=== PATIENT | female | born 1955 | race Caucasian/White ===

== ENCOUNTER → 2017-05-31 | Outpatient (CLI) | payer BC, SELFPAY | PROVIDERS: Visit Provider Physician Assistant | DX: R00.2 Palpitations (principal) | CPT/HCPCS: 80053; 80061; 82306; 84439; 84443; 85025 ==

== ENCOUNTER → 2017-09-27 09:24 | Outpatient (REF) | payer BC, SELFPAY ==
[2017-09-27 18:17] LABS: T4 (Thyroxine) 9.1 ug/dl (4.7-13.3); Thyroid Stimulating Hormone 4.76 uIU/ml (0.358-3.740)
== END ==
LOC: LAB 09:24
PROVIDERS: Visit Provider Physician Assistant
DX: R94.6 Abnormal results of thyroid function studies (principal)
CPT/HCPCS: 84436; 84443

== ENCOUNTER → 2018-09-18 09:44 | Outpatient (CLI) | payer BC, SELFPAY ==
--- NOTE | 2018-09-18 09:49 | XR_ITS ---
XR knee LT 4V HISTORY: Anterior knee pain ITS.REASON: AP, Lateral, Day, norris weightbearing ORDERING PHYSICIAN: Cassi Fraga MD PATIENT AGE: 62 years COMPARISON: None FINDINGS: Moderate to severe osteoarthritic changes are present at the medial compartment and patellofemoral joint with loss of joint space and osteophyte formation. These findings are slightly worse on today's study. There remains a loose intra-articular body noted over the interspinous region of the proximal tibia. No fracture or dislocation. No lytic or blastic change. IMPRESSION: Moderate to severe osteoarthritis slightly worse with loose intra-articular body
== END ==
PROVIDERS: PCP Emergency Medicine; Visit Provider Orthopaedic Surgery
DX: M25.562 Pain in left knee (principal)
CPT/HCPCS: 73564

== ENCOUNTER → 2018-12-07 08:25 | Outpatient (CLI) | payer BC, SELFPAY ==
--- NOTE | 2018-12-07 08:26 | MM_ITS ---
MM Dig SC mamm implant BI CAD CAD Screening COMPARISON: Outside Digital mammograms with CAD 10/20/2011 INDICATION: There is no personal or family history of breast cancer.. The patient has bilateral breast implants TECHNIQUE: Standard CC and MLO images were obtained. R2 CAD reviewed. FINDINGS: Standard MLO and CC views were obtained along with additional Silvio views for the breast implants. Mildly heterogenic fibroglandular densities are seen in the new [place] breast parenchyma around the implants. There is a benign-appearing calcination right breast. Both implants appear intact with no evidence of leakage. There is no suspicious lesion and there are no suspicious microcalcifications. IMPRESSION: Intact breast implants bilaterally with no suspicious lesion seen BI-RADS Category: 2 Benign Finding(s) RECOMMENDED FOLLOW-UP: 1YR - 1 YEAR FOLLOW-UP (A letter has been sent to the patient regarding results of the study.)
== END ==
PROVIDERS: PCP Physician Assistant; Visit Provider Physician Assistant
DX: Z12.31 Encounter for screening mammogram for malignant neoplasm of breast (principal)
CPT/HCPCS: 77067

== ENCOUNTER 2019-08-29 13:00 | Outpatient (RCR) | payer BC, SELFPAY | END 2019-08-29 14:30 | disposition home or self-care (01) | LOC: PT.CARL 13:00 | PROVIDERS: PCP Physician Assistant; Visit Provider Orthopaedic Surgery | DX: Z96.652 Presence of left artificial knee joint (principal); Z74.09 Other reduced mobility; M17.12 Unilateral primary osteoarthritis, left knee | CPT/HCPCS: 97010; 97014; 97110; 97140; 97163; G0283 ==

== ENCOUNTER → 2020-02-21 09:11 | Outpatient (CLI) | payer BC, SELFPAY | PROVIDERS: PCP Physician Assistant; Visit Provider Physician Assistant | DX: R00.2 Palpitations (principal); I49.9 Cardiac arrhythmia, unspecified | CPT/HCPCS: 93225; 93226 ==

== ENCOUNTER → 2021-08-06 16:00 | Outpatient (CLI) | payer BC, SELFPAY ==
[2021-08-06 14:17] LABS: Basophils # 0.1 K/mm3 (0-0.2); Basophils % 0.9 % (0.1-2.0); Eosinophils # 0.1 K/mm3 (0.0-0.4); Eosinophils % 1.5 % (0.1-12.0); Hematocrit 46.6 % (37.0-47.0); Hemoglobin 14.7 g/dL (12.2-16.2); Lymphocytes # 2.5 K/mm3 (0.7-4.5); Lymphocytes % 27.9 % (10-50); Mean Corpuscular HGB Conc 31.6 g/dL (31.8-35.4); Mean Corpuscular Hemoglobin 27.9 pg (27.0-31.2); Mean Corpuscular Volume 88.2 fl (81-99); Mean Platelet Volume 9.2 fl (7.4-10.4); Monocytes # 0.8 K/mm3 (0.1-1.0); Monocytes % 8.6 % (1.7-9.3); Neutrophils # 5.5 K/mm3 (1.8-7.8); Neutrophils % 61.1 % (37.0-80.0); Platelet Count 484 K/mm3 (142-424); Red Blood Count 5.28 M/mm3 (4.20-5.40); Red Cell Distribution Width 13.8 % (11.5-17.5); White Blood Count 8.9 K/mm3 (4.8-10.8)
[2021-08-06 14:23] LABS: Alanine Aminotransferase 22 U/L (12-78); Albumin Level 4.9 g/dl (3.5-5.0); Albumin/Globulin Ratio 1.7 (1.1-1.8); Alkaline Phosphatase 97 U/L (38-126); Aspartate Amino Transferase 33 U/L (14-36); Bilirubin,Total 0.6 mg/dl (0.2-1.3); Blood Urea Nitrogen 13 mg/dl (7-17); Calcium 10.5 mg/dl (8.4-10.2); Carbon Dioxide 27 mmol/L (22.0-30.0); Chloride 102 mmol/L (98-107); Chol/HDL Ratio 4.5 (1-3.5); Cholesterol 291 mg/dl (140-200); Estimated Glomerular Filt Rate 101 ml/min (>60); GFR (African American) 122 ML/MIN (>60); Globulin 2.9 g/dL (1.3-3.2); Glucose 80 mg/dl (74-100); HDL Cholesterol 65 mg/dl (40-60); Sodium 137 mmol/L (136-145); Total Protein,Serum 7.8 g/dl (6.3-8.2); Triglycerides 229 mg/dl (30-150); VLDL Cholesterol 46 mg/dL (0-40)
[2021-08-06 14:34] LABS: Direct LDL Cholesterol 181.41 mg/dL (100-129)
[2021-08-06 14:40] LABS: 25-OH Vitamin D, Total 39.1 ng/mL (30-100)
[2021-08-06 14:55] LABS: Thyroid Stimulating Hormone 3.31 uIU/mL (0.465-4.68)
[2021-08-08 09:05] LABS: Cancer Antigen (CA) 125 11.3 U/mL (0.0-38.1)
== END ==
PROVIDERS: Visit Provider Physician Assistant
DX: I10 Essential (primary) hypertension (principal); R10.2 Pelvic and perineal pain; R53.83 Other fatigue; Z23 Encounter for immunization; Z80.41 Family history of malignant neoplasm of ovary
CPT/HCPCS: 80053; 80061; 82306; 84443; 85025; 86316

== ENCOUNTER → 2021-08-21 09:03 | Outpatient (CLI) | payer BC, SELFPAY ==
--- NOTE | 2021-08-21 09:03 | MR_ITS ---
FINAL REPORT TECHNIQUE: Small [id number] MR imaging of the central pelvis was performed with and without contrast. CLINICAL HISTORY: pelvic pain, f/h ovarian CA, equivocal US. FINDINGS: There are postoperative changes of presumed supra cervical hysterectomy. There is no adenopathy or mass. The urinary bladder is unremarkable. Pelvic bowel loops are normal. There is no adenopathy or mass. There is no abnormal fluid collection or abnormal contrast enhancement. Mild degenerative changes are seen of the SI joints and lower lumbar spine. IMPRESSION: Unremarkable exam without adenopathy or mass. Reviewed, Interpreted and Dictated by Reid Grant III, MD Transcribed by Yue San Authenticated by Reid Grant III, MD on 08/21/2021 12:20:47 PM [facility]
== END ==
PROVIDERS: PCP Physician Assistant; Visit Provider Physician Assistant
DX: R10.2 Pelvic and perineal pain (principal); Z80.41 Family history of malignant neoplasm of ovary
CPT/HCPCS: 72197

== ENCOUNTER → 2022-06-16 12:58 | Outpatient (CLI) | payer MEDICARE, SELFPAY ==
--- NOTE | 2022-06-16 13:04 | MM_ITS ---
PROCEDURE INFORMATION: Exam: MG Bilateral Screening 3D Mammography Exam date and time: 06/16/2022 12:54 PM Age: 66 years old Clinical indication: Screening mammogram TECHNIQUE: Imaging protocol: Bilateral Screening tomosynthesis and 2D mammography including computer-aided detection (CAD) when performed. COMPARISON: MG DIG MAMM-SCREEN IMPLANT 12/07/2018 8:44 AM FINDINGS: MAMMOGRAPHY: Breast composition: The breast is heterogeneously dense, which may obscure small masses. Mass: None. Architectural distortion: No new or suspicious architectural distortion. Calcifications: No new or suspicious calcifications are present Asymmetric density: No new or suspicious asymmetric density is present Skin thickening: None. Axillary adenopathy: None. Implants: Subpectoral saline augmentation implants are present. IMPRESSION: No mammographic evidence of malignancy. Recommend annual screening mammography unless otherwise clinically indicated. ASSESSMENT: BI-RADS category 2: Benign
== END ==
PROVIDERS: PCP Physician Assistant; Visit Provider Physician Assistant
DX: Z12.31 Encounter for screening mammogram for malignant neoplasm of breast (principal)
CPT/HCPCS: 77063; 77067

== ENCOUNTER 2023-09-21 10:31 | Outpatient (CLI) | payer MEDICARE, SELFPAY ==
[2023-09-21 18:54] LABS: Basophils # 0.1 K/mm3 (0-0.2); Eosinophils # 0.2 K/mm3 (0.0-0.4); Eosinophils % 1.9 % (0.1-12.0); Hematocrit 48.6 % (37.0-47.0); Hemoglobin 15.3 g/dL (12.2-16.2); Lymphocytes # 2.8 K/mm3 (0.7-4.5); Lymphocytes % 29.1 % (10-50); Mean Corpuscular HGB Conc 31.5 g/dL (31.8-35.4); Mean Corpuscular Hemoglobin 31.3 pg (27.0-31.2); Mean Corpuscular Volume 99.3 fl (81-99); Mean Platelet Volume 10.1 fl (7.4-10.4); Monocytes # 0.6 K/mm3 (0.1-1.0); Monocytes % 6.8 % (1.7-9.3); Neutrophils # 5.8 K/mm3 (1.8-7.8); Neutrophils % 61.2 % (37.0-80.0); Platelet Count 408 K/mm3 (142-424); Red Blood Count 4.89 M/mm3 (4.20-5.40); White Blood Count 9.5 K/mm3 (4.8-10.8)
[2023-09-21 19:01] LABS: Alanine Aminotransferase 25 U/L (12-78); Albumin Level 4.3 g/dl (3.5-5.0); Albumin/Globulin Ratio 1.4 (1.1-1.8); Alkaline Phosphatase 112 U/L (38-126); Anion Gap 11.8 mEq/L (5-15); Aspartate Amino Transferase 39 U/L (14-36); Bilirubin,Total 0.5 mg/dl (0.2-1.3); Blood Urea Nitrogen 14 mg/dl (7-17); Calcium 10.7 mg/dl (8.4-10.2); Carbon Dioxide 24 mmol/L (22.0-30.0); Chloride 105 mmol/L (98-107); Chol/HDL Ratio 5.5 (1-3.5); Cholesterol 278 mg/dl (140-200); Estimated Glomerular Filt Rate 100 ml/min (>60); GFR (African American) 121 ML/MIN (>60); Glucose 86 mg/dl (74-100); HDL Cholesterol 51 mg/dl (40-60); Potassium 4.8 mmoL/L (3.5-5.1); Sodium 136 mmol/L (136-145); Total Protein,Serum 7.3 g/dl (6.3-8.2); Triglycerides 137 mg/dl (30-150); VLDL Cholesterol 27 mg/dL (0-40)
[2023-09-21 19:16] LABS: Direct LDL Cholesterol 161.54 mg/dL (100-129)
[2023-09-21 20:03] LABS: 25-OH Vitamin D, Total 49.1 ng/mL (30-100)
[2023-09-21 20:17] LABS: Thyroid Stimulating Hormone 2.88 uIU/mL (0.465-4.68)
[2023-09-22 09:54] LABS: Intact Parathyroid Hormone 54.5 pg/mL (7.5-53.5)
[2023-09-23 16:19] LABS: Calcium, Ionized 5.9 mg/dL (4.5-5.6)
== END 2023-09-21 23:59 | disposition home or self-care (01) ==
LOC: LAB.DROPOF 09-22 10:31
PROVIDERS: PCP Physician Assistant; Visit Provider Physician Assistant
DX: R53.83 Other fatigue (principal); E55.9 Vitamin D deficiency, unspecified; E78.5 Hyperlipidemia, unspecified; I10 Essential (primary) hypertension; R89.9 Unspecified abnormal finding in specimens from other organs, systems and tissues; Z68.24 Body mass index [BMI] 24.0-24.9, adult
CPT/HCPCS: 80053; 80061; 82306; 82330; 83970; 84443; 85025

== ENCOUNTER 2023-12-20 09:08 | Outpatient (CLI) | payer MEDICARE, SELFPAY ==
[2023-12-20 10:35] LABS: Alanine Aminotransferase 25 U/L (12-78); Albumin Level 4.1 g/dl (3.5-5.0); Albumin/Globulin Ratio 1.3 (1.1-1.8); Alkaline Phosphatase 112 U/L (38-126); Anion Gap 8.7 mEq/L (5-15); Aspartate Amino Transferase 31 U/L (14-36); Bilirubin,Total 0.5 mg/dl (0.2-1.3); Blood Urea Nitrogen 15 mg/dl (7-17); Calcium 10.3 mg/dl (8.4-10.2); Carbon Dioxide 28 mmol/L (22.0-30.0); Chloride 105 mmol/L (98-107); Estimated Glomerular Filt Rate 100 ml/min (>60); GFR (African American) 121 ML/MIN (>60); Globulin 3.1 g/dL (1.3-3.2); Glucose 82 mg/dl (74-100); Potassium 4.7 mmoL/L (3.5-5.1); Sodium 137 mmol/L (136-145); Total Protein,Serum 7.2 g/dl (6.3-8.2)
[2023-12-20 10:56] LABS: Intact Parathyroid Hormone 89.2 pg/mL (7.5-53.5)
[2023-12-20 11:01] LABS: 25-OH Vitamin D, Total 37.3 ng/mL (30-100)
[2023-12-22 10:33] LABS: Calcium, Ionized 5.4 mg/dL (4.5-5.6)
== END 2023-12-20 23:59 | disposition home or self-care (01) ==
LOC: LAB 09:10
PROVIDERS: PCP Physician Assistant; Visit Provider Physician Assistant
DX: R79.89 Other specified abnormal findings of blood chemistry (principal); E21.3 Hyperparathyroidism, unspecified; Z68.24 Body mass index [BMI] 24.0-24.9, adult
CPT/HCPCS: 36415; 80053; 82306; 82330; 83970

== ENCOUNTER 2024-01-05 08:17 | Outpatient (CLI) | payer MEDICARE, SELFPAY ==
--- NOTE | 2024-01-05 08:18 | NM_ITS ---
FINAL REPORT CLINICAL HISTORY: Elevated PTH 8:40 am 20.6 mci tc sestambi injected into lt ant COMPARISON: None FINDINGS: 20.6 mci Technetium Sestamibi was administered. Planar imaging was performed early and two-hour delayed of the neck and upper thorax. Early imaging shows physiologic uptake within the upper neck involving the salivary glands and lower neck involving the thyroid gland. On delayed imaging there is no abnormal retained activity in the lower neck or mediastinum to localize parathyroid adenoma. IMPRESSION: No scintigraphic evidence of parathyroid adenoma. Reviewed, Interpreted and Dictated by Shiv Sanchez MD Transcribed by Wilma Reddy Authenticated and [facility]
== END 2024-01-05 23:59 | disposition home or self-care (01) ==
LOC: RAD 08:18
PROVIDERS: PCP Physician Assistant; Visit Provider Physician Assistant
DX: R79.89 Other specified abnormal findings of blood chemistry (principal)
CPT/HCPCS: 78070; A9502

== ENCOUNTER 2024-01-16 13:55 | Outpatient (POV) | payer MEDICARE, SELFPAY ==
--- NOTE | 2024-01-16 14:17 | A.OFFVIS_ITS ---
HPI Data of Consult Patient: new to practice Consult date: 01/16/24 Requesting Physician: Dominique Lozada APRN Primary Care Provider: POLO Mulligan Consult Narrative Reason for consult: low back pain, bilateral hip pain History of present illness: Ms. Guajardo is a 68 year old female who presents today as a new patient. She is a referral from Meredith Conti's office. Today she rates her pain a 7 out of 10. Patient states she has pain all across her low back and bilateral hips. Patient does state this has been going on for over 2 years unrelated to any specific trauma or injury. She does state the pain is a burning sensation that is worse with certain positions such as bending. Patient states that it is fairly constant and does interfere with her ability perform activities of daily living such as cooking and cleaning. Patient has tried Tylenol and meloxicam with minimal relief. She states the meloxicam typically bothers her stomach and that she continues to use heat and has tried topicals such as Voltaren with no additional improvement. Patient is interested in any help we may be able to provide as this has been going on for some time with no changes. Patient denies any prior surgery or injection history. Patient has not had recent physical therapy however states that she is very active and does exercise and stretches at home on a regular basis.Her Rip has been reviewed and is appropriate. CC: Dominique Lozada APRN [facility] Disclaimer: The information contained in this section may have been updated after the patient was seen, as this information can be updated by other users. Medical History (Updated 01/16/24 @ 14:29 by Dominique Lozada APRN) Hypertension Migraine headache Arrhythmia Surgical History Status post right knee replacement (~01/2017) Social History Smoking Status: Never smoker alcohol intake: never substance use type: denies use current occupational status: other Travel in the last 8 weeks: None household members: adopted family Review of Systems Review of Systems Review of systems:: pertinent systems reviewed and negative unless documented below Review of systems (narrative): Review of Systems: General: No recent weight changes, no fever, no sleep disturbances Respiratory: No cough, no shortness of air, no recurring pulmonary infections Cardiovascular/peripheral vascular: No chest pain, no palpitations, no edema, no shortness of breath Gastrointestinal: No new onset incontinence, normal bowel movements reported Genitourinary: No new onset incontinence Musculoskeletal: Low back pain, bilateral hip pain Psychiatric: [Normal mood/affect] Neurological: [Denies weakness in extremities], [denies balance issues] Meds Home Medications and Allergies Home Medications ?Medication ?Instructions ?Recorded ?Confirmed ?Type krill oil 500 mg capsule 1,000 mg PO 09/09/20 12/20/23 History magnesium oxide 140 mg capsule 140 mg PO DAILY 09/09/20 12/20/23 History butalbital 50 mg-acetaminophen 325 1 tab PO Q6HP PRN Headache #60 tabs 09/21/23 12/20/23 Rx mg tablet metoprolol succinate 50 mg 50 mg PO DAILY #90 tabs 09/21/23 12/20/23 Rx tablet,extended release 24 hr (Toprol XL) meloxicam 7.5 mg tablet 7.5 mg PO DAILY #30 tabs 12/22/23 Rx New Prescriptions to Start Prescriptions: Allergies Allergy/AdvReac Type Severity Reaction Status Date / Time No Known Allergies Allergy Verified 12/20/23 08:34 Objective Narrative: Physical Exam: General: Alert and oriented x3, no acute distress, pleasant and cooperative Lungs: Respirations even and unlabored, symmetrical chest expansion Eyes: PERRL Musculoskeletal: Flexion and extension of lumbar [spine] somewhat guarded secondary to pain, [antalgic gait noted] point tenderness along bilateral SIs with positive bilateral Germán's, Ladonan's, Gaenslen's, compression and distraction exam Neurological: Speech clear, no gross sensory deficit Additional findings Additional findings: FINDINGS: There are postoperative changes of presumed supra cervical hysterectomy. There is no adenopathy or mass. The urinary bladder is unremarkable. Pelvic bowel loops are normal. There is no adenopathy or mass. There is no abnormal fluid collection or abnormal contrast enhancement. Mild degenerative changes are seen of the SI joints and lower lumbar spine. IMPRESSION: Unremarkable exam without adenopathy or mass. Reviewed, Interpreted and Dictated by Reid Grant III, MD Transcribed by Yue San Authenticated by Reid Grant III, MD on 08/21/2021 12:20:47 PM [facility] Assessment and Plan *Assessment and plan (1) Bilateral sacroiliitis: Status: Acute Category: Medical Code(s): M46.1 - Sacroiliitis, not elsewhere classified Plan Patient is experiencing worsening pain throughout her low back and bilateral hips with limited range of motion. Patient did have lower extreme point tenderness along her left SI and point tenderness on the right with positive bilateral Germán's, Ladonna's, Gaenslen's, compression and distraction exam. I have discussed with patient that she may benefit from bilateral SI injections. Risk and benefits were discussed with the patient and she would like to proceed forward with this plan of care. Patient has tried and failed conservative therapy including continued at home stretching exercise for longer than 6 weeks. We will schedule the patient for bilateral SI injections under fluoroscopy. Patient has been instructed to contact the clinic with any concerns before the next appointment. Dr. Huang has reviewed this note and agrees with this plan of care. This note was dictated using voice recognition software and make contain errors or omissions. All injections are used with Lidocaine or Bupivacaine and Depo Medrol.
[2024-01-16 14:41] VITALS: BP 142/87; PULSE 88; RESP 18; O2SAT 97; BMI 24.5
== END 2024-01-16 23:59 | disposition home or self-care (01) ==
PROVIDERS: PCP Physician Assistant; Visit Provider Nurse Practitioner Family
DX: M46.1 Sacroiliitis, not elsewhere classified (principal); Z73.89 Other problems related to life management difficulty
CPT/HCPCS: 99202; G0463

== ENCOUNTER 2024-01-31 14:05 | Day surgery (SDC) | payer MEDICARE, SELFPAY ==
--- OUTSIDE RECORDS SUMMARY | 2024-01-31 14:08 | XMS_ITS ---
Author Organization [facility] Address [address] [place] [id number] Phone Care Team Providers Care Want Ad Clerk Name Role Phone Deedee FATIMA, Vikram Unavailable [phone] Meredith Conti PA-C Unavailable [phone] Problems Includes: Active, inactive, and resolved Problems All Visits Onset Date Resolved Date Provider Condition S tatus Joint Pain Fingers 12/26/2023 Vikram Mark MD Active Last Documented On 4 11:24AM ; [facility] Plan of Treatment Future Appointments Date Time Location Provi stephania Follow Up 02/06/2024 1:00PM [facility] Vikram Mark MD Last Documented On 4 12:06PM ; [facility] Assessments Includes: Assessments for all patient encounters No Assessments Recorded Medical Equipment - Implanted Devices Includes: Current and historical Devices No Medical Equipment Recorded Medications Includes: Current and historical Medications Current Medications (continue as prescribed) Meloxicam 7.5 MG Oral Tablet 12/22/2023 Provider: Diagnosis: Last Documented On 4 11:26AM By Evelyn [facility], [facility] Meloxicam 7.5 MG Oral Tablet 09/21/2023 Provider: Diagnosis: Last Documented On 4 11:26AM By Evelyn Martinez ; [facility] Metoprolol Succinate ER 50 M G Oral Tablet, extended-release 24 hour 09/21/2023 Provider: Diagnosis: Last Documented On 4 11:26AM By Evelyn Martinez ; [facility] Butalbital-Acetaminophen 50-325 MG Oral Tablet 024 Provider: Diagnosis: Last Documented On 4 11:26AM By Evelyn Martinez ; [facility] Medications Administered Includes: Administered Medications in patient's chart No Administered Medications Recorded Vital Signs Includes: Vital Signs from 01/30/2023 through 01/31/2024 Vital Name 12/26/2023 11:25A Height (in) 67 Weight (lb) 157 Body Mass Index 24.6 Body Surface Area 1.8 Note: cme Last Documented: On 12/26/2023 11:25A M ; [facility] Results Includes: Results from 01/30/2023 through 01/31/2024 No Results Recorded For Specified Dates History of Present Illness History of Present Illness not supported for this document type No History of Present Illness Recorded Social History Description Last Updated Alcohol use 12/26/2023 Last Documented On 4 12:05PM ; [facility] Caffeine use 12/26/2023 Last Documented On 4 12:05PM ; [facility] No recent change in diet 12/26/2023 Last Documented On 4 12:05PM ; [facility] Not a current smoker. 12/26/2023 Last Documented On 4 12:05PM ; [facility] Not exercising regularly 12/26/2023 Last Documented On 4 12:05PM ; [facility] Not using drugs 12/26/2023 Last Documented On 4 12:05PM ; [facility] Retired from work 12/26/2023 Last Documented On 4 12:05PM ; [facility] Smoking Status Unknown Procedures and Surgical History Includes: Procedures from 01/30/2023 through 01/31/2024 Procedures Code Diagnosis Performing Provider Service Location Service Date INJ TENDON SHEATH/LIGAMENT (RIGHT HAND, FOURTH DIGIT) Trigger finger, right ring finger Vikram Mark MD [facility] 12/26/2023 Last Documented On 4 12:49PM ; [facility] Injection, betamethasone acetate 6mg per cc and betamethason [id number] Trigger finger, right ring finger Vikram Mark MD [facility] 12/26/2023 Last Documented On 4 12:49PM ; [facility] Surgical History Last Updated History of hysterectomy 12/26/2023 Last Documented On 4 12:05PM ; [facility] History of total knee arthroplasty 12/25 Last Documented On 4 12:05PM ; [facility], [facility] Medical History Includes: Medical History in patient's chart Description Last Updated History of arthritis 12/26/2023 Last Documented On 4 12:05PM ; [facility] History of Irregular Heartbeat 4 Last Documented On 4 12:05PM ; [facility], [facility] Family History Includes: Family History in patient's chart Description Last Updated Diabetes mellitus 12/26/2023 Last Documented On 4 12:05PM ; [facility] Family history of heart disease 12/26/19 24 Last Documented On 4 12:05PM ; [facility] Family history of systemic hypertension 12/26/2023 Last Documented On 4 12:05PM ; [facility] Maternal history of systemic hypertensio n 12/26/2023 Last Documented On 4 12:05PM ; [facility] Paternal history of family history of he art disease 12/26/2023 Last Documented On 4 12:05PM ; [facility], [facility] Sororal history of diabetes mellitus Last Documented On 4 12:05PM ; [facility], [facility] Review of Systems Review of Systems not supported for this document type No Review of Systems Recorded Mental Status Description No anxiety Functional Status No Functional Status Recorded Physical Exam Physical Exam not supported for this document type No Physical Exam Recorded Allergies Includes: Active, inactive, and resolved Allergies No Known Allergies Encounters Includes: Encounters from 01/30/2023 through 01/31/2024 Encounter Provider Location Date Check-In Time Check-Out Time Diagnosis Physician Specified Vikram Mark MD [facility] 12/26/19 24 10:59AM 12:04PM Insurance Includes: Active Insurance Policies Plan Name Member ID Group # Subscriber Relationship Effect turner Dates 1 - [employer] [id number] Marialuisa Guajardo Self Clinical Notes Includes: Signed Clinical Notes starting from 05/27/2022 * Progress note Date Encounter Last Documented by 12/26/2023 Physician Specified Last beverly strange on 12/26/2023; 12:05 PM, Vikram Mark MD; [facility], [facility] Active Problems & Conditions - Joint Pain Fingers Chief Complaint The Chief Complaint is: Ring finger trigger. History of Present Illness Marialuisa Guajardo is a 68 year old female. - Allergy list reviewed - Problem list reviewed - Medication list reviewed - Patient pain level from 1-10: 3 - History of Home Exercise - - Review of medications documented Patient reports a right ring finger trigger digit for a proximally a month. She has not had any treatment. Current Medication - Butalbital-Acetaminophen 50-325 MG Oral Tablet 15 days, 0 refills - Meloxicam 7.5 MG Oral Tablet 30 days, 0 refills - Meloxicam 7.5 MG Oral Tablet 30 days, 0 refills - Metoprolol Succinate ER 50 MG Oral Tablet, extended-release 24 hour 90 days, 0 refills Past Medical/Surgical History Diagnoses: Irregular Heartbeat. Arthritis Surgical: - Hysterectomy - Total knee arthroplasty Social History Not a current smoker. Current diet: No recent change in diet. Caffeine use: Caffeine use. Alcohol: Alcohol use. Drug Use: Not using drugs. Habits: Not exercising regularly. Work: Retired from work. Allergies - No Known Allergies Family History Heart disease Diabetes mellitus Systemic hypertension Paternal: Heart disease Maternal: Systemic hypertension Sororal: Diabetes mellitus Review Of Systems Systemic: No symptoms, not feeling tired, no recent weight loss, and no recent weight gain. Head: Headache. No sinus pain. Eyes: No vision problems, no Cataracts, no Glasses/Contacts, and no Glaucoma. Otolaryngeal: No hearing loss and no tinnitus. Cardiovascular: No chest pain or discomfort. Palpitations. No Hypertension and no High Cholesterol. Pulmonary: No daytime asthma symptoms and no chronic cough. No wheezing. Gastrointestinal: No heartburn and no abdominal pain. No Indigestion, no Peptic Ulcer, no GI Stomach Bleed, no Ulcers, and no Acid Reflux. Endocrine: No hot flashes, no muscle weakness, no Diabetes, no Hypothyroid, and no Hyperthyroid. Hematologic: No easy bleeding, no tendency for easy bruising, and no Anemia. Musculoskeletal: No Arthritis and no lower back pain. No soft tissue swelling and no localized joint pain. Neurological: No dizziness, no convulsions, and no numbness. Psychological: No anxiety, no emotional lability, no depression, and no insomnia. Not crying for no reason. Skin: No dry skin. No Ulcers, no Scars, and no rash. Allergic and Immunologic: No complaint of seasonal allergic reaction. Physical Findings - Vitals taken 12/26/2023 11:25 am cme Height 67 in Weight 157 lbs Body Mass Index 24.6 kg/m2 Body Surface Area 1.8 m2 PHYSICAL EXAM: CONSTITUTIONAL: Well developed, well groomed, well nourished patient in no acute distress who appears stated age, height and weight. PSYCHIATRIC: The patient is alert and oriented to person, place, date and situation. Mood and affect are normal for current situation. NEUROLOGICAL: Sensation normal bilateral upper and lower extremities. LYMPHATIC: No pitting edema noted in the lower extremities. SKIN: No lesions noted on upper or lower extremities. Skin is dry, warm and with normal turgor. VASCULAR: No swelling in upper or lower extremities other than described below in extremity exam. Pulses normal in both upper (radial) extremities. GAIT AND STATION: Normal gait without assistive devices. Station normal. Right WRIST/HAND: Able to make a composite fist Able to flex and extend all fingers Hand is warm and well perfused Sensation intact to light touch distally in all nerve distributions There is triggering of the ring finger. She has tenderness of the A1 dianne with nodularity and crepitus. Counseling/Education - Tobacco non-user - Use of tobacco assessment performed Plan Patient has a physical exam consistent with a right ring finger trigger digit. She demonstrated locking on exam today. She has tenderness over the A1 dianne. We talked about operative versus nonoperative management. The risks and benefits of a trigger finger injection were discussed. I answered all of the patient's questions and they verbally consented to the procedure. The skin over the A1 dianne was prepped with isopropyl alcohol and allowed to dry. Utilizing a sterile needle, I injected 1/2 cc of betamethasone and 1/2 cc of 1% lidocaine into the flexor tendon sheath. The needle was withdrawn and the injection site was dressed with a sterile Band-Aid. The patient tolerated the procedure well without any apparent complication. Post-injection instructions were discussed. Patient will follow up in a proximally 6 weeks. Notes This dictation was done with voice recognition software and may contain errors and omissions. Care Team - Meredith Conti PA-C
--- OUTSIDE RECORDS SUMMARY | 2024-01-31 14:09 | XMS_ITS | Clinical Summary ---
Author Organization [facility] [[email or web address]] [facility] , [facility] Address [address] [place] [address] Phone Care Team Providers Care Forensic Toxicologist Name Role Phone Deedee FATIMA, Vikram Unavailable [phone] Meredith Conti PA-C Unavailable [phone] Reason for Visit and Chief Complaint The Chief Complaint is: ring finger trigger Problems Includes: Problems addressed during this encounter and other active Problems Current Visit Onset Date Resolved Date Provider Gerard jones Status Joint Pain Fingers 12/26/2023 Vikram Mark MD Active Last Documented On 11:24AM ; [facility] Plan of Treatment Patient has a physical exam consistent with [...] follow up in a proximally 6 weeks. - Last Documented On 12/26/2023 12:05PM ; [facility] Future Appointments Date Time Location Provi stephania Follow Up 02/06/2024 1:00PM [facility] LUIS FELIPE Mark MD Last Documented On 4 12:06PM ; [facility], [facility] Assessments Includes: Assessments from this encounter No Assessments Recorded Medical Equipment - Implanted Devices Includes: Current Devices No Medical Equipment Recorded Medications Includes: Medications discussed during this encounter and other current Medications Current Medications (continue as prescribed) Meloxicam 7.5 MG Oral Tablet 12/22/2023 Provider: Diagnosis: Last Documented On 4 11:26AM By Evelyn Martinez ; [facility] Meloxicam 7.5 MG Oral Tablet 09/21/2023 Provider: Diagnosis: Last Documented On 4 11:26AM By Evelyn Martinez ; [facility] Metoprolol Succinate ER 50 M G Oral Tablet, extended-release 24 hour 09/21/2023 Provider: Diagnosis: Last Documented On 4 11:26AM By Evelyn Martinez ; [facility] Butalbital-Acetaminophen 50-325 MG Oral Tablet 024 Provider: Diagnosis: Last Documented On 4 11:26AM By Evelyn Martinez ; [facility] Medications Administered Includes: Administered Medications from this encounter No Administered Medications Recorded Vital Signs Includes: Vital Signs from this encounter Vital Name 12/26/2023 11:25A Height (in) 67 Weight (lb) 157 Body Mass Index 24.6 Body Surface Area 1.8 Note: cme Last Documented: On 12/26/2023 11:25A M ; [facility] Results Includes: Results discussed during this encounter No Results Recorded For Specified Dates History of Present Illness Includes: History of Present Illness from this encounter LAURA Guajardo is a 68 year old female. - Allergy list reviewed - Problem list reviewed - Medication list reviewed - Patient pain level from 1-10: 3 - History of Home Exercise - - Review of medications documented Patient reports a right ring finger trigger digit for a proximally a month. She has not had any treatment. Social History Description Last Updated Alcohol use 12/26/2023 Last Documented On 4 12:05PM ; [facility] Caffeine use 12/26/2023 Last Documented On 4 12:05PM ; [facility] No recent change in diet 12/26/2023 Last Documented On 4 12:05PM ; [facility] Not a current smoker. 12/26/2023 Last Documented On 4 12:05PM ; [facility] Not exercising regularly 12/26/2023 Last Documented On 4 12:05PM ; [facility], [facility] Not using drugs 12/26/2023 Last Documented On 4 12:05PM ; [facility], [facility] Retired from work 12/26/2023 Last Documented On 4 12:05PM ; [facility], [facility] Smoking Status Unknown Procedures and Surgical History Includes: Procedures from this encounter Procedures Code Diagnosis Performing Provider Service Location Service Date INJ TENDON SHEATH/LIGAMENT (RIGHT HAND, FOURTH DIGIT) Trigger finger, right ring finger Vikram Mark MD [facility] 12/26/2023 Last Documented On 4 12:49PM ; [facility], [facility] Injection, betamethasone acetate 6mg per cc and betamethason J0702 Trigger finger, right ring finger Vikram Mark MD [facility] 12/26/2023 Last Documented On 4 12:49PM ; [facility], [facility] Surgical History Last Updated History of hysterectomy 12/26/2023 Last Documented On 4 12:05PM ; [facility], [facility] History of total knee arthroplasty 12/25 Last Documented On 4 12:05PM ; [facility], [facility] Medical History Includes: Medical History addressed during this encounter Description Last Updated History of arthritis 12/26/2023 Last Documented On 4 12:05PM ; [facility], [facility] History of Irregular Heartbeat 4 Last Documented On 4 12:05PM ; [facility], [facility] Family History Includes: Family History addressed during this encounter Description Last Updated Diabetes mellitus 12/26/2023 Last Documented On 4 12:05PM ; [facility], [facility] Family history of heart disease 12/26/19 Last Documented On 4 12:05PM ; [facility], [facility] Family history of systemic hypertension 12/26/2023 Last Documented On 4 12:05PM ; [facility], [facility] Maternal history of systemic hypertensio n 12/26/2023 Last Documented On 4 12:05PM ; [facility] Paternal history of family history of he art disease 12/26/2023 Last Documented On 4 12:05PM ; [facility] Sororal history of diabetes mellitus Last Documented On 4 12:05PM ; [facility] Review of Systems Includes: Review of Systems from this encounter Systemic: No symptoms, not feeling tired, no [...] Immunologic: No complaint of seasonal allergic reaction. Mental Status Includes: Mental Status from this encounter Description No anxiety Functional Status Includes: Functional Status from this encounter No Functional Status Recorded Physical Exam Includes: Physical Exam from this encounter Allergies Includes: Active Allergies No Known Allergies Encounters Encounter Provider Location Date Check-In Time Check-Out Time Diagnosis Physician Specified Vikram Mark MD [facility] 12/26/19 24 10:59AM 12:04PM Insurance Includes: Active Insurance Policies Plan Name Member ID Group # Subscriber Relationship Effect turner Dates 1 - [employer] [id number] Marialuisa Guajardo Self Clinical Notes Includes: Clinical Notes from this encounter * Progress note Date Encounter Last Documented by 12/26/2023 Physician Specified Last beverly strange on 12/26/2023; 12:05 PM, Vikram Mark MD; [facility] Active Problems & Conditions - [...]
--- OUTSIDE RECORDS SUMMARY | 2024-01-31 14:09 | XMS_ITS ---
Care Plan - [facility], [facility] Created on: January 31, 2024 Marialuisa Guajardo : 1955 Sex: Female Author Organization [facility] , [facility] Address [address] [place] [phone] Phone Care Team Providers Care Gis Coordinator Name Role Phone Deedee FATIMA, Vikram Unavailable [phone] Meredith Conti PA-C Unavailable [phone]
[2024-01-31 14:24] VITALS: BP 138/70; PULSE 80; RESP 16; TEMP 36.9; O2SAT 96; BMI 24.5
[2024-01-31 14:33] VITALS: BP 132/67; PULSE 78; RESP 16; O2SAT 96
[2024-01-31] MEDS: BUPIVACAINE 0.25% 10ML INJ 25 MG IJ (14:36)
[2024-01-31] MEDS: methylPREDNISolone ACETATE 80MG/ML VIAL 80 MG (14:36)
[2024-01-31] MEDS: LIDOCAINE 1% 5ML PF VIAL 5 ML (14:36)
[2024-01-31 14:37] VITALS: BP 137/71; PULSE 78; RESP 18; O2SAT 97
[2024-01-31 14:38] VITALS: BP 137/71; PULSE 78; RESP 18; O2SAT 97
--- NOTE | 2024-01-31 14:52 | P.PCN_ITS ---
Procedure Date: 01/31/24 Time: 14:40 Anesthesiologist:: Franko Dobbins CRNA Complications:: None Pre-procedure Diagnosis:: Bilateral sacroiliitis Post-procedure Diagnosis:: Same Indications for Procedure:: Patient is a very pleasant 68-year-old female who comes our clinic today for bilateral sacroiliac joint injections of cortisone. She describes low lumbar back pain off the midline bilaterally is constant, dull, aching. Patient reports having difficulty transitioning from sitting to standing. She rates her pain 7/10. Procedure Details:: Procedure: Bilateral sacroiliac joint injections under fluoroscopy Informed consent was obtained and the risks and benefits of the procedure were explained to the patient.~ The patient was taken to the procedure room and noninvasive monitors were placed including a noninvasive blood pressure cuff and pulse oximeter.~ The patient was placed prone on the procedure table. Both hips were cleansed using Betadine as a cleansing solution. C-arm fluoroscopy was used to view the right sacroiliac joint.~ The skin and subcutaneous tissues were anesthetized using lidocaine 1.5% and a 25-gauge needle.~ After this, a 22-gauge spinal needle was inserted under fluoroscopic guidance into the inferior aspect of the right sacroiliac joint.~ Omnipaque dye was injected and good spread was seen throughout the joint.~ After this, approximately 5 mL of bupivacaine, 0.25% and Depo-Medrol, 40 mg was incrementally injected into the right sacroiliac joint. We then moved to the left sacroiliac joint.~ The skin and subcutaneous tissues were anesthetized using lidocaine 1.5% and a 25-gauge needle.~ After this, a 22- gauge spinal needle was inserted under fluoroscopic guidance into the inferior aspect of the left sacroiliac joint.~ Omnipaque dye was injected and good spread was seen throughout the joint. After this, approximately 5 mL of bupivacaine, 0.25% and Depo-Medrol, 40 mg was incrementally injected into the left sacroiliac joint.~ The patient tolerated the procedure well with no complications. The patient was observed in the Pain Clinic and then was discharged home neurologically intact. Plan and Disposition:: Patient was discharged without incident.
== END 2024-01-31 14:33 | disposition home or self-care (01) ==
LOC: SC.PAINP 14:07
PROVIDERS: PCP Physician Assistant; Visit Provider Nurse Anesthetist, Certified Registered
DX: M46.1 Sacroiliitis, not elsewhere classified (principal)
CPT/HCPCS: 27096; G0260; J1010

== ENCOUNTER 2024-03-12 13:44 | Outpatient (POV) | payer MEDICARE, SELFPAY ==
--- NOTE | 2024-03-12 14:22 | EXP.PAIN.SOA ---
[facility] Disclaimer: The information contained in this section may have been updated after the patient was seen, as this information can be updated by other users. Medical History (Updated 03/12/24 @ 14:25 by Dominique Lozada APRN) Hypertension Migraine headache Arrhythmia Surgical History Status post right knee replacement (~01/2017) Family History Other Unknown family medical history Social History Smoking Status: Never smoker alcohol intake: never substance use type: denies use current occupational status: other Travel in the last 8 weeks: None household members: adopted family PM Subjective & Objective Subjective Subjective:: Patient is a pleasant 68-year-old female who presents today for follow-up of bilateral SI injections on 01/31/2024. Today she rates her pain a 3 out of 10 however states in the mornings when she first wakes up it is a 7 or an 8 out of 10. Patient states that she does typically take a pain pill and this does help decrease it. Patient states that she did have 100% relief following these injections lasting at least a 4-week. Patient does however state that she feels like she is back to her baseline today. Patient states the pain is worse across her low back that is more noticeable with bending, twisting or lifting. Patient is interested in additional injection therapy due to the worsening pain. She states that he is interfering with her ability perform activities of daily living. Patient does state that she lives alone and she does not have the opportunity to not be active. Patient does also state that she was prescribed meloxicam 7.5 mg twice a day from Meredith Conti's office and that since she is no longer here at the hospital she is requesting if we can fill this medication. Patient denies any heart or kidney issues. Her Rip has been reviewed and is appropriate. Review of Systems: General: No recent weight changes, no fever, no sleep disturbances Respiratory: No cough, no shortness of air, no recurring pulmonary infections Cardiovascular/peripheral vascular: No chest pain, no palpitations, no edema, no shortness of breath Gastrointestinal: No new onset incontinence, normal bowel movements reported Genitourinary: No new onset incontinence Musculoskeletal: Low back pain Psychiatric: [Normal mood/affect] Neurological: [Denies weakness in extremities], [denies balance issues] Pain at rest (0-10 scale): 7 Objective Objective:: Physical Exam: General: Alert and oriented x3, no acute distress, pleasant and cooperative Lungs: Respirations even and unlabored, symmetrical chest expansion Eyes: PERRL Musculoskeletal: Flexion and extension of lumbar [spine] somewhat guarded secondary to pain, positive Kemps test Neurological: Speech clear, no gross sensory deficit Has patient had previous pain injection?: Yes Percent improvement in pain since last injection: 100% Conservative treatment options previously tried: Home exercise plan Length of treatment: Longer than 12 weeks Meds Home Medications and Allergies Home Medications ?Medication ?Instructions ?Recorded ?Confirmed ?Type krill oil 500 mg capsule 1,000 mg PO DIRECTED SUPPLIMENT 09/09/20 01/31/24 History magnesium oxide 140 mg capsule 140 mg PO DAILY 09/09/20 01/31/24 History butalbital 50 mg-acetaminophen 325 1 tab PO Q6HP PRN Headache #60 tabs 09/21/23 01/31/24 Rx mg tablet metoprolol succinate 50 mg 50 mg PO DAILY #90 tabs 09/21/23 01/31/24 Rx tablet,extended release 24 hr (Toprol XL) meloxicam 7.5 mg tablet 7.5 mg PO DAILY #30 tabs 12/22/23 01/31/24 Rx New Prescriptions to Start Prescriptions: Allergies Allergy/AdvReac Type Severity Reaction Status Date / Time No Known Allergies Allergy Verified 01/31/24 14:24 Assessment and Plan *Assessment and plan (1) Lumbar facet arthropathy: Status: Acute Category: Medical Code(s): M47.816 - Spondylosis without myelopathy or radiculopathy, lumbar region (2) Low back pain: Status: Acute Category: Medical Code(s): M54.50 - Low back pain, unspecified Plan Patient is experiencing worsening pain in and around her low back with limited range of motion and a positive Kemps test. Patient had negative point tenderness along her bilateral SIs during today's visit. I did discuss with the patient due to her exam findings I do think she would benefit from a lumbar medial branch block bilaterally. Risk and benefits were discussed with patient and she would like to proceed forward with this plan of care. Patient has tried and failed conservative therapy including continued at home stretching exercise for longer than 12 weeks. I did also discuss with the patient that I will order her compounded cream and send in a 90-day supply of her meloxicam 15 mg daily. Patient was counseled to take this medication with food to minimize GI upset and discontinue all other NSAIDs while taking this medication. Patient acknowledges understanding agrees with plan of care. Patient will be scheduled for a lumbar medial branch block bilaterally L4-L5 and L5-S1 under fluoroscopy. If she does get substantial relief following these injections we will see about repeating the lumbar medial branch blocks with the plan to proceed forward with a RFA at a later date. Patient has been instructed to contact the clinic with any concerns before the next appointment. Dr. Huang has reviewed this note and agrees with this plan of care. This note was dictated using voice recognition software and make contain errors or omissions. All injections are used with Lidocaine or Bupivacaine and Depo Medrol.
[2024-03-12 14:36] VITALS: BP 135/79; PULSE 78; RESP 16; O2SAT 96; BMI 24.5
== END 2024-03-12 23:59 | disposition home or self-care (01) ==
PROVIDERS: PCP Physician Assistant; Visit Provider Nurse Practitioner Family
DX: M47.816 Spondylosis without myelopathy or radiculopathy, lumbar region (principal); M54.50 Low back pain, unspecified; Z73.89 Other problems related to life management difficulty; Z96.651 Presence of right artificial knee joint
CPT/HCPCS: 99212; G0463

== ENCOUNTER 2024-04-10 13:40 | Day surgery (SDC) | payer MEDICARE, SELFPAY ==
--- OUTSIDE RECORDS SUMMARY | 2024-04-10 13:42 | XMS_ITS ---
Author Organization [facility] Address [address] [place] [phone] Phone Care Team Providers Care Register Of Wills Name Role Phone Deedee FATIMA, Vikram Unavailable [phone] Meredith Conti PA-C Unavailable [phone] Problems Includes: Active, inactive, and resolved Problems All Visits Onset Date Resolved Date Provider Condition S tatus Joint Pain Fingers 12/26/2023 Vikram Mark MD Active Last Documented On 4 11:24AM ; [facility], [facility] Plan of Treatment No Plan of Treatment Recorded Assessments Includes: Assessments for all patient encounters No Assessments Recorded Medical Equipment - Implanted Devices Includes: Current and historical Devices No Medical Equipment Recorded Medications Includes: Current and historical Medications Current Medications (continue as prescribed) Meloxicam 7.5 MG Oral Tablet 12/22/2023 Provider: Diagnosis: Last Documented On 4 11:26AM By Evelyn Martinez ; [facility], [facility] Meloxicam 7.5 MG Oral Tablet 09/21/2023 Provider: Diagnosis: Last Documented On 4 11:26AM By Evelyn Martinez ; [facility], [facility] Metoprolol Succinate ER 50 M G Oral Tablet, extended-release 24 hour 09/21/2023 Provider: Diagnosis: Last Documented On 4 11:26AM By Evelyn Soto [facility], [facility] Butalbital-Acetaminophen 50-325 MG Oral Tablet 024 Provider: Diagnosis: Last Documented On 4 11:26AM By Evelyn Martinez ; [facility], [facility] Medications Administered Includes: Administered Medications in patient's chart No Administered Medications Recorded Vital Signs Includes: Vital Signs from 04/10/2023 through 04/10/2024 Vital Name 12/26/2023 11:25A Height (in) 67 Weight (lb) 157 Body Mass Index 24.6 Body Surface Area 1.8 Note: cme Last Documented: On 12/26/2023 11:25A M ; [facility], [facility] Results Includes: Results from 04/10/2023 through 04/10/2024 No Results Recorded For Specified Dates History of Present Illness History of Present Illness not supported for this document type No History of Present Illness Recorded Social History Description Last Updated Alcohol use 12/26/2023 Last Documented On 4 12:05PM ; [facility], [facility] Caffeine use 12/26/2023 Last Documented On 4 12:05PM ; [facility], [facility] No recent change in diet 12/26/2023 Last Documented On 4 12:05PM ; [facility], [facility] Not a current smoker. 12/26/2023 Last Documented On 4 12:05PM ; [facility], [facility] Not exercising regularly 12/26/2023 Last Documented On 4 12:05PM ; [facility], [facility] Not using drugs 12/26/2023 Last Documented On 4 12:05PM ; [facility], [facility] Retired from work 12/26/2023 Last Documented On 4 12:05PM ; [facility], [facility] Smoking Status Unknown Procedures and Surgical History Includes: Procedures from 04/10/2023 through 04/10/2024 Procedures Code Diagnosis Performing Provider Service Location Service Date INJ TENDON SHEATH/LIGAMENT (RIGHT HAND, FOURTH DIGIT) [id number] Trigger finger, right ring finger Vikram Mark MD [facility] 12/26/2023 Last Documented On 4 12:49PM ; [facility], [facility] Injection, betamethasone acetate 6mg per cc and betamethason J0702 Trigger finger, right ring finger Vikram Mark MD [facility] 12/26/2023 Last Documented On 4 12:49PM ; [facility], [facility] Surgical History Last Updated History of hysterectomy 12/26/2023 Last Documented On 4 12:05PM ; [facility], [facility] History of total knee arthroplasty 12/25 Last Documented On 4 12:05PM ; [facility], [facility] Medical History Includes: Medical History in patient's chart Description Last Updated History of arthritis 12/26/2023 Last Documented On 4 12:05PM ; [facility], [facility] History of Irregular Heartbeat 4 Last Documented On 4 12:05PM ; [facility], [facility] Family History Includes: Family History in patient's chart Description Last Updated Diabetes mellitus 12/26/2023 Last Documented On 4 12:05PM ; [facility], [facility] Family history of heart disease 12/26/19 24 Last Documented On 4 12:05PM ; [facility], [facility] Family history of systemic hypertension 12/26/2023 Last Documented On 4 12:05PM ; [facility], [facility] Maternal history of systemic hypertensio n 12/26/2023 Last Documented On 4 12:05PM ; [facility], [facility] Paternal history of family history of he art disease 12/26/2023 Last Documented On 4 12:05PM ; [facility], [facility] Sororal history of diabetes mellitus Last Documented On 4 12:05PM ; [facility], [facility] Review of Systems Review of Systems not supported for this document type No Review of Systems Recorded Mental Status Description No anxiety Functional Status No Functional Status Recorded Physical Exam Physical Exam not supported for this document type No Physical Exam Recorded Allergies Includes: Active, inactive, and resolved Allergies No Known Allergies Encounters Includes: Encounters from 04/10/2023 through 04/10/2024 Encounter Provider Location Date Check-In Time Check-Out Time Diagnosis Physician Specified Vikram Mark MD [facility] 12/26/19 24 10:59AM 12:04PM Insurance Includes: Active Insurance Policies Plan Name Member ID Group # Subscriber Relationship Effect turner Dates 1 - [employer] [id number] Marialuisa Guajardo Self Clinical Notes Includes: Signed Clinical Notes starting from 05/27/2022 * Progress note Date Encounter Last Documented by 12/26/2023 Physician Specified Last beverly strange on 12/26/2023; 12:05 PM, Vikram Mark MD; [facility], [facility] Active Problems & Conditions - Joint [...]
--- OUTSIDE RECORDS SUMMARY | 2024-04-10 13:42 | XMS_ITS | Clinical Summary ---
Author Organization [facility] , [facility] Address [address] [place] [address] Phone Care Team Providers Care Superintendent Recreation Name Role Phone Deedee FAITMA, Vikram Unavailable [phone] Meredith Conti PA-C Unavailable [phone] Reason for Visit and Chief Complaint The Chief Complaint is: ring finger trigger Problems Includes: Problems addressed during this encounter and other active Problems Current Visit Onset Date Resolved Date Provider Gerard jones Status Joint Pain Fingers 12/26/2023 Vikram Mark MD Active Last Documented On 11:24AM ; [facility] Plan of Treatment Patient has a physical [...] - Last Documented On 12/26/2023 12:05PM ; [facility] Assessments Includes: Assessments from this encounter No Assessments Recorded Medical Equipment - Implanted Devices Includes: Current Devices No Medical Equipment Recorded Medications Includes: Medications discussed during this encounter and other current Medications Current Medications (continue as prescribed) Meloxicam 7.5 MG Oral Tablet 12/22/2023 Provider: Diagnosis: Last Documented On 11:26AM By Evelyn Eckler ; [facility], [facility] Meloxicam 7.5 MG Oral Tablet 09/21/2023 Provider: Diagnosis: Last Documented On 4 11:26AM By Evelyn Martinez ; [facility], [facility] Metoprolol Succinate ER 50 M G Oral Tablet, extended-release 24 hour 09/21/2023 Provider: Diagnosis: Last Documented On 4 11:26AM By Evelyn Martinez ; [facility] GALINDO, [facility] Butalbital-Acetaminophen 50-325 MG Oral Tablet 024 Provider: Diagnosis: Last Documented On 4 11:26AM By Evelyn Martinez ; [facility]AL[facility], [facility] Medications Administered Includes: Administered Medications from this encounter No Administered Medications Recorded Vital Signs Includes: Vital Signs from this encounter Vital Name 12/26/2023 11:25A Height (in) 67 Weight (lb) 157 Body Mass Index 24.6 Body Surface Area 1.8 Note: cme Last Documented: On 12/26/2023 11:25A M ; [facility] GALINDO, [facility] Results Includes: Results discussed during this encounter No Results Recorded For Specified Dates History of Present Illness Includes: History of Present Illness from this encounter HPI Marialuisa Guajardo is a 68 year old [...] Last Documented On 4 12:05PM ; [facility] Caffeine use 12/26/2023 Last Documented On 4 12:05PM ; [facility], [facility] No recent change in diet 12/26/2023 Last Documented On 4 12:05PM ; [facility] GALINDO, [facility] Not a current smoker. 12/26/2023 Last Documented On 4 12:05PM ; [facility], [facility] Not exercising regularly 12/26/2023 Last Documented On 4 12:05PM ; [facility], [facility] Not using drugs 12/26/2023 Last Documented On 4 12:05PM ; [facility] Retired from work 12/26/2023 Last Documented On 4 12:05PM ; [facility], [facility] Smoking Status Unknown Procedures and Surgical History Includes: Procedures from this encounter Procedures Code Diagnosis Performing Provider Service Location Service Date INJ TENDON SHEATH/LIGAMENT (RIGHT HAND, FOURTH DIGIT) Trigger finger, right ring finger [facility] 12/26/2023 Last Documented On 4 12:49PM ; [facility], [facility] Injection, betamethasone acetate 6mg per cc and betamethason [id number] Trigger finger, right ring finger Vikram Mark MD [facility] 12/26/2023 Last Documented On 4 12:49PM ; [facility], [facility] Surgical History Last Updated History of hysterectomy 12/26/2023 Last Documented On 4 12:05PM ; [facility], [facility] History of total knee arthroplasty 12/25 Last Documented On 4 12:05PM ; [facility], [facility] Medical History Includes: Medical History addressed during this encounter Description Last Updated History of arthritis 12/26/2023 Last Documented On 4 12:05PM ; [facility] History of Irregular Heartbeat 4 Last Documented On 4 12:05PM ; [facility], [facility] Family History Includes: Family History addressed during this encounter Description Last Updated Diabetes mellitus 12/26/2023 Last Documented On 4 12:05PM ; [facility], [facility] Family history of heart disease 12/26/19 24 Last Documented On 4 12:05PM ; [facility], [facility] Family history of systemic hypertension 12/26/2023 Last Documented On 4 12:05PM ; [facility], [facility] Maternal history of systemic hypertensio n 12/26/2023 Last Documented On 4 12:05PM ; [facility], [facility] Paternal history of family history of he art disease 12/26/2023 Last Documented On 4 12:05PM ; [facility], [facility] Sororal history of diabetes mellitus Last Documented On 4 12:05PM ; [facility] Review of Systems Includes: Review of Systems [...] Time Diagnosis Physician Specified Vikram Mark MD [facility] 12/26/19 24 10:59AM 12:04PM Insurance Includes: Active Insurance Policies Plan Name Member ID Group # Subscriber Relationship Effect turner Dates 1 - [employer] [id number] Marialuisa Guajardo Self Clinical Notes Includes: Clinical Notes from this encounter * Progress note Date Encounter Last Documented by 12/26/2023 Physician Specified Last beverly strange on 12/26/2023; 12:05 PM, Vikram Mark MD; [facility] Active Problems & Conditions - Joint Pain [...]
--- OUTSIDE RECORDS SUMMARY | 2024-04-10 13:42 | XMS_ITS ---
Care Plan - [facility], [facility] Created on: April 10, 2024 Marialuisa Guajardo : 1955 Sex: Female Author Organization [facility] , [facility] Address [address] [place] [id number] Phone Care Team Providers Care Caseworker Intake Name Role Phone Deedee FATIMA, Vikram Unavailable [phone] Meredith Conti PA-C Unavailable [phone]
[2024-04-10 14:04] VITALS: BP 117/56; PULSE 95; RESP 16; TEMP 36.4; O2SAT 99; BMI 24.5
--- NOTE | 2024-04-10 14:06 | P.PCN_ITS ---
Procedure Date: 04/10/24 Time: 14:00 Anesthesiologist:: Franko Dobbins CRNA Complications:: None Pre-procedure Diagnosis:: Degenerative disc lumbar spine multilevels. Lumbar radiculopathy. Lumbar spondylosis. Multilevel lumbar facet arthropathy. Post-procedure Diagnosis:: Same. Indications for Procedure:: Patient is a very pleasant 68-year-old female who comes our clinic today for bilateral L4-5, L5-S1 medial branch blocks/facet injections. Patient describes low lumbar back pain as constant, dull, aching. Pain intensifies when standing. Pain intensifies when sitting. Patient has difficulty with lumbar flexion, extension, left and right rotation. She rates her pain 7/10. Procedure Details:: Informed consent was obtained and the risk and benefits of the procedure was explained to the patient. Patient was taken to the procedure room where noninvasive monitors were placed, including noninvasive blood pressure cuff as well as pulse oximeter. The area over the lumbar spine was cleansed using chlorhexidine as a cleansing solution. I anesthetized the skin and subcutaneous tissues with 1% Lidocaine. I placed 22-gauge spinal needles into the facet joint/ medial branches of L4-L5, and L5-S1] bilaterally. Needle placement was c onfirmed with fluoroscopy. After confirmation of needle placement, each site was injected with 1 mL of 1% lidocaine and 0.25 % Marcaine and 10 mg of Depo-Medrol. A total of 80 mg of depo medrol was used for bilateral medial branch blocks of L4-L5, and L5-S1] bilaterally. Patient tolerated the procedure without difficulty. There were no complications. Plan and Disposition:: Patient was discharged without incident.
[2024-04-10] MEDS: methylPREDNISolone ACETATE 80MG/ML VIAL 80 MG (14:14)
[2024-04-10] MEDS: BUPIVACAINE 0.25% 10ML INJ 25 MG IJ (14:14)
[2024-04-10] MEDS: LIDOCAINE 1% 5ML PF VIAL 5 ML (14:15)
[2024-04-10 14:16] VITALS: BP 119/56; PULSE 84; RESP 18; O2SAT 96
[2024-04-10 14:17] VITALS: BP 119/56; PULSE 84; RESP 18; O2SAT 96
[2024-04-10 14:28] VITALS: BP 129/67; PULSE 69; RESP 16; TEMP 36.6; O2SAT 100
== END 2024-04-10 14:28 | disposition home or self-care (01) ==
PROVIDERS: PCP Physician Assistant; Visit Provider Nurse Anesthetist, Certified Registered
DX: M47.816 Spondylosis without myelopathy or radiculopathy, lumbar region (principal); M51.360 Other intervertebral disc degeneration, lumbar region with discogenic back pain only
CPT/HCPCS: 64493; 64494; J1010

== ENCOUNTER 2024-04-25 14:39 | Outpatient (POV) | payer MEDICARE, SELFPAY ==
--- OUTSIDE RECORDS SUMMARY | 2024-04-25 14:41 | XMS_ITS | Encounter Summary ---
Author Organization [facility] Address [address] [place] [address] Care Team Providers Care Medical Technician Assistant Name Role Phone Meredith Conti Primary Care Provider [phone] Reason for Visit * Reason Comments Post-op 3 weeks s/p (L) TKA 07/12/2019 Encounter Details Date Type Department Care Team (Late st Contact Info) Description 08/01/2019 1:40 PM EST Office Visit [facility] [address] [place] [address] Rosmery Laurent PA-C [address] [place] [address] Status post total left knee replacement (Primary Dx) Social History Tobacco Use Types Packs/Day Years Used Date Smoking Tobacco: Never Smokeless Tobacco: Never Alcohol Use Standard Drinks/Week Comments Yes 0 (1 standard drink = 0.6 oz pur e alcohol) social- occasional Comments No Sex and Gender Information Value Date Recorded Sex Assigned at Not on file Legal Sex Female 1:23 PM EDT Gender Identity Not on file Sexual Orientation Not on file documented as of this encounter Progress Notes * Rosmery Laurent PA-C - 08/01/2019 1:40 PM EST Images from the original note were not included. [facility] Orthopa[facility] Surgery Clinic Note Subjective Post-op (3 weeks s/p (L) TKA 07/12/2019) LAURA Guajardo is a 63 y.o. female. Patient presents today for initial postop visit for left TKA performed on the above date by Dr. Menon. She is currently using a cane to assist with ambulation. She has been doing outpatient PT at [facility]. She endorses a pain scale of 4/10. She states that she is wearing support stockings. She is not taking the aspirin because she does not believe she needs it. She reports that she did have a blood clot with her first TKA. Patient is requesting refill of her postoperative pain medication. Patient denies any fever, chills, night sweats. No reported chest pain or shortness of breath. Objective Physical Exam LMP (LMP Unknown) There is no height or weight on file to calculate BMI. Ortho Exam Peripheral Vascular: Upper Extremity: Inspection: Left--no cyanotic nail beds Right--no cyanotic nail beds Bilateral: [place] nail beds with brisk capillary refill Palpation: Bilateral radial pulse normal Musculoskeletal: Lower Extremity: Inspection and Palpation: Left knee: Calf: Soft and non tender Pulses: 2+ Ecchymosis: None Warmth: Appropriate Incision: Clean, dry, and intact. Healing appropriately ROM: Left: Extension: 5 Flexion: 100 Deformities/Malalignments/Discrepancies: Left: none Functional Testing: Left: Straight Leg Raise: 5/5 Imaging Reviewed: Ordered left knee plain films. Imaging read by Dr. Gan. TKA X-Ray Indication: status-post TKA ?? AP, Lateral, and Flippin views of Left knee Findings: No signs of fracture No signs of loosening No change compared to prior study Components are well aligned Assessment: 1. Status post total left knee replacement Plan: 1. Status post left TKA, stable. 2. Continue use of cane to assist with ambulation. 3. Continue with outpatient PT following Dr. Menon's TKA rehab protocol. 4. Dr. Gan provided patient with a prescription for [place] 5/325. 5. Continue use of compression stockings. 6. Follow-up in 6 weeks for repeat evaluation. Patient does not require imaging at that appointment. 7. Questions and concerns answered. Rosmery Laurent PA-C 08/06/19 10:30 AM documented in this encounter Plan of Treatment Not on file documented as of this encounter Procedures Procedure Name Priority Date/Time Associated Diagnosis Comments XR KNEE 3+ VW W SUNRISE LEFT Routine 08/01/2019 1:47 PM EST Status post total left knee replacement documented in this encounter Results * XR Knee 3+ View With Flippin Left (08/01/2019 1:47 PM EST) Anatomical Region Laterality Modality Lower Extremities, Knee Left Xray Narrative 08/01/2019 1:56 PM EST TKA X-Ray Indication: status-post TKA AP, Lateral, and Flippin views of Left knee Findings: No signs of fracture No signs of loosening No change compared to prior study Components are well aligned us Danielito Gan MD [facility] DI[facility]NOST[facility] IMAGING ORDER COURTNEY Final Result documented in this encounter Visit Diagnoses Diagnosis Status post total left knee replacement- Primary documented in this encounter Care Teams Medical Technician Assistant Relationship Specialty Start Date End Date Meredith Conti PA PCP - General Physician Surgical Technology Instructor 02/11/17 documented as of this encounter
--- OUTSIDE RECORDS SUMMARY | 2024-04-25 14:41 | XMS_ITS | Encounter Summary ---
Author Organization [facility] Address [address] [place] [id number] Care Team Providers Care Pole Truck Driver Name Role Phone Meredith Conti Primary Care Provider [phone] Reason for Visit * Reason Comments Follow-up 11 months follow up; 1 year statust post (L) TKA 07/12/2019 Encounter Details Date Type Department Care Team (Late st Contact Info) Description 06/30/2020 1:20 PM EST Office Visit [facility] [address] [place] [address] Mj Menon MD [facility] [place] [address] Status post total left knee replacement (Primary Dx); Postoperative examination Social History Tobacco Use Types Packs/Day Years [...] on file documented as of this encounter Last Filed Vital Signs Vital Sign Reading Time Taken Comments Blood Pressure - - Pulse 77 06/30/2020 1:23 PM EST Temperature - - Respiratory Rate - - Oxygen Saturation 96% 06/30/2020 1:23 PM EST Inhaled Oxygen Concentration - - Weight 68.5 kg (151 lb) 06/30/2020 1:23 PM EST Height 170.2 cm (5' 7.01 ) 06/30/2020 1:23 PM ES T Body Mass Index 23.64 06/30/2020 1:23 PM EST documented in this encounter Progress Notes * Mj Menon MD - 06/30/2020 1:20 PM EST Images from the original note were not included. [facility] Orthopaedic Surgery Clinic Note Subjective Chief Complaint Patient presents with ??? Follow-up 11 months follow up; 1 year statust post (L) TKA 07/12/2019 HPI It has been 11 month(s) since Ms. Guajardo's last visit. She returns to clinic today for follow-up of left knee arthroplasty. She rates her pain a 5/10 on the pain scale at night, but otherwise 0 out of10 pain. Pain is currently 0 out of 10.. Previous/current treatments: cane/walker, NSAIDS, physicaltherapy and oral steroids. Current symptoms: pain and stiffness. The pain is worse with sleeping; resting and pain medication and/or NSAID improve the pain. Overall, she is doing the same. 90% improvement compared to preoperative symptoms. I have reviewed the following portions of the patient's history and agree with: History of Present Illness and Review of Systems Patient Active Problem List Diagnosis ??? Arthritis of knee, right ??? Status post total left knee replacement ??? HTN (hypertension) ??? Acute blood loss anemia, mild, asymptomatic ??? Leukocytosis, mild, likely reactive ??? Hypokalemia, replaced ??? Primary osteoarthritis of left knee ??? Acute postoperative pain Past Medical History: Diagnosis Date ??? Acute hypotension AFTER RIGHT KNEE REPLACEMENT ??? Anemia ??? Arthritis ??? High cholesterol ??? Irregular heartbeat controlled by metoprolol ??? PONV (postoperative nausea and vomiting) ??? Primary osteoarthritis of both knees ??? Wears contact lenses Past Surgical History: Procedure Laterality Date ??? CARDIAC CATHETERIZATION ??? COLONOSCOPY ??? HYSTERECTOMY ??? KNEE SURGERY ??? WA TOTAL KNEE ARTHROPLASTY Right 01/18/2017 Procedure: RIGHT TOTAL KNEE ARTHROPLASTY; Surgeon: Mj Menon MD; Location: [facility]; Service: Orthopedics ??? TOTAL KNEE ARTHROPLASTY Left 07/12/2019 Procedure: TOTAL KNEE ARTHROPLASTY LEFT; Surgeon: Mj Menon MD; Location: [facility]; Service: Orthopedics Family History Problem Relation Age of Onset ??? Hypertension Mother ??? Osteoarthritis Mother ??? Stroke Mother ??? Heart disease Father ??? Diabetes Other ??? Cancer Other Social History Socioeconomic History ??? Marital status: Single Spouse name: Not on file ??? Number of children: Not on file ??? Years of education: Not on file ??? Highest education level: Not on file Tobacco Use ??? Smoking status: Never Smoker ??? Smokeless tobacco: Never Used Substance and Sexual Activity ??? Alcohol use: Yes Comment: social- occasional ??? Drug use: No ??? Sexual activity: Defer Current Outpatient Medications on File Prior to Visit Medication Sig Dispense Refill ??? butalbital-acetaminophen 50-325 MG tablet tablet TAKE ONE TABLET EVERY 6 HOURS NEEDED FOR TENSION HEADACHE 2 ??? Cholecalciferol (VITAMIN D3) 50 MCG (2000 UT) tablet Take 1 tablet by mouth Daily. ??? ESTRADIOL TD Place on the skin Take As Directed. ??? Krill Oil 1000 MG capsule Take 2 tablets by mouth Daily. ??? magnesium oxide (MAG-OX) 400 MG tablet Take 400 mg by mouth Daily. ??? metoprolol tartrate (LOPRESSOR) 25 MG tablet Take 25 mg by mouth every night at bedtime. ??? Multiple Vitamins-Minerals (MULTIVITAMIN ADULTS 50+) tablet Take 1 tablet by mouth Daily. ??? Probiotic Product (PROBIOTIC-10) capsule Take 1 capsule by mouth Daily. ??? [DISCONTINUED] aspirin 325 MG EC tablet Take 1 tablet by mouth Daily For 1 month 30 tablet 0 ??? [DISCONTINUED] docusate sodium 100 MG capsule Take 1 capsule by mouth 2 (Two) Times a Day As Needed for Constipation. 60 each 0 ??? [DISCONTINUED] Noctxexfrfe-DXA-Pixrhfjuya Acd (JOINT HEALTH PO) Take 1 tablet by mouth Daily. ??? [DISCONTINUED] HYDROcodone-acetaminophen (NORCO) 5-325 MG per tablet Take 1 tablet by mouth Every 6 (Six) Hours As Needed for Moderate Pain . 30 tablet 0 ??? [DISCONTINUED] Ropivacine HCl-NaCl (NAROPIN) 20 mg/hr by Peripheral Nerve route Continuous. Indications: Acute Pain ??? [DISCONTINUED] Turmeric 450 MG capsule Take 1 capsule by mouth Daily. No current facility-administered medications on file prior to visit. Allergies Allergen Reactions ??? Chlorhexidine Other (See Comments) NICE SKIN Review of Systems Constitutional: Negative. HENT: Negative. Eyes: Negative. Respiratory: Negative. Cardiovascular: Negative. Gastrointestinal: Negative. Endocrine: Negative. Genitourinary: Negative. Musculoskeletal: Positive for arthralgias. Skin: Negative. Allergic/Immunologic: Negative. Neurological: Negative. Hematological: Negative. Psychiatric/Behavioral: Negative. Objective Physical Exam Pulse 77 Ht 170.2 cm (67.01 ) Wt 68.5 kg (151 lb) LMP (LMP Unknown) SpO2 96% BMI 23.64 kg/m?? Body mass index is 23.64 kg/m??. General: Mental Status: Alert Appearance: Cooperative, in no acute distress Build and Nutrition: Well-nourished well-developed female Orientation: Alert and oriented to person, place and time Posture: Normal Gait: Normal Integument: Left knee: Wound is well-healed with no signs of infection Lower Extremities: Left Knee: Tenderness: None Effusion: None Swelling: None Crepitus: None Range of motion: Extension: 0?? Flexion: 140?? Instability: No varus laxity, no valgus laxity, negative anterior drawer Deformities: None Imaging/Studies Imaging Results (Last 24 Hours) Procedure Component Value Units Date/Time XR Knee 3+ View With [place] Left [[id number]] Resulted: 06/30/20 1349 Updated: 06/30/20 1350 Narrative: Left Knee Radiographs Indication: status-post left total knee arthroplasty Views: AP, lateral, and sunrise views of the left knee Comparison: no change compared to prior study, 08/01/2019 Findings: The components are well aligned, with no signs of loosening or failure. Assessment and Plan Diagnoses and all orders for this visit: 1. Status post total left knee replacement (Primary) - XR Knee 3+ View With [place] Left 2. Postoperative examination 1. Status post total left knee replacement 2. Postoperative examination I reviewed my findings with patient today. Her left total knee arthroplasty is functioning well. I will see her back in 2 years, with x-rays on both of her knees. She will be just over 5 years on herright knee at that point. The right knee is functioning well for her also. I will see her back sooner for any problems. Return in about 2 years (around 06/30/2022) for Recheck with X-Rays. Medical Decision Making Data/Risk: radiology tests and independent visualization of imaging, lab tests, or EMG/NCV Mj Menon MD 06/30/20 13:54 EST Dragon disclaimer: Much of this encounter note is an electronic hog operator/translation of spoken language to printed text. The electronic translation of spoken language may permit erroneous, or at times, nonsensicalwords or phrases to be inadvertently transcribed; Although I have reviewed the note for such errors, some may still exist. documented in this encounter Plan of Treatment Not on file documented as of this encounter Procedures Procedure Name Priority Date/Time Associated Diagnosis Comments XR KNEE 3+ VW W SUNRISE LEFT Routine 06/30/2020 1:32 PM EST Status post total left knee replacement documented in this encounter Results * XR Knee 3+ View With [place] Left (06/30/2020 1:32 PM EST) Anatomical Region Laterality Modality Lower Extremities, Knee Left Xray Narrative 06/30/2020 1:50 PM EST Left Knee Radiographs Indication: status-post left total knee arthroplasty Views: AP, lateral, and sunrise views of the left knee Comparison: no change compared to prior study, 08/01/2019 Findings: The components are well aligned, with no signs of loosening or failure. jM Menon MD IMG DIAGNOSTIC IMAGING ORDERAB LES Final Result documented in this encounter Visit Diagnoses Diagnosis Status post total left knee replacement- Primary Postoperative examination Follow-up examination, following unspecified surgery documented in this encounter Care Teams Pole Truck Driver Relationship Specialty Start Date End Date Meredith Conti PA PCP - General Physician Animal Daycare Provider 02/11/17 documented as of this encounter
--- OUTSIDE RECORDS SUMMARY | 2024-04-25 14:41 | XMS_ITS | Encounter Summary ---
Author Organization [facility] Address [address] [place] [address] Care Team Providers Care Automotive Electrician Name Role Phone Meredith Conti Primary Care Provider [phone] Reason for Referral * Physical Therapy (Routine) - Closed Specialty Diagnoses / Procedures Referred By Contac t Referred To Contact Physical Therapy Diagnoses Status post total left knee replacement Impaired mobility and ADLs Jose Guadalupe Menon MD [address] [place] [address] Phone: tel: fax: Referral ID Status Reason Start Date Expiration Date V isits Requested Visits Authorized [id number] Closed Specialty Services Required 07/13/2019 07/12/2020 1 1 Reason for Visit * Auth/Cert Specialty Diagnoses / Procedures Referred By Contac t Referred To Contact Diagnoses Primary osteoarthritis of left knee Primary osteoarthritis of left knee [M17.12] Procedures GA TOTAL KNEE ARTHROPLASTY TOTAL KNEE ARTHROPLASTY LEFT Referral ID Status Reason Start Date Expiration Date Visits Re quested Visits Authorized [id number] 1 1 Encounter Details Date Type Department Care Team (Late st Contact Info) Description 07/12/2019 5:44 AM EST - 07/13/2019 1:10 PM EST Hospital Encounter [address] [place] [address] [phone] Jose Guadalupe Menon MD [address] [place] [address] Status post total left knee replacement (Primary Dx); Primary osteoarthritis of left knee; Impaired mobility and ADLs Discharge Disposition: Home or Self Care Social History Tobacco Use Types Packs/Day Years [...] Sign Reading Time Taken Comments Blood Pressure 140/67 07/13/2019 12:42 PM EST Pulse 98 07/13/2019 12:42 PM EST Temperature 36.8 ??C (98.2 ??F) 07/13/2019 12:[address] Respiratory Rate 18 07/13/2019 12:42 PM EST Oxygen Saturation 97% 07/13/2019 7:26 AM EST Inhaled Oxygen Concentration - - Weight 71.7 kg (158 lb) 07/12/2019 7:06 AM EST Height 170.2 cm (5' 7 ) 07/12/2019 7:06 AM EST Body Mass Index 24.75 07/12/2019 7:06 AM EST documented in this encounter Discharge Summaries * Phuong Hung RN - 07/13/2019 12:02 PM EST Images from the original note were not included. Marialuisa Hampton (63 y.o. Female) PT referral from Phuong Hung GLOBAL CREATIVE CHAIRMAN, Case Management, ph [phone] Date of Social Security Number Address Home Phone N [id number] [facility] [id number] Mormon Marital Status Caodaism Single Admission Date Admission Type Admitting Provider Attending Provider Department, Room/Bed 07/12/19 Elective Jose Guadalupe Menon MD Kirk, Michael E, MD [facility] 3G, S361/1 Discharge Date Discharge Disposition Discharge Destination Home or Self Care Attending Provider: Jose Guadalupe Menon MD Allergies: Chlorhexidine Isolation: None Infection: None Code Status: CPR Ht: 170.2 cm (67 ) Wt: 71.7 kg (158 lb) Admission Cmt: None Principal Problem: Status post total left knee replacement [Z96.652] Active Insurance as of 07/12/2019 Primary Coverage Payor Plan Insurance Group Employer/Plan Group [employer] [facility] [employer] [id number] Payor Plan Address Payor Plan Phone Number Payor Plan Fax Number Effective Dates [address] 06/13/2014 - None Entered [place] [address] Subscriber Name Subscriber Date Member ID MARIALUISA HAMPTON 1955 [id number] Emergency Contacts Forensic Identification Specialist (Rel.) Home Phone Work Phone Mobile Phone David Hampton (Sister) -- -- [phone] [address] Fax: Date: Jul 13, 2019 ?? Ambulatory Referral to Physical Therapy Evaluate and treat, Ortho; Full weight bearing ?? Patient: Marialuisa Hampton [address] [facility] [address] : 1955 SSN: [id number] Sex: F ?? 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 GEORGE STERLING [id number] ?? Referring Provider Information: JOSE GUADALUPE MENON Fax: ?? Referral Information: # Visits: 1 Referral Type: Therapy [AE1] Urgency: Routine Referral Reason: Specialty Services Required Start Date: Jul 13, 2019 End Date: To be determined by Insurer Diagnosis: Status post total left knee replacement (Z96.652 [ICD-10-CM] V43.65 [ICD-9-CM]) Impaired mobility and ADLs (Z74.09 [ICD-10-CM] 799.89 [ICD-9-CM]) ?? Refer to Dept: Refer to Provider: Refer to Facility: ?? Specialty needed: Evaluate and treat Specialty needed: Ortho Weight Bearing Status: Full weight bearing ?? This document serves as a request of services and does not constitute Insurance authorization or approval of services.?? To determine eligibility, please contact the members Insurance carrier to verify and review coverage. ?? If you have medical questions regarding this request for services. Please contact [address] at [phone] during normal business hours. ?? Verbal Order Mode: Per protocol: cosign required Authorizing Provider: Jose Guadalupe Menon MD Authorizing Provider's ?? Order Entered By: Phuong Hung RN 07/13/2019 12:02 PM ?? Electronically signed by: ?? Operative/Procedure Notes (most recent note) Jose Guadalupe Menon MD at 07/12/19 0757 DATE OF PROCEDURE: 07/12/19 PREOPERATIVE DIAGNOSIS: left knee arthritis POSTOPERATIVE DIAGNOSIS: left knee arthritis PROCEDURES PERFORMED: left total knee arthroplasty with DePuy Attune components (#4 narrow posterior stabilized femur, #3 rotating platform tibia, 6 mm rotating platform polyethylene, with 32 three peg anatomic patella). SURGEON: Jose Guadalupe Menon MD PETS SALESPERSON: Iris Taylor PA-C SPECIMENS: None ANESTHESIA: Spinal STAFF: Controller Operations And Hr Manager: Anne-Marie Fry RN Scrub Person: Ruddy Magallon Rug Shampooer: Liza Khalil Biodiesel Engine Specialist: Iris Taylor PA TOURNIQUET TIME: 18 minutes ESTIMATED BLOOD LOSS: 100ml COMPLICATIONS: None PREOPERATIVE ANTIBIOTICS: Ancef 2 g INDICATIONS: The patient is a 63 y.o. female with debilitating left knee pain secondary to osteoarthritis that failed to improve in spite of conservative treatment . Options have been discussed at length with the patient and the patient has had an extended course of conservative treatment without long-term benefit. The patient has reached the point where the patient desires total knee arthroplasty surgery and understands the risks, benefits, and alternatives. Consent was obtained. Please see myoffice notes for details with regard to preoperative counseling and operative rationale. DESCRIPTION OF PROCEDURE: The patient was positively identified in the preoperative holding area and brought to the operating suite and placed in a supine position. After adequate spinal anesthetic had been achieved, the left lower extremity was prepped and draped in the usual sterile fashion. After application of a tourniquet to the left upper thigh, which was used during the procedure for a total 18 minutes during the cementation process only. Landmarks of the knee were identified and timeoutprocedure was performed to confirm the operative site, as well as other parameters. Following the sterile prep and drape, a skin incision was made just off the medial aspect of midline for a medial parapatellar approach. Following a sharp skin incision, dissection was carried down to the level of the extensor mechanism and a medial parapatellar arthrotomy was made and the patella was tucked into the lateral gutter. Description of arthritis: Bexh-xr-bnyp contact the medial compartment, lateral degeneration, with advanced patellofemoral arthritis varus alignment. The knee was adequately exposedand a distal femoral cut was made with an intramedullary guide. This was subsequently sized for a #4 implant and anterior, posterior chamfer cuts made. The menisci removed both medially and laterally. The ACL was transected and the tibia was subluxed anteriorly. Proximal tibia cut was made with theexternal alignment guide. The cut was noted to be perpendicular to the tibial axis, with symmetric flexion and extension gaps. Therefore, final femoral preparations were made with the box cutting guide followed by final tibial preparations to accommodate a #3 tibia. With a trial [address], full flexion and extension was noted with no instability. The patella was then prepared for a 35 three peg anatomic patella which had excellent tracking. All trial components were removed and final components were cemented in place with namely a #3 rotating platform tibia, #4 narrow posterior stabilized femur and a 35 three peg anatomic patella with a trial 7 insert for cement compression. All theexcess cement was removed from the bone implant interface and allowed to harden. Tourniquet was deflated. Hemostasis was obtained with electrocautery. There was no brisk bleeding noted in the popliteal fossa in particular. Therefore, the knee was copiously irrigated as it was between major steps, and the final 6 insert was placed as this was deemed appropriate for the patient's anatomy with full flexion and extension and no instability and attention was then directed towards closure. The medialparapatellar arthrotomy was closed with #1 Vicryl in an interrupted qlyxsy-tk-htzdj fashion in 4 strategic locations followed by oversewing this from proximal to distal with a #1 StrataFix symmetric,which nicely sealed the joint, followed by closure of the deep fascial layer with #1 Vicryl in a buried interrupted fashion, followed by closure of the subcutaneous layer with 2-0 Vicryl and the skinwith 3-0 Stratafix in a running subcuticular fashion. Prineo wound closure dressing was applied followed by a sterile dressing with 4 x 4's, abdominal pad, soft roll and Chato wrap. The patient tolerated the procedure well and was brought to the recovery room in good condition. PLAN: 1. The patient will begin early range of motion and weight-bearing per the post total knee arthroplasty protocol. 2. I anticipate brief hospitalization for initial rehabilitation and pain control followed by continued rehabilitation in either home health or supervised setting. 3. Postoperative medical management with Dr. Willard. 4. Aspirin will be utilized for DVT prophylaxis unless there is a contraindication. Jose Guadalupe Menon MD 07/12/19 9:13 AM 0913 Physician Progress Notes (most recent note) Jose Guadalupe Menon MD at 07/13/19 0852 [facility] Orthopaedic Surgery Progress Note Subjective LOS: 0 days Patient Care Team: Meredith Conti PA as PCP - General (Physician Biodiesel Engine Specialist) Marialuisa Bergeron MD as Consulting Physician (Internal Medicine) CC: Left knee pain Interval History: No new complaints this morning. She would like to go home today. Objective Vital Signs Temp (24hrs), Av.2 ??F (36.8 ??C), Min:97.8 ??F (36.6 ??C), Max:98.6 ??F (37 ??C) BP 97/58 (BP Location: Right arm, Patient Position: Lying) Pulse 80 Temp 98.6 ??F (37 ??C) (Oral) Resp 18 Ht 170.2 cm (67 ) Wt 71.7 kg (158 lb) LMP (LMP Unknown) SpO2 97% BMI 24.75 kg/m?? Examination: Examination of the left knee: The wound is clean, dry, and intact. Ankle dorsiflexion, ankle plantar flexion, and EHL are intact. Sensation intact in the foot to light touch. 2+ dorsalis pedis pulse.Straight leg raise is intact. Labs: Results from last 7 days Lab Units 07/13/19 0545 WBC 10*3/mm3 15.04* HEMOGLOBIN g/dL 9.9* HEMATOCRIT % 31.8* MCV fL 87.6 PLATELETS 10*3/mm3 296 Radiology: Imaging Results (Last 24 Hours) Procedure Component Value Units Date/Time XR Knee 1 or 2 View Left [[id number]] Collected: 07/12/19 1028 Updated: 07/12/19 1708 Narrative: EXAMINATION: XR KNEE 1 OR 2 VW, LEFT-07/12/2019: INDICATION: Status post left total knee arthroplasty; M17.12-Unilateral primary osteoarthritis, left knee. COMPARISON: NONE. FINDINGS: Two views of the left knee reveal the patient to be status post total left knee arthroplasty. Postsurgical changes seen in the soft tissues. No evidence of malalignment. No hardware complication. Impression: The patient is status post total left knee arthroplasty with no hardware complication or malalignment identified of the prosthesis. E: 07/12/2019 This report was finalized on 07/12/2019 5:[address] Madai Thompson MD. PT: Physical Therapy - Plan of Care Review - Outcome Summary: Outcome Summary: Pt able to amb 250' with step through gait mechanics with RW SBA. Pt limited by fatigue. Progressed patient's HEP and patient tolerated well. Recommend patient home with assist and home health PT. (07/13/19929)] Results Review: I reviewed the patient's new clinical results. Assessment and Plan Assessment: Status post left total knee arthroplasty-doing well Status post total left knee replacement HTN (hypertension) Primary osteoarthritis of left knee Plan for disposition: Plan for discharge to home today. Follow-up with me in 3 weeks as planned. Future Appointments Date Time Provider Department Center 08/01/2019 1:20 PM Jose Guadalupe Menon MD [facility] None Jose Guadalupe Menon MD 07/13/19 11:45 AM 1145 Physical Therapy Notes (most recent note) Rosmery Mixon, PT at 07/13/19 0930 Version 1 of 1 Patient Name: Marialuisa Hampton : 1955 Today's Date: 07/13/2019 Admit Date: 07/12/2019 Visit Dx: ICD-10-CM ICD-9-CM 1. Status post total left knee replacement Z96.652 V43.65 2. Primary osteoarthritis of left knee M17.12 715.16 3. Impaired mobility and ADLs Z74.09 799.89 Patient Active Problem List Diagnosis ??? Arthritis of knee, right ??? Status post total left knee replacement ??? HTN (hypertension) ??? Acute blood loss anemia, mild, asymptomatic ??? Leukocytosis, mild, likely reactive ??? Hypokalemia, replaced ??? Primary osteoarthritis of left knee Past Medical History: Diagnosis Date ??? Acute hypotension AFTER RIGHT KNEE REPLACEMENT ??? Anemia ??? Arthritis ??? High cholesterol ??? Irregular heartbeat controlled by metoprolol ??? PONV (postoperative nausea and vomiting) ??? Primary osteoarthritis of both knees ??? Wears contact lenses Past Surgical History: Procedure Laterality Date ??? CARDIAC CATHETERIZATION ??? COLONOSCOPY ??? HYSTERECTOMY ??? KNEE SURGERY ??? GA TOTAL KNEE ARTHROPLASTY Right 01/18/2017 Procedure: RIGHT TOTAL KNEE ARTHROPLASTY; Surgeon: Jose Guadalupe Menon MD; Location: [facility] OR; Service: Orthopedics ??? TOTAL KNEE ARTHROPLASTY Left 07/12/2019 Procedure: TOTAL KNEE ARTHROPLASTY LEFT; Surgeon: Jose Guadalupe Menon MD; Location: [facility] OR; Service: Orthopedics General Information Row Name 07/13/19929 PT Evaluation Time/Intention Document Type therapy note (daily note) -CS Mode of Treatment individual therapy;physical therapy -CS Row Name 07/13/19929 General Information Patient Profile Reviewed? yes -CS Existing Precautions/Restrictions fall;other (see comments) L adductor canal catheter -CS Row Name 07/13/19929 Cognitive Assessment/Intervention- PT/OT Orientation Status (Cognition) oriented x 4 -CS Row Name 07/13/19929 Safety Issues, Functional Mobility Safety Issues Affecting Function (Mobility) safety precautions follow- through/compliance;safety precaution awareness -CS Impairments Affecting Function (Mobility) endurance/activity tolerance;pain;range of motion (ROM);strength -CS User Sage (r) = Recorded By, (t) = Taken By, (c) = Cosigned By Initials Name Provider Type CS Rosmery Mixon, PT Physical Therapist Mobility Row Name 07/13/19929 Bed Mobility Assessment/Treatment Comment (Bed Mobility) Pt UIC at start and end of therapy session. -CS Row Name 07/13/19929 Transfer Assessment/Treatment Comment (Transfers) Pt able to demo proper hand placement with STS. - Row Name 07/13/19929 Bed-Chair Transfer Bed-Chair Hortense (Transfers) conditional independence;verbal cues -CS Assistive Device (Bed-Chair Transfers) walker, front-wheeled -CS Row Name 07/13/19929 Sit-Stand Transfer Sit-Stand Hortense (Transfers) conditional independence;verbal cues -CS Assistive Device (Sit-Stand Transfers) walker, front-wheeled -CS Row Name 07/13/19929 Gait/Stairs Assessment/Training 72798 - Gait Training Minutes 15 -CS Gait/Stairs Assessment/Training gait/ambulation independence;gait/ambulation assistive device;distance ambulated;gait pattern -CS Hortense Level (Gait) verbal cues;stand by assist - Assistive Device (Gait) walker, front-wheeled - Distance in Feet (Gait) 250' -CS Pattern (Gait) step-through - Deviations/Abnormal Patterns (Gait) bilateral deviations;tracey decreased;gait speed decreased;stride length decreased - Bilateral Gait Deviations forward flexed posture -CS Left Sided Gait Deviations weight shift ability decreased;heel strike decreased -CS Comment (Gait/Stairs) Pt able to amb 250' with RW SBA with step through gait mechanics. Pt limited by fatigue. VC's to stay within walker, maintain upright posture, and increase heel strike on L LE. - Row Name 07/13/19929 Mobility Assessment/Intervention Extremity Weight-bearing Status left lower extremity - Left Lower Extremity (Weight-bearing Status) weight-bearing as tolerated (WBAT) - User Sage (r) = Recorded By, (t) = Taken By, (c) = Cosigned By Initials Name Provider Type CS Rosmery Mixon PT Physical Therapist Obj/Interventions Row Name 07/13/19929 General ROM GENERAL ROM COMMENTS -8-85 degrees knee ROM - Row Name 07/13/19929 Therapeutic Exercise Lower Extremity (Therapeutic Exercise) heel slides, left;LAQ (long arc quad), left;quad sets, left;SAQ (short arc quad), left;SLR (straight leg raise), left -CS Lower Extremity Range of Motion (Therapeutic Exercise) ankle dorsiflexion/plantar flexion, bilateral - Exercise Type (Therapeutic Exercise) isometric contraction, static;AAROM (active assistive range ofmotion);AROM (active range of motion);isotonic contraction, concentric -CS Position (Therapeutic Exercise) seated -CS Sets/Reps (Therapeutic Exercise) 15 reps each -CS Comment (Therapeutic Exercise) VC's on technique -[facility] Name 07/13/19929 Sensory Assessment/Intervention Sensory General Assessment no sensation deficits identified -CS User Sage (r) = Recorded By, (t) = Taken By, (c) = Cosigned By Initials Name Provider Type CS Rosmery Mixon, PT Physical Therapist Goals/Plan Row Name 07/13/19929 Bed Mobility Goal 1 (PT) Activity/Assistive Device (Bed Mobility Goal 1, PT) bed mobility activities, all -CS Hortense Level/Cues Needed (Bed Mobility Goal 1, PT) conditional independence -CS Time Frame (Bed Mobility Goal 1, PT) technician terminal and repeater goal (LTG);3 days -CS Progress/Outcomes (Bed Mobility Goal 1, PT) goal met -[facility] Name 07/13/19929 Transfer Goal 1 (PT) Activity/Assistive Device (Transfer Goal 1, PT) gww-oc-cmvwm/jvflh-yj-zlh;vnj-ri-gjdwc/gluku-ap-uok;walker, rolling -CS Hortense Level/Cues Needed (Transfer Goal 1, PT) conditional independence -CS Time Frame (Transfer Goal 1, PT) technician terminal and repeater goal (LTG);3 days -CS Progress/Outcome (Transfer Goal 1, PT) goal partially met;discharged from facility - Row Name 07/13/19929 Gait Training Goal 1 (PT) Activity/Assistive Device (Gait Training Goal 1, PT) gait (walking locomotion);assistive device use;walker, rolling -CS Hortense Level (Gait Training Goal 1, PT) conditional independence -CS Distance (Gait Goal 1, PT) 500' -CS Time Frame (Gait Training Goal 1, PT) technician terminal and repeater goal (LTG);3 days -CS Progress/Outcome (Gait Training Goal 1, PT) goal partially met;discharged from facility - Row Name 07/13/19929 ROM Goal 1 (PT) ROM Goal 1 (PT) 0-90 deg knee ROM -CS Time Frame (ROM Goal 1, PT) technician terminal and repeater goal (LTG);3 days -CS Progress/Outcome (ROM Goal 1, PT) goal partially met;discharged from facility -CS User Sage (r) = Recorded By, (t) = Taken By, (c) = Cosigned By Initials Name Provider Type Rosmery Shaw, STEPAN Physical Therapist Clinical Impression Row Name 07/13/19929 Pain Assessment Additional Documentation Pain Scale: Numbers Pre/Post-Treatment (Group) -CS Row Name 07/13/19929 Pain Scale: Numbers Pre/Post-Treatment Pain Scale: Numbers, Pretreatment 0/10 - no pain -CS Pain Scale: Numbers, Post-Treatment 0/10 - no pain -CS Pre/Post Treatment Pain Comment Pt reports no pain pre and post treatment session. -CS Row Name 07/13/19929 Plan of Care Review Plan of Care Reviewed With patient -CS Progress improving -CS Outcome Summary Pt able to amb 250' with step through gait mechanics with RW SBA. Pt limited by fatigue. Progressed patient's HEP and patient tolerated well. Recommend patient home with assist and home health PT. -CS Row Name 07/13/19929 Physical Therapy Clinical Impression Criteria for Skilled Interventions Met (PT Clinical Impression) yes;treatment indicated -CS Rehab Potential (PT Clinical Summary) good, to achieve stated therapy goals -CS Row Name 07/13/19929 Positioning and Restraints Pre-Treatment Position sitting in chair/recliner -CS Post Treatment Position chair -CS In Chair notified nsg;reclined;call light within reach;encouraged to call for assist;with family/caregiver;legs elevated;exit alarm on -CS User Sage (r) = Recorded By, (t) = Taken By, (c) = Cosigned By Initials Name Provider Type Rosmery Shaw, PT Physical Therapist Outcome Measures Row Name 07/13/19929 How much help from another person do you currently need... Turning from your back to your side while in flat bed without using bedrails? 4 -CS Moving from lying on back to sitting on the side of a flat bed without bedrails? 4 -CS Moving to and from a bed to a chair (including a wheelchair)? 4 -CS Standing up from a chair using your arms (e.g., wheelchair, bedside chair)? 4 -CS Climbing 3-5 steps with a railing? 3 -CS To walk in hospital room? 4 -CS AM-PAC 6 Clicks Score (PT) 23 -CS Row Name 07/13/19 0930 Functional Assessment Outcome Measure Options AM-PAC 6 Clicks Basic Mobility (PT) -CS User Sage (r) = Recorded By, (t) = Taken By, (c) = Cosigned By Initials Name Provider Type CS Rosmery Mixon, PT Physical Therapist PT Recommendation and Plan Planned Therapy Interventions (PT Eval): balance training, bed mobility training, gait training, home exercise program, neuromuscular re-education, patient/family education, ROM (range of motion), stair training, strengthening, transfer training Outcome Summary/Treatment Plan (PT) Anticipated Equipment Needs at Discharge (PT): other (see comments)(none) Anticipated Discharge Disposition (PT): home with assist, home with home health Plan of Care Reviewed With: patient Progress: improving Outcome Summary: Pt able to amb 250' with step through gait mechanics with RW SBA. Pt limited by fatigue. Progressed patient's HEP and patient tolerated well. Recommend patient home with assist and home health PT. Time Calculation: PT Charges Row Name 07/13/19929 Time Calculation Start Time 0930 -CS PT Received On 07/13/19 - Time Calculation- PT Total Timed Code Minutes- PT 23 minute(s) -CS Timed Charges 77891 - PT Therapeutic Exercise Minutes 8 -CS 28065 - Gait Training Minutes 15 -CS User Sage (r) = Recorded By, (t) = Taken By, (c) = Cosigned By Initials Name Provider Type CS Rosmery Mixon, PT Physical Therapist Therapy Charges for Today Code Description Service Date Service Provider Modifiers Qty 92065766494 HC GAIT TRAINING EA 15 MIN 07/12/2019 Rosmery Mixon, PT GP 1 54830233596 HC PT EVAL MOD COMPLEXITY 3 07/12/2019 Rosmery Mixon, PT GP 1 54713345290 HC PT THER SUPP EA 15 MIN 07/12/2019 Rosmery Mixon, PT GP 2 15501706020 HC PT THER PROC EA 15 MIN 07/13/2019 Rosmery Mixon, PT GP 1 26966784703 HC GAIT TRAINING EA 15 MIN 07/13/2019 Rosmery Mixon, PT GP 1 PT G-Codes Outcome Measure Options: AM-PAC 6 Clicks Basic Mobility (PT) AM-PAC 6 Clicks Score (PT): 23 PT Discharge Summary Anticipated Discharge Disposition (PT): home with assist, home with home health Rosmery Mixon, PT 07/13/2019 1115 * Raymond Willard MD - 07/13/2019 11:26 AM EST Patient Name: Marialuisa Hampton : 1955 DOS: 07/13/2019 Attending: Jose Guadalupe Menon MD Primary Care Provider: Meredith Conti PA Date of Admission:.07/12/2019 5:44 AM Date of Discharge: 07/13/2019 Discharge Diagnosis: Status post total left knee replacement Primary osteoarthritis of left knee HTN (hypertension) Acute blood loss anemia, mild, asymptomatic Leukocytosis, mild, likely reactive Acute postoperative pain Hospital Course Patient is a 63 y.o. female presented for total knee arthroplasty by Dr. Menon. ?? She underwent surgery under spinal anesthesia. She tolerated surgery well and was admitted for further medical management. She is known to us from previous right knee replacement in January 2017; which she recovered well. Patient was provided pain medications as needed for pain control, along with adductor canal nerve block infusion of Ropivacaine. ?? Adjustments were made to pain medications to optimize postop pain management. Risks and benefits ofopiate medications discussed with patient. She was seen by PT and OT and has progressed well over her stay. She used an IS for atelectasis prophylaxis and aspirin along with mechanicals for DVT prophylaxis. Home medications were resumed as appropriate, and labs were monitored and remained fairly stable. With the progress she has made, she is ready for DC home today. ?? She will have an Arrow pump ( instructed on it during this admit). Discussed with patient regarding plan and she shows understanding and agreement. ?? Patient will have HHPT following discharge. Procedures Performed DATE OF PROCEDURE: 07/12/19 ?? PREOPERATIVE DIAGNOSIS: left knee arthritis ?? POSTOPERATIVE DIAGNOSIS: left knee arthritis ?? PROCEDURES PERFORMED: left total knee arthroplasty with [employer] components (#4 narrow posterior stabilized femur, #3 rotating platform tibia, 6 mm rotating platform polyethylene, with 32 three peg anatomic patella). ?? SURGEON: Jose Guadalupe Menon MD Pertinent Test Results: I reviewed the patient's new clinical results. Results from last 7 days Lab Units 07/13/19 0545 WBC 10*3/mm3 15.04* HEMOGLOBIN g/dL 9.9* HEMATOCRIT % 31.8* PLATELETS 10*3/mm3 296 Results for MARIALUISA HAMPTON ( ) as of 07/13/2019 12:24 Ref. Range 06/28/2019 11:45 Hemoglobin Latest Ref Range: 12.0 - 15.9 g/dL 12.8 Hematocrit Latest Ref Range: 34.0 - 46.6 % 43.9 Results from last 7 days Lab Units 07/13/19 0545 SODIUM mmol/L 139 POTASSIUM mmol/L 3.6 CHLORIDE mmol/L 107 CO2 mmol/L 22.0 BUN mg/dL 13 CREATININE mg/dL 0.70 CALCIUM mg/dL 8.5* GLUCOSE mg/dL 95 I reviewed the patient's new imaging including images and reports. Physical therapy: Pt able to amb 250' with step through gait mechanics with RW SBA. Pt limited by fatigue. Progressed patient's HEP and patient tolerated well. Recommend patient home with assist and home health PT. Discharge Assessment: Vital Signs Visit Vitals BP 97/58 (BP Location: Right arm, Patient Position: Lying) Pulse 80 Temp 98.6 ??F (37 ??C) (Oral) Resp 18 Ht 170.2 cm (67 ) Wt 71.7 kg (158 lb) LMP (LMP Unknown) SpO2 97% BMI 24.75 kg/m?? Temp (24hrs), Av.2 ??F (36.8 ??C), Min:97.8 ??F (36.6 ??C), Max:98.6 ??F (37 ??C) General Appearance: Alert, cooperative, in no acute distress Lungs: Clear to auscultation,respirations regular, even and unlabored Heart: Regular rhythm and normal rate, normal S1 and S2 Abdomen: Normal bowel sounds, no masses, no organomegaly, soft non-tender, non- distended, no guarding, no rebound tenderness Extremities: Moves all extremities well, no edema, no cyanosis, no Redness. Left knee CHATO wrap CDI.Nerve block present Pulses: Pulses palpable and equal bilaterally Skin: No bleeding, bruising or rash Neurologic: Cranial nerves 2 - 12 grossly intact, sensation intact. Flexion and dorsiflexion intactbilateral feet. Discharge Disposition: Home Discharge Medications Discharge Medications New Medications Instructions Start Date aspirin 325 MG EC tablet 325 mg, Oral, Daily docusate sodium 100 MG capsule 100 mg, Oral, 2 Times Daily PRN HYDROcodone-acetaminophen 5-325 MG per tablet Commonly known as: NORCO 1 tablet, Oral, Every 4 Hours PRN Ropivacine HCl-NaCl Commonly known as: NAROPIN 10 mL/hr (20 mg/hr), Peripheral Nerve, Continuous Continue These Medications Instructions Start Date butalbital-acetaminophen 50-325 MG tablet tablet TAKE ONE TABLET EVERY 6 HOURS NEEDED FOR TENSION HEADACHE ESTRADIOL TD Transdermal, Take As Directed JOINT HEALTH PO 1 tablet, Oral, Daily Krill Oil 1000 MG capsule 2 tablets, Oral, Daily magnesium oxide 400 MG tablet Commonly known as: MAG-OX 400 mg, Oral, Daily metoprolol tartrate 25 MG tablet Commonly known as: LOPRESSOR 25 mg, Oral, Every Night at Bedtime MULTIVITAMIN ADULTS 50+ tablet 1 tablet, Oral, Daily PROBIOTIC-10 capsule 1 capsule, Oral, Daily Turmeric 450 MG capsule 1 capsule, Oral, Daily Vitamin D3 50 MCG (2000 UT) tablet 1 tablet, Oral, Daily Discharge Diet: Regular diet Activity at Discharge: WBAT LLE Follow-up Appointments Dr. Menon per his orders Silvia Bonds APRN 07/13/19 12:24 PM I have personally performed the evaluation on this patient. My history is consistant with above documentation . My exam finding are listed above. I have personally reviewed and discussed the above formulated discharge plan with patient and [employer].wy. * Rosmery Mixon PT - 07/13/2019 9:30 AM EST Patient Name: Marialuisa Hampton : 1955 Today's Date: 07/13/2019 Admit Date: 07/12/2019 Visit Dx: ICD-10-CM ICD-9-CM 1. Status post total left knee replacement Z96.652 V43.65 2. Primary osteoarthritis of left knee M17.12 715.16 3. Impaired mobility and ADLs Z74.09 799.89 Patient Active Problem List Diagnosis ??? Arthritis of knee, right ??? Status post total left knee replacement ??? HTN (hypertension) ??? Acute blood loss anemia, mild, asymptomatic ??? Leukocytosis, mild, likely reactive ??? Hypokalemia, replaced ??? Primary osteoarthritis of left knee Past Medical History: Diagnosis Date ??? Acute hypotension AFTER RIGHT KNEE REPLACEMENT ??? Anemia ??? Arthritis ??? High cholesterol ??? Irregular heartbeat controlled by metoprolol ??? PONV (postoperative nausea and vomiting) ??? Primary osteoarthritis of both knees ??? Wears contact lenses Past Surgical History: Procedure Laterality Date ??? CARDIAC CATHETERIZATION ??? COLONOSCOPY ??? HYSTERECTOMY ??? KNEE SURGERY ??? GA TOTAL KNEE ARTHROPLASTY Right 01/18/2017 Procedure: RIGHT TOTAL KNEE ARTHROPLASTY; Surgeon: Jose Guadalupe Menon MD; Location: [facility] [place]; Service: Orthopedics ??? TOTAL KNEE ARTHROPLASTY Left 07/12/2019 Procedure: TOTAL KNEE ARTHROPLASTY LEFT; Surgeon: Jose Guadalupe Menon MD; Location: [facility] [place]; Service: Orthopedics General Information Row Name 07/13/19929 PT Evaluation Time/Intention Document Type therapy note (daily note) -CS Mode of Treatment individual therapy;physical therapy -CS Row Name 07/13/19929 General Information Patient Profile Reviewed? yes -CS Existing Precautions/Restrictions fall;other (see comments) L adductor canal catheter -CS Row Name 07/13/19929 Cognitive Assessment/Intervention- PT/OT Orientation Status (Cognition) oriented x 4 -CS Row Name 07/13/19929 Safety Issues, Functional Mobility Safety Issues Affecting Function (Mobility) safety precautions follow- through/compliance;safety precaution awareness -CS Impairments Affecting Function (Mobility) endurance/activity tolerance;pain;range of motion (ROM);strength -CS User Sage (r) = Recorded By, (t) = Taken By, (c) = Cosigned By Initials Name Provider Type CS Rosmery Mixon, PT Physical Therapist Mobility Row Name 07/13/19929 Bed Mobility Assessment/Treatment Comment (Bed Mobility) Pt UIC at start and end of therapy session. - Row Name 07/13/19929 Transfer Assessment/Treatment Comment (Transfers) Pt able to demo proper hand placement with STS. - Row Name 07/13/19929 Bed-Chair Transfer Bed-Chair Hortense (Transfers) conditional independence;verbal cues -CS Assistive Device (Bed-Chair Transfers) walker, front-wheeled - Row Name 07/13/19929 Sit-Stand Transfer Sit-Stand Hortense (Transfers) conditional independence;verbal cues -CS Assistive Device (Sit-Stand Transfers) walker, front-wheeled - Row Name 07/13/19929 Gait/Stairs Assessment/Training 92106 - Gait Training Minutes 15 -CS Gait/Stairs Assessment/Training gait/ambulation independence;gait/ambulation assistive device;distance ambulated;gait pattern -CS Hortense Level (Gait) verbal cues;stand by assist - Assistive Device (Gait) walker, front-wheeled - Distance in Feet (Gait) 250' -CS Pattern (Gait) step-through -CS Deviations/Abnormal Patterns (Gait) bilateral deviations;tracey decreased;gait speed decreased;stride length decreased -CS Bilateral Gait Deviations forward flexed posture -CS Left Sided Gait Deviations weight shift ability decreased;heel strike decreased -CS Comment (Gait/Stairs) Pt able to amb 250' with RW SBA with step through gait mechanics. Pt limited by fatigue. VC's to stay within walker, maintain upright posture, and increase heel strike on L LE. - Row Name 07/13/19929 Mobility Assessment/Intervention Extremity Weight-bearing Status left lower extremity -CS Left Lower Extremity (Weight-bearing Status) weight-bearing as tolerated (WBAT) -CS User Sage (r) = Recorded By, (t) = Taken By, (c) = Cosigned By Initials Name Provider Type Rosmery Shaw PT Physical Therapist Obj/Interventions Row Name 07/13/19929 General ROM GENERAL ROM COMMENTS -8-85 degrees knee ROM - Row Name 07/13/19929 Therapeutic Exercise Lower Extremity (Therapeutic Exercise) heel slides, left;LAQ (long arc quad), left;quad sets, left;SAQ (short arc quad), left;SLR (straight leg raise), left -CS Lower Extremity Range of Motion (Therapeutic Exercise) ankle dorsiflexion/plantar flexion, bilateral -CS Exercise Type (Therapeutic Exercise) isometric contraction, static;AAROM (active assistive range ofmotion);AROM (active range of motion);isotonic contraction, concentric -CS Position (Therapeutic Exercise) seated -CS Sets/Reps (Therapeutic Exercise) 15 reps each -CS Comment (Therapeutic Exercise) VC's on technique - Row Name 07/13/19929 Sensory Assessment/Intervention Sensory General Assessment no sensation deficits identified -CS User Sage (r) = Recorded By, (t) = Taken By, (c) = Cosigned By Initials Name Provider Type CS Rosmery Mixon, PT Physical Therapist Goals/Plan Row Name 07/13/19929 Bed Mobility Goal 1 (PT) Activity/Assistive Device (Bed Mobility Goal 1, PT) bed mobility activities, all -CS Hortense Level/Cues Needed (Bed Mobility Goal 1, PT) conditional independence -CS Time Frame (Bed Mobility Goal 1, PT) technician terminal and repeater goal (LTG);3 days -CS Progress/Outcomes (Bed Mobility Goal 1, PT) goal met - Row Name 07/13/19929 Transfer Goal 1 (PT) Activity/Assistive Device (Transfer Goal 1, PT) pki-ne-[id number]/pyfvu-qr-ffc;umy-js-dedbh/ldraf-ic-xnn;walker, rolling -CS Hortense Level/Cues Needed (Transfer Goal 1, PT) conditional independence -CS Time Frame (Transfer Goal 1, PT) usp goal (LTG);3 days -CS Progress/Outcome (Transfer Goal 1, PT) goal partially met;discharged from facility - Row Name 07/13/19929 Gait Training Goal 1 (PT) Activity/Assistive Device (Gait Training Goal 1, PT) gait (walking locomotion);assistive device use;walker, rolling -CS Hortense Level (Gait Training Goal 1, PT) conditional independence -CS Distance (Gait Goal 1, PT) 500' -CS Time Frame (Gait Training Goal 1, PT) technician terminal and repeater goal (LTG);3 days -CS Progress/Outcome (Gait Training Goal 1, PT) goal partially met;discharged from facility - Row Name 07/13/19929 ROM Goal 1 (PT) ROM Goal 1 (PT) 0-90 deg knee ROM -CS Time Frame (ROM Goal 1, PT) usp goal (LTG);3 days -CS Progress/Outcome (ROM Goal 1, PT) goal partially met;discharged from facility -CS User Sage (r) = Recorded By, (t) = Taken By, (c) = Cosigned By Initials Name Provider Type CS Rosmery Mixon, STEPAN Physical Therapist Clinical Impression Row Name 07/13/19929 Pain Assessment Additional Documentation Pain Scale: Numbers Pre/Post-Treatment (Group) -CS Row Name 07/13/19929 Pain Scale: Numbers Pre/Post-Treatment Pain Scale: Numbers, Pretreatment 0/10 - no pain -CS Pain Scale: Numbers, Post-Treatment 0/10 - no pain -CS Pre/Post Treatment Pain Comment Pt reports no pain pre and post treatment session. -CS Row Name 07/13/19929 Plan of Care Review Plan of Care Reviewed With patient -CS Progress improving -CS Outcome Summary Pt able to amb 250' with step through gait mechanics with RW SBA. Pt limited by fatigue. Progressed patient's HEP and patient tolerated well. Recommend patient home with assist and home health PT. -CS Row Name 07/13/19929 Physical Therapy Clinical Impression Criteria for Skilled Interventions Met (PT Clinical Impression) yes;treatment indicated -CS Rehab Potential (PT Clinical Summary) good, to achieve stated therapy goals -CS Row Name 07/13/19929 Positioning and Restraints Pre-Treatment Position sitting in chair/recliner -CS Post Treatment Position chair -CS In Chair notified nsg;reclined;call light within reach;encouraged to call for assist;with family/caregiver;legs elevated;exit alarm on -CS User Sage (r) = Recorded By, (t) = Taken By, (c) = Cosigned By Initials Name Provider Type CS Rosmery Mixon, PT Physical Therapist Outcome Measures Row Name 07/13/19929 How much help from another person do you currently need... Turning from your back to your side while in flat bed without using bedrails? 4 -CS Moving from lying on back to sitting on the side of a flat bed without bedrails? 4 -CS Moving to and from a bed to a chair (including a wheelchair)? 4 -CS Standing up from a chair using your arms (e.g., wheelchair, bedside chair)? 4 -CS Climbing 3-5 steps with a railing? 3 -CS To walk in hospital room? 4 -CS AM-PAC 6 Clicks Score (PT) 23 -CS Row Name 07/13/19 0930 Functional Assessment Outcome Measure Options AM-PAC 6 Clicks Basic Mobility (PT) -CS User Sage (r) = Recorded By, (t) = Taken By, (c) = Cosigned By Initials Name Provider Type Rosmery Shaw PT Physical Therapist PT Recommendation and Plan Planned Therapy Interventions (PT Eval): balance training, bed mobility training, gait training, home exercise program, neuromuscular re-education, patient/family education, ROM (range of motion), stair training, strengthening, transfer training Outcome Summary/Treatment Plan (PT) Anticipated Equipment Needs at Discharge (PT): other (see comments)(none) Anticipated Discharge Disposition (PT): home with assist, home with home health Plan of Care Reviewed With: patient Progress: improving Outcome Summary: Pt able to amb 250' with step through gait mechanics with RW SBA. Pt limited by fatigue. Progressed patient's HEP and patient tolerated well. Recommend patient home with assist and home health PT. Time Calculation: PT Charges Row Name 07/13/19929 Time Calculation Start Time 929 - PT Received On 07/13/19 -CS Time Calculation- PT Total Timed Code Minutes- PT 23 minute(s) -CS Timed Charges 79197 - PT Therapeutic Exercise Minutes 8 -CS 57138 - Gait Training Minutes 15 -CS User Sgae (r) = Recorded By, (t) = Taken By, (c) = Cosigned By Initials Name Provider Type Rosmery Shaw, PT Physical Therapist Therapy Charges for Today Code Description Service Date Service Provider Modifiers Qty 50060975758 HC GAIT TRAINING EA 15 MIN 07/12/2019 Rosmery Mixon, PT GP 1 07367288500 HC PT EVAL MOD COMPLEXITY 3 07/12/2019 Rosmery Mixon, PT GP 1 07068772429 HC PT THER SUPP EA 15 MIN 07/12/2019 Rosmery Mixon, PT GP 2 [id number] HC PT THER PROC EA 15 MIN 07/13/2019 Rosmery Mixon, PT GP 1 39813353621 HC GAIT TRAINING EA 15 MIN 07/13/2019 Rosmery Mixon, PT GP 1 PT G-Codes Outcome Measure Options: AM-PAC 6 Clicks Basic Mobility (PT) AM-PAC 6 Clicks Score (PT): 23 PT Discharge Summary Anticipated Discharge Disposition (PT): home with assist, home with home health Rosmery Mixon, PT 07/13/2019 * Gissel Rivera, OT - 07/13/2019 8:50 AM EST Acute Care - Occupational Therapy Initial Eval/Discharge [place] Patient Name: Marialuisa Hampton : 1955 Today's Date: 07/13/2019 Onset of Illness/Injury or Date of Surgery: 07/12/19 Date of Referral to OT: 07/13/19 Referring Physician: MD Sinan Admit Date: 07/12/2019 ICD-10-CM ICD-9-CM 1. Status post total left knee replacement Z96.652 V43.65 2. Primary osteoarthritis of left knee M17.12 715.16 3. Impaired mobility and ADLs Z74.09 799.89 Patient Active Problem List Diagnosis ??? Arthritis of knee, right ??? Status post total left knee replacement ??? HTN (hypertension) ??? Acute blood loss anemia, mild, asymptomatic ??? Leukocytosis, mild, likely reactive ??? Hypokalemia, replaced ??? Primary osteoarthritis of left knee Past Medical History: Diagnosis Date ??? Acute hypotension AFTER RIGHT KNEE REPLACEMENT ??? Anemia ??? Arthritis ??? High cholesterol ??? Irregular heartbeat controlled by metoprolol ??? PONV (postoperative nausea and vomiting) ??? Primary osteoarthritis of both knees ??? Wears contact lenses Past Surgical History: Procedure Laterality Date ??? CARDIAC CATHETERIZATION ??? COLONOSCOPY ??? HYSTERECTOMY ??? KNEE SURGERY ??? GA TOTAL KNEE ARTHROPLASTY Right 01/18/2017 Procedure: RIGHT TOTAL KNEE ARTHROPLASTY; Surgeon: Jose Guadalupe Menon MD; Location: [facility]; Service: Orthopedics ??? TOTAL KNEE ARTHROPLASTY Left 07/12/2019 Procedure: TOTAL KNEE ARTHROPLASTY LEFT; Surgeon: Jose Guadalupe Menon MD; Location: [facility]; Service: Orthopedics OT ASSESSMENT FLOWSHEET (last 12 hours) Occupational Therapy Evaluation Row Name 07/13/19 0850 OT Evaluation Time/Intention Subjective Information complains of;pain - Document Type discharge evaluation/summary - Mode of Treatment individual therapy;occupational therapy - Patient Effort excellent - General Information Patient Profile Reviewed? yes - Onset of Illness/Injury or Date of Surgery 07/12/19 - Referring Physician MD Sinan - Patient Observations alert;cooperative;agree to therapy - Patient/Family Observations No family present - General Observations of Patient Pt. in bed on arrival - Prior Level of Function min assist:;all household mobility;transfer;ADL's - Pertinent History of Current Functional Problem Pt. presents with L knee pain that failed to improve with conservative measures. Pt. POD 1 s/p L TKA. - Existing Precautions/Restrictions fall;other (see comments) L adductor canal nerve catheter - Equipment Issued to Patient leg flavoring maker - Barriers to Rehab none identified - Home Main Entrance Number of Stairs, Main Entrance none - Cognitive Assessment/Intervention- PT/OT Orientation Status (Cognition) oriented x 4 - Safety Issues, Functional Mobility Safety Issues Affecting Function (Mobility) safety precaution awareness;safety precautions follow-through/compliance - Impairments Affecting Function (Mobility) endurance/activity tolerance;pain;range of motion (ROM);strength - Mobility Assessment/Treatment Extremity Weight-bearing Status left lower extremity - Left Lower Extremity (Weight-bearing Status) weight-bearing as tolerated (WBAT) - Bed Mobility Assessment/Treatment Bed Mobility Assessment/Treatment supine-sit - Supine-Sit Hortense (Bed Mobility) supervision - Assistive Device (Bed Mobility) head of bed elevated - Comment (Bed Mobility) Educated on use of leg flavoring maker for bed mobility. Demonstrated understanding. - Functional Mobility Functional Mobility- Ind. Level standby assist - Functional Mobility- Device rolling walker - Functional Mobility-Distance (Feet) 20 - Functional Mobility- Comment Pt. ambulated to bathroom and back with no LOB and good safety awareness. - Transfer Assessment/Treatment Transfer Assessment/Treatment sit-stand transfer;stand-sit transfer;shower transfer - Comment (Transfers) Educated on AC nerve catheter mgmt during t/fs. Verbalized and demonstrated understanding. VC's for hand placement. - Sit-Stand Transfer Sit-Stand Hortense (Transfers) stand by assist;verbal cues - Assistive Device (Sit-Stand Transfers) walker, front-wheeled -LC Stand-Sit Transfer Stand-Sit Hortense (Transfers) stand by assist;verbal cues - Assistive Device (Stand-Sit Transfers) walker, front-wheeled -LC Shower Transfer Type (Shower Transfer) lateral - Assistive Device (Shower Transfer) -- Pt. declined shower transfer despite encouragment from OT. - ADL Assessment/Intervention 13586 - OT Self Care/Mgmt Minutes 15 - BADL Assessment/Intervention upper body dressing;lower body dressing;grooming;toileting;bathing - Bathing Assessment/Intervention Bathing Hortense Level lower body;moderate assist (50% patient effort) - Comment (Bathing) Educated pt. to not shower until AC nerve catheter is discontinued and cleared with MD. - Upper Body Dressing Assessment/Training Upper Body Dressing Hortense Level don;bra/undergarment;pull-over garment;independent - Upper Body Dressing Position unsupported sitting - Lower Body Dressing Assessment/Training Lower Body Dressing Hortense Level don;pants/bottoms - Lower Body Dressing Position unsupported sitting - Comment (Lower Body Dressing) Educated pt. on LBD technique to improve independence and comfort with task. Pt. demonstrated understanding. Pt. also educated on AC nerve catheter mgmt during LBD. Pt. verbalized and demonstrated understanding. - Grooming Assessment/Training Hortense Level (Grooming) hair care, combing/brushing;oral care regimen;wash face, hands;supervision - Grooming Position supported standing - Comment (Grooming) Completed grooming standing at sink with RWx. No LOB. - Toileting Assessment/Training Hortense Level (Toileting) adjust/manage clothing - Comment (Toileting) Educated pt. on AC catheter mgmt during toileting. Verbalized and demonstrated understanding. - BADL Safety/Performance Impairments, BADL Safety/Performance endurance/activity tolerance;pain;range of motion;strength - Skilled BADL Treatment/Intervention BADL process/adaptation training;adaptive equipment training - General ROM GENERAL ROM COMMENTS BUE AROM WNL - MMT (Manual Muscle Testing) General MMT Comments BUE grossly 5/5 - Motor Assessment/Interventions Additional Documentation Balance (Group) - Balance Balance static sitting balance;static standing balance;dynamic sitting balance;dynamic standing balance - Static Sitting Balance Level of Hortense (Unsupported Sitting, Static Balance) independent - Sitting Position (Unsupported Sitting, Static Balance) sitting on edge of bed - Time Able to Maintain Position (Unsupported Sitting, Static Balance) more than 5 minutes - Dynamic Sitting Balance Level of Hortense, Reaches Outside Midline (Sitting, Dynamic Balance) supervision - Sitting Position, Reaches Outside Midline (Sitting, Dynamic Balance) sitting on edge of bed - Static Standing Balance Level of Hortense (Supported Standing, Static Balance) supervision - Time Able to Maintain Position (Supported Standing, Static Balance) more than 5 minutes - Assistive Device Utilized (Supported Standing, Static Balance) walker, rolling - Dynamic Standing Balance Level of Hortense, Reaches Outside Midline (Standing, Dynamic Balance) standby assist - Time Able to Maintain Position, Reaches Outside Midline (Standing, Dynamic Balance) more than 5 minutes - Assistive Device Utilized (Supported Standing, Dynamic Balance) walker, rolling - Sensory Assessment/Intervention Sensory General Assessment no sensation deficits identified - Positioning and Restraints Pre-Treatment Position in bed - Post Treatment Position chair -LC In Chair notified nsg;reclined;call light within reach;encouraged to call for assist;exit alarm on;legs elevated - Pain Scale: Numbers Pre/Post-Treatment Pain Scale: Numbers, Pretreatment 6/10 - Pain Scale: Numbers, Post-Treatment 6/10 - Pain Location - Side Left - Pain Location - Orientation posterior - Pain Location knee - Pain Intervention(s) Cold applied;Repositioned;Ambulation/increased activity - Wound Left anterior knee Incision Wound - Properties Group Present on Hospital Admission: N -SC Side: Left -VA Orientation: anterior -SC Location: knee -VA Primary Wound Type: Incision -VA Additional Comments: -- -SC, prineo; abd; 4x4; softroll; chato Plan of Care Review Plan of Care Reviewed With patient -LC Progress improving - Clinical Impression (OT) Date of Referral to OT 07/13/19 - OT Diagnosis Impaired ADLs - Patient/Family Goals Statement (OT Eval) To return home - Therapy Frequency (OT Eval) evaluation only - Care Plan Review (OT) evaluation/treatment results reviewed;care plan/treatment goals reviewed;risks/benefits reviewed;current/potential barriers reviewed;patient/other agree to care plan - Anticipated Discharge Disposition (OT) home with assist;home with home health - Vital Signs Pre Systolic BP Rehab -- VSS, Cleared with NSG for Tx. - OT Goals Transfer Goal Selection (OT) transfer, OT goal 1 -LC Dressing Goal Selection (OT) dressing, OT goal 1 - Transfer Goal 1 (OT) Activity/Assistive Device (Transfer Goal 1, OT) otw-hq-uyuyf/egtyg-rq-cvx -LC Hortense Level/Cues Needed (Transfer Goal 1, OT) standby assist;verbal cues required - Time Frame (Transfer Goal 1, OT) 1 day -LC Progress/Outcome (Transfer Goal 1, OT) goal met - Dressing Goal 1 (OT) Activity/Assistive Device (Dressing Goal 1, OT) lower body dressing - Hortense/Cues Needed (Dressing Goal 1, OT) moderate assist (50-74% patient effort) - Time Frame (Dressing Goal 1, OT) 1 day - Progress/Outcome (Dressing Goal 1, OT) goal met - Discharge Summary (Occupational Therapy) Additional Documentation Discharge Summary, OT Eval (Group) - Discharge Summary, OT Eval Reason for Discharge (OT Discharge Summary) patient discharged from this facility - Outcomes Achieved Upon Discharge (OT Discharge Summary) discharge from facility occurred on same date as evaluation - Living Environment Home Accessibility tub/shower is not walk in - User Sage (r) = Recorded By, (t) = Taken By, (c) = Cosigned By Initials Name Effective Dates Gissel Nelson OT 12/28/18 - Anne-Marie Anderson RN - OT Recommendation and Plan Outcome Summary/Treatment Plan (OT) Anticipated Discharge Disposition (OT): home with assist, home with home health Reason for Discharge (OT Discharge Summary): patient discharged from this facility Therapy Frequency (OT Eval): evaluation only Plan of Care Review Plan of Care Reviewed With: patient Plan of Care Reviewed With: patient Outcome Summary: OT evaluation completed. Pt. educated on Adductor Nerve Catheter mgmt during t/fs,LBD, and toileting tasks. Pt. verbalized and demonstrarted understanding. Required vc's and SBA forSTS t/fs. Demonstrated good safety awareness with in room ambulation. Completed grooming tasks standing at sink. No LOB. Recommend home with assistance and home health at discharge. . Rehab Goal Summary Row Name 07/13/19 0930 07/13/19 0850 Bed Mobility Goal 1 (PT) Activity/Assistive Device (Bed Mobility Goal 1, PT) bed mobility activities, all -CS -- Hortense Level/Cues Needed (Bed Mobility Goal 1, PT) conditional independence -CS -- Time Frame (Bed Mobility Goal 1, PT) technician terminal and repeater goal (LTG);3 days -CS -- Progress/Outcomes (Bed Mobility Goal 1, PT) goal met -CS -- Transfer Goal 1 (PT) Activity/Assistive Device (Transfer Goal 1, PT) jjj-mc-uqols/khvqy-kl-ube;qyr-qf-ruzes/omsqp-eu-efj;walker, rolling -CS -- Hortense Level/Cues Needed (Transfer Goal 1, PT) conditional independence - CS -- Time Frame (Transfer Goal 1, PT) usp goal (LTG);3 days -CS -- Progress/Outcome (Transfer Goal 1, PT) goal partially met;discharged from facility -CS -- Gait Training Goal 1 (PT) Activity/Assistive Device (Gait Training Goal 1, PT) gait (walking locomotion);assistive device use;walker, rolling -CS -- Hortense Level (Gait Training Goal 1, PT) conditional independence -CS -- Distance (Gait Goal 1, PT) 500' -CS -- Time Frame (Gait Training Goal 1, PT) technician terminal and repeater goal (LTG);3 days -CS -- Progress/Outcome (Gait Training Goal 1, PT) goal partially met;discharged from facility -CS -- ROM Goal 1 (PT) ROM Goal 1 (PT) 0-90 deg knee ROM -CS -- Time Frame (ROM Goal 1, PT) usp goal (LTG);3 days -CS -- Progress/Outcome (ROM Goal 1, PT) goal partially met;discharged from facility - -- Occupational Therapy Goals Transfer Goal Selection (OT) -- transfer, OT goal 1 -LC Dressing Goal Selection (OT) -- dressing, OT goal 1 -LC Transfer Goal 1 (OT) Activity/Assistive Device (Transfer Goal 1, OT) -- lpr-ma-xpslw/waeiy-zr-ggl -LC Hortense Level/Cues Needed (Transfer Goal 1, OT) -- standby assist;verbal cues required - Time Frame (Transfer Goal 1, OT) -- 1 day - Progress/Outcome (Transfer Goal 1, OT) -- goal met - Dressing Goal 1 (OT) Activity/Assistive Device (Dressing Goal 1, OT) -- lower body dressing - Hortense/Cues Needed (Dressing Goal 1, OT) -- moderate assist (50-74% patient effort) - Time Frame (Dressing Goal 1, OT) -- 1 day - Progress/Outcome (Dressing Goal 1, OT) -- goal met - User Sage (r) = Recorded By, (t) = Taken By, (c) = Cosigned By Initials Name Provider Type Discipline Rosmery Shaw, PT Physical Therapist PT Gissel Nelson, OT Occupational Therapist OT Outcome Measures Row Name 07/13/19 0850 How much help from another is currently needed... Putting on and taking off regular lower body clothing? 3 -LC Bathing (including washing, rinsing, and drying) 3 -LC Toileting (which includes using toilet bed oshea or urinal) 3 -LC Putting on and taking off regular upper body clothing 4 - Taking care of personal grooming (such as brushing teeth) 4 -LC Eating meals 4 - AM-PAC 6 Clicks Score (OT) 21 - Functional Assessment Outcome Measure Options AM-PAC 6 Clicks Daily Activity (OT) - User Sage (r) = Recorded By, (t) = Taken By, (c) = Cosigned By Initials Name Provider Type Gissel Nelson OT Occupational Therapist Time Calculation: Time Calculation- OT Row Name 07/13/19 0930 07/13/19 0850 Time Calculation- OT OT Start Time -- 0850 - OT Received On -- 07/13/19 - OT Goal Re-Cert Due Date -- 07/23/19 - Timed Charges 12180 - Gait Training Minutes 15 - -- 01784 - OT Self Care/Mgmt Minutes -- 15 - User Sage (r) = Recorded By, (t) = Taken By, (c) = Cosigned By Initials Name Provider Type Rosmery Shaw, PT Physical Therapist Gissel Nelson, OT Occupational Therapist Therapy Suggested Charges Code Minutes Charges 70419 (CPT??) Hc Ot Neuromusc Re Education Ea 15 Min 30414 (CPT??) Hc Ot Ther Proc Ea 15 Min 49477 (CPT??) Hc Ot Therapeutic Act Ea 15 Min 15832 (CPT??) Hc Ot Manual Therapy Ea 15 Min 80489 (CPT??) Hc Ot Iontophoresis Ea 15 Min 43984 (CPT??) Hc Ot Elec Stim Ea-Per 15 Min 17827 (CPT??) Hc Ot Ultrasound Ea 15 Min 37018 (CPT??) Hc Ot Self Care/Mgmt/Train Ea 15 Min 15 1 Total 15 1 Therapy Charges for Today Code Description Service Date Service Provider Modifiers Qty [id number] HC OT SELF CARE/MGMT/TRAIN EA 15 MIN 07/13/2019 Gissel Rivera OT GO 1 [id number] HC OT EVAL MOD COMPLEXITY 3 07/13/2019 Gissel Rivera OT GO 1 OT Discharge Summary Anticipated Discharge Disposition (OT): home with assist, home with home health Gissel Rivera OT 07/13/2019 documented in this encounter Discharge Instructions * Attachments The following attachments cannot be sent through Care Everywhere. * Total Knee Replacement Care After (Niuean) * Continuous Peripheral Nerve Block Infusion Self-Care (Niuean) * How to Use an Incentive Spirometer (Niuean) * Preventing Constipation After Surgery (Niuean) * Acetaminophen; Hydrocodone tablets or capsules (Niuean) * Docusate capsules (Niuean) documented in this encounter Medications at Time of Discharge butalbital-acetam inophen 50-325 MG tablet tablet TAKE ONE TABLET EVERY 6 HOURS NEEDED FOR TENSION HEADACHE 2 01/29/2019 Cholecalciferol (VITAMIN D3) 50 MCG (2000 UT) tablet Take 1 tablet by mouth Daily. ESTRADIOL TD Place on the skin Take As Directed. Krill Oil 1000 MG capsule Take 2 tablets by mouth Daily. magnesium oxide (MAG-OX) 400 MG tablet Take 400 mg by mouth Daily. metoprolol tartrate (LOPRESSOR) 25 MG tablet Take 25 mg by mouth every night at bedtime. Multiple Vitamins-Minerals (MULTIVITAMIN ADULTS 50+) tablet Take 1 tablet by mouth Daily. Probiotic Product (PROBIOTIC-10) capsule Take 1 capsule by mouth Daily. HYDROcodone-aceta minophen (NORCO) 5-325 MG per tabletIndications :Status post total left knee replacement Take 1 tablet by mouth Every 4 (Four) Hours As Needed for Moderate Pain for up to 9 days. 40 tablet 07/13/2019 1:02 PM EST 07/13/2019 0 aspirin 325 MG EC tablet Take 1 tablet by mouth Daily For 1 month 30 tablet 07/13/2019 1:02 PM EST 07/13/2019 1 docusate sodium 100 MG capsule Take 1 capsule by mouth 2 (Two) Times a Day As Needed for Constipation. 60 each 07/13/2019 1:02 PM EST 07/13/2019 1 Ixnzzhvblkx-UFS-A yaluronic Acd (JOINT HEALTH PO) Take 1 tablet by mouth Daily. 1 Ropivacine HCl-NaCl (NAROPIN)Indicati ons:Acute Pain 20 mg/hr by Peripheral Nerve route Continuous. Indications: Acute Pain 07/13/2019 1 Turmeric 450 MG capsule Take 1 capsule by mouth Daily. 03/25/2019 1 documented as of this encounter Progress Notes * Aleja Choudhary CRNA - 07/13/2019 1:10 PM EST [place] Nerve Cath Post Op Call Patient Name: Marialuisa Hampton : 1955 Date of Discharge: 07/13/2019 Nerve Cath Post Op Call: Catheter Plan:Patient called/No answer/Message left to call [facility] pain service for any questions or complaints * Stiven Long CRNA - 07/13/2019 1:10 PM EST [place] Nerve Cath Post Op Call Patient Name: Marialuisa Hampton : 1955 Date of Discharge: 07/13/2019 Nerve Cath Post Op Call: Catheter Plan:Patient called/No answer/Message left to call [facility] pain service for any questions or complaints and The patient was instructed to call TOOL SETTER APPRENTICE Anesthesia provider for any questions or problems * Phuong Hung RN - 07/13/2019 12:11 PM EST Discharge Planning Assessment [facility] Patient Name: Marialuisa Hampton Today's Date: 07/13/2019 Admit Date: 07/12/2019 Discharge Needs Assessment Row Name 07/13/19 1205 Living Environment Lives With alone Current Living Arrangements home/apartment/condo Family Caregiver if Needed sibling(s) Quality of Family Relationships helpful;involved;supportive Able to Return to Prior Arrangements yes Transition Planning Patient/Family Anticipates Transition to home with family Patient/Family Anticipated Services at Transition outpatient care Transportation Anticipated family or friend will provide Discharge Needs Assessment Readmission Within the Last 30 Days no previous admission in last 30 days Equipment Currently Used at Home walker, rolling;cane, straight Equipment Needed After Discharge none Outpatient/Agency/Support Group Needs outpatient therapy Discharge Facility/Level of Care Needs outpatient therapy Provided post acute provider list? Yes Post Acute Provider List Outpatient Therapy Delivered To Patient Method of Delivery In person Patient's Choice of Community Agency(s) [facility] in [place], [place] Discharge Plan Row Name 07/13/19 1206 Plan Plan Home with family assistance and [facility] in [place] Patient/Family in Agreement with Plan yes Plan Comments Met with Ms. Hampton and her family at the bedside for discharge planning. Ms. Hampton lives alone in [facility]. She stated that her sister, David, will be staying with her in the hometo assist her after discharged. She denies any DME needs. Discussed physical therapy and Ms. Hampton requested [facility] in [place]. Called and faxed referral to [facility], LM with facility. Ms. Hampton stated that she already has an appointment scheduled for this coming Tuesday. Ms. Hampton will be transported home by her family when discharged. CM will continue to follow. Final Discharge Disposition Code 01 - home or self-care Destination Coordination has not been started for this encounter. Durable Medical Equipment Coordination has not been started for this encounter. Dialysis/Infusion Coordination has not been started for this encounter. Home Medical Care Coordination has not been started for this encounter. Therapy Coordination has not been started for this encounter. Community Resources Coordination has not been started for this encounter. Expected Discharge Date and Time Expected Discharge Date Expected Discharge Time Jul 13, 2019 Demographic Summary Row Name 07/13/19 1204 General Information Admission Type observation Arrived From home Reason for Consult discharge planning General Information Comments PCP: Meredith Conti Contact Information Permission Granted to Share Info With case therapistmanager career Information Comments Sister: David Hampton, ph [phone] Functional Status Row Name 07/13/19 1204 Functional Status Usual Activity Tolerance good Current Activity Tolerance -- See PT notes. Functional Status, IADL Medications independent Meal Preparation independent Housekeeping independent Laundry independent Shopping independent Mental Status General Appearance WDL WDL Psychosocial No documentation. Abuse/Neglect No documentation. Legal No documentation. Substance Abuse No documentation. Patient Forms No documentation. Phuong Hung RN * Jose Guadalupe Menon MD - 07/13/2019 8:52 AM EST Images from the original note were not included. [facility] Orthopaedic Surgery Progress Note Subjective LOS: 0 days Patient Care Team: Meredith Conti PA as PCP - General (Physician Biodiesel Engine Specialist) Marialuisa Bergeron MD as Consulting Physician (Internal Medicine) CC: Left knee pain Interval History: No new complaints this morning. She would like to go home today. Objective Vital Signs Temp (24hrs), Av.2 ??F (36.8 ??C), Min:97.8 ??F (36.6 ??C), Max:98.6 ??F (37 ??C) BP 97/58 (BP Location: Right arm, Patient Position: Lying) Pulse 80 Temp 98.6 ??F (37 ??C) (Oral) Resp 18 Ht 170.2 cm (67 ) Wt 71.7 kg (158 lb) LMP (LMP Unknown) SpO2 97% BMI 24.75 kg/m?? Examination: Examination of the left knee: The wound is clean, dry, and intact. Ankle dorsiflexion, ankle plantar flexion, and EHL are intact. Sensation intact in the foot to light touch. 2+ dorsalis pedis pulse.Straight leg raise is intact. Labs: Results from last 7 days Lab Units 07/13/19 0545 WBC 10*3/mm3 15.04* HEMOGLOBIN g/dL 9.9* HEMATOCRIT % 31.8* MCV fL 87.6 PLATELETS 10*3/mm3 296 Radiology: Imaging Results (Last 24 Hours) Procedure Component Value Units Date/Time XR Knee 1 or 2 View Left [[id number]] Collected: 07/12/19 1028 Updated: 07/12/191707 Narrative: EXAMINATION: XR KNEE 1 OR 2 VW, LEFT-07/12/2019: INDICATION: Status post left total knee arthroplasty; M17.12-Unilateral primary osteoarthritis, left knee. COMPARISON: NONE. FINDINGS: Two views of the left knee reveal the patient to be status post total left knee arthroplasty. Postsurgical changes seen in the soft tissues. No evidence of malalignment. No hardware complication. Impression: The patient is status post total left knee arthroplasty with no hardware complication or malalignment identified of the prosthesis. E: 07/12/2019 This report was finalized on 07/12/2019 5:[address] Madai Thompson MD. PT: Physical Therapy - Plan of Care Review - Outcome Summary: Outcome Summary: Pt able to amb 250' with step through gait mechanics with RW SBA. Pt limited by fatigue. Progressed patient's HEP and patient tolerated well. Recommend patient home with assist and home health PT. (07/13/19 0930)] Results Review: I reviewed the patient's new clinical results. Assessment and Plan Assessment: Status post left total knee arthroplasty-doing well Status post total left knee replacement HTN (hypertension) Primary osteoarthritis of left knee Plan for disposition: Plan for discharge to home today. Follow-up with me in 3 weeks as planned. Future Appointments Date Time Provider Department Center 08/01/2019 1:20 PM Jose Guadalupe Menon MD [facility] None Jose Guadalupe Menon MD 07/13/19 11:45 AM documented in this encounter H&P Notes * Raymond Willard MD - 07/12/2019 11:06 AM EST Patient Name: Marialuisa Hampton : 1955 DOS: 07/12/2019 Attending: Jose Guadalupe Menon MD Primary Care Provider: Meredith Conti PA Chief complaint: Left knee pain Subjective Patient is a 63 y.o. female presented for total knee arthroplasty by Dr. Menon. She underwent surgery under spinal anesthesia. She tolerated surgery well and is admitted for further medical management. She is known to us from previous right knee replacement in January 2017; which she recovered well. She underwent surgery, left total knee arthroplasty, under spinal anesthesia, tolerated surgery well and had an adductor canal nerve block catheter placed postoperatively. Seen her room after surgery, doing well, no complaints of nausea, vomiting, or shortness of breath.She is still under the effect of spinal anesthesia of the lower extremities. No complaints of pain. Allergies: Allergies Allergen Reactions ??? Chlorhexidine Other (See Comments) NICE SKIN Meds: Medications Prior to Admission Medication Sig Dispense Refill Last Dose ??? Cholecalciferol (VITAMIN D3) 50 MCG (2000 UT) tablet Take 1 tablet by mouth Daily. 07/11/2019 [id number] ??? Wkjcrpwagoo-RIK-Ngyxhyvgcu Acd (JOINT HEALTH PO) Take 1 tablet by mouth Daily. 07/11/2019 at 0830 ??? magnesium oxide (MAG-OX) 400 MG tablet Take 400 mg by mouth Daily. 07/11/2019 at 0830 ??? metoprolol tartrate (LOPRESSOR) 25 MG tablet Take 25 mg by mouth every night at bedtime. 07/11/2019 at 2300 ??? Multiple Vitamins-Minerals (MULTIVITAMIN ADULTS 50+) tablet Take 1 tablet by mouth Daily. 07/11/2019 at 0830 ??? Probiotic Product (PROBIOTIC-10) capsule Take 1 capsule by mouth Daily. 07/11/2019 at 0830 ??? Turmeric 450 MG capsule Take 1 capsule by mouth Daily. 07/11/2019 at 0830 ??? butalbital-acetaminophen 50-325 MG tablet tablet TAKE ONE TABLET EVERY 6 HOURS NEEDED FOR TENSION HEADACHE 2 More than a month at Unknown time ??? ESTRADIOL TD Place on the skin Take As Directed. 07/08/2019 ??? Krill Oil 1000 MG capsule Take 2 tablets by mouth Daily. 07/05/2019 History: Past Medical History: Diagnosis Date ??? Acute hypotension AFTER RIGHT KNEE REPLACEMENT ??? Anemia ??? Arthritis ??? High cholesterol ??? Irregular heartbeat controlled by metoprolol ??? PONV (postoperative nausea and vomiting) ??? Primary osteoarthritis of both knees ??? Wears contact lenses Past Surgical History: Procedure Laterality Date ??? CARDIAC CATHETERIZATION ??? COLONOSCOPY ??? HYSTERECTOMY ??? KNEE SURGERY ??? GA TOTAL KNEE ARTHROPLASTY Right 01/18/2017 Procedure: RIGHT TOTAL KNEE ARTHROPLASTY; Surgeon: Jose Guadalupe Menon MD; Location: [facility]; Service: Orthopedics Family History Problem Relation Age of Onset ??? Hypertension Mother ??? Osteoarthritis Mother ??? Stroke Mother ??? Heart disease Father ??? Diabetes Other ??? Cancer Other Social History Tobacco Use ??? Smoking status: Never Smoker ??? Smokeless tobacco: Never Used Substance Use Topics ??? Alcohol use: Yes Comment: social- occasional ??? Drug use: No She is single with no children. 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 She lives alone had a single level house. A sister expressed today with her during rehab postoperatively Review of Systems Pertinent items are noted in HPI, all other systems reviewed and negative Visit Vitals BP 130/72 Pulse 63 Temp 97.6 ??F (36.4 ??C) (Oral) Resp 16 Ht 170.2 cm (67 ) Wt 71.7 kg (158 lb) LMP (LMP Unknown) SpO2 100% BMI 24.75 kg/m?? Physical Exam: General Appearance: Alert, cooperative, in no acute distress Head: Normocephalic, without obvious abnormality, atraumatic Eyes: Lids and lashes normal, conjunctivae and sclerae normal, no icterus, no pallor, corneas clear Ears: Ears appear intact with no abnormalities noted Neck: No adenopathy, supple, trachea midline, no thyromegaly Lungs: Clear to auscultation, respirations regular, even and unlabored Heart: Regular rhythm and normal rate, normal S1 and S2, no murmur, no gallop Abdomen: Normal bowel sounds, no masses, no organomegaly, soft non-tender, non- distended, no guarding, no rebound tenderness Genitalia: Deferred Extremities: Clean dry and intact Chato on left knee. Adductor canal nerve block catheter present. Distal pulses and cap refill intact. Skin: No bleeding, bruising or rash Neurologic: Cranial nerves 2 - 12 grossly intact, awake alert and oriented. Lower extremities with decreased movement and sensation on her small effusion effects. Able to move her feet/toes to some extent I reviewed the patient's new clinical results. Lab Results Component Value Date HGBA1C 5.20 06/28/2019 Assessment and Plan: Status post total left knee replacement HTN (hypertension) Primary osteoarthritis of left knee Plan 1. PT/OT- early ambulation postop 2. Pain control-prns, AC nerve block 3. IS-encouraged 4. DVT proph- mechs/ASA 5. Bowel regimen 6. Resume home medications as appropriate 7. Monitor post-op labs 8. Discharge planning . Expect home with home health PT likely postop day 1 Raymond Willard MD 07/12/19 12:20 PM * Jose Guadalupe Menon MD - 07/12/2019 6:57 AM EST Pre-Op H&P Marialuisa Hampton [id number] 1955 Chief complaint: left knee pain HPI: Patient is a 63 y.o.female who presents with longstanding history of left knee pain with progressive worsening. Recent imaging of left knee showed qkir-ft-jlus contact medial compartment, advanced patellofemoral arthritis, with varus alignment. Conservative therapy has been unsuccessful in relieving her symptoms. Patient does have a history of right TKA January [address] Menon, which has been stable and doing well. See office note dated 04/09/19. She is here today for total left knee arthroplasty. Review of Systems: General ROS: negative for fever, chills, weakness, dizziness, headache, fatigue, weight changes Cardiovascular ROS: no chest pain or dyspnea on exertion Respiratory ROS: no cough, shortness of breath, or wheezing GI ROS: no abdominal pain/discomfort, nausea, vomiting or diarrhea ROS: no dysuria, hematuria or complaints Skin ROS: no itching, rash or open wounds. Allergies: Allergies Allergen Reactions ??? Chlorhexidine Other (See Comments) NICE SKIN Home Meds: No current facility-administered medications on file prior to encounter. Current Outpatient Medications on File Prior to Encounter Medication Sig Dispense Refill ??? butalbital-acetaminophen 50-325 MG tablet tablet TAKE ONE TABLET EVERY 6 HOURS NEEDED FOR TENSION HEADACHE 2 ??? Chlorhexidine Gluconate 4 % solution Shower with solution daily as directed for 5 days prior tosurgery 237 mL 0 ??? ESTRADIOL TD Place on the skin Take As Directed. ??? Krill Oil 1000 MG capsule Take 2 tablets by mouth Daily. ??? magnesium oxide (MAGOX) 400 (241.3 MG) MG tablet tablet Take 400 mg by mouth Daily. ??? metoprolol tartrate (LOPRESSOR) 25 MG tablet Take 25 mg by mouth every night at bedtime. ??? Multiple Vitamins-Minerals (MULTIVITAMIN ADULTS 50+) tablet Take 1 tablet by mouth Daily. ??? mupirocin (BACTROBAN) 2 % ointment Apply into the nostril(s) as directed by provider 2 (Two) Times a Day. 22 g 0 ??? Turmeric 450 MG capsule Take 1 capsule by mouth Daily. PMH: Past Medical History: Diagnosis Date ??? Acute hypotension AFTER RIGHT KNEE REPLACEMENT ??? Anemia ??? Arthritis ??? High cholesterol ??? Irregular heartbeat controlled by metoprolol ??? PONV (postoperative nausea and vomiting) ??? Primary osteoarthritis of both knees ??? Wears contact lenses PSH: Past Surgical History: Procedure Laterality Date ??? CARDIAC CATHETERIZATION ??? COLONOSCOPY ??? HYSTERECTOMY ??? KNEE SURGERY ??? [place] TOTAL KNEE ARTHROPLASTY Right 01/18/2017 Procedure: RIGHT TOTAL KNEE ARTHROPLASTY; Surgeon: Jose Guadalupe Menon MD; Location: [facility]; Service: Orthopedics Immunization History: Influenza: yes Pneumococcal: no Tetanus: unknown Social History: Tobacco: Social History Tobacco Use Smoking Status Never Smoker Smokeless Tobacco Never Used Alcohol: Social History Substance and Sexual Activity Alcohol Use Yes Comment: social- occasional Vitals: BP 139/72 (BP Location: Right arm, Patient Position: Lying) Pulse 69 Temp 97.9 ??F (36.6 ??C) (Temporal) Resp 16 Ht 170.2 cm (67 ) Wt 71.7 kg (158 lb) LMP (LMP Unknown) SpO2 96% BMI 24.75 kg/m?? Physical Exam: General Appearance: Alert, cooperative, no distress, appears stated age Head: Normocephalic, without obvious abnormality, atraumatic Lungs: Clear to auscultation bilaterally, respirations unlabored Heart: Regular rate and rhythm, S1 and S2 normal, no murmur, rub or gallop Abdomen: Soft, non-tender. +bowel sounds Breast Exam: deferred Genitalia: deferred Extremities: Extremities normal, atraumatic, no cyanosis or edema Skin: Skin color, texture, turgor normal, no rashes or lesions Neurologic: Grossly intact Results Review LABS: Lab Results Component Value Date WBC 11.00 (H) 06/28/2019 HGB 12.8 06/28/2019 HCT 43.9 06/28/2019 MCV 89.8 06/28/2019 PLT 405 06/28/2019 NEUTROABS 7.00 06/28/2019 GLUCOSE 90 06/28/2019 BUN 11 06/28/2019 CREATININE 0.60 06/28/2019 EGFRIFNONA 101 06/28/2019 NA 139 06/28/2019 K 5.0 06/28/2019 CL 102 06/28/2019 CO2 25.0 06/28/2019 CALCIUM 10.3 06/28/2019 RADIOLOGY: Imaging Results (Last 72 Hours) No results found for the last 72 hours. I reviewed the patient's new clinical results. Cancer Staging (if applicable) Cancer Patient: __ yes __no __unknown; If yes, clinical stage T:__ N:__M:__, stage group or __N/A Impression: PRIMARY OSTEOARTHRITIS LEFT KNEE Plan: TOTAL KNEE ARTHROPLASTY LEFT POLO Braxton 07/12/2019 7:08 AM I agree with above. Plan for left total knee arthroplasty. Jose Guadalupe Menon MD 07/12/19 7:12 AM documented in this encounter Nursing Notes * Olivia Arango RN - 07/13/2019 12:45 PM EST aeroinfuser educational video shown to pt, educational sheet and bracelet provided. Pt verbalizes understanding. * Rosmery Mixon PT - 07/13/2019 9:30 AM EST Problem: Patient Care Overview Goal: Plan of Care Review Outcome: Ongoing (interventions implemented as appropriate) Flowsheets Taken 07/13/2019 1111 Progress: improving Taken 07/13/2019 0930 Plan of Care Reviewed With: patient Outcome Summary: Pt able to amb 250' with step through gait mechanics with RW SBA. Pt limited by fatigue. Progressed patient's HEP and patient tolerated well. Recommend patient home with assist and home health PT. * Rosmery Mixon PT - 07/13/2019 9:30 AM EST Problem: Patient Care Overview Goal: Plan of Care Review 07/13/2019 1112 by Rosmery Mixon PT Outcome: Ongoing (interventions implemented as appropriate) Flowsheets Taken 07/13/2019 1112 Progress: improving Taken 07/13/2019 0930 Plan of Care Reviewed With: patient Outcome Summary: Pt able to amb 250' with step through gait mechanics with RW SBA. Pt limited by fatigue. Progressed patient's HEP and patient tolerated well. Recommend patient home with assist and home health PT. * Gissel Rivera, OT - 07/13/2019 8:50 AM EST Problem: Patient Care Overview Goal: Plan of Care Review Flowsheets (Taken 07/13/2019 0850) Outcome Summary: OT evaluation completed. Pt. educated on Adductor Nerve Catheter mgmt during t/fs,LBD, and toileting tasks. Pt. verbalized and demonstrated understanding. Required vc's and SBA for STS t/fs. Demonstrated good safety awareness with in room ambulation. Completed grooming tasks standing at sink. No LOB. Recommend home with assistance and home health at discharge. * Maddie Pacheco RN - 07/13/2019 3:41 AM EST Problem: Patient Care Overview Goal: Plan of Care Review Outcome: Ongoing (interventions implemented as appropriate) Flowsheets Taken 07/13/2019 0340 Progress: no change Outcome Summary: Pt BP remains slightly low. Held metoprolol at beginning of shift. Reports pain between 5/6. Turned arrow pump up to 14 for 2 hours. Helped manage pain. Slept most of the night. Patient reported dizziness/nausea after ambulating 150 ft and to the bathroom. Will continue to monitor. Taken 07/12/20192037 Plan of Care Reviewed With: patient Goal: Individualization and Mutuality Outcome: Ongoing (interventions implemented as appropriate) Goal: Discharge Needs Assessment Outcome: Ongoing (interventions implemented as appropriate) Goal: Interprofessional Rounds/Family Conf Outcome: Ongoing (interventions implemented as appropriate) Problem: Pain, Chronic (Adult) Goal: Identify Related Risk Factors and Signs and Symptoms Outcome: Ongoing (interventions implemented as appropriate) Goal: Acceptable Pain/Comfort Level and Functional Ability Outcome: Ongoing (interventions implemented as appropriate) Problem: Knee Arthroplasty (Total, Partial) (Adult) Goal: Signs and Symptoms of Listed Potential Problems Will be Absent, Minimized or Managed (Knee Arthroplasty) Outcome: Ongoing (interventions implemented as appropriate) Goal: Anesthesia/Sedation Recovery Outcome: Ongoing (interventions implemented as appropriate) * Maria R Sellers RN - 07/12/2019 6:01 PM EST Patient able to ambulate in malhotra with therapy and up to chair and BR various times throughout shift. VSS. Moderate pain reported at 7/10 relieved with PRN pain meds. Will continue to monitor. * Rosmery Mixon PT - 07/12/2019 1:40 PM EST Problem: Patient Care Overview Goal: Plan of Care Review Outcome: Ongoing (interventions implemented as appropriate) Flowsheets Taken 07/12/2019 1420 Progress: improving Taken 07/12/2019 1340 Plan of Care Reviewed With: patient Outcome Summary: Pt able to amb 250' with RW CGA x 2 with step through gait mechanics. Pt limited by fatigue. Encouraged patient to ambulate later with nursing. Recommend patient home with assist [facility] PT. PADD: 9 documented in this encounter OR Notes * Op Note - Jose Guadalupe Menon MD - 07/12/2019 7:57 AM EST DATE OF PROCEDURE: 07/12/19 PREOPERATIVE DIAGNOSIS: left knee arthritis POSTOPERATIVE DIAGNOSIS: left knee arthritis PROCEDURES PERFORMED: left total knee arthroplasty with DePuy Attune components (#4 narrow posterior stabilized femur, #3 rotating platform tibia, 6 mm rotating platform polyethylene, with 32 three peg anatomic patella). SURGEON: Jose Guadalupe Menon MD PETS SALESPERSON: Iris Taylor PA-C SPECIMENS: None ANESTHESIA: Spinal STAFF: Controller Operations And Hr Manager: Anne-Marie Fry RN Scrub Person: Ruddy Magallon Rug Shampooer: Liza Khalil Biodiesel Engine Specialist: Iris Taylor PA TOURNIQUET TIME: 18 minutes ESTIMATED BLOOD LOSS: 100ml COMPLICATIONS: None PREOPERATIVE ANTIBIOTICS: Ancef 2 g INDICATIONS: The patient is a 63 y.o. female with debilitating left knee pain secondary to osteoarthritis that failed to improve in spite of conservative treatment . Options have been discussed at length with the patient and the patient has had an extended course of conservative treatment without long-term benefit. The patient has reached the point where the patient desires total knee arthroplasty surgery and understands the risks, benefits, and alternatives. Consent was obtained. Please see myoffice notes for details with regard to preoperative counseling and operative rationale. DESCRIPTION OF PROCEDURE: The patient was positively identified in the preoperative holding area and brought to the operating suite and placed in a supine position. After adequate spinal anesthetic had been achieved, the left lower extremity was prepped and draped in the usual sterile fashion. After application of a tourniquet to the left upper thigh, which was used during the procedure for a total 18 minutes during the cementation process only. Landmarks of the knee were identified and timeoutprocedure was performed to confirm the operative site, as well as other parameters. Following the sterile prep and drape, a skin incision was made just off the medial aspect of midline for a medial parapatellar approach. Following a sharp skin incision, dissection was carried down to the level of the extensor mechanism and a medial parapatellar arthrotomy was made and the patella was tucked into the lateral gutter. Description of arthritis: [id number]-bl-[id number] contact the medial compartment, lateral degeneration, with advanced patellofemoral arthritis varus alignment. The knee was adequately exposedand a distal femoral cut was made with an intramedullary guide. This was subsequently sized for a #4 implant and anterior, posterior chamfer cuts made. The menisci removed both medially and laterally. The ACL was transected and the tibia was subluxed anteriorly. Proximal tibia cut was made with theexternal alignment guide. The cut was noted to be perpendicular to the tibial axis, with symmetric flexion and extension gaps. Therefore, final femoral preparations were made with the box cutting guide followed by final tibial preparations to accommodate a #3 tibia. With a trial [address], full flexion and extension was noted with no instability. The patella was then prepared for a 35 three peg anatomic patella which had excellent tracking. All trial components were removed and final components were cemented in place with namely a #3 rotating platform tibia, #4 narrow posterior stabilized femur and a 35 three peg anatomic patella with a trial 7 insert for cement compression. All theexcess cement was removed from the bone implant interface and allowed to harden. Tourniquet was deflated. Hemostasis was obtained with electrocautery. There was no brisk bleeding noted in the popliteal fossa in particular. Therefore, the knee was copiously irrigated as it was between major steps, and the final 6 insert was placed as this was deemed appropriate for the patient's anatomy with full flexion and extension and no instability and attention was then directed towards closure. The medialparapatellar arthrotomy was closed with #1 Vicryl in an interrupted megulk-or-aeipx fashion in 4 strategic locations followed by oversewing this from proximal to distal with a #1 StrataFix symmetric,which nicely sealed the joint, followed by closure of the deep fascial layer with #1 Vicryl in a buried interrupted fashion, followed by closure of the subcutaneous layer with 2-0 Vicryl and the skinwith 3-0 Stratafix in a running subcuticular fashion. Prineo wound closure dressing was applied followed by a sterile dressing with 4 x 4's, abdominal pad, soft roll and Chato wrap. The patient tolerated the procedure well and was brought to the recovery room in good condition. PLAN: 1. The patient will begin early range of motion and weight-bearing per the post total knee arthroplasty protocol. 2. I anticipate brief hospitalization for initial rehabilitation and pain control followed by continued rehabilitation in either home health or supervised setting. 3. Postoperative medical management with Dr. Willard. 4. Aspirin will be utilized for DVT prophylaxis unless there is a contraindication. Jose Guadalupe Menon MD 07/12/19 9:13 AM documented in this encounter Miscellaneous Notes * Therapy Evaluation - Rosmery Mixon, PT - 07/12/2019 1:40 PM EST Patient Name: Marialuisa Hampton : 1955 Today's Date: 07/12/2019 Admit Date: 07/12/2019 Visit Dx: ICD-10-CM ICD-9-CM 1. Primary osteoarthritis of left knee M17.12 715.16 Patient Active Problem List Diagnosis ??? Arthritis of knee, right ??? Status post total left knee replacement ??? HTN (hypertension) ??? Acute blood loss anemia, mild, asymptomatic ??? Leukocytosis, mild, likely reactive ??? Hypokalemia, replaced ??? Primary osteoarthritis of left knee Past Medical History: Diagnosis Date ??? Acute hypotension AFTER RIGHT KNEE REPLACEMENT ??? Anemia ??? Arthritis ??? High cholesterol ??? Irregular heartbeat controlled by metoprolol ??? PONV (postoperative nausea and vomiting) ??? Primary osteoarthritis of both knees ??? Wears contact lenses Past Surgical History: Procedure Laterality Date ??? CARDIAC CATHETERIZATION ??? COLONOSCOPY ??? HYSTERECTOMY ??? KNEE SURGERY ??? GA TOTAL KNEE ARTHROPLASTY Right 01/18/2017 Procedure: RIGHT TOTAL KNEE ARTHROPLASTY; Surgeon: Jose Guadalupe Menon MD; Location: [facility]; Service: Orthopedics General Information Row Name 07/12/19 1340 PT Evaluation Time/Intention Document Type evaluation -CS Mode of Treatment individual therapy;physical therapy -CS Row Name 07/12/19 7189 General Information Patient Profile Reviewed? yes -CS Prior Level of Function min assist:;dressing;bathing;home management;cooking;cleaning;gait Mobilitylimited by L knee pain -CS Existing Precautions/Restrictions fall;other (see comments) L adductor canal catheter -CS Barriers to Rehab none identified -CS Row Name 07/12/19 134 Relationship/Environment Lives With alone Pt sister is going to stay with patient at discharge to assist patient -CS Row Name 07/12/19 134 Resource/Environmental Concerns Current Living Arrangements home/apartment/condo -CS Row Name 07/12/19 134 Home Main Entrance Number of Stairs, Main Entrance none -CS Row Name 07/12/19 134 Stairs Within Home, Primary Stairs, Within Home, Primary 1 story house -CS Number of Stairs, Within Home, Primary none -CS Row Name 07/12/19 134 Cognitive Assessment/Intervention- PT/OT Orientation Status (Cognition) oriented x 4 -CS Row Name 07/12/191339 Safety Issues, Functional Mobility Safety Issues Affecting Function (Mobility) safety precautions follow- through/compliance;safety precaution awareness -CS Impairments Affecting Function (Mobility) endurance/activity tolerance;pain;range of motion (ROM);strength -CS User Sage (r) = Recorded By, (t) = Taken By, (c) = Cosigned By Initials Name Provider Type CS Rosmery Mixon PT Physical Therapist Mobility Row Name 07/12/191339 Bed Mobility Assessment/Treatment Bed Mobility Assessment/Treatment supine-sit -CS Supine-Sit Hortense (Bed Mobility) supervision;verbal cues -CS Assistive Device (Bed Mobility) head of bed elevated -CS Comment (Bed Mobility) VC's to move LE's to EOB. Pt denied dizziness with sitting EOB. -CS Row Name 07/12/19 134 Transfer Assessment/Treatment Comment (Transfers) VC's to push off of bed to stand and to reach back for chair to sit. VC's to step L LE out with sitting for comfort. -CS Row Name 07/12/191339 Sit-Stand Transfer Sit-Stand Hortense (Transfers) contact guard;verbal cues -CS Assistive Device (Sit-Stand Transfers) walker, front-wheeled -CS Row Name 07/12/191339 Gait/Stairs Assessment/Training 08633 - Gait Training Minutes 10 -CS Gait/Stairs Assessment/Training gait/ambulation independence;gait/ambulation assistive device;distance ambulated;gait pattern -CS Hortense Level (Gait) verbal cues;contact guard;2 person assist -CS Assistive Device (Gait) walker, front-wheeled -CS Distance in Feet (Gait) 250' -CS Pattern (Gait) step-through -CS Deviations/Abnormal Patterns (Gait) bilateral deviations;tracey decreased;gait speed decreased;stride length decreased -CS Bilateral Gait Deviations forward flexed posture -CS Left Sided Gait Deviations weight shift ability decreased;heel strike decreased -CS Comment (Gait/Stairs) Pt able to amb 250' with RW CGA x 2 with step through gait mechanics. Pt limited by fatigue. VC's on sequencing with walker, increase stance time on L LE, and to maintain upright posture. -CS Row Name 07/12/19 134 Mobility Assessment/Intervention Extremity Weight-bearing Status left lower extremity -CS Left Lower Extremity (Weight-bearing Status) weight-bearing as tolerated (WBAT) -CS User Sage (r) = Recorded By, (t) = Taken By, (c) = Cosigned By Initials Name Provider Type Rosmery Shaw PT Physical Therapist Obj/Interventions Row Name 07/12/19 1340 General ROM GENERAL ROM COMMENTS L knee ROM limited by 25%. Will formally assess POD #1 -CS Row Name 07/12/191339 MMT (Manual Muscle Testing) General MMT Comments Pt able to perform SLR indep on L LE. L LE MMT grossly 4-/5 -CS Row Name 07/12/191339 Therapeutic Exercise Lower Extremity (Therapeutic Exercise) gluteal sets;quad sets, left -CS Lower Extremity Range of Motion (Therapeutic Exercise) ankle dorsiflexion/plantar flexion, bilateral -CS Exercise Type (Therapeutic Exercise) isometric contraction, static;AROM (active range of motion) -CS Position (Therapeutic Exercise) supine -CS Sets/Reps (Therapeutic Exercise) 10 reps each -CS Comment (Therapeutic Exercise) VC's on technique. Pt able to actively dorsiflex -CS Row Name 07/12/19 134 Sensory Assessment/Intervention Sensory General Assessment no sensation deficits identified -CS User Sage (r) = Recorded By, (t) = Taken By, (c) = Cosigned By Initials Name Provider Type Rosmery Shaw PT Physical Therapist Goals/Plan Row Name 07/12/19 134 Bed Mobility Goal 1 (PT) Activity/Assistive Device (Bed Mobility Goal 1, PT) bed mobility activities, all -CS Hortense Level/Cues Needed (Bed Mobility Goal 1, PT) conditional independence -CS Time Frame (Bed Mobility Goal 1, PT) technician terminal and repeater goal (LTG);3 days -CS Progress/Outcomes (Bed Mobility Goal 1, PT) goal ongoing -CS Row Name 07/12/19 134 Transfer Goal 1 (PT) Activity/Assistive Device (Transfer Goal 1, PT) mjs-ds-bpaqm/tbcsw-ao-whv;jli-uc-cnlxl/dxixb-xz-gft;walker, rolling -CS Hortense Level/Cues Needed (Transfer Goal 1, PT) conditional independence -CS Time Frame (Transfer Goal 1, PT) technician terminal and repeater goal (LTG);3 days -CS Progress/Outcome (Transfer Goal 1, PT) goal ongoing -CS Row Name 07/12/191339 Gait Training Goal 1 (PT) Activity/Assistive Device (Gait Training Goal 1, PT) gait (walking locomotion);assistive device use;walker, rolling -CS Hortense Level (Gait Training Goal 1, PT) conditional independence -CS Distance (Gait Goal 1, PT) 500' -CS Time Frame (Gait Training Goal 1, PT) technician terminal and repeater goal (LTG);3 days -CS Progress/Outcome (Gait Training Goal 1, PT) goal ongoing -CS Row Name 07/12/191339 ROM Goal 1 (PT) ROM Goal 1 (PT) 0-90 deg knee ROM -CS Time Frame (ROM Goal 1, PT) usp goal (LTG);3 days -CS Progress/Outcome (ROM Goal 1, PT) goal ongoing -CS User Sage (r) = Recorded By, (t) = Taken By, (c) = Cosigned By Initials Name Provider Type CS Rosmery Mixon, PT Physical Therapist Clinical Impression Row Name 07/12/19 134 Pain Assessment Additional Documentation Pain Scale: Numbers Pre/Post-Treatment (Group) -CS Row Name 07/12/191339 Pain Scale: Numbers Pre/Post-Treatment Pain Scale: Numbers, Pretreatment 4/10 -CS Pain Scale: Numbers, Post-Treatment 4/10 -CS Pain Location - Side Left -CS Pain Location - Orientation anterior -CS Pain Location knee -CS Pain Intervention(s) Repositioned;Ambulation/increased activity;Cold applied -CS Row Name 07/12/19 134 Plan of Care Review Plan of Care Reviewed With patient -CS Progress improving -CS Outcome Summary Pt able to amb 250' with RW CGA x 2 with step through gait mechanics. Pt limited byfatigue. Encouraged patient to ambulate later with nursing. Recommend patient home with assist and home health PT. PADD: 9 -CS Row Name 07/12/19 134 Physical Therapy Clinical Impression Patient/Family Goals Statement (PT Clinical Impression) To go home -CS Criteria for Skilled Interventions Met (PT Clinical Impression) yes;treatment indicated -CS Rehab Potential (PT Clinical Summary) good, to achieve stated therapy goals -CS Predicted Duration of Therapy (PT) 3 days -CS Row Name 07/12/19 1340 Positioning and Restraints Pre-Treatment Position in bed -CS Post Treatment Position chair -CS In Chair notified nsg;reclined;call light within reach;encouraged to call for assist;exit alarm on;with family/caregiver;legs elevated -CS User Sage (r) = Recorded By, (t) = Taken By, (c) = Cosigned By Initials Name Provider Type Rosmery Shaw, PT Physical Therapist Outcome Measures Row Name 07/12/19 1340 How much help from another person do you currently need... Turning from your back to your side while in flat bed without using bedrails? 4 -CS Moving from lying on back to sitting on the side of a flat bed without bedrails? 4 -CS Moving to and from a bed to a chair (including a wheelchair)? 3 -CS Standing up from a chair using your arms (e.g., wheelchair, bedside chair)? 3 -CS Climbing 3-5 steps with a railing? 3 -CS To walk in hospital room? 3 -CS AM-PAC 6 Clicks Score (PT) 20 -CS Row Name 07/12/19 1340 Functional Assessment Outcome Measure Options AM-PAC 6 Clicks Basic Mobility (PT) -CS User Sage (r) = Recorded By, (t) = Taken By, (c) = Cosigned By Initials Name Provider Type Rosmery Shaw, PT Physical Therapist PT Recommendation and Plan Planned Therapy Interventions (PT Eval): balance training, bed mobility training, gait training, home exercise program, neuromuscular re-education, patient/family education, ROM (range of motion), strengthening, stair training, transfer training Outcome Summary/Treatment Plan (PT) Anticipated Equipment Needs at Discharge (PT): other (see comments)(none) Anticipated Discharge Disposition (PT): home with assist, home with home health Plan of Care Reviewed With: patient Progress: improving Outcome Summary: Pt able to amb 250' with RW CGA x 2 with step through gait mechanics. Pt limited by fatigue. Encouraged patient to ambulate later with nursing. Recommend patient [facility] with [facility]. PADD: 9 Time Calculation: PT Charges Row Name 07/12/19 1340 Time Calculation Start Time 1340 -CS PT Received On 07/12/19 -CS PT Goal Re-Cert Due Date 07/22/19 -CS Time Calculation- PT Total Timed Code Minutes- PT 12 minute(s) -CS Timed Charges 43297 - PT Therapeutic Exercise Minutes 2 -CS 02815 - Gait Training Minutes 10 -CS User Sage (r) = Recorded By, (t) = Taken By, (c) = Cosigned By Initials Name Provider Type CS Rosmery Mixon, PT Physical Therapist Therapy Charges for Today Code Description Service Date Service Provider Modifiers Qty 13373325173 HC GAIT TRAINING EA 15 MIN 07/12/2019 Rosmery Mixon, PT GP 1 24922123808 HC PT EVAL MOD COMPLEXITY 3 07/12/2019 Rosmery Mixon, PT GP 1 [id number] HC PT THER SUPP EA 15 MIN 07/12/2019 Rosmery Mixon, PT GP 2 PT G-Codes Outcome Measure Options: AM-PAC 6 Clicks Basic Mobility (PT) AM-PAC 6 Clicks Score (PT): 20 Rosmery Mixon PT 07/12/2019 documented in this encounter Plan of Treatment Scheduled Referrals Name Type Priority Associated Diagnoses Order Schedule Ambulatory Referral to Physical Therapy Evaluate and treat, Ortho; Full weight bearing Outpatient Referral Routine Status post total left knee replacement Impaired mobility and ADLs Ordered: 07/13/2019 documented as of this encounter Procedures Procedure Name Priority Date/Time Associated Diagnosis Comments CBC (NO DIFF) Routine 07/13/2019 5:45 AM EST BASIC METABOLIC PANEL Routine 07/13/2019 5:45 AM EST XR KNEE 1 OR 2 VW LEFT STAT 07/12/2019 10:25 AM EST TOTAL KNEE ARTHROPLASTY 07/12/2019 7:13 AM EST Primary osteoarthritis of left knee Special Needs DEPUY*, PACONTRALATERAL KNEE, 2017: Attune # 4 narrow, # 3 tibia, 6 poly, 32 patella (TEMPLATE: F 4N, T 3)CHG ALLERGY* documented in this encounter Results * (ABNORMAL) CBC (No Diff) (07/13/2019 5:45 AM EST) WBC 15.04(H) 3.40 - 10.80 10*3/mm3 07/13/2019 6:21 AM EST [facility] RBC 3.63(L) 3.77 - 5.28 10*6/mm3 07/13/2019 6:21 AM EST [facility] Hemoglobin 9.9(L) 12.0 - 15.9 g/dL 07/13/2019 6:21 AM EST [facility] Hematocrit 31.8(L) 34.0 - 46.6 % 07/13/2019 6:21 AM EST [facility] MCV 87.6 79.0 - 97.0 fL 07/13/2019 6:21 AM [facility] MCH 27.3 26.6 - 33.0 pg 07/13/2019 6:21 AM EST [facility] MCHC 31.1(L) 31.5 - 35.7 g/dL 07/13/2019 6:21 AM EST [facility] RDW 15.6(H) 12.3 - 15.4 % 07/13/2019 6:21 AM EST [facility] RDW-SD 49.8 37.0 - 54.0 fl 07/13/2019 6:21 AM [facility] MPV 10.6 6.0 - 12.0 fL 07/13/2019 6:21 AM EST [facility] Platelets 296 140 - 450 10*3/mm3 07/13/2019 6:21 AM EST [facility] Blood Venipuncture / Unknown 07/13/2019 5:45 AM EST 07/13/2019 6:13 AM EST Jose Guadalupe Menon MD LAB BLOOD ORDERABLES Final Res ult [facility]
[address] [place] [address], * (ABNORMAL) Basic Metabolic Panel (07/13/2019 5:45 AM EST) Glucose 95 65 - 99 mg/dL 07/13/2019 7:22 AM EST [facility] BUN 13 8 - 23 mg/dL 07/13/2019 7:22 AM [facility] Creatinine 0.70 0.57 - 1.00 mg/dL 07/13/2019 7:22 AM [facility] Sodium 139 136 - 145 mmol/L 07/13/2019 7:22 AM EST [facility] Potassium 3.6 3.5 - 5.2 mmol/L 07/13/2019 7:22 AM [facility] Chloride 107 98 - 107 mmol/L 07/13/2019 7:22 AM [facility] CO2 22.0 22.0 - 29.0 mmol/L 07/13/2019 7:22 AM [facility] Calcium 8.5(L) 8.6 - 10.5 mg/dL 07/13/2019 7:22 AM [facility] eGFR Non Amer 85 >60 mL/min/1.7 3 07/13/2019 7:22 AM [facility] BUN/Creatinine Ratio 18.6 7.0 - 25.0 07/13/2019 7:22 AM [facility] Anion Gap 10.0 5.0 - 15.0 mmol/L 07/13/2019 7:22 AM EST [facility] Blood Venipuncture / Unknown 07/13/2019 5:45 AM EST 07/13/2019 6:13 AM EST Narrative [facility] - 07/13/2019 7:22 AM EST GFR Normal >60 Chronic Kidney Disease <60 Kidney Failure <15 us Silvia Bonds APRN LAB BLOOD ORDERABLES Final Result [facility]
[address] [place] [address], * XR Knee 1 or 2 View Left (07/12/2019 10:25 AM EST) Anatomical Region Laterality Modality Lower Extremities, Knee Left Radiogra phic Imaging 07/12/2019 10:2 8 AM EST Impressions 07/12/2019 5:05 PM EST The patient is status post total left knee arthroplasty with no hardware complication or malalignment identified of the prosthesis. D: ??07/12/2019 E: ??07/12/2019 This report was finalized on 07/12/2019 5:[address] Madai Thompson MD. Narrative 07/12/2019 5:05 PM EST EXAMINATION: XR KNEE 1 OR 2 VW, LEFT-07/12/2019: INDICATION: Status post left total knee arthroplasty; M17.12-Unilateral primary osteoarthritis, left knee. COMPARISON: NONE. FINDINGS: Two views of the left knee reveal the patient to be status post total left knee arthroplasty. Postsurgical changes seen in the soft tissues. No evidence of malalignment. No hardware complication. ? Procedure Note Madai Thompson MD - 07/12/2019 EXAMINATION: XR KNEE 1 OR 2 VW, LEFT-07/12/2019: INDICATION: Status post left total knee arthroplasty; M17.12-Unilateral primary osteoarthritis, left knee. COMPARISON: NONE. FINDINGS: Two views of the left knee reveal the patient to be status post total left knee arthroplasty. Postsurgical changes seen in the soft tissues. No evidence of malalignment. No hardware complication. IMPRESSION: The patient is status post total left knee arthroplasty with no hardware complication or malalignment identified of the prosthesis. E: 07/12/2019 This report was finalized on 07/12/2019 5:[address] Madai Thompson MD. Jose Guadalupe Menon MD IMG DIAGNOSTIC IMAGING ORDERAB LES Final Result documented in this encounter Visit Diagnoses Diagnosis Status post total left knee replacement- Primary Primary osteoarthritis of left knee Status post total left knee replacement Impaired mobility and ADLs Primary osteoarthritis of left knee HTN (hypertension) Unspecified essential hypertension Acute postoperative pain Other acute postoperative pain Acute blood loss anemia, mild, asymptomatic Acute posthemorrhagic anemia Leukocytosis, mild, likely reactive Leukocytosis, unspecified documented in this encounter Admitting Diagnoses Diagnosis Primary osteoarthritis of left knee documented in this encounter Administered Medications Inactive Administered Medications - up to 3 most recent administrations Medication Order MAR Action Action Date Dose Rate Site acetaminophen (TYLENOL) suppository 650 mg 650 mg, Rectal, Every 4 Hours PRN, Mild Pain, Starting on [place] 07/12/19 at 1049, Do not exceed 4 grams of acetaminophen in a 24 hr period. If given for pain, use the following pain scale: Mild Pain = Pain Score of 1-3, CPOT 1-2 Moderate Pain = Pain Score of 4-6, CPOT 3-4 Severe Pain = Pain Score of 7-10, CPOT 5-8 acetaminophen (TYLENOL) tablet 1,000 mg 1,000 mg, Oral, Once, On [place] 07/12/19 at 0707, For 1 doseIndications:Primary osteoarthritis of left knee Given 07/12/2019 7:21 AM EST 1,000 mg acetaminophen (TYLENOL) tablet 650 mg 650 mg, Oral, Every 4 Hours PRN, Mild Pain, Starting on [place] 07/12/19 at 1049, Do not exceed 4 grams of acetaminophen in a 24 hr period. If given for pain, use the following pain scale: Mild Pain = Pain Score of 1-3, CPOT 1-2 Moderate Pain = Pain Score of 4-6, CPOT 3-4 Severe Pain = Pain Score of 7-10, CPOT 5-8 Given 07/12/2019 8:38 PM EST 650 mg aspirin EC tablet 325 mg 325 mg, Oral, Daily, First dose on Tue07/13/19 at 0900, Herbal/drug interaction: Avoid use with ginkgo biloba. Do not crush or chew. Do not exceed 4 grams of aspirin in a 24 hr period. If given for pain, use the following pain scale: Mild Pain = Pain Score of 1-3, CPOT 1-2 Moderate Pain = Pain Score of 4-6, CPOT 3-4 Severe Pain = Pain Score of 7-10, CPOT 5-8 Given 07/13/2019 11:53 AM EST 325 mg ceFAZolin in dextrose (ANCEF) IVPB solution 2 g 2 g, Intravenous, Administer over 30 Minutes, Every 8 Hours, First dose on [place] 07/12/19 at 1600, For 2 doses, Time first dose from pre-op dose. Caution: Look alike/sound alike drug alert, Indications: Surgical ProphylaxisIndications:Surgical Prophylaxis New Bag 07/13/2019 12:30 AM EST 2 g New Bag 07/12/2019 3:22 PM EST 2 g docusate sodium (COLACE) capsule 100 mg 100 mg, Oral, 2 Times Daily PRN, Constipation, Starting on [place] 07/12/19 at 1049, Swallow whole. Do not open, crush, or chew capsule. Given 07/13/2019 8:51 AM EST 100 mg famotidine (PEPCID) tablet 20 mg 20 mg, Oral, Once, On [place] 07/12/19 at 0707, For 1 dose Given 07/12/2019 7:20 AM EST 20 mg HYDROcodone-acetaminophen (NORCO) 5-325 MG per tablet 1 tablet 1 tablet, Oral, Every 4 Hours PRN, Moderate Pain, Starting on [place] 07/12/19 at 1049, For 10 days Given 07/13/2019 8:51 AM EST 1 tablet Given 07/13/2019 2:57 AM EST 1 tablet Given 07/12/2019 6:47 PM EST 1 tablet HYDROmorphone (DILAUDID) injection 0.5 mg 0.5 mg, Intravenous, Every 2 Hours PRN, Severe Pain, Starting on [place] 07/12/19 at 1049, For 10 days, If given for pain, use the following pain scale: Mild Pain = Pain Score of 1-3, CPOT 1-2 Moderate Pain = Pain Score of 4-6, CPOT 3-4 Severe Pain = Pain Score of 7-10, CPOT 5-8 labetalol (NORMODYNE,TRANDATE) injection 10 mg 10 mg, Intravenous, Every 4 Hours PRN, High Blood Pressure, SBP>170, Starting on [place] 07/12/19 at 1108, Give by slow IV Push each 20mg (or less) over 2 minutes lactated ringers infusion 9 mL/hr, Intravenous, Continuous, Starting on [place] 07/12/19 at 0707, May switch to NS IV at KVO if renal / if indicated Currently Infusing 07/12/2019 7:28 AM EST New Bag 07/12/2019 6:45 AM EST 9 mL/hr 9 mL/hr lidocaine PF 1% (XYLOCAINE) injection 0.5 mL 0.5 mL, Injection, Once As Needed, IV Start, Starting on [place] 07/12/19 at 0705, For 1 dose Given 07/12/2019 6:45 AM EST 0.5 mL meloxicam (MOBIC) tablet 15 mg 15 mg, Oral, Once, On [place] 07/12/19 at 0707, For 1 dose, Take with food. If given for pain, use the following pain scale: Mild Pain = Pain Score of 1-3, CPOT 1-2 Moderate Pain = Pain Score of 4-6, CPOT 3-4 Severe Pain = Pain Score of 7-10, CPOT 5-8Indications:Primary osteoarthritis of left knee Given 07/12/2019 7:20 AM EST 15 mg meloxicam (MOBIC) tablet 15 mg 15 mg, Oral, Daily, First dose on Tue07/13/19 at 0900, Take with food. If given for pain, use the following pain scale: Mild Pain = Pain Score of 1-3, CPOT 1-2 Moderate Pain = Pain Score of 4-6, CPOT 3-4 Severe Pain = Pain Score of 7-10, CPOT 5-8 Given 07/13/2019 8:50 AM EST 15 mg Morphine sulfate (PF) injection 4 mg 4 mg, Intravenous, Every 2 Hours PRN, Moderate Pain, Starting on [place] 07/12/19 at 1049, For 10 days, {SURENDRA} Caution: Look alike/sound alike drug alert If given for pain, use the following pain scale: Mild Pain = Pain Score of 1-3, CPOT 1-2 Moderate Pain = Pain Score of 4-6, CPOT 3-4 Severe Pain = Pain Score of 7-10, CPOT 5-8 mupirocin (BACTROBAN) 2 % nasal ointment 1 application 1 application , Each Nare, Once, On [place] 07/12/19 at 0707, For 1 dose, {BKC}Indications:Primary osteoarthritis of left knee Given 07/12/2019 7:21 AM EST 1 application naloxone (NARCAN) injection 0.1 mg 0.1 mg, Intravenous, Every 5 Minutes PRN, Respiratory Depression, Starting on [place] 07/12/19 at 1049, If respiratory rate is less than 8 breaths/minute or patient is difficult to arouse stop any narcotics and contact physician. Administer slow IV push. Repeat as ordered until patient's respiratory rate is greater than 12 breaths/minute. naloxone (NARCAN) injection 0.4 mg 0.4 mg, Intravenous, Every 5 Minutes PRN, Respiratory Depression, Starting on [place] 07/12/19 at 1049, If respiratory rate is less than 8 breaths/minute or patient is difficult to arouse stop any narcotics and contact physician. Administer slow IV push. Repeat as ordered until patient's respiratory rate is greater than 12 breaths/minute. ondansetron (ZOFRAN) injection 4 mg 4 mg, Intravenous, Every 6 Hours PRN, Nausea, Vomiting, Starting on [place] 07/12/19 at 1049, If BOTH ondansetron (ZOFRAN) and promethazine (PHENERGAN) are ordered use ondansetron first and THEN promethazine IF ondansetron is ineffective. Given 07/13/2019 6:06 AM EST 4 mg ondansetron (ZOFRAN) tablet 4 mg 4 mg, Oral, Every 6 Hours PRN, Nausea, Vomiting, Starting on [place] 07/12/19 at 1049, If BOTH ondansetron (ZOFRAN) and promethazine (PHENERGAN) are ordered use ondansetron first and THEN promethazine IF ondansetron is ineffective. pregabalin (LYRICA) capsule 150 mg 150 mg, Oral, Once, On [place] 07/12/19 at 0707, For 1 doseIndications:Primary osteoarthritis of left knee Given 07/12/2019 7:21 AM EST 150 mg ropivacaine (Naropin) 0.2% in NS infusion (ARROW Pump) 10 mL/hr, Peripheral Nerve, Continuous, Starting on [place] 07/12/19 at 0717, For pain scale 5 or greater, increase rate to 14 mL/hr for 2 hours then return to original rate. Can be repeated every 12 hours. If no improvement, call the Acute Pain Service at [phone], if no response call the Operating Rm desk. Thank you, Indications: Acute PainIndications:Acute Pain Currently Infusing 07/13/2019 1:15 PM EST 10 mL/hr 10 mL/hr Currently Infusing 07/13/2019 10:00 AM EST 10 mL/hr 10 m L/hr Rate/Dose Verify 07/13/2019 8:00 AM EST 10 mL/hr 10 mL/h r sodium chloride 0.9 % bolus 500 mL 500 mL, Intravenous, at 250 mL/hr, Administer over 2 Hours, 3 Times Daily PRN, for SBP less than 90, Starting on [place] 07/12/19 at 1108 sodium chloride 0.9 % flush 3 mL 3 mL, Intravenous, Every 12 Hours Scheduled, First dose on [place] 07/12/19 at 1145 Given 07/13/2019 8:51 AM EST 3 mL Given 07/12/2019 8:30 PM EST 3 mL sodium chloride 0.9 % infusion 120 mL/hr, Intravenous, Continuous, Starting on [place] 07/12/19 at 1145 New Bag 07/13/2019 6:04 AM EST 120 mL/hr 120 mL/hr Currently Infusing 07/12/2019 11:22 PM EST 120 mL/hr 120 mL/hr New Bag 07/12/2019 8:37 PM EST 120 mL/hr 120 mL/hr documented in this encounter Active and Recently Administered Medications Times are shown in EST. Scheduled Medication Order 07/11/2019 07/12/2019 07/13/2019 acetaminophen (TYLENOL) tablet 1,000 mg (COMPLETED) 1,000 mg, Oral, Once, On [place] 07/12/19 at 0707, For 1 dose 0721 (Given - Provider: Stephanie Ji RN) aspirin EC tablet 325 mg 325 mg, Oral, Daily, First dose on Tue07/13/19 at 0900, Herbal/drug interaction: Avoid use with ginkgo biloba. Do not crush or chew. Do not exceed 4 grams of aspirin in a 24 hr period. If given for pain, use the following pain scale: Mild Pain = Pain Score of 1-3, CPOT 1-2 Moderate Pain = Pain Score of 4-6, CPOT 3-4 Severe Pain = Pain Score of 7-10, CPOT 5-8 1153 (Given - Provid er: Olivia Arango RN) ceFAZolin in dextrose (ANCEF) IVPB solution 2 g (COMPLETED) 2 g, Intravenous, Administer over 30 Minutes, Once, On [place] 07/12/19 at 0707, For 1 dose, Administer Within 1 Hour of Surgical Incision. Redose 4 Hours From Pre-Op Dose if Procedure Ongoing or Blood Loss Greater Than 1.5 L Caution: Look alike/sound alike drug alert, Indications: Surgical Prophylaxis 0732 (Given - Provider: Luis Manuel Johnson CRNA) ceFAZolin in dextrose (ANCEF) IVPB solution 2 g (COMPLETED) 2 g, Intravenous, Administer over 30 Minutes, Every 8 Hours, First dose on [place] 07/12/19 at 1600, For 2 doses, Time first dose from pre-op dose. Caution: Look alike/sound alike drug alert, Indications: Surgical Prophylaxis 1522 (New Bag - Provider: Maria R Sellers RN)1622 (Stopped - Provider: Maddie Pacheco RN) 0030 (New Bag - Provider: Maddie Pacheco RN) famotidine (PEPCID) tablet 20 mg (COMPLETED) 20 mg, Oral, Once, On [place] 07/12/19 at 0707, For 1 dose 0720 (Given - Provider: Stephanie Ji RN) meloxicam (MOBIC) tablet 15 mg (COMPLETED) 15 mg, Oral, Once, On [place] 07/12/19 at 0707, For 1 dose, Take with food. If given for pain, use the following pain scale: Mild Pain = Pain Score of 1-3, CPOT 1-2 Moderate Pain = Pain Score of 4-6, CPOT 3-4 Severe Pain = Pain Score of 7-10, CPOT 5-8 0720 (Given - Provider: Stephanie Ji RN) meloxicam (MOBIC) tablet 15 mg 15 mg, Oral, Daily, First dose on Tue07/13/19 at 0900, Take with food. If given for pain, use the following pain scale: Mild Pain = Pain Score of 1-3, CPOT 1-2 Moderate Pain = Pain Score of 4-6, CPOT 3-4 Severe Pain = Pain Score of 7-10, CPOT 5-8 0850 (Given - Provid er: Olivia Arango RN) metoprolol tartrate (LOPRESSOR) tablet 25 mg 25 mg, Oral, Nightly, First dose on [place] 07/12/19 at 2100, Hold for SBP <110 or HR <55 2044 (Not Given - Provider: Maddie Pacheco, RN - Reason: Order parameters not met) mupirocin (BACTROBAN) 2 % nasal ointment 1 application (COMPLETED) 1 application , Each Nare, Once, On [place] 07/12/19 at 0707, For 1 dose, {BKC} 0721 (Given - Provider: Stephanie Ji, RN) pregabalin (LYRICA) capsule 150 mg (COMPLETED) 150 mg, Oral, Once, On [place] 07/12/19 at 0707, For 1 dose 0721 (Given - Provider: Stephanie Ji, RN) sodium chloride 0.9 % flush 3 mL 3 mL, Intravenous, Every 12 Hours Scheduled, First dose on [place] 07/12/19 at 1145 1154 (Not Given - Provider: Maria R Sellers RN - Reason: Given from running infusion)2030 (Given - Provider: Maddie Pacheco, RN) 0851 (Given - Provider: Olivia Arango RN) tranexamic acid 1000 mg in 100 ml NS Mini-bag plus (COMPLETED) 1,000 mg, Intravenous, Administer over 30 Minutes, Once, On [place] 07/12/19 at 0707, For 1 dose, Give prior to incision. Break seal and mix to activate vial before using. Max. Dose for IV use - 1000mg. 0741 (Given - Provider: Luis Manuel Johnson CRNA) tranexamic acid 1000 mg in 100 ml NS Mini-bag plus (COMPLETED) 1,000 mg, Intravenous, Administer over 30 Minutes, Once, On [place] 07/12/19 at 0707, For 1 dose, Hip Replacement: Give at start of incision closure. Knee Replacement: Give 5-10 minutes before tourniquet release. Break seal and mix to activate vial before using. Max. Dose for IV use - 1000mg. 0830 (Given - Provider: Luis Manuel Johnson CRNA) Continuous Medication Order 07/11/2019 07/12/2019 07/13/2019 lactated ringers infusion (CANCELED) 9 mL/hr, Intravenous, Continuous, Starting on [place] 07/12/19 at 0707, May switch to NS IV at KVO if renal / if indicated 0645 (New Bag - Provider: Stephanie Ji RN)0728 (Currently Infusing - Provider: Luis Manuel Johnson CRNA)0803 (Anesthesia Volume Adjustment - Provider: Luis Manuel Johnson CRNA)0857 (Anesthesia Volume Adjustment - Provider: Luis Manuel Johnson CRNA)0922 (Anesthesia Volume Adjustment - Provider: Luis Manuel Johnson CRNA) ropivacaine (Naropin) 0.2% in NS infusion (ARROW Pump) 10 mL/hr, Peripheral Nerve, Continuous, Starting on [place] 07/12/19 at 0717, For pain scale 5 or greater, increase rate to 14 mL/hr for 2 hours then return to original rate. Can be repeated every 12 hours. If no improvement, call the Acute Pain Service at [phone], if no response call the Operating Rm desk. Thank you, Indications: Acute Pain 0950 (New Bag - Provider: Jazmin Manriquez RN)2040 (Rate/Dose Change - Provider: Maddie Pacheco, ROXANA)2240 (Rate/Dose Change - Provider: Maddie Pacheco, RN) 0800 (Rate/Dose Verify - Provider: Olivia Arango RN)1000 (Currently Infusing - Provider: Olivia Arango RN)1315 (Currently Infusing - Provider: Olivia Aranog RN) sodium chloride 0.9 % infusion 120 mL/hr, Intravenous, Continuous, Starting on [place] 07/12/19 at 1145 1202 (New Bag - Provider: Maria R Sellers RN)2037 (New Bag - Provider: Maddie Pacheco, RN)2322 (Currently Infusing - Provider: Maddie Pacheco, RN) 0604 (New Bag - Provider: Maddie Pacheco, RN) PRN Medication Order 07/11/2019 07/12/2019 07/13/2019 acetaminophen (TYLENOL) suppository 650 mg(Linked Group 1) 650 mg, Rectal, Every 4 Hours PRN, Mild Pain, Starting on [place] 07/12/19 at 1049, Do not exceed 4 grams of acetaminophen in a 24 hr period. If given for pain, use the following pain scale: Mild Pain = Pain Score of 1-3, CPOT 1-2 Moderate Pain = Pain Score of 4-6, CPOT 3-4 Severe Pain = Pain Score of 7-10, CPOT 5-8 2037 (Not Given: See Alt - Provider: Maddie Pacheco RN) acetaminophen (TYLENOL) tablet 650 mg(Linked Group 1) 650 mg, Oral, Every 4 Hours PRN, Mild Pain, Starting on [place] 07/12/19 at 1049, Do not exceed 4 grams of acetaminophen in a 24 hr period. If given for pain, use the following pain scale: Mild Pain = Pain Score of 1-3, CPOT 1-2 Moderate Pain = Pain Score of 4-6, CPOT 3-4 Severe Pain = Pain Score of 7-10, CPOT 5-8 2037 (Given - Provider: Maddie Pacheco RN - Comment: bp too low to give anything stronger (90/43)) bisacodyl (DULCOLAX) EC tablet 10 mg 10 mg, Oral, Daily PRN, Constipation, Starting on [place] 07/12/19 at 1049, Swallow whole. Do not crush, split, or chew tablet. bisacodyl (DULCOLAX) suppository 10 mg 10 mg, Rectal, Daily PRN, Constipation, Starting on [place] 07/12/19 at 1049 docusate sodium (COLACE) capsule 100 mg 100 mg, Oral, 2 Times Daily PRN, Constipation, Starting on [place] 07/12/19 at 1049, Swallow whole. Do not open, crush, or chew capsule. 0851 (Given - Provid er: Olivia Arango RN) HYDROcodone-acetaminophen (NORCO) 5-325 MG per tablet 1 tablet 1 tablet, Oral, Every 4 Hours PRN, Moderate Pain, Starting on [place] 07/12/19 at 1049, For 10 days 1427 (Given - Provider: Maria R Sellers RN)1847 (Given - Provider: Maria R Sellers RN) 0257 (Given - Provider: Maddie Pacheco RN)0851 (Given - Provider: Olivia Arango RN) HYDROmorphone (DILAUDID) injection 0.5 mg(Linked Group 2) 0.5 mg, Intravenous, Every 2 Hours PRN, Severe Pain, Starting on [place] 07/12/19 at 1049, For 10 days, If given for pain, use the following pain scale: Mild Pain = Pain Score of 1-3, CPOT 1-2 Moderate Pain = Pain Score of 4-6, CPOT 3-4 Severe Pain = Pain Score of 7-10, CPOT 5-8 labetalol (NORMODYNE,TRANDATE) injection 10 mg 10 mg, Intravenous, Every 4 Hours PRN, High Blood Pressure, SBP>170, Starting on [place] 07/12/19 at 1108, Give by slow IV Push each 20mg (or less) over 2 minutes lidocaine PF 1% (XYLOCAINE) injection 0.5 mL (COMPLETED) 0.5 mL, Injection, Once As Needed, IV Start, Starting on [place] 07/12/19 at 0705, For 1 dose 0645 (Given - Provider: Stephanie Ji RN) magnesium hydroxide (MILK OF MAGNESIA) suspension 2400 mg/10mL 10 mL 10 mL, Oral, Daily PRN, Constipation, Starting on [place] 07/12/19 at 1049 Morphine sulfate (PF) injection 4 mg(Linked Group 3) 4 mg, Intravenous, Every 2 Hours PRN, Moderate Pain, Starting on [place] 07/12/19 at 1049, For 10 days, {SURENDRA} Caution: Look alike/sound alike drug alert If given for pain, use the following pain scale: Mild Pain = Pain Score of 1-3, CPOT 1-2 Moderate Pain = Pain Score of 4-6, CPOT 3-4 Severe Pain = Pain Score of 7-10, CPOT 5-8 naloxone (NARCAN) injection 0.1 mg(Linked Group 2) 0.1 mg, Intravenous, Every 5 Minutes PRN, Respiratory Depression, Starting on [place] 07/12/19 at 1049, If respiratory rate is less than 8 breaths/minute or patient is difficult to arouse stop any narcotics and contact physician. Administer slow IV push. Repeat as ordered until patient's respiratory rate is greater than 12 breaths/minute. naloxone (NARCAN) injection 0.4 mg(Linked Group 3) 0.4 mg, Intravenous, Every 5 Minutes PRN, Respiratory Depression, Starting on [place] 07/12/19 at 1049, If respiratory rate is less than 8 breaths/minute or patient is difficult to arouse stop any narcotics and contact physician. Administer slow IV push. Repeat as ordered until patient's respiratory rate is greater than 12 breaths/minute. ondansetron (ZOFRAN) injection 4 mg(Linked Group 4) 4 mg, Intravenous, Every 6 Hours PRN, Nausea, Vomiting, Starting on [place] 07/12/19 at 1049, If BOTH ondansetron (ZOFRAN) and promethazine (PHENERGAN) are ordered use ondansetron first and THEN promethazine IF ondansetron is ineffective. 0606 (Given - Provid er: Maddie Pacheco RN) ondansetron (ZOFRAN) tablet 4 mg(Linked Group 4) 4 mg, Oral, Every 6 Hours PRN, Nausea, Vomiting, Starting on [place] 07/12/19 at 1049, If BOTH ondansetron (ZOFRAN) and promethazine (PHENERGAN) are ordered use ondansetron first and THEN promethazine IF ondansetron is ineffective. 0606 (Not Given: See Alt - Provider: Maddie Pacheco RN) ropivacaine (NAROPIN) 0.5 % injection (CANCELED) As Needed, Starting on [place] 20 at 0807 0807 (Given - Provider: Jose Guadalupe Menon MD) sodium chloride (NS) irrigation solution (CANCELED) As Needed, Starting on [place] 07/12/19 at 0807 0807 (Given - Provider: Jose Guadalupe Menon MD) sodium chloride 0.9 % bolus 500 mL 500 mL, Intravenous, at 250 mL/hr, Administer over 2 Hours, 3 Times Daily PRN, for SBP less than 90, Starting on [place] 07/12/19 at 1108 sodium chloride 0.9 % flush 1-10 mL 1-10 mL, Intravenous, As Needed, Line Care, Starting on [place] 07/12/19 at 1049 sterile water irrigation solution (CANCELED) As Needed, Starting on [place] 20 at 0807 0807 (Given - Provider: Jose Guadalupe Menon MD) Linked Groups Order Group 1: acetaminophen (TYLENOL) tablet 650 mgJump to med 650 mg, Oral, Every 4 Hours PRN, Mild Pain, Starting on [place] 07/12/19 at 1049, Do not exceed 4 grams of acetaminophen in a 24 hr period. If given for pain, use the following pain scale: Mild Pain = Pain Score of 1-3, CPOT 1-2 Moderate Pain = Pain Score of 4-6, CPOT 3-4 Severe Pain = Pain Score of 7-10, CPOT 5-8 Or acetaminophen (TYLENOL) suppository 650 mgJump to med 650 mg, Rectal, Every 4 Hours PRN, Mild Pain, Starting on [place] 07/12/19 at 1049, Do not exceed 4 grams of acetaminophen in a 24 hr period. If given for pain, use the following pain scale: Mild Pain = Pain Score of 1-3, CPOT 1-2 Moderate Pain = Pain Score of 4-6, CPOT 3-4 Severe Pain = Pain Score of 7-10, CPOT 5-8 Group 2: HYDROmorphone (DILAUDID) injection 0.5 mgJump to med 0.5 mg, Intravenous, Every 2 Hours PRN, Severe Pain, Starting on [place] 07/12/19 at 1049, For 10 days, If given for pain, use the following pain scale: Mild Pain = Pain Score of 1-3, CPOT 1-2 Moderate Pain = Pain Score of 4-6, CPOT 3-4 Severe Pain = Pain Score of 7-10, CPOT 5-8 And naloxone (NARCAN) injection 0.1 mgJump to med 0.1 mg, Intravenous, Every 5 Minutes PRN, Respiratory Depression, Starting on [place] 07/12/19 at 1049, If respiratory rate is less than 8 breaths/minute or patient is difficult to arouse stop any narcotics and contact physician. Administer slow IV push. Repeat as ordered until patient's respiratory rate is greater than 12 breaths/minute. Group 3: Morphine sulfate (PF) injection 4 mgJump to med 4 mg, Intravenous, Every 2 Hours PRN, Moderate Pain, Starting on [place] 07/12/19 at 1049, For 10 days, {SURENDRA} Caution: Look alike/sound alike drug alert If given for pain, use the following pain scale: Mild Pain = Pain Score of 1-3, CPOT 1-2 Moderate Pain = Pain Score of 4-6, CPOT 3-4 Severe Pain = Pain Score of 7-10, CPOT 5-8 And naloxone (NARCAN) injection 0.4 mgJump to med 0.4 mg, Intravenous, Every 5 Minutes PRN, Respiratory Depression, Starting on [place] 07/12/19 at 1049, If respiratory rate is less than 8 breaths/minute or patient is difficult to arouse stop any narcotics and contact physician. Administer slow IV push. Repeat as ordered until patient's respiratory rate is greater than 12 breaths/minute. Group 4: ondansetron (ZOFRAN) tablet 4 mgJump to med 4 mg, Oral, Every 6 Hours PRN, Nausea, Vomiting, Starting on [place] 07/12/19 at 1049, If BOTH ondansetron (ZOFRAN) and promethazine (PHENERGAN) are ordered use ondansetron first and THEN promethazine IF ondansetron is ineffective. Or ondansetron (ZOFRAN) injection 4 mgJump to med 4 mg, Intravenous, Every 6 Hours PRN, Nausea, Vomiting, Starting on [place] 07/12/19 at 1049, If BOTH ondansetron (ZOFRAN) and promethazine (PHENERGAN) are ordered use ondansetron first and THEN promethazine IF ondansetron is ineffective. documented in this encounter Care Teams Automotive Electrician Relationship Specialty Start Date End Date Meredith Conti PA PCP - General Physician B[employer]iesel Engine Specialist 02/11/17 documented as of this encounter
--- OUTSIDE RECORDS SUMMARY | 2024-04-25 14:41 | XMS_ITS | Encounter Summary ---
Author Organization [facility] Address [address] [place] [address] Care Team Providers Care Operating Room Orderly Name Role Phone Meredith Conti Primary Care Provider [phone] Encounter Details Date Type Department Care Team (Late st Contact Info) Description 09/06/2019 Telephone [facility] [address] [place] [address] Mj Menon MD [address] [place] [address] Social History Tobacco Use Types Packs/Day Years [...] on file documented as of this encounter Miscellaneous Notes * Telephone Encounter - Mj Menon MD - 09/06/2019 10:21 AM EDT I called the patient. She said that her knee replacement is doing well, and she is pleased with results. Physical therapy cleared her, and was impressed with her motion. Because she is not having anydifficulties, I recommended follow-up at the one-year geni, which will be June 2020. I told her I will be happy to see her back for any problems. In light of the ongoing coronavirus pandemic, we may cancel her appointment for 09/12/2019. documented in this encounter Plan of Treatment Not on file documented as of this encounter Visit Diagnoses Not on filedocumented in this encounter Care Teams Operating Room Orderly Relationship Specialty Start Date End Date Meredith Conti PA PCP - General Physician Garland Machine Operator 02/11/17 documented as of this encounter
--- OUTSIDE RECORDS SUMMARY | 2024-04-25 14:41 | XMS_ITS | Clinical Summary ---
Author Organization [facility] Address [address] [place] [address] Care Team Providers Care Sizer Machine Name Role Phone Meredith Conti Primary Care Provider [phone] Allergies Active Allergy Reactions Criticality Noted Date Comments Chlorhexidine Other (See Comments) Medium 06/28/2019 NICE SKIN Medications metoprolol tartrate (LOPRESSOR) 25 MG tablet Take 25 mg by mouth every night at bedtime. Active Multiple Vitamins-Minera ls (MULTIVITAMIN ADULTS 50+) tablet Take 1 tablet by mouth Daily. Active Krill Oil 1000 MG capsule Take 2 tablets by mouth Daily. Active ESTRADIOL TD Place on the skin Take As Directed. Active butalbital-acet aminophen 50-325 MG tablet tablet TAKE ONE TABLET EVERY 6 HOURS NEEDED FOR TENSION HEADACHE 2 01/29/2019 Active Cholecalciferol (VITAMIN D3) 50 MCG (2000 UT) tablet Take 1 tablet by mouth Daily. Active Probiotic Product (PROBIOTIC-10) capsule Take 1 capsule by mouth Daily. Active magnesium oxide (MAG-OX) 400 MG tablet Take 400 mg by mouth Daily. Active Active Problems Problem Noted Date Diagnosed Date Acute postoperative pain 07/13/2019 Primary osteoarthritis of left knee 04/12/2019 Overview (04/12/2019): Added automatically from request for surgery [id number] Acute blood loss anemia, mild, asymptomatic 02/2017 Leukocytosis, mild, likely reactive 01/19/2017 Hypokalemia, replaced 01/19/2017 Arthritis of knee, right 01/18/2017 Status post total left knee replacement 01/19/20 17 HTN (hypertension) 01/18/2017 Family History Medical History Relation Name Comments Heart disease Father Hypertension Mother Osteoarthritis Mother Stroke Mother Cancer Other sibling Diabetes Other sibling Relation Name Status Comments Father Mother Other sibling Alive Social History Tobacco Use Types Packs/Day Years Used Date Smoking Tobacco: Never Smokeless Tobacco: Never Alcohol Use Standard Drinks/Week Comments Yes 0 (1 standard drink = 0.6 oz pur e alcohol) social- occasional Abuse Screen Answer Date Recorded Unsafe at Home or Work/School Not on file Feels Threatened by Someone? Not on file 02/2023 Does Anyone Keep You from Co ntacting Others or Doint Things Outside the Home? Not on file 03/21/2023 Physical Sign of Abuse Present Not on file 1 Housing Stability Answer Date Recorded Current Living Arrangements Not on file 02/2023 Potentially Unsafe Housing Conditions Not on jose daniel e 03/21/2023 Family and Community Support Answer Jg e Recorded Help with Day-to-Day Activities Not on file 03/21/2023 Lonely or Isolated Not on file 03/21/2023 Employment Answer Date Recorded Do you want help finding or keeping work or a logan b? Not on file 03/21/2023 Disabilities Answer Date Recorded Concentrating, Remembering, or Making Decisions Difficulty Not on file 03/21/2023 Doing Errands Independently Difficulty Not on fi le 03/21/2023 Education Answer Date Recorded Help with school or training? Not on file Preferred Language Not on file 03/21/2023 Comments No Sex and Gender Information Value Date Recorded Sex Assigned at Not on file Legal Sex Female 1:23 PM EDT Gender Identity Not on file Sexual Orientation Not on file Last Filed Vital Signs Vital Sign Reading Time Taken Comments Blood Pressure 140/67 07/13/2019 12:42 PM EST Pulse 77 06/30/2020 1:23 PM EST Temperature 36.8 ??C (98.2 ??F) 07/13/2019 12:[address] Respiratory Rate 18 07/13/2019 12:42 PM EST Oxygen Saturation 96% 06/30/2020 1:23 PM EST Inhaled Oxygen Concentration - - Weight 68.5 kg (151 lb) 06/30/2020 1:23 PM EST Height 170.2 cm (5' 7.01 ) 06/30/2020 1:23 PM ES T Body Mass Index 23.64 06/30/2020 1:23 PM EST Plan of Treatment Health Maintenance Due Date Last Done Comments COLOGUARD 1955 COLON CANCER SCREENING 5 YEAR SIGMOIDOSCOPY 1955 COLONOSCOPY 1956 COLORECTAL CANCER SCREENING 1956 CT COLONOGRAPHY 1956 DXA SCAN 1956 FECAL OCCULT BLOOD TEST 1956 FIT Testing (1 year) 1956 LIPID PANEL 1956 MAMMOGRAM 1956 TDAP/TD VACCINES (1 - Tdap) 12/16/1975 ZOSTER VACCINE (1 of 2) 2006 ANNUAL PHYSICAL 01/11/2017 HEPATITIS C SCREENING 01/11/2017 PAP SMEAR 01/11/2017 Pneumococcal Vaccine 65+ (1 of 1 - PCV) 2021 INFLUENZA VACCINE 01/12/2024 COVID-19 Vaccine (1 - season) 2024 Medical Devices Implanted Type Area Quality Review Trainer Device Identifier Shelf Expiration Date Model / Serial / Lot Cmt Bone Simplex/P Full Dose 10/Pk - [id number] Implanted:Qty: 2 on 01/18/2017 by Mj Menon MD at [facility] Implant Right: Knee ASHLEY KIERAN 06/12/2019 [id number] / / [id number] Base Tib Attune Cmt Rp Sz3 - [id number] Implanted:Qty: 1 on 01/18/2017 by Mj Menon MD at [facility] Implant Right: Knee DEPUY 02/10/2026 [id number] / / [id number] Comp Fem Attune Cmt Ps Nrw Sz4 Rt - [id number] Implanted:Qty: 1 on 01/18/2017 by Mj Menon MD at [facility] Implant Right: Knee DEPUY 08/10/2026 [id number] / / [id number] Comp Pat Attune Cmt Medl Gisselle 32mm - [id number] Implanted:Qty: 1 on 01/18/2017 by Mj Menon MD at [facility] Implant Right: Knee DEPUY 09/10/2021 [id number] / / [id number] Tib Attune Ps Rp Sz4 6mm - [id number] Implanted:Qty: 1 on 01/18/2017 by Mj Menon MD at [facility] Implant Right: Knee DEPUY 07/13/2021 [id number] / / [id number] Totl Kn Attune Depuy [id number] - [id number] Implanted:Qty: 1 on 01/18/2017 by Mj Menon MD at [facility] Implant Right: Knee DEPUY CAPKNEETOTALD EP5 / / Comp Pat Attune Cmt Medl Gisselle 32mm - [id number] Implanted:Qty: 1 on 07/12/2019 by Mj Menon MD at [facility] Implant Left: Knee DEPUY 05/12/2024 [id number] / / [id number] Insrt Tib Attune Ps Rp Sz4 6mm - [id number] Implanted:Qty: 1 on 07/12/2019 by Mj Menon MD at [facility] Implant Left: Knee DEPUY 10/11/2023 [id number] / / [id number] Totl Kn Attune Depuy [id number] - [id number] Implanted:Qty: 1 on 07/12/2019 by Mj Menon MD at [facility] Implant Left: Knee DEPUY CAPKNEETOTALD EP5 / / Base Tib Attune Cmt Rp S Pls Sz3 - [id number] Implanted:Qty: 1 on 07/12/2019 by Mj Menon MD at [facility] Implant Left: Knee DEPUY 03/12/2028 [id number] / / [id number] Comp Fem Attune Cmt Ps Nrw Sz4 Lt - [id number] Implanted:Qty: 1 on 07/12/2019 by Mj Menon MD at [facility] Implant Left: Knee DEPUY 10/10/2028 [id number] / / [id number] Cmt Bone Simplex/P Full Dose 10/Pk - [id number] Implanted:Qty: 2 on 07/12/2019 by Mj Menon MD at [facility] Implant Left: Knee ASHLEY KIERAN 06/12/2021 [id number] / / [id number] [place] [address] [place] [address] EMPLOYEE Advance Directives * CPR (Attempt to Resuscitate) (Latest Code Status on File) Date Activated Date Inactivated Comments 07/12/2019 10:49 AM 07/13/2019 3:16 PM Question Answer Comments Code Status (Patient has no pulse and is not breathing): CPR (Attempt to Resuscitate) Medical Interventions (Patie nt has pulse or is breathing): Full * Full Code Date Activated Date Inactivated Comments 01/18/2017 2:04 PM 01/20/2017 2:07 PM Question Answer Comments Level Of Support Discussed With: Patient Care Teams Sizer Machine Relationship Specialty Start Date End Date Meredith Conti PA PCP - General Physician Instructional Technology Teacher 02/11/17
--- OUTSIDE RECORDS SUMMARY | 2024-04-25 14:42 | XMS_ITS | Encounter Summary ---
Author Organization [facility] Address [address] [place] [id number] Care Team Providers Care Opener Name Role Phone Meredith Conti Primary Care Provider [phone] Reason for Referral * Surgical (Routine) - Closed Specialty Diagnoses / Procedures Referred By Contac t Referred To Contact Diagnoses Primary osteoarthritis of left knee Procedures Case Request OK TOTAL KNEE ARTHROPLASTY Mj Menon MD [address] [place] [address] Phone: tel: fax: [facility] [address] [place] [address] Referral ID Status Reason Start Date Expiration Date Visits Re quested Visits Authorized [id number] Closed 04/11/2019 04/10/2020 1 1 Encounter Details Date Type Department Care Team (Late st Contact Info) Description 04/11/2019 Prep for Surgery [facility] ONLY [address] [place] [address] Mj Menon MD [address] [place] [address] Primary osteoarthritis of left knee (Primary Dx) Social History Tobacco Use Types [...] on file documented as of this encounter Plan of Treatment Not on file documented as of this encounter Results * C-reactive protein (06/28/2019 11:45 AM EST) C-Reactive Protein 0.06 0.00 - 0.50 mg/dL 06/28/2019 12:30 PM EST [facility] Blood Venipuncture / Unknown 06/28/2019 11:45 AM EST 06/28/2019 12:04 PM EST Mj Menon MD LAB BLOOD ORDERABLES Final Res ult Performing Organization Address City/[facility]/ZIP Co de Phone Number [facility]
[address] [place] [address], * (ABNORMAL) Sedimentation rate (06/28/2019 11:45 AM EST) Sed Rate >130(H) 0 - 30 mm/hr 06/28/2019 12:18 PM EST [facility] Blood Venipuncture / Unknown 06/28/2019 11:45 AM EST 06/28/2019 12:04 PM EST Mj Menon MD LAB BLOOD ORDERABLES Final Res ult [facility]
[address] [place] [address], * APTT (06/28/2019 11:45 AM EST) PTT 29.1 24.0 - 37.0 seconds 06/28/2019 12:39 PM EST [facility] Blood Venipuncture / Unknown 06/28/2019 11:45 AM EST 06/28/2019 12:04 PM EST Narrative [facility] - 06/28/2019 12:39 PM EST PTT = The equivalent PTT values for the therapeutic range of heparin levels at 0.3 to 0.5 U/ml are 55 to 70 seconds. Mj Menon MD LAB BLOOD ORDERABLES Final Res ult Performing Organization Address City/[facility] Co de Phone Number [facility]
[address] [place] [address], * Protime-INR (06/28/2019 11:45 AM EST) Protime 12.3 11.2 - 14.3 Seconds 06/28/2019 12:39 PM EST [facility] INR 0.96 0.85 - 1.16 06/28/2019 12:39 PM EST [facility] Blood Venipuncture / Unknown 06/28/2019 11:45 AM EST 06/28/2019 12:04 PM EST Mj Menon MD LAB BLOOD ORDERABLES Final Res ult Performing Organization Address [facility] Co de Phone Number [facility]
[address] [place] [address], * Basic metabolic panel (06/28/2019 11:45 AM EST) Glucose 90 65 - 99 mg/dL 06/28/2019 12:33 PM EST [facility] BUN 11 8 - 23 mg/dL 06/28/2019 12:33 PM EST [facility] Creatinine 0.60 0.57 - 1.00 mg/dL 06/28/2019 12:33 PM [facility] Sodium 139 136 - 145 mmol/L 06/28/2019 12:33 PM EST [facility] Potassium 5.0 3.5 - 5.2 mmol/L 06/28/2019 12:33 PM EST [facility] Chloride 102 98 - 107 mmol/L 06/28/2019 12:33 PM EST [facility] CO2 25.0 22.0 - 29.0 mmol/L 06/28/2019 12:33 PM EST [facility] Calcium 10.3 8.6 - 10.5 mg/dL 06/28/2019 12:33 PM EST [facility] eGFR Non Amer 101 >60 mL/min/1.7 3 06/28/2019 12:33 PM EST [facility] BUN/Creatinine Ratio 18.3 7.0 - 25.0 06/28/2019 12:33 PM EST [facility] Anion Gap 12.0 5.0 - 15.0 mmol/L 06/28/2019 12:33 PM EST [facility] Blood Venipuncture / Unknown 06/28/2019 11:45 AM EST 06/28/2019 12:04 PM EST Narrative [facility] - 06/28/2019 12:33 PM EST GFR Normal >60 Chronic Kidney Disease <60 Kidney Failure <15 us Mj Menon MD LAB BLOOD ORDERABLES Final Res ult [facility]
[address] [place] [address], documented in this encounter Visit Diagnoses Diagnosis Primary osteoarthritis of left knee- Primary documented in this encounter Care Teams Opener Relationship Specialty Start Date End Date Meredith Conti PA PCP - General Physician Senior Quality Analyst 02/11/17 documented as of this encounter
--- OUTSIDE RECORDS SUMMARY | 2024-04-25 14:42 | XMS_ITS | Encounter Summary ---
Author Organization [facility] Address [address] [place] [address] Care Team Providers Care Canary Breeder Name Role Phone Provider, No Known Primary Care Provider Unavail able Reason for Visit * (Routine) - Closed Specialty Diagnoses / Procedures Referred By Sumit t Referred To Contact Radiology Procedures XR Chest PA & Lateral Mj Menon MD Phone: tel: fax: Referral ID Status Reason Start Date Expiration Date Visits Re quested Visits Authorized [id number] Closed 01/11/2017 01/11/2018 1 1 Encounter Details Date Type Department Care Team (Late st Contact Info) Description 01/11/2017 11:45 AM EDT - 01/11/2017 11:59 PM [place] [address] [place] [address] [place] [address] Discharge Disposition: Home or Self Care Social History Tobacco Use Types Packs/Day Years Used Date Smoking Tobacco: Never Smokeless Tobacco: Never Alcohol Use Standard Drinks/Week Comments Yes 0 (1 standard drink = 0.6 oz pur e alcohol) social Comments No Sex and Gender Information Value Date Recorded Sex Assigned at Not on file Legal Sex Female 1:23 PM EDT Gender Identity Not on file Sexual Orientation Not on file documented as of this encounter Medications at Time of Discharge Krill Oil 1000 MG capsule Take 2 tablets by mouth Daily. metoprolol tartrate (LOPRESSOR) 25 MG tablet Take 25 mg by mouth every night at bedtime. Multiple Vitamins-Mineral s (MULTIVITAMIN ADULTS 50+) tablet Take 1 tablet by mouth Daily. HYDROcodone-acet aminophen (NORCO) 7.5-325 MG per tablet Take 1 tablet by mouth Every 4 (Four) Hours As Needed for Moderate Pain (4-6) for up to 9 days. 40 tablet 01/19/2017 7 aspirin EC 325 MG EC tablet Take 1 tablet by mouth Daily. For 1 month 30 tablet 01/19/2017 9 Cholecalciferol (VITAMIN D3) 2000 UNITS tablet Take 1 tablet by mouth Daily. 9 docusate sodium 100 MG capsule Take 100 mg by mouth 2 (Two) Times a Day As Needed for Constipation. 60 capsule 01/19/2017 9 ibuprofen (ADVIL,MOTRIN) 200 MG tablet Take 800 mg by mouth As Needed for Mild Pain (1-3). 7 magnesium oxide (MAGOX) 400 (241.3 MG) MG tablet tablet Take 400 mg by mouth Daily. 0 ropivacaine (NAROPIN) 0.2 % 24 mg/hr by Peripheral Nerve route Continuous. 01/20/2017 9 traMADol (ULTRAM) 50 MG tablet Take 50 mg by mouth 2 (Two) Times a Day As Needed for Moderate Pain (4-6). 7 documented as of this encounter Plan of Treatment Not on file documented as of this encounter Procedures Procedure Name Priority Date/Time Associated Diagnosis Comments XR CHEST PA AND LATERAL Routine 01/11/2017 12:01 PM EDT documented in this encounter Results * XR Chest PA & Lateral (01/11/2017 12:01 PM EDT) Anatomical Region Laterality Modality Body, Chest N/A Radiographic Jessica ging 01/12/2017 12:4 1 PM EDT Impressions 01/12/2017 12:56 PM EDT No active disease. D: ??01/12/2017 E: ??01/12/2017 This report was finalized on 01/12/2017 12:[address] Liam Gray MD. Narrative 01/12/2017 12:56 PM EDT EXAMINATION: XR CHEST, PA AND LATERAL-01/11/2017: INDICATION: Preop. COMPARISON: NONE. FINDINGS: The cardiac silhouette is normal. There is no pulmonary inflammatory process, mass or effusion. ? Procedure Note Markel Gray MD - 01/12/2017 EXAMINATION: XR CHEST, PA AND LATERAL-01/11/2017: INDICATION: Preop. COMPARISON: NONE. FINDINGS: The cardiac silhouette is normal. There is no pulmonary inflammatory process, mass or effusion. IMPRESSION: No active disease. E: 01/12/2017 This report was finalized on 01/12/2017 12:[address] Liam Gray MD. Mj Menon MD IMG DIAGNOSTIC IMAGING ORDERAB LES Final Result documented in this encounter Visit Diagnoses Not on filedocumented in this encounter Care Teams Canary Breeder Relationship Specialty Start Date End Date Provider, [place] [address] PCP - General 01/11/17 02/10/17 documented as of this encounter
--- OUTSIDE RECORDS SUMMARY | 2024-04-25 14:42 | XMS_ITS | Encounter Summary ---
[facility] Address [address] [place] [address] Care Team Providers Care Order Packer Or Packager Name Role Phone Meredith Conti Primary Care Provider [phone] Reason for Visit * Auth/Cert Specialty Diagnoses / Procedures Referred By Contac t Referred To Contact Diagnoses Primary osteoarthritis of left knee Primary osteoarthritis of left knee [M17.12] Procedures WI TOTAL KNEE ARTHROPLASTY TOTAL KNEE ARTHROPLASTY LEFT Referral ID Status Reason Start Date Expiration Date Visits Re quested Visits Authorized [id number] 1 1 Encounter Details Date Type Department Care Team (Late st Contact Info) Description 07/12/2019 7:15 AM EST - 07/12/2019 9:51 AM EST Surgery [place] [id number] Jose Guadalupe Menon MD [address] [place] [address] TOTAL KNEE ARTHROPLASTY LEFT Social History Tobacco Use Types Packs/Day Years [...] Sign Reading Time Taken Comments Blood Pressure 106/70 07/12/2019 9:45 AM EST Pulse 57 07/12/2019 9:45 AM EST Temperature 36.3 ??C (97.3 ??F) 07/12/2019 9:30 AM ES T Respiratory Rate 18 07/12/2019 9:45 AM EST Oxygen Saturation 100% 07/12/2019 9:45 AM EST Inhaled Oxygen Concentration - - Weight 71.7 kg (158 lb) 07/12/2019 7:06 AM EST Height 170.2 cm (5' 7 ) 07/12/2019 7:06 AM EST Body Mass Index 24.75 07/12/2019 7:06 AM EST documented in this encounter Discharge Summaries * Phuong Hung RN - 07/13/2019 12:02 PM EST Images from the original note were not included. HamptonKaila meyerela (63 y.o. Female) PT referral from Phuong Hung WIRE SPIRAL BINDER, Case Management, ph [phone] Date of Social Security Number Address Home Phone MRN [id number] [address] [place] [id number] Christianity Marital Status Sikh Single Admission Date Admission Type Admitting Provider Attending Provider Department, Room/Bed 07/12/19 Elective Jose Guadalupe Menon MD Kirk, Michael E, MD [address], S361/1 Discharge Date Discharge Disposition Discharge Destination Home or Self Care Attending Provider: Jose Guadalupe Menon MD Allergies: Chlorhexidine Isolation: None Infection: None Code Status: CPR Ht: 170.2 cm (67 ) Wt: 71.7 kg (158 lb) Admission Cmt: None Principal Problem: Status post total left knee replacement [Z96.652] Active Insurance as of 07/12/2019 Primary Coverage Payor Plan Insurance Group Employer/Plan Group [facility] [employer] [facility] [id number] Payor Plan Address Payor Plan Phone Number Payor Plan Fax Number Effective Dates [phone] 06/13/2014 - None Entered [facility] [address] Subscriber Name Subscriber Date Member ID MARIALUISA HAMPTON 1955 [id number] Emergency Contacts Rn Perioperative (Rel.) Home Phone Work Phone Mobile Phone HamptonDavid meyer (Sister) -- -- [phone] [address] Fax: Date: Jul 13, 2019 ?? Ambulatory Referral to Physical Therapy Evaluate and treat, Ortho; Full weight bearing ?? Patient: Marialuisa Hampton [address] [facility] [address] : 1955 SSN: [id number] Sex: F ?? 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 [employer] [id number] ?? Referring Provider Information: JOSE GUADALUPE MENON [...] regarding this request for services. Please contact [address] at [phone] during normal business hours. ?? Verbal Order [...] anatomic patella). SURGEON: Jose Guadalupe Menon MD REFINERY OPERATOR LIGHT ENDS RECOVERY: Iris Taylor PA-C SPECIMENS: None ANESTHESIA: Spinal STAFF: Quality Process Engineer: Anne-Marie Fry RN Scrub Person: Ruddy Magallon Director Music: Liza Khalil Invasive Manager: Iris Taylor PA TOURNIQUET TIME: 18 minutes [...] into the lateral gutter. Description of arthritis: Hows-vh-rfdw contact the medial compartment, lateral degeneration, with [...] closed with #1 Vicryl in an interrupted xsweun-nb-spsox fashion in 4 strategic locations followed by [...] Jose Guadalupe Menon MD 07/12/19 9:13 AM 7010 Physician Progress Notes (most recent note) Jose Guadalupe Menon MD at 07/13/19 0852 [facility] Orthopaedic Surgery Progress Note Subjective LOS: 0 days Patient Care Team: Meredith Conti PA as PCP - General (Physician Invasive Manager) Marialuisa Bergeron MD as Consulting Physician (Internal [...] XR Knee 1 or 2 View Left [[id number]] Collected: 07/12/19 1028 Updated: 07/12/19 1708 Narrative: [...] (most recent note) Rosmery Mixon, PT at 07/13/19929 Version 1 of 1 Patient Name: Marialuisa [...] COLONOSCOPY ??? HYSTERECTOMY ??? KNEE SURGERY ??? [place] TOTAL KNEE ARTHROPLASTY Right 01/18/2017 Procedure: RIGHT TOTAL KNEE ARTHROPLASTY; Surgeon: Jose Guadalupe Menon MD; Location: [facility]; Service: Orthopedics ??? TOTAL KNEE ARTHROPLASTY Left 07/12/2019 Procedure: TOTAL KNEE ARTHROPLASTY LEFT; Surgeon: Jose Guadalupe Menon MD; Location: [facility]; Service: Orthopedics General Information Row Name [...] to demo proper hand placement with STS. -CS Row Name 07/13/19929 Bed-Chair Transfer Bed-Chair Cochran (Transfers) conditional independence;verbal cues -CS Assistive Device (Bed-Chair Transfers) walker, front-wheeled -CS Row Name 07/13/19929 Sit-Stand Transfer Sit-Stand Cochran (Transfers) conditional independence;verbal cues -CS Assistive Device (Sit-Stand Transfers) walker, front-wheeled -CS Row Name 07/13/19929 Gait/Stairs Assessment/Training 57598 - Gait Training Minutes 15 -CS Gait/Stairs Assessment/Training gait/ambulation independence;gait/ambulation assistive device;distance ambulated;gait pattern -CS Cochran Level (Gait) verbal cues;stand by assist -CS Assistive Device (Gait) walker, front-wheeled [...] and increase heel strike on L LE. -CS Row Name 07/13/19929 Mobility Assessment/Intervention Extremity Weight-bearing Status left lower extremity -CS Left Lower Extremity (Weight-bearing Status) weight-bearing as tolerated (WBAT) -CS User Sage (r) = Recorded By, (t) = Taken By, (c) = Cosigned By Initials Name Provider Type CS Rosmery Mixon, STEPAN Physical Therapist Obj/Interventions Row Name 07/13/19929 General ROM GENERAL ROM COMMENTS -8-85 degrees knee ROM -CS Row Name 07/13/19929 Therapeutic Exercise Lower Extremity [...] -CS Comment (Therapeutic Exercise) VC's on technique -CS Row Name 07/13/19929 Sensory Assessment/Intervention Sensory General Assessment no sensation deficits identified -CS User Sage (r) = Recorded By, (t) = Taken By, (c) = Cosigned By Initials Name Provider Type Rosmery Shaw, STEPAN Physical Therapist Goals/Plan Row Name 07/13/19929 Bed Mobility Goal 1 (PT) Activity/Assistive Device (Bed Mobility Goal 1, PT) bed mobility activities, all -CS Cochran Level/Cues Needed (Bed Mobility Goal 1, PT) conditional independence -CS Time Frame (Bed Mobility Goal 1, PT) emt intermediate goal (LTG);3 days -CS Progress/Outcomes (Bed Mobility Goal 1, PT) goal met -CS Row Name 07/13/19929 Transfer Goal 1 (PT) Activity/Assistive Device (Transfer Goal 1, PT) ocr-aj-igpao/gdjda-dv-kfq;umn-pt-vtprq/diudg-aj-ldh;walker, rolling -CS Cochran Level/Cues Needed (Transfer Goal 1, PT) conditional independence -CS Time Frame (Transfer Goal 1, PT) usp goal (LTG);3 days -CS Progress/Outcome (Transfer Goal 1, PT) goal partially met;discharged from facility - Row Name 07/13/19929 Gait Training Goal 1 (PT) Activity/Assistive Device (Gait Training Goal 1, PT) gait (walking locomotion);assistive device use;walker, rolling -CS Cochran Level (Gait Training Goal 1, PT) conditional independence -CS Distance (Gait Goal 1, PT) 500' -CS Time Frame (Gait Training Goal 1, PT) emt intermediate goal (LTG);3 days -CS Progress/Outcome (Gait Training Goal 1, PT) goal partially met;discharged from facility - Row Name 07/13/19929 ROM Goal 1 (PT) ROM Goal 1 (PT) 0-90 deg knee ROM -CS Time Frame (ROM Goal 1, PT) usp goal (LTG);3 days -CS Progress/Outcome (ROM Goal 1, PT) goal partially met;discharged from facility - User Sage (r) = Recorded By, (t) = Taken By, (c) = Cosigned By Initials Name Provider Type CS Rosmery Mixon, PT Physical Therapist Clinical Impression Row Name 07/13/19929 Pain Assessment Additional Documentation Pain Scale: Numbers Pre/Post-Treatment (Group) - Row Name 07/13/19929 Pain Scale: Numbers Pre/Post-Treatment [...] Provider Type Rosmery Shaw PT Physical Therapist Outcome Measures Row Name [...] Clicks Score (PT) 23 -CS Row Name 07/13/19929 Functional Assessment Outcome Measure Options AM-PAC 6 [...] PT. Time Calculation: PT Charges Row Name 07/13/19 0930 Time Calculation Start Time 0930 -CS PT Received On 07/13/19 -CS Time Calculation- PT Total Timed Code Minutes- PT 23 minute(s) -CS Timed Charges 71059 - PT Therapeutic Exercise Minutes 8 -CS 48622 - Gait Training Minutes 15 -CS User Sage (r) = Recorded By, (t) = Taken By, (c) = Cosigned By Initials Name Provider Type CS Rosmery Mixon, PT Physical Therapist Therapy Charges for Today Code Description Service Date Service Provider Modifiers Qty 64243065999 HC GAIT TRAINING EA 15 MIN 07/12/2019 Rosmery Mixon, PT GP 1 30407633867 HC PT EVAL MOD COMPLEXITY 3 07/12/2019 Rosmery Mixon, PT GP 1 39702675173 HC PT THER SUPP EA 15 MIN 07/12/2019 Rosmery Mixon, PT GP 2 35948273807 HC PT THER PROC EA 15 MIN 07/13/2019 Rosmery Mixon, PT GP 1 11404480785 HC GAIT TRAINING EA 15 MIN 07/13/2019 [...] above formulated discharge plan with patient and PIE [email or web address]. * Rosmery Mixon, PT - 07/13/2019 9:30 AM EST Patient [...] COLONOSCOPY ??? HYSTERECTOMY ??? KNEE SURGERY ??? WI TOTAL KNEE ARTHROPLASTY Right 01/18/2017 Procedure: RIGHT TOTAL KNEE ARTHROPLASTY; Surgeon: Jose Guadalupe Menon MD; Location: [facility]; Service: Orthopedics ??? TOTAL KNEE ARTHROPLASTY Left 07/12/2019 Procedure: TOTAL KNEE ARTHROPLASTY LEFT; Surgeon: Jose Guadalupe Menon MD; Location: [facility]; Service: Orthopedics General Information Row Name [...] to demo proper hand placement with STS. -CS Row Name 07/13/19929 Bed-Chair Transfer Bed-Chair Cochran (Transfers) conditional independence;verbal cues -CS Assistive Device (Bed-Chair Transfers) walker, front-wheeled -CS Row Name 07/13/19929 Sit-Stand Transfer Sit-Stand Cochran (Transfers) conditional independence;verbal cues -CS Assistive Device (Sit-Stand Transfers) walker, front-wheeled -CS Row Name 07/13/19929 Gait/Stairs Assessment/Training 34786 - Gait Training Minutes 15 -CS Gait/Stairs Assessment/Training gait/ambulation independence;gait/ambulation assistive device;distance ambulated;gait pattern -CS Cochran Level (Gait) verbal cues;stand by assist -CS Assistive Device (Gait) walker, front-wheeled [...] Cosigned By Initials Name Provider Type Rosmery Mixon PT Physical Therapist Obj/Interventions Row [...] Shaw PT Physical Therapist Goals/Plan Row Name 07/13/19929 Bed Mobility Goal 1 (PT) Activity/Assistive Device (Bed Mobility Goal 1, PT) bed mobility activities, all -CS Cochran Level/Cues Needed (Bed Mobility Goal 1, PT) conditional independence -CS Time Frame (Bed Mobility Goal 1, PT) usp goal (LTG);3 days -CS Progress/Outcomes (Bed Mobility Goal 1, PT) goal met - Row Name 07/13/19929 Transfer Goal 1 (PT) Activity/Assistive Device (Transfer Goal 1, PT) xpx-dx-bbmhm/xeqih-ql-ztd;ubl-dq-uerxn/gkvqm-mq-rup;walker, rolling -CS Cochran Level/Cues Needed (Transfer Goal 1, PT) conditional independence -CS Time Frame (Transfer Goal 1, PT) usp goal (LTG);3 days -CS Progress/Outcome (Transfer Goal 1, PT) goal partially met;discharged from facility - Row Name 07/13/19929 Gait Training Goal 1 (PT) Activity/Assistive Device (Gait Training Goal 1, PT) gait (walking locomotion);assistive device use;walker, rolling -CS Cochran Level (Gait Training Goal 1, PT) conditional independence -CS Distance (Gait Goal 1, PT) 500' -CS Time Frame (Gait Training Goal 1, PT) emt intermediate goal (LTG);3 days -CS Progress/Outcome (Gait Training Goal 1, PT) goal partially met;discharged from facility - Row Name 07/13/19929 ROM Goal 1 (PT) ROM Goal 1 (PT) 0-90 deg knee ROM -CS Time Frame (ROM Goal 1, PT) emt intermediate goal (LTG);3 days -CS Progress/Outcome (ROM Goal 1, PT) goal partially met;discharged from facility - User Sage (r) = Recorded By, (t) = Taken By, (c) = Cosigned By Initials Name Provider Type Rosmery Shaw, PT Physical Therapist Clinical Impression Row Name 07/13/19929 Pain Assessment Additional Documentation Pain Scale: Numbers Pre/Post-Treatment (Group) - Row Name 07/13/19929 Pain Scale: Numbers Pre/Post-Treatment [...] Provider Type Rosmery Shaw, STEPAN Physical Therapist Outcome Measures Row Name 07/13/19929 [...] Clicks Score (PT) 23 -CS Row Name 07/13/19929 Functional Assessment Outcome Measure Options AM-PAC 6 [...] PT. Time Calculation: PT Charges Row Name 07/13/19 0930 Time Calculation Start Time 0930 -CS PT Received On 07/13/19 -CS Time Calculation- PT Total Timed Code Minutes- PT 23 minute(s) -CS Timed Charges 28818 - PT Therapeutic Exercise Minutes 8 -CS 20833 - Gait Training Minutes 15 -CS User Sage (r) = Recorded By, (t) = Taken By, (c) = Cosigned By Initials Name Provider Type CS Rosmery Mixon, PT Physical Therapist Therapy Charges for Today Code Description Service Date Service Provider Modifiers Qty 95379651762 HC GAIT TRAINING EA 15 MIN 07/12/2019 Rosmery Mixon, PT GP 1 80256544293 HC PT EVAL MOD COMPLEXITY 3 07/12/2019 Rosmery Mixon, PT GP 1 02816935593 HC PT THER SUPP EA 15 MIN 07/12/2019 Rosmery Mixon, PT GP 2 00036115538 HC PT THER PROC EA 15 MIN 07/13/2019 Rosmery Mixon, PT GP 1 46261920828 HC GAIT TRAINING EA 15 MIN 07/13/2019 Rosmery Mixon, PT GP 1 PT G-Codes Outcome Measure Options: AM-PAC 6 Clicks Basic Mobility (PT) AM-PAC 6 Clicks Score (PT): 23 PT Discharge Summary Anticipated Discharge Disposition (PT): home with assist, home with home health Rosmery Mixon PT 07/13/2019 * Gissel Rivera, OT - 07/13/2019 8:50 AM EST Acute Care - Occupational Therapy Initial Eval/Discharge Ray Patient Name: Marialuisa Hampton : 1955 Today's [...] COLONOSCOPY ??? HYSTERECTOMY ??? KNEE SURGERY ??? WI TOTAL KNEE ARTHROPLASTY Right 01/18/2017 Procedure: RIGHT TOTAL KNEE ARTHROPLASTY; Surgeon: Jose Guadalupe Menon MD; Location: [facility]; Service: Orthopedics ??? TOTAL KNEE ARTHROPLASTY Left 07/12/2019 Procedure: TOTAL KNEE ARTHROPLASTY LEFT; Surgeon: Jose Guadalupe Menon MD; Location: [facility]; Service: Orthopedics OT ASSESSMENT FLOWSHEET (last 12 [...] catheter - Equipment Issued to Patient leg social media job titles - Barriers to Rehab none identified - [...] Assessment/Treatment Bed Mobility Assessment/Treatment supine-sit - Supine-Sit Cochran (Bed Mobility) supervision - Assistive Device (Bed Mobility) head of bed elevated - Comment (Bed Mobility) Educated on use of leg social media job titles for bed mobility. Demonstrated understanding. - Functional [...] for hand placement. - Sit-Stand Transfer Sit-Stand Cochran (Transfers) stand by assist;verbal cues - Assistive Device (Sit-Stand Transfers) walker, front-wheeled - Stand-Sit Transfer Stand-Sit Cochran (Transfers) stand by assist;verbal cues - Assistive Device (Stand-Sit Transfers) walker, front-wheeled - Shower Transfer Type (Shower Transfer) lateral - Assistive Device (Shower Transfer) -- Pt. declined shower transfer despite encouragment from OT. - ADL Assessment/Intervention 34829 - OT Self Care/Mgmt Minutes 15 - BADL Assessment/Intervention upper body dressing;lower body dressing;grooming;toileting;bathing - Bathing Assessment/Intervention Bathing Cochran Level lower body;moderate assist (50% patient effort) - Comment (Bathing) Educated pt. to not shower until AC nerve catheter is discontinued and cleared with MD. - Upper Body Dressing Assessment/Training Upper Body Dressing Cochran Level don;bra/undergarment;pull-over garment;independent - Upper Body Dressing Position unsupported sitting - Lower Body Dressing Assessment/Training Lower Body Dressing Cochran Level don;pants/bottoms - Lower Body Dressing Position unsupported sitting - Comment (Lower Body Dressing) Educated pt. on LBD technique to improve independence and comfort with task. Pt. demonstrated understanding. Pt. also educated on AC nerve catheter mgmt during LBD. Pt. verbalized and demonstrated understanding. - Grooming Assessment/Training Cochran Level (Grooming) hair care, combing/brushing;oral care regimen;wash face, hands;supervision - Grooming Position supported standing - Comment (Grooming) Completed grooming standing at sink with RWx. No LOB. - Toileting Assessment/Training Cochran Level (Toileting) adjust/manage clothing - Comment (Toileting) [...] balance - Static Sitting Balance Level of Cochran (Unsupported Sitting, Static Balance) independent - Sitting Position (Unsupported Sitting, Static Balance) sitting on edge of bed - Time Able to Maintain Position (Unsupported Sitting, Static Balance) more than 5 minutes - Dynamic Sitting Balance Level of Cochran, Reaches Outside Midline (Sitting, Dynamic Balance) supervision - Sitting Position, Reaches Outside Midline (Sitting, Dynamic Balance) sitting on edge of bed - Static Standing Balance Level of Cochran (Supported Standing, Static Balance) supervision - Time Able to Maintain Position (Supported Standing, Static Balance) more than 5 minutes - Assistive Device Utilized (Supported Standing, Static Balance) walker, rolling - Dynamic Standing Balance Level of Cochran, Reaches Outside Midline (Standing, Dynamic Balance) standby assist - Time Able to Maintain Position, Reaches Outside Midline (Standing, Dynamic Balance) more than 5 minutes - Assistive Device Utilized (Supported Standing, Dynamic Balance) walker, rolling - Sensory Assessment/Intervention Sensory General Assessment no sensation deficits identified - Positioning and Restraints Pre-Treatment Position in bed - Post Treatment Position chair - In Chair notified nsg;reclined;call light within reach;encouraged to call for assist;exit alarm on;legs elevated - Pain Scale: Numbers Pre/Post-Treatment Pain Scale: Numbers, Pretreatment 6/10 -LC Pain Scale: Numbers, Post-Treatment 610 -LC Pain Location - Side Left -LC Pain Location - Orientation posterior -LC Pain Location knee - Pain Intervention(s) Cold applied;Repositioned;Ambulation/increased activity - Wound Left anterior knee Incision Wound - Properties Group Present on Hospital Admission: N -SC Side: Left -CT Orientation: anterior -CT Location: knee -CT Primary Wound Type: Incision -CT Additional Comments: -- -SC, prineo; abd; 4x4; softroll; chato Plan of Care Review Plan of Care Reviewed With patient - Progress improving - Clinical Impression (OT) Date [...] Goal Selection (OT) transfer, OT goal 1 - Dressing Goal Selection (OT) dressing, OT goal 1 - Transfer Goal 1 (OT) Activity/Assistive Device (Transfer Goal 1, OT) syp-dw-kfwyv/pnuhe-ru-vwk - Cochran Level/Cues Needed (Transfer Goal 1, OT) standby assist;verbal cues required - Time Frame (Transfer Goal 1, OT) 1 day - Progress/Outcome (Transfer Goal 1, OT) goal met -LC Dressing Goal 1 (OT) Activity/Assistive Device (Dressing Goal 1, OT) lower body dressing -LC Cochran/Cues Needed (Dressing Goal 1, OT) moderate assist (50-74% patient effort) -LC Time Frame (Dressing Goal 1, OT) 1 day -LC Progress/Outcome (Dressing Goal 1, OT) goal met -LC Discharge Summary (Occupational Therapy) Additional Documentation Discharge Summary, OT Eval (Group) -LC Discharge Summary, OT Eval Reason for Discharge (OT Discharge Summary) patient discharged from this facility - Outcomes Achieved Upon Discharge (OT Discharge Summary) discharge from facility occurred on same date as evaluation - Living Environment Home Accessibility tub/shower is not walk in - User Sage (r) = Recorded By, (t) = Taken By, (c) = Cosigned By Initials Name Effective Dates LC Gissel Rivera, OT 12/28/18 - SC Anne-Marie Fry RN - OT Recommendation and Plan Outcome [...] PT) bed mobility activities, all -CS -- Cochran Level/Cues Needed (Bed Mobility Goal 1, PT) conditional independence -CS -- Time Frame (Bed Mobility Goal 1, PT) emt intermediate goal (LTG);3 days -CS -- Progress/Outcomes (Bed Mobility Goal 1, PT) goal met -CS -- Transfer Goal 1 (PT) Activity/Assistive Device (Transfer Goal 1, PT) ksv-zp-exdbb/gryau-ve-lst;kld-aq-wlgkq/bzikz-bi-igp;walker, rolling -CS -- Cochran Level/Cues Needed (Transfer Goal 1, PT) conditional independence - CS -- Time Frame (Transfer Goal 1, PT) emt intermediate goal (LTG);3 days -CS -- Progress/Outcome (Transfer Goal 1, PT) goal partially met;discharged from facility -CS -- Gait Training Goal 1 (PT) Activity/Assistive Device (Gait Training Goal 1, PT) gait (walking locomotion);assistive device use;walker, rolling -CS -- Cochran Level (Gait Training Goal 1, PT) conditional independence -CS -- Distance (Gait Goal 1, PT) 500' -CS -- Time Frame (Gait Training Goal 1, PT) emt intermediate goal (LTG);3 days -CS -- Progress/Outcome (Gait Training Goal 1, PT) goal partially met;discharged from facility -CS -- ROM Goal 1 (PT) ROM Goal 1 (PT) 0-90 deg knee ROM -CS -- Time Frame (ROM Goal 1, PT) emt intermediate goal (LTG);3 days -CS -- Progress/Outcome (ROM Goal 1, PT) goal partially met;discharged from facility - CS -- Occupational Therapy Goals Transfer Goal Selection (OT) -- transfer, OT goal 1 -LC Dressing Goal Selection (OT) -- dressing, OT goal 1 -LC Transfer Goal 1 (OT) Activity/Assistive Device (Transfer Goal 1, OT) -- hbi-la-yasmo/aupjp-wv-zwf - Cochran Level/Cues Needed (Transfer Goal 1, OT) -- standby assist;verbal cues required -LC Time Frame (Transfer Goal 1, OT) -- 1 day -LC Progress/Outcome (Transfer Goal 1, OT) -- goal met -LC Dressing Goal 1 (OT) Activity/Assistive Device (Dressing Goal 1, OT) -- lower body dressing -LC Cochran/Cues Needed (Dressing Goal 1, OT) -- moderate assist (50-74% patient effort) - Time Frame (Dressing Goal 1, OT) -- 1 day -LC Progress/Outcome (Dressing Goal 1, OT) -- goal met -LC User Sage (r) = Recorded By, (t) = Taken By, (c) = Cosigned By Initials Name Provider Type Discipline CS Rosmery Mixon, PT Physical Therapist PT LC Gissel Rivera, OT Occupational Therapist OT Outcome Measures Row [...] personal grooming (such as brushing teeth) 4 - Eating meals 4 - AM-PAC 6 Clicks [...] Due Date -- 07/23/19 - Timed Charges 43997 - Gait Training Minutes 15 -CS -- 11797 - OT Self Care/Mgmt Minutes -- 15 - User Sage (r) = Recorded By, (t) = Taken By, (c) = Cosigned By Initials Name Provider Type Rosmery Shaw, PT Physical Therapist Gissel Nelson OT Occupational Therapist Therapy Suggested Charges Code Minutes Charges 31248 (CPT??) Hc Ot Neuromusc Re Education Ea 15 Min 54497 (CPT??) Hc Ot Ther Proc Ea 15 Min 79603 (CPT??) Hc Ot Therapeutic Act Ea 15 Min 89025 (CPT??) Hc Ot Manual Therapy Ea 15 Min 14228 (CPT??) Hc Ot Iontophoresis Ea 15 Min 03279 (CPT??) Hc Ot Elec Stim Ea-Per 15 Min 19200 (CPT??) Hc Ot Ultrasound Ea 15 Min 88536 (CPT??) Hc Ot Self Care/Mgmt/Train Ea 15 Min 15 1 Total 15 1 Therapy Charges for Today Code Description Service Date Service Provider Modifiers Qty [id number] HC OT SELF CARE/MGMT/TRAIN EA 15 MIN 07/13/2019 Gissel Rivera OT GO 1 11995175727 HC OT EVAL MOD COMPLEXITY 3 07/13/2019 Gissel Rivera, TODD GO 1 OT Discharge Summary Anticipated Discharge Disposition (OT): home with assist, home with home health Gissel Rivera OT 07/13/2019 documented in this encounter Discharge Instructions * Attachments The following attachments cannot be sent through Care Everywhere. * Total Knee Replacement Care After (Burundian) * Continuous Peripheral Nerve Block Infusion Self-Care (Burundian) * How to Use an Incentive Spirometer (Burundian) * Preventing Constipation After Surgery (Burundian) * Acetaminophen; Hydrocodone tablets or capsules (Burundian) * Docusate capsules ([place]undian) documented in this encounter Medications at Time [...] each 07/13/2019 1:02 PM EST 07/13/2019 1 Rymflrzytyq-VPY-Q yaluronic Acd ([facility] PO) Take 1 tablet by mouth Daily. 1 Ropivacine HCl-NaCl (NAROPIN)Indicati ons:Acute Pain 20 mg/hr by Peripheral Nerve route Continuous. Indications: Acute Pain 07/13/2019 1 Turmeric 450 MG capsule Take 1 capsule by mouth Daily. 03/25/2019 1 documented as of this encounter Progress Notes * Aleja Choudhary CRNA - 07/13/2019 1:10 PM [facility] Patient Name: Marialuisa Hampton : 1955 Date of Discharge: 07/13/2019 Nerve Cath Post Op Call: Catheter Plan:Patient called/No answer/Message left to call [facility] pain service for any questions or complaints * Stiven Long CRNA - 07/13/2019 1:10 PM EST [facility] Nerve Cath Post Op Call Patient Name: Marialuisa Hampton : 1955 Date of Discharge: 07/13/2019 Nerve Cath Post Op Call: Catheter Plan:Patient called/No answer/Message left to call [facility] pain service for any questions or complaints and The patient was instructed to call PUBLICATIONS DESIGNER Anesthesia provider for any questions or problems * Phuong Hung RN - 07/13/2019 12:11 PM EST Discharge Planning Assessment [facility] Patient Name: Marialuisa Hampton Today's Date: 07/13/2019 [...] In person Patient's Choice of Community Agency(s) [facility] in [place], [place] Discharge Plan Row Name 07/13/19 1206 Plan Plan Home with family assistance and [facility] in [place] Patient/Family in Agreement with Plan yes Plan Comments Met with Ms. Hampton and her family at the bedside for discharge planning. Ms. Hampton lives alone in [facility]. She stated that her sister, David, will be staying with her in the hometo assist her after discharged. She denies any DME needs. Discussed physical therapy and Ms. Hampton requested [facility] in [place]. Called and faxed referral to [facility], LM with facility. Ms. Hampton [...] Information Permission Granted to Share Info With trimming caserlodging manager Information Comments Sister: David Hampton, Functional Status Row Name 07/13/19 1204 Functional [...] Conti PA as PCP - General (Physician Invasive Manager) Marialuisa Bergeron MD as Consulting Physician (Internal [...] XR Knee 1 or 2 View Left [[id number]] Collected: 07/12/19 1028 Updated: 07/12/19 1708 Narrative: [...] with assist and home health PT. (07/13/19 6095)] Results Review: I reviewed the patient's new [...] Take 1 tablet by mouth Daily. 07/11/2019 [id number] ??? Ylbgvrelvtb-LSM-Eyujztuxyv Acd ([facility]) Take 1 tablet [...] COLONOSCOPY ??? HYSTERECTOMY ??? KNEE SURGERY ??? WI TOTAL KNEE ARTHROPLASTY Right 01/18/2017 Procedure: RIGHT TOTAL KNEE ARTHROPLASTY; Surgeon: Jose Guadalupe Menon MD; Location: [facility]; Service: Orthopedics Family History Problem [...] 6:57 AM EST Pre-Op H&P Marialuisa Hampton [id number] 1955 Chief complaint: left knee pain HPI: Patient is a 63 y.o.female who presents with longstanding history of left knee pain with progressive worsening. Recent imaging of left knee showed [id number]-un-rtxr contact medial compartment, advanced patellofemoral arthritis, with [...] COLONOSCOPY ??? HYSTERECTOMY ??? KNEE SURGERY ??? WI TOTAL KNEE ARTHROPLASTY Right 01/18/2017 Procedure: RIGHT TOTAL KNEE ARTHROPLASTY; Surgeon: Jose Guadalupe Menon MD; Location: [facility]; Service: Orthopedics Immunization History: Influenza: [...] with nursing. Recommend patient home with assist [facility] PT. PADD: 9 documented in this encounter [...] anatomic patella). SURGEON: Jose Guadalupe Menon MD REFINERY OPERATOR LIGHT ENDS RECOVERY: Iris Taylor PA-C SPECIMENS: None ANESTHESIA: Spinal STAFF: Quality Process Engineer: Anne-Marie Fry RN Scrub Person: Ruddy Magallon Director Music: Liza Khalil Invasive Manager: Iris Taylor PA TOURNIQUET TIME: 18 minutes [...] into the lateral gutter. Description of arthritis: Vwha-wt-fvdi contact the medial compartment, lateral degeneration, with [...] closed with #1 Vicryl in an interrupted plorqf-gf-djene fashion in 4 strategic locations followed by [...] COLONOSCOPY ??? HYSTERECTOMY ??? KNEE SURGERY ??? WI TOTAL KNEE ARTHROPLASTY Right 01/18/2017 Procedure: RIGHT TOTAL KNEE ARTHROPLASTY; Surgeon: Jose Guadalupe Menon MD; Location: [facility]; Service: Orthopedics General Information Row Name 07/12/19 1340 PT Evaluation Time/Intention Document Type evaluation -CS Mode of Treatment individual therapy;physical therapy -CS Row Name 07/12/19 1340 General Information Patient Profile Reviewed? yes -CS Prior Level of Function min assist:;dressing;bathing;home management;cooking;cleaning;gait Mobilitylimited by L knee pain -CS Existing Precautions/Restrictions fall;other (see comments) L adductor canal catheter -CS Barriers to Rehab none identified -CS Row Name 07/12/19 1340 Relationship/Environment Lives With alone Pt sister is going to stay with patient at discharge to assist patient -CS Row Name 07/12/19 1340 Resource/Environmental Concerns Current Living Arrangements home/apartment/condo -CS Row Name 07/12/19 1340 Home Main Entrance Number of Stairs, Main Entrance none -CS Row Name 07/12/19 1340 Stairs Within Home, Primary Stairs, Within Home, Primary 1 story house -CS Number of Stairs, Within Home, Primary none -CS Row Name 07/12/19 1340 Cognitive Assessment/Intervention- PT/OT Orientation Status (Cognition) oriented [...] Mixon, PT Physical Therapist Mobility Row Name 07/12/191339 Bed Mobility Assessment/Treatment Bed Mobility Assessment/Treatment supine-sit -CS Supine-Sit Cochran (Bed Mobility) supervision;verbal cues -CS Assistive Device (Bed Mobility) head of bed elevated -CS Comment (Bed Mobility) VC's to move LE's to EOB. Pt denied dizziness with sitting EOB. -CS Row Name 07/12/191339 Transfer Assessment/Treatment Comment (Transfers) VC's to push off of bed to stand and to reach back for chair to sit. VC's to step L LE out with sitting for comfort. -CS Row Name 07/12/191339 Sit-Stand Transfer Sit-Stand Cochran (Transfers) contact guard;verbal cues -CS Assistive Device (Sit-Stand Transfers) walker, front-wheeled - Row Name 07/12/191339 Gait/Stairs Assessment/Training 79546 - Gait Training Minutes 10 -CS Gait/Stairs Assessment/Training gait/ambulation independence;gait/ambulation assistive device;distance ambulated;gait pattern - Cochran Level (Gait) verbal cues;contact guard;2 person assist -CS Assistive Device (Gait) walker, front-wheeled - Distance [...] to maintain upright posture. -CS Row Name 01/30/20 1340 Mobility Assessment/Intervention Extremity Weight-bearing Status left lower extremity -CS Left Lower Extremity (Weight-bearing Status) weight-bearing as tolerated (WBAT) -CS User Sage (r) = Recorded By, (t) = Taken By, (c) = Cosigned By Initials Name Provider Type CS Rosmery Mixon, PT Physical Therapist Obj/Interventions Row Name 07/12/19 1340 General ROM GENERAL ROM COMMENTS L knee ROM limited by 25%. Will formally assess POD #1 -CS Row Name 07/12/19 134 MMT (Manual Muscle Testing) General MMT Comments Pt able to perform SLR indep on L LE. L LE MMT grossly 4-/5 -CS Row Name 07/12/19 134 Therapeutic Exercise Lower Extremity (Therapeutic Exercise) gluteal [...] Mixon, PT Physical Therapist Goals/Plan Row Name 07/12/19 134 Bed Mobility Goal 1 (PT) Activity/Assistive Device (Bed Mobility Goal 1, PT) bed mobility activities, all -CS Cochran Level/Cues Needed (Bed Mobility Goal 1, PT) conditional independence -CS Time Frame (Bed Mobility Goal 1, PT) usp goal (LTG);3 days -CS Progress/Outcomes (Bed Mobility Goal 1, PT) goal ongoing -CS Row Name 07/12/19 134 Transfer Goal 1 (PT) Activity/Assistive Device (Transfer Goal 1, PT) hjs-wl-gxqsu/lngwg-af-foc;dqu-ir-mtiya/wcwcl-zq-xnr;walker, rolling -CS Cochran Level/Cues Needed (Transfer Goal 1, PT) conditional independence -CS Time Frame (Transfer Goal 1, PT) emt intermediate goal (LTG);3 days -CS Progress/Outcome (Transfer Goal 1, PT) goal ongoing -CS Row Name 07/12/19 134 Gait Training Goal 1 (PT) Activity/Assistive Device (Gait Training Goal 1, PT) gait (walking locomotion);assistive device use;walker, rolling -CS Cochran Level (Gait Training Goal 1, PT) conditional independence -CS Distance (Gait Goal 1, PT) 500' -CS Time Frame (Gait Training Goal 1, PT) emt intermediate goal (LTG);3 days -CS Progress/Outcome (Gait Training Goal 1, PT) goal ongoing -CS Row Name 07/12/19 134 ROM Goal 1 (PT) ROM Goal 1 (PT) 0-90 deg knee ROM -CS Time Frame (ROM Goal 1, PT) emt intermediate goal (LTG);3 days -CS Progress/Outcome (ROM Goal 1, PT) goal ongoing -CS User Sage (r) = Recorded By, (t) = Taken By, (c) = Cosigned By Initials Name Provider Type CS Rosmery Mixon, PT Physical Therapist Clinical Impression Row Name 07/12/19 752 Pain Assessment Additional Documentation Pain Scale: Numbers Pre/Post-Treatment (Group) -CS Row Name 07/12/19 5344 Pain Scale: Numbers Pre/Post-Treatment Pain Scale: Numbers, Pretreatment 4/10 -CS Pain Scale: Numbers, Post-Treatment 4/10 -CS Pain Location - Side Left -CS Pain Location - Orientation anterior -CS Pain Location knee -CS Pain Intervention(s) Repositioned;Ambulation/increased activity;Cold applied -CS Row Name 07/12/19 1342 Plan of Care Review Plan of Care Reviewed With patient -CS Progress improving -CS Outcome Summary Pt able to amb 250' with RW CGA x 2 with step through gait mechanics. Pt limited byfatigue. Encouraged patient to ambulate later with nursing. Recommend patient home with assist and home health PT. PADD: 9 -CS Row Name 07/12/19 616 Physical Therapy Clinical Impression Patient/Family Goals Statement (PT Clinical Impression) To go home -CS Criteria for Skilled Interventions Met (PT Clinical Impression) yes;treatment indicated -CS Rehab Potential (PT Clinical Summary) good, to achieve stated therapy goals -CS Predicted Duration of Therapy (PT) 3 days -CS Row Name 07/12/19 6844 Positioning and Restraints Pre-Treatment Position in bed -CS Post Treatment Position chair -CS In Chair notified nsg;reclined;call light within reach;encouraged to call for assist;exit alarm on;with family/caregiver;legs elevated -CS User Sage (r) = Recorded By, (t) = Taken By, (c) = Cosigned By Initials Name Provider Type Rosmery Shaw, STEPAN Physical Therapist Outcome Measures Row Name 07/12/19 [...] with nursing. [facility] PADD: 9 Time Calculation: PT Charges Row Name 07/12/19 1340 Time Calculation Start Time 1340 -CS PT Received On 07/12/19 - PT Goal Re-Cert Due Date 07/22/19 - Time Calculation- PT Total Timed Code Minutes- PT 12 minute(s) -CS Timed Charges 03990 - PT Therapeutic Exercise Minutes 2 -CS 76415 - Gait Training Minutes 10 -CS User Sage (r) = Recorded By, (t) = Taken By, (c) = Cosigned By Initials Name Provider Type CS Rosmery Mixon, PT Physical Therapist Therapy Charges for Today Code Description Service Date Service Provider Modifiers Qty 15801057685 HC GAIT TRAINING EA 15 MIN 07/12/2019 Rosmery Mixon, PT GP 1 29646665497 HC PT EVAL MOD COMPLEXITY 3 07/12/2019 Rosmery Mixon, PT GP 1 83819346443 HC PT THER SUPP EA 15 MIN [...] 3.40 - 10.80 10*3/mm3 07/13/2019 6:21 AM [facility] RBC 3.63(L) 3.77 - 5.28 10*6/mm3 07/13/2019 6:21 AM EST [facility] Hemoglobin 9.9(L) 12.0 - 15.9 g/dL 07/13/2019 6:21 AM [facility] Hematocrit 31.8(L) 34.0 - 46.6 % 07/13/2019 6:21 AM EST [facility] MCV 87.6 79.0 - 97.0 fL 07/13/2019 6:21 AM [facility] MCH 27.3 26.6 - 33.0 pg 07/13/2019 6:21 AM [facility] MCHC 31.1(L) 31.5 - 35.7 g/dL 07/13/2019 6:21 AM [facility] RDW 15.6(H) 12.3 - 15.4 % 07/13/2019 6:21 AM [facility] RDW-SD 49.8 37.0 - 54.0 fl 07/13/2019 6:21 AM [facility] MPV 10.6 6.0 - 12.0 fL 07/13/2019 6:21 AM [facility] Platelets 296 140 - 450 10*3/mm3 07/13/2019 6:21 AM [facility] Blood Venipuncture / Unknown 07/13/2019 5:45 AM EST 07/13/2019 6:13 AM EST us Jose Guadalupe Menon MD LAB BLOOD ORDERABLES Final Res ult [facility]
[address] [place] [address], * (ABNORMAL) Basic Metabolic Panel (07/13/2019 5:45 AM EST) [facility] Glucose 95 65 - 99 mg/dL 07/13/2019 7:22 AM [facility] BUN 13 8 - 23 mg/dL 07/13/2019 7:22 AM EST [facility] Creatinine 0.70 0.57 - 1.00 mg/dL 07/13/2019 7:22 AM EST [facility] Sodium 139 136 - 145 mmol/L 07/13/2019 7:22 AM EST [facility] Potassium 3.6 3.5 - 5.2 mmol/L 07/13/2019 7:22 AM EST [facility] Chloride 107 98 - 107 mmol/L 07/13/2019 7:22 AM EST [facility] CO2 22.0 22.0 - 29.0 mmol/L 07/13/2019 7:22 AM [facility] Calcium 8.5(L) 8.6 - 10.5 mg/dL 07/13/2019 7:22 AM [facility] eGFR Non Amer 85 >60 mL/min/1.7 3 07/13/2019 7:22 AM EST [facility] BUN/Creatinine Ratio 18.6 7.0 - 25.0 07/13/2019 7:22 AM [facility] Anion Gap 10.0 5.0 - 15.0 mmol/L 07/13/2019 7:22 AM EST [facility] Blood Venipuncture / Unknown 07/13/2019 5:45 AM EST 07/13/2019 6:13 AM EST Narrative [facility] - 07/13/2019 7:22 AM EST GFR Normal >60 Chronic Kidney Disease <60 Kidney Failure <[address] [facility] LAB BLOOD ORDERABLES Final Result [facility]
[address] [place] [address], * XR Knee 1 or 2 View [...] replacement- Primary Primary osteoarthritis of left knee Impaired mobility and ADLs Primary osteoarthritis of left knee Primary osteoarthritis of left knee documented in this encounter Admitting Diagnoses Diagnosis [...] 0707, May switch to NS IV at [facility] if renal / if indicated Currently Infusing [...] AM EST 10 mL/hr 10 mL/h r ropivacaine (NAROPIN) 0.5 % injection As Needed, Starting on Shirley 07/12/19 at 0807 Given 07/12/2019 8:07 AM EST 20 mL Knee Left sodium chloride (NS) irrigation solution As Needed, Starting on Shirley 07/12/19 at 0807 Given 07/12/2019 8:07 AM EST 3,000 mL sodium chloride 0.9 % bolus 500 mL [...] 8:37 PM EST 120 mL/hr 120 mL/hr sterile water irrigation solution As Needed, Starting on Shirley 07/12/19 at 0807 Given 07/12/2019 8:07 A M EST 1,000 mL documented in this encounter Active and Recently [...] R Sellers RN)1622 (Stopped - Provider: Maddie Pacheco, ROXANA) 0030 (New Bag - Provider: Maddie Pacheco, ROXANA) famotidine (PEPCID) tablet 20 mg (COMPLETED) 20 [...] Hold for SBP <110 or HR <55 2043 (Not Given - Provider: Maddie Pacheco RN - Reason: Order parameters not met) mupirocin (BACTROBAN) 2 % nasal ointment 1 application (COMPLETED) 1 application , Each Nare, Once, On Shirley 07/12/19 at 0707, For 1 dose, {BKC} 0721 (Given - Provider: Stephanie Ji, RN) pregabalin (LYRICA) capsule 150 mg (COMPLETED) 150 mg, Oral, Once, On Shirley 07/12/19 at 0707, For 1 dose 0721 (Given - Provider: Stephanie Ji RN) sodium chloride 0.9 % flush 3 mL 3 mL, Intravenous, Every 12 Hours Scheduled, First dose on Shirley 07/12/19 at 1145 1154 (Not Given - Provider: Maria R Sellers RN - Reason: Given from running infusion)2030 (Given - Provider: Maddie Pacheco RN) 0851 (Given - Provider: Olivia Arango [...] RN)2040 (Rate/Dose Change - Provider: Maddie Pacheco, RN)2240 (Rate/Dose Change - Provider: Maddie Pacheco, RN) 0800 (Rate/Dose Verify - Provider: Olivia Arango RN)1000 (Currently Infusing - Provider: Olivia Arango RN)1315 (Currently Infusing - Provider: Olivia Arango, RN) sodium chloride 0.9 % infusion 120 [...] 2037 (Not Given: See Alt - Provider: Madide Pacheco, ROXANA) acetaminophen (TYLENOL) tablet 650 mg(Linked Group 1) [...] Provider: Maddie Pacheco RN)0851 (Given - Provider: Oilvia Arango RN) HYDROmorphone (DILAUDID) injection 0.5 mg(Linked [...] ineffective. documented in this encounter Care Teams Order Packer Or Packager Relationship Specialty Start Date End Date Meredith Conti PA PCP - General Physician Invasive Manager 02/11/17 documented as of this encounter
--- OUTSIDE RECORDS SUMMARY | 2024-04-25 14:42 | XMS_ITS | Encounter Summary ---
Author Organization [facility] Address [address] [place] [address] Care Team Providers Care Windows Administrator Name Role Phone Provider, No Known Primary Care Provider Unavail able Reason for Visit * Auth/Cert Specialty Diagnoses / Procedures Referred By Sumit caldwell Referred To Contact Diagnoses TOTAL KNEE ARTHROPLASTY RIGHT Procedures [place] TOTAL KNEE ARTHROPLASTY TOTAL KNEE ARTHROPLASTY RIGHT Referral ID Status Reason Start Date Expiration Date Visits Re quested Visits Authorized [id number] 1 1 Encounter Details Date Type Department Care Team (Late st Contact Info) Description 01/18/2017 10:05 AM EDT Anesthesia Event [facility] OR [address] [place] [address] Burak Rivera MD [address] [place] [id number] Anesthesia Record Procedure Summary Procedure Name Responsible Anesthesiologist Anesthesia Start Time Anesthesia Stop Time RIGHT TOTAL KNEE ARTHROPLASTY (Right: Knee) Burak Rivera MD 01/18/17 1005 01/18/17 1217 Events Date Time Event Comment 01/18/2017 0849 0926 AN Equip Check 1005 An Start Data 1005 An Start 1010 Spinal Placed 1200 an stop data 1217 Handoff to RN The following has been completed: 1. Identification of Patient, jason family member(s) or patient surrogate 2. Identification of the responsible Practitioner (primary service) 3. Discussion of the pertinent/attainable medical history 4. Discussion of the surgical/procedure course (procedure, reason for surgery, procedure performed) 5. Intraoperative anesthetic management and issue/concerns to include things such as airway, hemodynamics, narcotic, sedation level and paralytic management and intravenous fluids/blood products and urine output during the procedure 6. Expectations/Plans for the early post-procedure period to include things such as anticipated course (anticipatory guidance), complications, need for laboratory or ECG and medication administration 7. Opportunity for questions and acknowledgment of understanding of report from the receiving PACU/ICU team 1217 An Stop Meds Name Total propofol (DIPRIVAN) infusion 10 mg/mL 10 0 mL 820.41 mg bupivacaine 0.5% PF (MARCAINE) injection 2.5 mL tranexamic acid 100 mg/mL 1,334 mg phenylephrine 10 mg/mL 100 mcg ceFAZolin in dextrose (ANCEF) IVPB solut ion 2 g 2 g lidocaine (XYLOCAINE) injection 1% 50 mg morphine injection 5 mg/mL 5 mg glycopyrrolate (ROBINUL) injection 0.4 m g/2 mL 0.2 mg bupivacaine 0.25% PF (MARCAINE) injectio n 20 mL lactated ringers infusion 1,100 mL * Agents Name O2 * Blood No blood administrations on file. Lines, Drains, and Airways Type Details Placement Removal Retired Peripheral IV Line - Single Lumen 01/18/17; 0810; basilic vein (medial side of arm), right; [id number] catheter system; 18 gauge (x1 stick per Isis Ji RN); intradermal injection, tolerated well; 10/26/17 (Removed via batch job for retired LDAs post CPM S17 upgrade); 1034 (Removed via batch job for retired LDAs post CPM S17 upgrade) 01/18/17 0810 by Yolande Ocampo RN 10/26/17 1034 by Health Plan Specialist (MASKED), Batch Retired Incision 01/18/17; 0821; Righ t; knee; 10/26/17 (Removed via batch job for retired LDAs post CPM S17 upgrade); 1034 (Removed via batch job for retired LDAs post CPM S17 upgrade) 01/18/17 0821 by Martin Moffett RN 10/26/17 1034 by Health Plan Specialist (MASKED), Batch Retired Nerve Block Catheter 01/18/17; 1153 (created via procedure documentation); catheter; 10/26/17 (Removed via batch job for retired LDAs post CPM S17 upgrade); 1034 (Removed via batch job for retired LDAs post CPM S17 upgrade) 01/18/17 1153 by Kailey Ogden CRNA 10/26/17 1034 by Health Plan Specialist (MASKED), Batch documented in this encounter Social History Tobacco Use Types Packs/Day Years [...] on file documented as of this encounter OR Notes * Anesthesia Postprocedure Evaluation - Kailey Ogden CRNA - 01/18/2017 12:17 PM EDT Patient: Marialuisa Guajardo Procedure Summary Date Anesthesia Start Anesthesia Stop Room / Location 01/18/17 1005 [facility] / [facility] Procedure Diagnosis Surgeon Provider RIGHT TOTAL KNEE ARTHROPLASTY (Right Knee) No diagnosis on file. MD Burak Natarajan MD Anesthesia Type: spinal Last vitals BP 116/83 (01/18/17 1202) Temp 97.8 ??F (36.6 ??C) (01/18/17 1202) Pulse 80 (01/18/17 1202) Resp 16 (01/18/17 1202) SpO2 100 % (01/18/17 1202) Post Anesthesia Care and Evaluation Patient location during evaluation: PACU Patient participation: complete - patient participated Level of consciousness: awake and alert Pain score: 0 Pain management: adequate Airway patency: patent Anesthetic complications: No anesthetic complications PONV Status: none Cardiovascular status: hemodynamically stable and acceptable Respiratory status: nonlabored ventilation, acceptable and nasal cannula Hydration status: acceptable * Anesthesia Procedure Notes - Kailey Ogden CRNA - 01/18/2017 11:53 AM EDT Associated Order(s): ANESTHESIA PERIPHERAL BLOCK Peripheral Block Patient location during procedure: post-op Start time: 01/18/2017 11:53 AM Stop time: 01/18/2017 11:53 AM Reason for block: at surgeon's request and post-op pain management Performed by WOOD CREW SUPERVISOR: KAILEY OGDEN Assisted by: KALYN SCOTT Preanesthetic Checklist Completed: patient identified, site marked, surgical consent, pre-op evaluation, timeout performed,IV checked, risks and benefits discussed and monitors and equipment checked Prep: Sterile barriers:cap, gloves, mask and sterile barriers Prep: ChloraPrep Patient monitoring: blood pressure monitoring, continuous pulse oximetry and EKG Procedure Guidance:ultrasound guided Images:still images obtained Laterality:right Block Type:adductor canal block Injection Technique:catheter Needle Type:Tuohy and echogenic Needle Gauge:18 G Catheter Size:20 G (20g) Medications Local Injected:bupivacaine 0.25% Local Amount Injected:20 (ml)mL Post Assessment Injection Assessment: negative aspiration for heme, incremental injection and no paresthesia on injection Patient Tolerance:comfortable throughout block Complications:no Additional Notes Procedure: The pt was placed in the Supine position. The Insertion site was prepped and Draped in sterile fashion. The pt was anesthetized with IV Sedation( see meds). Skin and cutaneous tissue was infiltrated and anesthetized with 1% Lidocaine 3 mls via a 25g needle. A BBraun 4 inch 18g echogenic needle was then inserted approximately midline, mid-thigh and advanced In-plane with Ultrasound guidance. Normal Saline PSF was utilized for hydrodissection of tissue. The Vastus medialis and Sartorius muscle where visualized and the needle tip was placed in the adductor canal, lateral to the femoral artery. LA injection spread was visualized, injection was incremental 1-5ml, injection pressure was normal or little, no intraneural injection, no vascular injection. LA dose was injected thru the needle(see dose above). A BBraun 20g wire stylet catheter was placed via the needle with ultrasound visualization and confirmation with NS fluid bolus. The labeled Catheter was then secured to skin at insertion site with skin afix and steristrips to curled catheter and CHG transparent dressing. Thank you. * Anesthesia Procedure Notes - Kailey Ogden CRNA - 01/18/2017 10:38 AM EDT Associated Order(s): SPINAL Spinal Block Patient location during procedure: OR Start Time: 01/18/2017 10:38 AM Stop Time: 01/18/2017 10:38 AM Indication:at surgeon's request Performed By WOOD CREW SUPERVISOR: KAILEY OGDEN Preanesthetic Checklist Completed: patient identified, site marked, surgical consent, pre-op evaluation, timeout performed,IV checked, risks and benefits discussed and monitors and equipment checked Spinal Block Prep: Patient Position:sitting Subassembly Supervisor:cap, gloves, sterile barriers and mask Prep:Chloraprep Patient Monitoring:blood pressure monitoring, continuous pulse oximetry and EKG Spinal Block Procedure Approach:midline Guidance:landmark technique and palpation technique Location:L4-L5 Needle Type:José Antonio Needle Gauge:25 G Placement of Spinal needle event:cerebrospinal fluid aspirated Fluid Appearance:clear Post Assessment Patient Tolerance:patient tolerated the procedure well with no apparent complications Complications no Additional Notes Procedure: Pt assisted to sitting position, with legs in position of comfort over side of bed. Pt. instructed in optimal spine presentation, the spine was prepped/ Draped and the skin at insertion site was anesthetized with 1% Lidocaine 2 ml. The spinal needle was then advanced until CSF flow was obtained and LA was injected: Marcaine 0.5% PSF injected 12.5 Mg. * Anesthesia Preprocedure Evaluation - Burak Rivera MD - 01/18/2017 8:48 AM EDT Anesthesia Evaluation Patient summary reviewed and Nursing notes reviewed history of anesthetic complications: PONV NPO Solid Status: > 8 hours NPO Liquid Status: > 8 hours Airway Mallampati: I TM distance: <3 FB Neck ROM: full no difficulty expected Dental - normal exam Pulmonary - negative pulmonary ROS and normal exam Cardiovascular - normal exam (+) hyperlipidemia Neuro/Psych- negative ROS GI/Hepatic/Renal/Endo - negative ROS Musculoskeletal Abdominal - normal exam Bowel sounds: normal. 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 Plan discussed with WOOD CREW SUPERVISOR. documented in this encounter Plan of Treatment Not on file documented as of this encounter Procedures Procedure Name Priority Date/Time Associated Diagnosis Comments ANESTHESIA PERIPHERAL BLOCK Routine 01/18/2017 11:53 AM EDT SPINAL Routine 01/18/2017 10:38 AM EDT documented in this encounter Results * [facility] PERIPHERAL BLOCK CATHETER (01/18/2017 11:53 AM EDT) Narrative Kailey gOden CRNA - 01/18/2017 11:53 AM EDT Kailey Ogden CRNA ? 01/18/2017 11:53 AM Peripheral Block Patient location during procedure: post-op Start time: 01/18/2017 11:53 AM Stop time: 01/18/2017 11:53 AM Reason for block: at surgeon's request and post-op pain management Performed by WOOD CREW SUPERVISOR: KAILEY OGDEN Assisted by: KALYN SCOTT Preanesthetic Checklist Completed: patient identified, site marked, surgical consent, pre-op evaluation, timeout performed, IV checked, risks and benefits discussed and monitors and equipment checked Prep: Sterile barriers:cap, gloves, mask and sterile barriers Prep: ChloraPrep Patient monitoring: blood pressure monitoring, continuous pulse oximetry and EKG Procedure Guidance:ultrasound guided Images:still images obtained Laterality:right Block Type:adductor canal block Injection Technique:catheter Needle Type:Tuohy and echogenic Needle Gauge:18 G Catheter Size:20 G (20g) Medications Local Injected:bupivacaine 0.25% Local Amount Injected:20 (ml)mL Post Assessment Injection Assessment: negative aspiration for heme, incremental injection and no paresthesia on injection Patient Tolerance:comfortable throughout block Complications:no Additional Notes Procedure: ? The pt was placed in the Supine position. ??The Insertion site was ?? prepped and Draped in sterile fashion. ??The pt was anesthetized with ??IV Sedation( see meds). ??Skin and cutaneous tissue was infiltrated and anesthetized with 1% Lidocaine 3 mls via a 25g needle. ??A BBraun 4 inch 18g echogenic needle was then ??inserted approximately midline, mid-thigh and advanced In-plane with Ultrasound guidance. ??Normal Saline PSF was utilized for hydrodissection of tissue. ??The Vastus medialis and Sartorius muscle where visualized and the needle tip was placed in the adductor canal, ??lateral to the femoral artery. ??LA injection spread was visualized, injection was incremental 1-5ml, injection pressure was normal or little, no intraneural injection, no vascular injection. ??LA dose was injected thru the needle(see dose above). ??A BBraun 20g wire stylet catheter was placed via the needle with ultrasound visualization and confirmation with NS fluid bolus. The labeled Catheter was then secured to skin at insertion site with skin afix and steristrips to curled catheter and CHG transparent dressing. ??Thank you. Procedure Note Kailey Ogden CRNA - 01/18/2017 11:53 AM EDT Peripheral Block Patient location during procedure: post-op Start time: 01/18/2017 11:53 AM Stop time: 01/18/2017 11:53 AM Reason for block: at surgeon's request and post-op pain management Performed by WOOD CREW SUPERVISOR: KAILEY OGDEN Assisted by: KALYN SCOTT Preanesthetic Checklist Completed: patient identified, site marked, surgical consent, pre-opevaluation, timeout performed, IV checked, risks and benefits discussedand monitors and equipment checked Prep: Sterile barriers:cap, gloves, mask and sterile barriers Prep: ChloraPrep Patient monitoring: blood pressure monitoring, continuous pulse oximetryand EKG Procedure Guidance:ultrasound guided Images:still images obtained Laterality:right Block Type:adductor canal block Injection Technique:catheter Needle Type:Tuohy and echogenic Needle Gauge:18 G Catheter Size:20 G (20g) Medications Local Injected:bupivacaine 0.25% Local Amount Injected:20 (ml)mL Post Assessment Injection Assessment: negative aspiration for heme, incremental injectionand no paresthesia on injection Patient Tolerance:comfortable throughout block Complications:no Additional Notes Procedure: The pt was placed in the Supine position. The Insertion site wasprepped and Draped in sterile fashion. The pt was anesthetized with IVSedation( see meds). Skin and cutaneous tissue was infiltrated andanesthetized with 1% Lidocaine 3 mls via a 25g needle. A BBraun 4 homs79v echogenic needle was then inserted approximately midline, mid-thighand advanced In-plane with Ultrasound guidance. Normal Saline PSF wasutilized for hydrodissection of tissue. The Vastus medialis and Sartoriusmuscle where visualized and the needle tip was placed in the adductorcanal, lateral to the femoral artery. LA injection spread wasvisualized, injection was incremental 1- 5ml, injection pressure was normalor little, no intraneural injection, no vascular injection. LA dose wasinjected thru the needle(see dose above). A BBraun 20g wire styletcatheter was placed via the needle with ultrasound visualization andconfirmation with NS fluid bolus. The labeled Catheter was then secured toskin at insertion site with skin afix and steristrips to curled catheterand CHG transparent dressing. Thank you. us Burak Rivera MD ANESTHESIA ORDERABLES Final Res ult * [facility] SPINAL TRAY (01/18/2017 10:38 AM EDT) Narrative Kailey Ogden CRNA - 01/18/2017 10:38 AM EDT Kailey Ogden CRNA ? 01/18/2017 10:38 AM Spinal Block Patient location during procedure: OR Start Time: 01/18/2017 10:38 AM Stop Time: 01/18/2017 10:38 AM Indication:at surgeon's request Performed By BASIA: KAILEY OGDEN Preanesthetic Checklist Completed: patient identified, site marked, surgical consent, pre-op evaluation, timeout performed, IV checked, risks and benefits discussed and monitors and equipment checked Spinal Block Prep: Patient Position:sitting Subassembly Supervisor:cap, gloves, sterile barriers and mask Prep:Chloraprep Patient Monitoring:blood pressure monitoring, continuous pulse oximetry and EKG Spinal Block Procedure Approach:midline Guidance:landmark technique and palpation technique Location:L4-L5 Needle Type:José Antonio Needle Gauge:25 G Placement of Spinal needle event:cerebrospinal fluid aspirated Fluid Appearance:clear Post Assessment Patient Tolerance:patient tolerated the procedure well with no apparent complications Complications no Additional Notes Procedure: ??Pt assisted to sitting position, with legs in position of comfort over side of bed. ??Pt. instructed in optimal spine presentation, the spine was prepped/ Draped and the skin at insertion site was anesthetized with 1% Lidocaine 2 ml. ??The spinal needle was then advanced until CSF flow was obtained and LA was injected: Marcaine 0.5% PSF injected 12.5 Mg. ? Procedure Note Kailey Ogden CRNA - 01/18/2017 10:38 AM EDT Spinal Block Patient location during procedure: OR Start Time: 01/18/2017 10:38 AM Stop Time: 01/18/2017 10:38 AM Indication:at surgeon's request Performed By WOOD CREW SUPERVISOR: KAILEY OGDEN Preanesthetic Checklist Completed: patient identified, site marked, surgical consent, pre-opevaluation, timeout performed, IV checked, risks and benefits discussedand monitors and equipment checked Spinal Block Prep: Patient Position:sitting Subassembly Supervisor:cap, gloves, sterile barriers and mask Prep:Chloraprep Patient Monitoring:blood pressure monitoring, continuous pulse oximetryand EKG Spinal Block Procedure Approach:midline Guidance:landmark technique and palpation technique Location:L4-L5 Needle Type:José Antonio Needle Gauge:25 G Placement of Spinal needle event:cerebrospinal fluid aspirated Fluid Appearance:clear Post Assessment Patient Tolerance:patient tolerated the procedure well with no apparentcomplications Complications no Additional Notes Procedure: Pt assisted to sitting position, with legs in position ofcomfort over side of bed. Pt. instructed in optimal spine presentation,the spine was prepped/ Draped and the skin at insertion site wasanesthetized with 1% Lidocaine 2 ml. The spinal needle was then advanceduntil CSF flow was obtained and LA was injected: Marcaine 0.5% PSF injected 12.5 Mg. us Burak Rivera MD ANESTHESIA ORDERABLES Final Res ult documented in this encounter Visit Diagnoses Not on filedocumented in this encounter Administered Medications Inactive Administered Medications - up to 3 most recent administrations Medication Order MAR Action Action Date Dose Rate Site bupivacaine (PF) (MARCAINE) 0.5 % injection Intrathecal, As Needed, Starting on Tue01/18/17 at 1010 Given 01/18/2017 10:10 AM EDT 2.5 mL bupivacaine PF (MARCAINE) 0.25 % injection As Needed, Starting on Tue01/18/17 at 1153 Given 01/18/2017 11:53 AM EDT 20 mL ceFAZolin in dextrose (ANCEF) IVPB solution 2 g 2 g, Intravenous, Once, On Tue01/18/17 at 0845, For 1 dose, Indications: Surgical ProphylaxisIndications:Surgical Prophylaxis Given 01/18/2017 10:05 AM EDT 2 g glycopyrrolate (ROBINUL) injection As Needed, Excess Secretions, Starting on Tue01/18/17 at 1146 Given 01/18/2017 11:46 AM EDT 0.2 mg lactated ringers infusion 9 mL/hr, Intravenous, Continuous, Starting on Tue01/18/17 at 0845, May switch to NS IV at KVO if renal / if indicated New Bag 01/18/2017 11:39 AM EDT New Bag 01/18/2017 10:05 AM EDT New Bag 01/18/2017 8:10 AM EDT 9 mL/hr 9 mL/hr lidocaine (XYLOCAINE) 1 % injection As Needed, Starting on Tue01/18/17 at 1015 Given 01/18/2017 10:15 AM EDT 50 mg Morphine injection As Needed, Severe Pain, Starting on Tue01/18/17 at 1119 Given 01/18/2017 11:19 AM EDT 5 mg phenylephrine (RENETTA-SYNEPHRINE) injection Intravenous, As Needed, Starting on Tue01/18/17 at 1133 Given 01/18/2017 11:33 AM EDT 100 mcg propofol (DIPRIVAN) infusion 10 mg/mL 100 mL Intravenous, Continuous PRN, Starting on Tue01/18/17 at 1014 New Bag 01/18/2017 10:14 AM EDT 100 mcg/kg/min 40 mL/hr Tranexamic Acid injection Intravenous, As Needed, Starting on Tue01/18/17 at 1019 Given 01/18/2017 11:05 AM EDT 667 mg Given 01/18/2017 10:19 AM EDT 667 mg documented in this encounter Care Teams Windows Administrator Relationship Specialty Start Date End Date Provider, [place] [address] PCP - General 01/11/17 02/10/17 documented as of this encounter
--- OUTSIDE RECORDS SUMMARY | 2024-04-25 14:42 | XMS_ITS | Encounter Summary ---
[facility] Organization [facility] Address [address] [place] [address] Care Team Providers Care Mixing Machine Tender Name Role Phone Unavailable Primary Care Provider Unavailabl e Encounter Details Date Type Department Care Team (Late st Contact Info) Description 10/20/2011 Historical Mammograp hy Encounter [facility] HISTORICAL CONV [address] [place] [address] Interface, See Report Social History Tobacco Use Types Packs/Day Years Used Date Smoking Tobacco: Never Assessed Comments Unknown Sex and Gender Information Value Date Recorded Sex Assigned at Not on file Legal Sex Female 1:23 PM EDT Gender Identity Not on file Sexual Orientation Not on file documented as of this encounter Plan of Treatment Not on file documented as of this encounter Procedures Procedure Name Priority Date/Time Associated Diagnosis Comments MAMMO HISTORICAL RESULT Routine 10/20/2011 1:52 PM EDT documented in this encounter Results * MAMMO HISTORICAL RESULT (10/20/2011 1:52 PM EDT) Anatomical Region Laterality Modality Breast Mammography 10/20/2011 1:52 PM EDT Narrative 10/28/2011 3:46 PM EDT ?[facility] ? [address] ??[place], [place] [address] ? NAME: MEMOMARIALUISA ? : ??[birth year] ??MR#: [id number] ? LOC: ?? DIS ? AGE: 55Y ?? Pt type: CO ?Exam Date: 10/20/11 1352 ? SEX: F ?? AN#:[id number] ?Ck-in#: [id number] ? SPIREK,MANJU J ? [address] ? [address] ? [place] ?? [place] ?[address] ? Chk-in # ?? Order ?Exam ?[id number] ?? 0001 ? [id number] ??BC MAMM SCREEN BILAT DIG PNL ? Ord Diag: SCREENING ? ROUTINE DIGITAL SCREENING MAMMOGRAM: ?? HISTORY: Routine screening. ? IMAGE COMPARISON: ??06/03/2006 from [facility] in [place], [place]. ?? TECHNIQUE: ??Routine bilateral CC and MLO views were obtained and supplemented with routine bilateral implant displaced views and bilateral laterally exaggerated CC views. ?? FINDINGS: ??There are scattered fibroglandular densities which could obscure a lesion on mammography. ??The fibroglandular pattern is stable in appearance bilaterally. There is no mass, worrisome microcalcifications, or architectural distortion to suggest development of malignancy. ??Bilateral retroperitoneal saline implants remain in place. ?? IMPRESSION: No findings suspicious for malignancy. ? BI-RADS CATEGORY: ??II, BENIGN. ?? RECOMMENDATION: Yearly mammogram, yearly physical exam, and monthly self breast exam. ?? iCAD was used. ?? The standard false negative rate of mammography is between 10 and 25%. ? FINAL ?CONTINUED ?Page ??1 ? RADIOLOGY REPORT ?[facility] ? [address] ??[place], [place] [address] ? NAME: MARIALUISA GUAJARDO ? : ??[birth year] ??MR#: [id number] ? LOC: ?? DIS ? AGE: 55Y ?? Pt type: CO ?Exam Date: 10/20/11 1352 ? SEX: F ?? AN#:[id number] ?Ck-in#: [id number] ? MANJU MARTINEZ ? [address] ? [address] ? [place] ?? [place] ?[address] ? Checkin-Exam Code Summary ? [phone] Complex patterns or increased breast density will markedly elevate the false negative rate of mammography. ?? A letter, in lay terminology, with the results of this exam will be mailed to the patient. ? If there is a palpable area of concern, biopsy should be considered regardless of imaging findings. ?/READ BY/ CHARLA MASTERS ?/Released By/ CHARLA MASTERS ?Released By Date/Time: ??/17/12 1406 ?Crayon Molding Machine Operator: ??MJP ? FINAL ? Page ??2 ? RADIOLOGY REPORT us See Report Interface IMG MAMMOGRAPHY ORDERABLES Final Result documented in this encounter Visit Diagnoses Not on filedocumented in this encounter
--- OUTSIDE RECORDS SUMMARY | 2024-04-25 14:42 | XMS_ITS ---
Care Plan - [facility] Created on: April 25, 2024 Marialuisa Guajardo : 1955 Sex: Female Author Organization [facility] Address [address] [place] [phone] Phone Care Team Providers Care Thermal Cutter Hand Name Role Phone Deedee FATIMA, Vikram Unavailable [phone] Meredith Conti PA-C Unavailable [phone]
--- OUTSIDE RECORDS SUMMARY | 2024-04-25 14:42 | XMS_ITS | Encounter Summary ---
[facility] Organization [facility] Address [address] [place] [address] Care Team Providers Care Documentation Specialist Name Role Phone Meredith Conti Primary Care Provider [phone] Encounter Details Date Type Department Care Team (Late st Contact Info) Description 07/04/2019 2:45 PM EST Lab [facility] [address] [place] [address] Primary osteoarthritis of left knee Social History Tobacco Use Types Packs/Day Years [...] Procedure Name Priority Date/Time Associated Diagnosis Comments SEDIMENTATION RATE Routine 07/04/2019 2: 40 PM EST Primary osteoarthritis of left knee documented in this encounter Results * Sedimentation Rate (07/04/2019 2:40 PM EST) Sed Rate 12 0 - 30 mm/hr 07/04/2019 11:18 PM EST [facility] Blood Venipuncture / Unknown 07/04/2019 2:40 PM EST 07/04/2019 2:40 PM EST Mj Menon MD LAB BLOOD ORDERABLES Final Res ult [facility]
[address] [place] [address], documented in this encounter Visit Diagnoses Diagnosis Primary osteoarthritis of left knee documented in this encounter Care Teams Documentation Specialist Relationship Specialty Start Date End Date Meredith Conti PA PCP - General Physician Storage Worker 02/11/17 documented as of this encounter
--- OUTSIDE RECORDS SUMMARY | 2024-04-25 14:42 | XMS_ITS | Encounter Summary ---
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 Name Role Phone Provider, No Known Primary Care Provider Unavail able Reason for Visit * Auth/Cert Specialty Diagnoses / Procedures Referred By Sumit caldwell Referred To Contact Diagnoses TOTAL KNEE ARTHROPLASTY RIGHT Procedures MT TOTAL KNEE ARTHROPLASTY TOTAL KNEE ARTHROPLASTY RIGHT Referral ID Status Reason Start Date Expiration Date Visits Re quested Visits Authorized [id number] 1 1 Encounter Details Date Type Department Care Team (Late st Contact Info) Description 01/18/2017 9:55 AM EDT - 01/18/2017 12:25 PM EDT Surgery [id number] Mj Menon MD [address] [place] [address] RIGHT TOTAL KNEE ARTHROPLASTY [11897 (CPT??)] Social History Tobacco Use Types Packs/Day Years [...] Sign Reading Time Taken Comments Blood Pressure 125/81 01/18/2017 12:15 PM EDT Pulse 76 01/18/2017 12:15 PM EDT Temperature 36.7 ??C (98 ??F) 01/18/2017 12:15 PM EDT Respiratory Rate 14 01/18/2017 12:15 PM EDT Oxygen Saturation 100% 01/18/2017 12:15 PM EDT Inhaled Oxygen Concentration - - Weight 66.7 kg (147 lb) 01/18/2017 8:15 AM EDT Height 170.2 cm (5' 7 ) 01/18/2017 8:15 AM EDT Body Mass Index 23.02 01/18/2017 8:15 AM EDT documented in this encounter Discharge Summaries * Qing Castellanos, PT - 01/20/2017 12:07 PM EDT Acute Care - Physical Therapy Discharge Summary Barber Patient Name: Marialuisa Hampton : 1955 Today's Date: 01/22/2017 Onset of Illness/Injury or Date of Surgery Date: 01/18/17 Referring Physician: mD Sinan Admit Date: 01/18/2017 PT Recommendation and Plan Visit Dx: ICD-10-CM ICD-9-CM 1. Impaired functional mobility, balance, gait, and endurance Z74.09 V49.89 2. Impaired mobility and ADLs Z74.09 799.89 Outcome Measures 01/20/17 0800 How much help from another person do you currently need... Turning from your back to your side while in flat bed without using bedrails? 4 - Moving from lying on back to sitting on the side of a flat bed without bedrails? 4 - Moving to and from a bed to a chair (including a wheelchair)? 3 - Standing up from a chair using your arms (e.g., wheelchair, bedside chair)? 3 - Climbing 3-5 steps with a railing? 3 - To walk in hospital room? 3 - AM-PAC 6 Clicks Score 20 - Functional Assessment Outcome Measure Options AM-PAC 6 Clicks Basic Mobility (PT) - User Sage (r) = Recorded By, (t) = Taken By, (c) = Cosigned By Initials Name Provider Type Maddie Nicole PTA Cl[employer] Singer IP PT Goals 01/20/17 0842 01/19/17 1739 01/19/17 1419 Bed Mobility PT LTG Bed Mobility PT LTG, Date Established 01/19/17 - Bed Mobility PT LTG, Time to Achieve 2 wks -EH Bed Mobility PT LTG, Activity Type all bed mobility -EH Bed Mobility PT LTG, [place] Level conditional independence -EH Bed Mobility PT LTG, Date Goal Reviewed 01/20/17 - Bed Mobility PT LTG, Outcome goal ongoing - goal ongoing -EH Transfer Training PT LTG Transfer Training PT LTG, Date Established 01/19/17 -EH Transfer Training PT LTG, Time to Achieve 2 wks -EH Transfer Training PT LTG, Activity Type all transfers -EH Transfer Training PT LTG, [place] Level conditional independence -EH Transfer Training PT LTG, Assist Device walker, rolling -EH Transfer Training PT LTG, Date Goal Reviewed 01/20/17 - Transfer Training PT LTG, Outcome goal ongoing - goal ongoing -EH Gait Training PT LTG Gait Training Goal PT LTG, Date Established 01/19/17 -EH Gait Training Goal PT LTG, Time to Achieve 2 wks -EH Gait Training Goal PT LTG, [place] Level conditional independence -EH Gait Training Goal PT LTG, Assist Device walker, rolling -EH Gait Training Goal PT LTG, Date Goal Reviewed 01/20/17 - Gait Training Goal PT LTG, Outcome goal ongoing - goal ongoing -EH User Sage (r) = Recorded By, (t) = Taken By, (c) = Cosigned By Initials Name Provider Type Crys Pinedo, PT Physical Therapist Maddie Nicole, HEALTH AND SAFETY COORDINATOR [employer] Singer Goals Status: Treatment plan discontinued secondary to discharge from acute facility. PT Discharge Summary Reason for Discharge: Discharge from facility Outcomes Achieved: Refer to plan of care for updates on goals achieved Discharge Destination: Home Qing Castellanos PT 01/22/2017 * Raymond Willard MD - 01/20/2017 10:17 AM EDT Patient Name: Marialuisa Hampton : 1955 DOS: 01/20/2017 Attending: No att. providers found Primary Care Provider: No Known Provider Date of Admission:.01/18/2017 7:28 AM Date of Discharge: 01/20/2017 Discharge Diagnosis: Principal Problem: Status post total right knee replacement Active Problems: Arthritis of knee, right HTN (hypertension) Acute blood loss anemia, mild, asymptomatic Leukocytosis, mild, likely reactive Hypokalemia, replaced Hospital Course Patient is a 61 y.o. female presented for right total knee arthroplasty by Dr. Menon under spinal anesthesia. She tolerated surgery well and was admitted for further medical management. Her knee pain has progressively worsened over the last couple years. Conservative treatments failed to provide longterm relief. She denies use of assistive device for ambulation. Patient was provided pain medications as needed for pain control, along with adductor canal nerve block infusion of Ropivacaine. ?? She was seen by PT and OT and has progressed well over her stay. She used an IS for atelectasis prophylaxis and aspirin along with mechanicals for DVT prophylaxis. Home medications were resumed as appropriate, and labs were monitored and remained fairly stable. With the progress she has made, she is ready for DC home today. ?? A prineo dressing is in place and is to remain for 2 weeks. She will have an On Q pump ( instructed on it during this admit) Discussed with patient regarding plan and she shows understanding and agreement. ?? Patient will have HHPT following discharge. Procedures Performed DATE OF PROCEDURE: 01/18/17 ? SURGEON: Mj Menon MD ?? DIRECTOR REVENUE: Crys Chavarria PA-C ?? PREOPERATIVE DIAGNOSIS: right knee arthritis ?? POSTOPERATIVE DIAGNOSIS: right knee arthritis ?? PROCEDURES PERFORMED: right total knee arthroplasty with DePuy Attune components (# 4 narrow posterior stabilized femur, # 3 rotating platform tibia, 6 mm rotating platform polyethylene, with 32 three peg anatomic patella). Pertinent Test Results: I reviewed the patient's new clinical results. Results from last 7 days Lab Units 01/20/17 0556 01/19/17 0547 WBC 10*3/mm3 14.82* 12.79* HEMOGLOBIN g/dL 8.7* 9.0* HEMATOCRIT % 27.4* 28.4* PLATELETS 10*3/mm3 295 326 Results from last 7 days Lab Units 01/20/17 0556 01/19/17 0547 SODIUM mmol/L 136 134 POTASSIUM mmol/L 3.8 3.4* CHLORIDE mmol/L 108 106 CO2 mmol/L 23.0 22.0 BUN mg/dL 10 9 CREATININE mg/dL 0.40* 0.60 CALCIUM mg/dL 9.0 8.4* GLUCOSE mg/dL 101* 110* I reviewed the patient's new imaging including images and reports. Physical therapy: patient ambulated 140 feet with progression to step through with verbal cueing. Needs encouragement to progress knee flexion. Discharge Assessment: Vital Signs BP 135/71 (BP Location: Left arm, Patient Position: Lying) Pulse 94 Temp 99.4 ??F (37.4 ??C) (Tympanic) Resp 16 Ht 67 (170.2 cm) Wt 147 lb (66.7 kg) SpO2 99% BMI 23.02 kg/m2 Temp (24hrs), Av.3 ??F (37.4 ??C), Min:98.8 ??F (37.1 ??C), Max:99.8 ??F (37.7 ??C) General Appearance: Alert, cooperative, in no acute distress Lungs: Clear to auscultation,respirations regular, even and unlabored Heart: Regular rhythm and normal rate, normal S1 and S2 Abdomen: Normal bowel sounds, no masses, no organomegaly, soft non-tender, non- distended, no guarding, no rebound tenderness Extremities: Moves all extremities well, no edema, no cyanosis, no Redness. Right knee Prineo CDI. TEDs and 4x4s in place Pulses: Pulses palpable and equal bilaterally Skin: No bleeding, bruising or rash Neurologic: Cranial nerves 2 - 12 grossly intact, sensation intact. Flexion and dorsiflexion intactbilateral feet. Discharge Disposition: Home Discharge Medications Marialuisa Hampton Home Medication Instructions JULIOCESAR:[id number] Printed on:01/20/17 4312 Medication Information aspirin EC 325 MG EC tablet Take 1 tablet by mouth Daily. For 1 month Cholecalciferol (VITAMIN D3) 2000 UNITS tablet Take 1 tablet by mouth Daily. docusate sodium 100 MG capsule Take 100 mg by mouth 2 (Two) Times a Day As Needed for Constipation. HYDROcodone-acetaminophen (NORCO) 7.5-325 MG per tablet Take 1 tablet by mouth Every 4 (Four) Hours As Needed for Moderate Pain (4-6) for up to 9 days. Krill Oil 1000 MG capsule Take 2 tablets by mouth Daily. magnesium oxide (MAGOX) 400 (241.3 MG) MG tablet tablet Take 400 mg by mouth Daily. metoprolol tartrate (LOPRESSOR) 25 MG tablet Take 25 mg by mouth every night at bedtime. Multiple Vitamins-Minerals (MULTIVITAMIN ADULTS 50+) tablet Take 1 tablet by mouth Daily. ropivacaine (NAROPIN) 0.2 % 24 mg/hr by Peripheral Nerve route Continuous. Discharge Diet: regular diet Activity at Discharge: WBAT RLE Activity Instructions You are going home with your ON Q ball. You have contact information in your packet about this to refer to if needed. There is a number listed for your reference. Follow-up Appointments Dr. Menon per his orders Discharge took over 30 min. Seen and examined by me. Agree with above. Discussed with patient and answered all questions. Raymond Willard MD 01/20/17 5:14 PM documented in this encounter Discharge Instructions * Discharge Instr - Activity* Judy Albert RN - 01/20/2017 9:35 AM EDT You are going home with your ON Q ball. You have contact information in your packet about this to refer to if needed. There is a number listed for your reference. * Discharge Instr - Lab* Judy Albert RN - 01/20/2017 11:33 AM EDT Follow up with your primary care doctor 1-2 weeks after discharge. Please call and schedule this appointment. * Attachments The following attachments cannot be sent through Care Everywhere. * ACETAMINOPHEN; HYDROCODONE TABLETS OR CAPSULES (UZBEK) * TOTAL KNEE REPLACEMENT, CARE AFTER (UZBEK) * PERIPHERAL NERVE BLOCK (UZBEK) * HOW TO USE COMPRESSION STOCKINGS (UZBEK) * INCENTIVE SPIROMETER (UZBEK) * DOCUSATE CAPSULES (UZBEK) * ASPIRIN, ASA ORAL TABLETS (UZBEK) documented in this encounter Medications at Time [...] Needed for Constipation. 60 capsule 01/19/2017 9 magnesium oxide (MAGOX) 400 (241.3 MG) MG tablet tablet Take 400 mg by mouth Daily. 0 ropivacaine (NAROPIN) 0.2 % 24 mg/hr by Peripheral Nerve route Continuous. 01/20/2017 9 documented as of this encounter Progress Notes * Aleja Choudhary CRNA - 01/20/2017 12:07 PM EDT [facility] Nerve Cath Post Op Call Patient Name: Marialuisa Hampton : 1955 Date of Discharge: 01/20/2017 Nerve Cath Post Op Call: Catheter Plan:Patient called/No answer/Message left to call [facility] pain service for any questions or complaints * Aleja Choudhary CRNA - 01/20/2017 12:07 PM EDT [facility] Nerve Cath Post Op Call Patient Name: Marialuisa Hampton : 1955 Date of Discharge: 01/20/2017 Nerve Cath Post Op Call: Catheter Plan:Patient called/No answer/Message left to call [facility] pain service for any questions or complaints * Aleja Choudhary CRNA - 01/20/2017 12:07 PM EDT [facility] Nerve Cath Post Op Call Patient Name: Marialuisa Hampton : 1955 Date of Discharge: 01/20/2017 Nerve Cath Post Op Call: Catheter Plan:Patient called/No answer/Message left to call [facility] pain service for any questions or complaints * Mj Menon MD - 01/20/2017 11:16 AM EDT Orthopaedic Progress Note LOS: 2 days Patient Care Team: No Known Provider as PCP - General Marialuisa Bergeron MD as Consulting Physician (Internal Medicine) Chief Complaint: Status post total right knee replacement Subjective Interval History: Pain is controlled this morning. No new complaints. She would like to go home. Objective Vital Signs Temp (24hrs), Av.8 ??F (37.7 ??C), Min:98.8 ??F (37.1 ??C), Max:101.2 ??F (38.4 ??C) BP 135/71 (BP Location: Left arm, Patient Position: Lying) Pulse 94 Temp 99.4 ??F (37.4 ??C) (Tympanic) Resp 16 Ht 67 (170.2 cm) Wt 147 lb (66.7 kg) SpO2 99% BMI 23.02 kg/m2 Physical Exam: Examination of the right knee: The wound is clean, dry, and intact. Ankle dorsiflexion, ankle plantar flexion, and EHL are intact. 2+ dorsalis pedis pulse. Straight leg raise is intact. Sensation intact in the foot to light touch. Labs: Results from last 7 days Lab Units 01/20/17 0556 WBC 10*3/mm3 14.82* RBC 10*6/mm3 3.50* HEMOGLOBIN g/dL 8.7* HEMATOCRIT % 27.4* PLATELETS 10*3/mm3 295 Radiology: Imaging Results (last 24 hours) No results found for the last 24 hours. PT: Gait, Distance (Feet): 140 Results Review: I reviewed the patient's new clinical results. Assessment/Plan Status post right total knee arthroplasty-doing well Principal Problem: Status post total right knee replacement Active Problems: Arthritis of knee, right HTN (hypertension) Acute blood loss anemia, mild, asymptomatic Leukocytosis, mild, likely reactive Hypokalemia, replaced Plan for disposition: Discharge to home today. Follow-up with me on February 11, 2017. Mj Menon MD 01/20/17 11:16 AM * Brandon Steiner CRNA - 01/20/2017 7:55 AM EDT [facility] Acute pain service Inpatient Progress Note Patient Name: Marialuisa Hampton : 1955 Acute Pain Service Inpatient Progress Note: Analgesia:Good Pain Score:4/10 LOC: alert and awake Side Effects:None Catheter Site:clean and dry Cath type: peripheral nerve cath(MOOG pump) Infusion rate: 12ml/hr Catheter Plan:Catheter to remain Insitu, Continue catheter infusion rate unchanged and Patient to be discharged home Comments: Needs On Q teaching. * Yumiko Hoffmann CRNA - 01/19/2017 2:05 PM EDT [facility] Acute pain service Inpatient Progress Note Patient Name: Marialuisa Hampton : 1955 Acute Pain Service Inpatient Progress Note: Analgesia:Fair Pain Score:8/10 LOC: alert and awake Resp Status: room air Cardiac: VS stable Side Effects:None Catheter Site:clean Cath type: peripheral nerve cath(MOOG pump) Infusion rate: 12ml/hr Catheter Plan:Catheter to remain Insitu and Catheter infusion rate increased 4ml/hr for 2 hrs, thenresume at 12 ml/hr Sitting up bedside and will call service if bolus not reducing pain score in 2 hours * Ryamond Willard MD - 01/19/2017 12:25 PM EDT IM progress note Marialuisa Hampton [id number] 1955 LOS: 1 day Attending: Mj Menon MD Primary Care Provider: No Known Provider Chief Complaint/Reason for visit: right knee pain Subjective Doing ok. Pain control is adequate. Denies f/c/n/v/sob/cp. ( still with complaints of pain, doesn't feel ready to go home today)wy Objective Vital Signs Blood pressure 140/64, pulse 103, temperature 99.8 ??F (37.7 ??C), resp. rate 16, height 67 (170.2cm), weight 147 lb (66.7 kg), SpO2 98 %. Temp (24hrs), Av.2 ??F (37.9 ??C), Min:99.8 ??F (37.7 ??C), Max:101.2 ??F (38.4 ??C) Intake/Output: Intake/Output Summary (Last 24 hours) at 01/19/17 2351 Last data filed at 01/19/17 0524 Gross per 24 hour Intake 815 ml Output 100 ml Net 715 ml Nutrition: PO Respiratory: RA Physical Therapy: Outcome Summary/Follow up Plan PT ambulates 120 ft in malhotra with step to gait pattern progressing tostep through with verbal cueing. Improved ther ex tolerence. Pt lacking 12 degrees from 0 to 90 degrees flexion Physical Exam: General Appearance: Alert, cooperative, in no acute distress Head: Normocephalic, without obvious abnormality, atraumatic Lungs: Normal effort, symmetric chest rise, no crepitus, clear to auscultation bilaterally Heart: Regular rhythm and normal rate, normal S1 and S2 Abdomen: Normal bowel sounds, no masses, no organomegaly, soft non-tender, non- distended, no guarding, no rebound tenderness Extremities: No clubbing, cyanosis or edema. No deformities. Right knee Prineo CDI. Nerve block present Pulses: Pulses palpable and equal bilaterally Skin: No bleeding, bruising or rash Neurologic: Moves all extremities with no obvious focal motor deficit. Cranial nerves 2 - 12 grossly intact. Flexion and dorsiflexion intact bilateral feet. Results Review: I reviewed the patient's new clinical results. Results from last 7 days Lab Units 01/19/17 0547 WBC 10*3/mm3 12.79* HEMOGLOBIN g/dL 9.0* HEMATOCRIT % 28.4* PLATELETS 10*3/mm3 326 Results from last 7 days Lab Units 01/19/17 0547 SODIUM mmol/L 134 POTASSIUM mmol/L 3.4* CHLORIDE mmol/L 106 CO2 mmol/L 22.0 BUN mg/dL 9 CREATININE mg/dL 0.60 CALCIUM mg/dL 8.4* GLUCOSE mg/dL 110* I reviewed the patient's new imaging including images and reports. All medications reviewed. aspirin 325 mg Oral Daily meloxicam 15 mg Oral Daily metoprolol tartrate 25 mg Oral Nightly sennosides-docusate sodium 2 tablet Oral BID Assessment/Plan Principal Problem: Status post total right knee replacement Active Problems: Arthritis of knee, right HTN (hypertension) Acute blood loss anemia, mild, asymptomatic Leukocytosis, mild, likely reactive Hypokalemia, replaced Plan 1. PT/OT- WBAT RLE 2. Pain control-prns, AC nerve block 3. IS-encouraged 4. DVT proph- mechs/ASA 5. Bowel regimen 6. Monitor post-op labs 7. DC planning for home, likely tomorrow HTN - Continue home lopressor - Monitor BP q4 hrs - Holding parameters for BP meds - PRN hydralazine for SBP >170 Seen and examined by me. Agree with above. Discussed with patient. Raymond Willard MD 01/19/17 11:51 PM * Anne-Marie Soria 01/19/2017 11:05 AM EDT Discharge Planning Assessment Ray Patient Name: Marialuisa Hampton Today's Date: 01/19/2017 Admit Date: 01/18/2017 Discharge Needs Assessment 01/19/17 1101 Living Environment Lives With alone Transportation Available car;family or friend will provide Living Environment Provides Primary Care For no one Quality Of Family Relationships unable to assess Able to Return to Prior Living Arrangements yes Discharge Needs Assessment Concerns To Be Addressed denies needs/concerns at this time Readmission Within The Last 30 Days no previous admission in last 30 days Anticipated Changes Related to Illness none Equipment Currently Used at Home cane, straight;walker, rolling Discharge Plan 01/19/17 1101 Case Management/Social Work Plan Plan Home Patient/Family In Agreement With Plan yes Additional Comments Met with pt at bedside. She resides alone in [facility] she was relatively independent with ADLs (was using a cane or RW with ambulation). No current HH. Confirmed she has [employer] insurance with Rx coverage. Goal is to return home with OP PT upon DC. Pt relates that her sister will stay with her short-term. CM will await PT eval today and make any necessary arrangements. Discharge Placement No information found Demographic Summary 01/19/17 1100 Referral Information Admission Type inpatient Referral Source admission list Reason For Consult discharge planning Record Reviewed history and physical;medical record Contact Information Permission Granted to Share Information With family independence case managerinternational operations manager Status 01/19/17 1100 Functional Status Prior Ambulation 1-->assistive equipment Transferring 1-->assistive equipment Toileting 0-->independent Bathing 0-->independent Dressing 0-->independent Eating 0-->independent Communication 0-->understands/communicates without difficulty IADL Medications independent Meal Preparation independent Housekeeping independent Laundry independent Shopping independent Oral Care independent Activity Tolerance Usual Activity Tolerance moderate Psychosocial None Abuse/Neglect None Legal None Substance Abuse None Patient Forms None Anne-Marie Kirkpatrick * Mj Menon MD - 01/19/2017 7:59 AM EDT Orthopaedic Progress Note LOS: 1 day Patient Care Team: No Known Provider as PCP - General Marialuisa Bergeron MD as Consulting Physician (Internal Medicine) Chief Complaint: Status post total right knee replacement Subjective Interval History: Pain is controlled this morning. No new complaints. Objective Vital Signs Temp (24hrs), Av ??F (37.2 ??C), Min:97 ??F (36.1 ??C), Max:100.9 ??F (38.3 ??C) BP 110/58 (BP Location: Right arm, Patient Position: Lying) Pulse 87 Temp 99.8 ??F (37.7 ??C) (Tympanic) Resp 16 Ht 67 (170.2 cm) Wt 147 lb (66.7 kg) SpO2 93% BMI 23.02 kg/m2 Physical Exam: Examination of the right knee: The wound is clean, dry, and intact. Ankle dorsiflexion, ankle plantar flexion, and EHL are intact. 2+ dorsalis pedis pulse. Straight leg raise is intact. Sensation intact in the foot to light touch. Labs: Results from last 7 days Lab Units 01/19/17 0547 WBC 10*3/mm3 12.79* RBC 10*6/mm3 3.54* HEMOGLOBIN g/dL 9.0* HEMATOCRIT % 28.4* PLATELETS 10*3/mm3 326 Radiology: Imaging Results (last 24 hours) Procedure Component Value Units Date/Time XR Knee 1 or 2 View Right [[id number]] Updated: 01/18/17 1234 PT: Results Review: I reviewed the patient's new clinical results. Assessment/Plan Status post right total knee arthroplasty-doing well Principal Problem: Status post total right knee replacement Active Problems: Arthritis of knee, right HTN (hypertension) Plan for disposition: Possible discharge to home later today if her pain is controlled and stable with ambulation. Follow-up with me on February 11, 2017. Mj Menon MD 01/19/17 7:59 AM documented in this encounter H&P Notes * Raymond Willard MD - 01/18/2017 1:16 PM EDT Patient Name: Marialuisa Hampton : 1955 DOS: 01/18/2017 Attending: Mj Menon MD Primary Care Provider: No Known Provider Chief complaint: right knee pain Subjective Patient is a 61 y.o. female presented for right total knee arthroplasty by Dr. Menon under spinal anesthesia. She tolerated surgery well and is admitted for further medical management. Her knee pain has progressively worsened over the last couple years. Conservative treatments failed to provide residential relief. She denies use of assistive device for ambulation. When seen post op she is doing well. She denies pain, but is still under effects of spinal anesthesia. She denies nausea, shortness of breath or chest pain. No hx of DVT or PE. She had a clean heart cath in 2009. (Seen in her room afterwards, she continues to complain of pain. She had to receive IV fluid boluses due to hypotension. Currently no nausea and no dizziness or shortness of breath. Systolic blood pressure 101. She has not ambulated yet due to hypotension.)wy Allergies: No Known Allergies Meds: Prescriptions Prior to Admission Medication Sig Dispense Refill Last Dose ??? Cholecalciferol (VITAMIN D3) 2000 UNITS tablet Take 1 tablet by mouth Daily. 01/17/2017 at 0830 ??? Krill Oil 1000 MG capsule Take 2 tablets by mouth Daily. 01/17/2017 at 0830 ??? magnesium oxide (MAGOX) 400 (241.3 MG) MG tablet tablet Take 400 mg by mouth Daily. 01/17/2017 [id number] ??? metoprolol tartrate (LOPRESSOR) 25 MG tablet Take 25 mg by mouth every night at bedtime. 01/17/2017 at 2245 ??? Multiple Vitamins-Minerals (MULTIVITAMIN ADULTS 50+) tablet Take 1 tablet by mouth Daily. 01/17/2017 at 0830 ??? traMADol (ULTRAM) 50 MG tablet Take 50 mg by mouth 2 (Two) Times a Day As Needed for Moderate Pain (4-6). 01/17/2017 at 1600 ??? ibuprofen (ADVIL,MOTRIN) 200 MG tablet Take 800 mg by mouth As Needed for Mild Pain (1-3). 1 week ago History: Past Medical History: Diagnosis Date ??? Anemia ??? Arthritis ??? High cholesterol ??? Irregular heartbeat( date deficit, workup unremarkable per pt/ no further episodes on BB/Mg++) ??? PONV (postoperative nausea and vomiting) ??? Wears contact lenses Past Surgical History: Procedure Laterality Date ??? CARDIAC CATHETERIZATION ??? HYSTERECTOMY History reviewed. No pertinent family history. Social History Substance Use Topics ??? Smoking status: Never Smoker ??? Smokeless tobacco: Never Used ??? Alcohol use Yes Comment: social She is single with no children. 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 Review of Systems Pertinent items are noted in HPI, all other systems reviewed and negative Vital Signs BP 111/55 Pulse 62 Temp 98.9 ??F (37.2 ??C) (Oral) Resp 16 Ht 67 (170.2 cm) Wt 147 lb (66.7 kg) SpO2 100% BMI 23.02 kg/m2 Physical Exam: General Appearance: Alert, cooperative, in no acute distress Head: Normocephalic, without obvious abnormality, atraumatic Eyes: Lids and lashes normal, conjunctivae and sclerae normal, no icterus, no pallor, corneas clear Ears: Ears appear intact with no abnormalities noted Neck: No adenopathy, supple, trachea midline, no thyromegaly, no carotid bruit, no JVD Lungs: Clear to auscultation,respirations regular, even and unlabored Heart: Regular rhythm and normal rate, normal S1 and S2, no murmur, no gallop Abdomen: Normal bowel sounds, no masses, no organomegaly, soft non-tender, non- distended, no guarding, no rebound tenderness Genitalia: Deferred Extremities: Right knee CHATO wrap CDI. Nerve block present Pulses: Pulses palpable and equal bilaterally Skin: No bleeding, bruising or rash Neurologic: Cranial nerves 2 - 12 grossly intact, sensation and movement limited due to effects of spinal block. Exam later: Flexion and dorsiflexion intact bilateral feet. I reviewed the patient's new clinical results. Results for MARIALUISA HAMPTON ( ) as of 01/18/2017 13:18 Ref. Range 01/11/2017 10:47 Glucose Latest Ref Range: 70 - 100 mg/dL 92 Sodium Latest Ref Range: 132 - 146 mmol/L 134 Potassium Latest Ref Range: 3.5 - 5.5 mmol/L 4.5 CO2 Latest Ref Range: 20.0 - 31.0 mmol/L 27.0 Chloride Latest Ref Range: 99 - 109 mmol/L 101 Anion Gap Latest Ref Range: 3.0 - 11.0 mmol/L 6.0 Creatinine Latest Ref Range: 0.60 - 1.30 mg/dL 0.70 BUN Latest Ref Range: 9 - 23 mg/dL 11 BUN/Creatinine Ratio Latest Ref Range: 7.0 - 25.0 15.7 Calcium Latest Ref Range: 8.7 - 10.4 mg/dL 9.8 eGFR Non Amer Latest Ref Range: >60 mL/min/1.73 85 Hemoglobin A1C Latest Ref Range: 4.80 - 5.60 % 5.10 C-Reactive Protein Latest Ref Range: 0.00 - 1.00 mg/dL 0.18 Protime Latest Ref Range: 9.6 - 11.5 Seconds 10.5 INR Unknown 0.96 aPTT Latest Ref Range: 24.0 - 31.0 seconds 25.9 WBC Latest Ref Range: 3.50 - 10.80 10*3/mm3 9.67 RBC Latest Ref Range: 3.89 - 5.14 10*6/mm3 4.43 Hemoglobin Latest Ref Range: 11.5 - 15.5 g/dL 11.2 (L) Hematocrit Latest Ref Range: 34.5 - 44.0 % 35.4 RDW Latest Ref Range: 11.3 - 14.5 % 16.0 (H) MCV Latest Ref Range: 80.0 - 99.0 fL 79.9 (L) MCH Latest Ref Range: 27.0 - 31.0 pg 25.3 (L) MCHC Latest Ref Range: 32.0 - 36.0 g/dL 31.6 (L) MPV Latest Ref Range: 6.0 - 12.0 fL 9.7 Platelets Latest Ref Range: 150 - 450 10*3/mm3 411 Assessment and Plan: Principal Problem: Status post total right knee replacement Active Problems: Arthritis of knee, right HTN (hypertension) Microcytic anemia. Postop hypotension, multifactorial. Plan 1. PT/OT- early ambulation post op 2. Pain control-prns, AC nerve block 3. IS-encourage 4. DVT proph- mechs/ASA 5. Bowel regimen 6. Resume home medications as appropriate 7. Monitor post-op labs 8. DC planning for home HTN - Continue home lopressor - Monitor BP q4 hrs - Holding parameters for BP meds - PRN hydralazine for SBP >170 Volume support for low BP, monitor closely , follow H/H. Seen and examined by me. Agree with above. Discussed with patient and RN. Raymond Willard MD 01/18/17 6:47 PM * Mj Menon MD - 01/18/2017 8:44 AM EDT Patient Care Team: Chief complaint: right knee pain Subjective: Patient is a 61 y.o.female presents with increasing pain and loss of mobility right knee is here for surgical intervention. Review of Systems: General ROS: negative for - chills, fatigue or fever Cardiovascular ROS: no chest pain or dyspnea on exertion Respiratory ROS: no cough, shortness of breath, or wheezing Allergies: No Known Allergies Latex:No Contrast Dye: No Home Meds Prescriptions Prior to Admission Medication Sig Dispense Refill Last Dose ??? Cholecalciferol (VITAMIN D3) 2000 UNITS tablet Take 1 tablet by mouth Daily. 01/17/2017 at 0830 ??? Krill Oil 1000 MG capsule Take 2 tablets by mouth Daily. 01/17/2017 at 0830 ??? magnesium oxide (MAGOX) 400 (241.3 MG) MG tablet tablet Take 400 mg by mouth Daily. 01/17/2017 [id number] ??? metoprolol tartrate (LOPRESSOR) 25 MG tablet Take 25 mg by mouth every night at bedtime. 01/17/2017 at 2245 ??? Multiple Vitamins-Minerals (MULTIVITAMIN ADULTS 50+) tablet Take 1 tablet by mouth Daily. 01/17/2017 at 0830 ??? traMADol (ULTRAM) 50 MG tablet Take 50 mg by mouth 2 (Two) Times a Day As Needed for Moderate Pain (4-6). 01/17/2017 at 1600 ??? ibuprofen (ADVIL,MOTRIN) 200 MG tablet Take 800 mg by mouth As Needed for Mild Pain (1-3). 1 week ago PMH: Past Medical History: Diagnosis Date ??? Anemia ??? Arthritis ??? High cholesterol ??? Irregular heartbeat ??? PONV (postoperative nausea and vomiting) ??? Wears contact lenses PSH: Past Surgical History: Procedure Laterality Date ??? CARDIAC CATHETERIZATION ??? HYSTERECTOMY Immunization History: pneumo: No Flu: No Tetanus: Unknown Social History: Tobacco: Never Alcohol: No Physical Exam:BP 127/91 (BP Location: Right arm, Patient Position: Lying) Pulse 72 Temp 99.5 ??F (37.5 ??C) (Temporal Artery ) Resp 18 Ht 67 (170.2 cm) Wt 147 lb (66.7 kg) SpO2 100% BMI 23.02 kg/m2 General Appearance: Alert, cooperative, no distress, appears stated age Head: Normocephalic, without obvious abnormality, atraumatic Lungs: Clear to auscultation bilaterally, respirations unlabored Heart: Regular rate and rhythm, S1 and S2 normal, no murmur, rub or gallop Abdomen: Soft without tenderness Breast Exam: deferred Genitalia: deferred Extremities: Extremities normal, atraumatic, no cyanosis or edema Skin: Skin color, texture, turgor normal, no rashes or lesions Neurologic: Grossly intact Results Review: Labs were reviewed EKG: NSR Results for MARIALUISA HAMPTON ( ) as of 01/18/2017 08:48 Ref. Range 01/11/2017 10:47 01/11/2017 10:55 01/11/2017 10:57 Glucose Latest Ref Range: 70 - 100 mg/dL 92 Sodium Latest Ref Range: 132 - 146 mmol/L 134 Potassium Latest Ref Range: 3.5 - 5.5 mmol/L 4.5 CO2 Latest Ref Range: 20.0 - 31.0 mmol/L 27.0 Chloride Latest Ref Range: 99 - 109 mmol/L 101 Anion Gap Latest Ref Range: 3.0 - 11.0 mmol/L 6.0 Creatinine Latest Ref Range: 0.60 - 1.30 mg/dL 0.70 BUN Latest Ref Range: 9 - 23 mg/dL 11 BUN/Creatinine Ratio Latest Ref Range: 7.0 - 25.0 15.7 Calcium Latest Ref Range: 8.7 - 10.4 mg/dL 9.8 eGFR Non Amer Latest Ref Range: >60 mL/min/1.73 85 Hemoglobin A1C Latest Ref Range: 4.80 - 5.60 % 5.10 C-Reactive Protein Latest Ref Range: 0.00 - 1.00 mg/dL 0.18 Protime Latest Ref Range: 9.6 - 11.5 Seconds 10.5 INR Unknown 0.96 aPTT Latest Ref Range: 24.0 - 31.0 seconds 25.9 WBC Latest Ref Range: 3.50 - 10.80 10*3/mm3 9.67 RBC Latest Ref Range: 3.89 - 5.14 10*6/mm3 4.43 Hemoglobin Latest Ref Range: 11.5 - 15.5 g/dL 11.2 (L) Hematocrit Latest Ref Range: 34.5 - 44.0 % 35.4 RDW Latest Ref Range: 11.3 - 14.5 % 16.0 (H) MCV Latest Ref Range: 80.0 - 99.0 fL 79.9 (L) MCH Latest Ref Range: 27.0 - 31.0 pg 25.3 (L) MCHC Latest Ref Range: 32.0 - 36.0 g/dL 31.6 (L) MPV Latest Ref Range: 6.0 - 12.0 fL 9.7 Platelets Latest Ref Range: 150 - 450 10*3/mm3 411 RDW-SD Latest Ref Range: 37.0 - 54.0 fl 47.4 Neutrophil % Latest Ref Range: 41.0 - 71.0 % 64.6 Lymphocyte % Latest Ref Range: 24.0 - 44.0 % 28.3 Monocyte % Latest Ref Range: 0.0 - 12.0 % 5.5 Eosinophil % Latest Ref Range: 0.0 - 3.0 % 0.8 Basophil % Latest Ref Range: 0.0 - 1.0 % 0.6 Immature Grans % Latest Ref Range: 0.0 - 0.6 % 0.2 Neutrophils, Absolute Latest Ref Range: 1.50 - 8.30 10*3/mm3 6.24 Lymphocytes, Absolute Latest Ref Range: 0.60 - 4.80 10*3/mm3 2.74 Monocytes, Absolute Latest Ref Range: 0.00 - 1.00 10*3/mm3 0.53 Eosinophils, Absolute Latest Ref Range: 0.00 - 0.30 10*3/mm3 0.08 Basophils, Absolute Latest Ref Range: 0.00 - 0.20 10*3/mm3 0.06 Immature Grans, Absolute Latest Ref Range: 0.00 - 0.03 10*3/mm3 0.02 Sed Rate Latest Ref Range: 0 - 30 mm/hr 46 (H) Color, UA Latest Ref Range: Yellow, Straw Yellow Appearance, UA Latest Ref Range: Clear Clear Specific [place], UA Latest Ref Range: 1.001 - 1.030 1.010 pH, UA Latest Ref Range: 5.0 - 8.0 5.5 Glucose, UA Latest Ref Range: Negative Negative Ketones, UA Latest Ref Range: Negative Negative Blood, UA Latest Ref Range: Negative Negative Nitrite, UA Latest Ref Range: Negative Negative Leuk Esterase, UA Latest Ref Range: Negative Negative Protein, UA Latest Ref Range: Negative Negative Bilirubin, UA Latest Ref Range: Negative Negative Urobilinogen, UA Latest Ref Range: 0.2 - 1.0 E.U./dL 0.2 E.U./dL RBC, UA Latest Ref Range: None Seen, 0-2 /HPF None Seen WBC, UA Latest Ref Range: None Seen /HPF None Seen Bacteria, UA Latest Ref Range: None Seen, Trace /HPF None Seen Squamous Epithelial Cells, UA Latest Ref Range: None Seen, 0-2 /HPF None Seen Impression: right knee OA Plan: right TKA Demetria Lockwood APRN 01/18/2017 8:44 AM Plan for right TKA documented in this encounter Nursing Notes * Judy Albert RN - 01/20/2017 9:29 AM EDT Problem: Patient Care Overview (Adult) Goal: Plan of Care Review Outcome: Ongoing (interventions implemented as appropriate) 01/20/17 0929 Coping/Psychosocial Response Interventions Plan Of Care Reviewed With patient Patient Care Overview Progress improving Outcome Evaluation Outcome Summary/Follow up Plan pt working with PT this am, using IS, tolerating breakfast, pain well controlled. * Maddie Nicole PTA - 01/20/2017 8:43 AM EDT Problem: Patient Care Overview (Adult) Goal: Plan of Care Review Outcome: Ongoing (interventions implemented as appropriate) 01/20/17 0842 Coping/Psychosocial Response Interventions Plan Of Care Reviewed With patient Patient Care Overview Progress improving Outcome Evaluation Outcome Summary/Follow up Plan patient ambulated 140 feet with progression to step through with verbal cueing. Needs encouragement to progress knee flexion. Problem: Inpatient Physical Therapy Goal: Bed Mobility Goal LTG- PT Outcome: Ongoing (interventions implemented as appropriate) 01/19/17 1419 01/20/17 0842 Bed Mobility PT LTG Bed Mobility PT LTG, Date Established 01/19/17 -- Bed Mobility PT LTG, Time to Achieve 2 wks -- Bed Mobility PT LTG, Activity Type all bed mobility -- Bed Mobility PT LTG, [place] Level conditional independence -- Bed Mobility PT LTG, Date Goal Reviewed -- 01/20/17 Bed Mobility PT LTG, Outcome -- goal ongoing Goal: Transfer Training Goal 1 LTG- PT Outcome: Ongoing (interventions implemented as appropriate) 01/19/17 1419 01/20/17 0842 Transfer Training PT LTG Transfer Training PT LTG, Date Established 01/19/17 -- Transfer Training PT LTG, Time to Achieve 2 wks -- Transfer Training PT LTG, Activity Type all transfers -- Transfer Training PT LTG, [place] Level conditional independence -- Transfer Training PT LTG, Assist Device walker, rolling -- Transfer Training PT LTG, Date Goal Reviewed -- 01/20/17 Transfer Training PT LTG, Outcome -- goal ongoing Goal: Gait Training Goal LTG- PT Outcome: Ongoing (interventions implemented as appropriate) 01/19/17 1419 01/20/17 0842 Gait Training PT LTG Gait Training Goal PT LTG, Date Established 01/19/17 -- Gait Training Goal PT LTG, Time to Achieve 2 wks -- Gait Training Goal PT LTG, [place] Level conditional independence -- Gait Training Goal PT LTG, Assist Device walker, rolling -- Gait Training Goal PT LTG, Date Goal Reviewed -- 01/20/17 Gait Training Goal PT LTG, Outcome -- goal ongoing * Crys Pinedo, PT - 01/19/2017 5:40 PM EDT Problem: Patient Care Overview (Adult) Goal: Plan of Care Review Outcome: Ongoing (interventions implemented as appropriate) 01/19/17 7269 Coping/Psychosocial Response Interventions Plan Of Care Reviewed With patient Patient Care Overview Progress improving Outcome Evaluation Outcome Summary/Follow up Plan PT ambulates 120 ft in malhotra with step to gait pattern progressing tostep through with verbal cueing. Improved ther ex tolerence. Pt lacking 12 degrees from 0 to 90 degrees flexion Problem: Inpatient Physical Therapy Goal: Bed Mobility Goal LTG- PT Outcome: Ongoing (interventions implemented as appropriate) 01/19/17141801/19/17 173 Bed Mobility PT LTG Bed Mobility PT LTG, Date Established 01/19/17 -- Bed Mobility PT LTG, Time to Achieve 2 wks -- Bed Mobility PT LTG, Activity Type all bed mobility -- Bed Mobility PT LTG, [place] Level conditional independence -- Bed Mobility PT LTG, Outcome -- goal ongoing Goal: Transfer Training Goal 1 LTG- PT Outcome: Ongoing (interventions implemented as appropriate) 01/19/17141801/19/171738 Transfer Training PT LTG Transfer Training PT LTG, Date Established 01/19/17 -- Transfer Training PT LTG, Time to Achieve 2 wks -- Transfer Training PT LTG, Activity Type all transfers -- Transfer Training PT LTG, [place] Level conditional independence -- Transfer Training PT LTG, Assist Device walker, rolling -- Transfer Training PT LTG, Outcome -- goal ongoing Goal: Gait Training Goal LTG- PT Outcome: Ongoing (interventions implemented as appropriate) 01/19/17141801/19/171738 Gait Training PT LTG Gait Training Goal PT LTG, Date Established 01/19/17 -- Gait Training Goal PT LTG, Time to Achieve 2 wks -- Gait Training Goal PT LTG, [place] Level conditional independence -- Gait Training Goal PT LTG, Assist Device walker, rolling -- Gait Training Goal PT LTG, Outcome -- goal ongoing * Crys Pinedo PT - 01/19/2017 2:21 PM EDT Problem: Patient Care Overview (Adult) Goal: Plan of Care Review Outcome: Ongoing (interventions implemented as appropriate) 01/19/171418 Coping/Psychosocial Response Interventions Plan Of Care Reviewed With patient Outcome Evaluation Outcome Summary/Follow up Plan Pt ambulates with CGA of one, needs cueing for safety. ROM to be measured P.M. Problem: Inpatient Physical Therapy Goal: Bed Mobility Goal LTG- PT Outcome: Ongoing (interventions implemented as appropriate) 01/19/17 1419 Bed Mobility PT LTG Bed Mobility PT LTG, Date Established 01/19/17 Bed Mobility PT LTG, Time to Achieve 2 wks Bed Mobility PT LTG, Activity Type all bed mobility Bed Mobility PT LTG, [place] Level conditional independence Goal: Transfer Training Goal 1 LTG- PT Outcome: Ongoing (interventions implemented as appropriate) 01/19/17 1419 Transfer Training PT LTG Transfer Training PT LTG, Date Established 01/19/17 Transfer Training PT LTG, Time to Achieve 2 wks Transfer Training PT LTG, Activity Type all transfers Transfer Training PT LTG, [place] Level conditional independence Transfer Training PT LTG, Assist Device walker, rolling Goal: Gait Training Goal LTG- PT Outcome: Ongoing (interventions implemented as appropriate) 01/19/17 1419 Gait Training PT LTG Gait Training Goal PT LTG, Date Established 01/19/17 Gait Training Goal PT LTG, Time to Achieve 2 wks Gait Training Goal PT LTG, [place] Level conditional independence Gait Training Goal PT LTG, Assist Device walker, rolling * Katy Hernandez OTR - 01/19/2017 2:09 PM EDT Problem: Patient Care Overview (Adult) Goal: Plan of Care Review Outcome: Ongoing (interventions implemented as appropriate) 01/19/17 1020 Coping/Psychosocial Response Interventions Plan Of Care Reviewed With patient Outcome Evaluation Outcome Summary/Follow up Plan Pt with impulsivity during transfers and using rwx, requiring cuing for safety; unable to complete LBD this date w/o AE d/t dec. ROM and pain-recommend sockaid and behavioral therapy coordinator. Will progress with independence & safety with daily tasks in preparation for d/c home Problem: Inpatient Occupational Therapy Goal: Transfer Training Goal 1 LTG- OT Outcome: Ongoing (interventions implemented as appropriate) 01/19/17 1020 Transfer Training OT LTG Transfer Training OT LTG, Time to Achieve 4 days Transfer Training OT LTG, Activity Type tub Transfer Training OT LTG, [place] Level contact guard assist Transfer Training OT LTG, Assist Device walker, rolling Transfer Training OT LTG, Outcome goal ongoing Goal: LB Dressing Goal LTG- OT Outcome: Ongoing (interventions implemented as appropriate) 01/19/17 1020 LB Dressing OT LTG LB Dressing Goal OT LTG, Time to Achieve 4 days LB Dressing Goal OT LTG, [place] Level conditional independence LB Dressing Goal OT LTG, Adaptive Equipment laces, elastic;behavioral therapy coordinator;shoe horn, long handled;sock-aid LB Dressing Goal OT LTG, Outcome goal ongoing * Maddie Thompson RN - 01/19/2017 12:24 PM EDT Acute Pain Service: On-Q teaching completed with patient . 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 Instructed to call with any questions or concerns.Patient verbalized understanding. Service will continue to follow until catheter DC'd. Please contact patient at [phone] if needed. * Dominique Kwon RN - 01/19/2017 3:29 AM EDT Problem: Patient Care Overview (Adult) Goal: Plan of Care Review Outcome: Ongoing (interventions implemented as appropriate) 01/19/17316 Coping/Psychosocial Response Interventions Plan Of Care Reviewed With patient Patient Care Overview Progress improving Outcome Evaluation Outcome Summary/Follow up Plan Patients pain well controlled with PRN pain medications patient still nauseous last night but is better this morning. BP was still low 100's during the night BP medications held last night. Problem: Pain, Acute (Adult) Goal: Identify Related Risk Factors and Signs and Symptoms Outcome: Ongoing (interventions implemented as appropriate) 01/19/17316 Pain, Acute Related Risk Factors (Acute Pain) surgery Signs and Symptoms (Acute Pain) BADLs/IADLs reluctance/inability to perform;facial mask of pain/grimace;verbalization of pain descriptors Goal: Acceptable Pain Control/Comfort Level Outcome: Ongoing (interventions implemented as appropriate) 01/19/17316 Pain, Acute (Adult) Acceptable Pain Control/Comfort Level making progress toward outcome Problem: Skin Integrity Impairment, Risk/Actual (Adult) Goal: Identify Related Risk Factors and Signs and Symptoms Outcome: Ongoing (interventions implemented as appropriate) 01/19/17316 Skin Integrity Impairment, Risk/Actual Skin Integrity Impairment, Risk/Actual: Related Risk Factors surgery/procedure Goal: Skin Integrity/Wound Healing Outcome: Ongoing (interventions implemented as appropriate) 01/19/17316 Skin Integrity Impairment, Risk/Actual (Adult) Skin Integrity/Wound Healing making progress toward outcome Problem: Fall Risk (Adult) Goal: Identify Related Risk Factors and Signs and Symptoms Outcome: Ongoing (interventions implemented as appropriate) 01/19/17316 Fall Risk Fall Risk: Related Risk Factors environment unfamiliar;fatigue/slow reaction;gait/mobility problems Fall Risk: Signs and Symptoms presence of risk factors Goal: Absence of Falls Outcome: Ongoing (interventions implemented as appropriate) 01/19/17316 Fall Risk (Adult) Absence of Falls making progress toward outcome * Robyn Valdivia RN - 01/18/2017 5:44 PM EDT Problem: Patient Care Overview (Adult) Goal: Plan of Care Review Outcome: Ongoing (interventions implemented as appropriate) 01/18/171742 Coping/Psychosocial Response Interventions Plan Of Care Reviewed With patient Patient Care Overview Progress improving Outcome Evaluation Outcome Summary/Follow up Plan pt post rt knee surgery remains alert pt will return to assess therapy tmrw pt had a drop in bp earlier received 500 ml ns bolus * Robyn Valdivia RN - 01/18/2017 5:43 PM EDT Problem: Pain, Acute (Adult) Goal: Acceptable Pain Control/Comfort Level Outcome: Ongoing (interventions implemented as appropriate) 01/18/171742 Pain, Acute (Adult) Acceptable Pain Control/Comfort Level making progress toward outcome * Yolande Ocampo RN - 01/18/2017 8:27 AM EDT Problem: Patient Care Overview (Adult) Goal: Plan of Care Review Outcome: Ongoing (interventions implemented as appropriate) * Yolande Ocampo RN - 01/18/2017 8:27 AM EDT Problem: Patient Care Overview (Adult) Goal: Adult Individualization and Mutuality Outcome: Ongoing (interventions implemented as appropriate) * Yolande Ocampo RN - 01/18/2017 8:27 AM EDT Problem: Patient Care Overview (Adult) Goal: Discharge Needs Assessment Outcome: Ongoing (interventions implemented as appropriate) * Yolande Ocampo RN - 01/18/2017 8:27 AM EDT Problem: Perioperative Period (Adult) Goal: Signs and Symptoms of Listed Potential Problems Will be Absent or Manageable (Perioperative Period) Outcome: Ongoing (interventions implemented as appropriate) documented in this encounter OR Notes * Op Note - Mj Menon MD - 01/18/2017 11:37 AM EDT DATE OF PROCEDURE: 01/18/17 SURGEON: jM Menon MD DIRECTOR REVENUE: Crys Chavarria PA-C PREOPERATIVE DIAGNOSIS: right knee arthritis POSTOPERATIVE DIAGNOSIS: right knee arthritis PROCEDURES PERFORMED: right total knee arthroplasty with DePuy Attune components (# 4 narrow posterior stabilized femur, # 3 rotating platform tibia, 6 mm rotating platform polyethylene, with 32 three peg anatomic patella). SPECIMENS: None. INDICATIONS: The patient is a 61 year old female with debilitating right knee pain secondary to osteoarthritis that failed [...] and alternatives. Consent was obtained. Please see my office notes for details with regard to preoperative counseling and operative rationale. DESCRIPTION OF PROCEDURE: The patient was positively identified in the preoperative holding area and brought to the operating suite and placed in a supine position. After adequate spinal anesthetic had been achieved, the right lower extremity was prepped and draped in the usual sterile fashion. After application of a tourniquet to the right upper thigh, which was used during the procedure for a total 53 minutes. Landmarks of the knee were identified and timeout procedure was performed to confirm the operative site, as well as other parameters. Following the sterile prep and drape, a skin incision was made just off the medial aspect of midline for a medial parapatellar approach. Following a sharp skin incision, dissection was carried down to the level of the extensor mechanism and a medialparapatellar arthrotomy was made and the patella was tucked into the lateral gutter. Description ofarthritis: Severe osteoarthritis, [id number] medially and patellofemoral compartments. The knee was adequately exposed and a distal femoral cut was made with an intramedullary guide. This was subsequently sized for a # 4 narrow implant and anterior, posterior chamfer cuts made. The menisci removed both medially and laterally. The ACL was transected and the tibia was subluxed anteriorly. Proximal tibia cut was made with the external alignment guide. The cut was noted to be perpendicular to the tibial axis, with symmetric flexion and extension gaps. Therefore, final femoral preparations were made with the box cutting guide followed by final tibial preparations to accommodate a # 3 tibia. With a trial [address], full flexion and extension was noted with no instability. The patella was then prepared for a 32 three peg anatomic patella which had excellent tracking. All trial components were removed and final components were cemented in place with namely a # 3 rotating platform tibia, # 4 narrow posterior stabilized femur and a 32 three peg anatomic patella with a trial 6 insertfor cement compression. All the excess cement was removed from the bone implant interface and allowed to harden. Tourniquet was deflated. Hemostasis was obtained with electrocautery. There was no brisk bleeding noted in the popliteal fossa in particular. Therefore, the knee was copiously irrigated as it was between major steps, and the final 6 insert was placed as this was deemed appropriate for his anatomy with full flexion and extension and no instability and attention was then directed towards closure. The medial parapatellar arthrotomy was closed with #1 Vicryl in an interrupted [id number] fashion in 4 strategic locations followed by oversewing this from proximal to distal with a #1 StrataFix symmetric, which nicely sealed the joint, followed by closure of the deep fascial layer with #1 Vicryl in a buried interrupted fashion, followed by closure of the subcutaneous layer with 2-0 Vicryl and the skin with 3-0 Stratafix in a running subcuticular fashion. [...] 3. Postoperative medical management with Dr. Willard. 3. Aspirin will be utilized for DVT prophylaxis unless there is a contraindication. Mj Menon MD 01/18/17 10:48 AM documented in this encounter Miscellaneous Notes * Therapy Treatment Note - Maddie Nicole, HEALTH AND SAFETY COORDINATOR - 01/20/2017 8:44 AM EDT Acute Care - Physical Therapy Treatment Note [facility] Patient Name: Marialuisa Hampton : 1955 Today's Date: 01/20/2017 Onset of Illness/Injury or Date of Surgery Date: 01/18/17 Referring Physician: mD Sinan Admit Date: 01/18/2017 Visit Dx: ICD-10-CM ICD-9-CM 1. Impaired functional mobility, balance, gait, and endurance Z74.09 V49.89 2. Impaired mobility and ADLs Z74.09 799.89 Patient Active Problem List Diagnosis ??? Arthritis of knee, right ??? Status post total right knee replacement ??? HTN (hypertension) ??? Acute blood loss anemia, mild, asymptomatic ??? Leukocytosis, mild, likely reactive ??? Hypokalemia, replaced Adult Rehabilitation Note 01/20/17 0800 01/19/17 1615 01/19/17 1104 Rehab Assessment/Intervention Discipline geophysical observer - physical therapist -EH Document Type therapy note (daily note) - therapy note (daily note) -EH Subjective Information agree to therapy;complains of;pain - agree to therapy;complains of;pain -EH Patient Effort, Rehab Treatment good - adequate -EH Symptoms Noted During/After Treatment increased pain -EH Precautions/Limitations fall precautions;other (see comments) adductor nerve catheter, impulsive - fall precautions;other (see comments) Adductor canal nerve catheter; impulsive -EH Recorded by [] Maddie Nicole PTA [EH] Crys Pinedo PT Pain Assessment Pain Assessment 0-10 - 0-10 -EH Pain Score 7 - 7 -EH Post Pain Score 8 - 8 -EH Pain Type Acute pain - Acute pain -EH Pain Location Knee - Knee -EH Pain Orientation Right;Anterior - Right;Anterior;Posterior -EH Pain Intervention(s) Repositioned;Ambulation/increased activity - Repositioned;Ambulation/increased activity -EH Recorded by [] Maddie Nicole PTA [EH] Crys Pinedo PT Cognitive Assessment/Intervention Current Cognitive/Communication Assessment functional - functional -EH Orientation Status oriented x 4 - oriented x 4 -EH Follows Commands/Answers Questions 100% of the time;able to follow single-step instructions - 100% of the time;able to follow single-step instructions -EH able to follow single-step instructions;75% of the time -EH Personal Safety WNL/WFL - WNL/WFL -EH Personal Safety Interventions fall prevention program maintained;gait belt;nonskid shoes/slippers when out of bed;other (see comments) exit alarm - gait belt;fall prevention program maintained;nonskid shoes/slippers when out of bed -EH Recorded by [] Maddie Nicole PTA [] Crys Pinedo, PT [EH] Crsy Pinedo, PT Mobility Assessment/Training Extremity Weight-Bearing Status right lower extremity -EH Right Lower Extremity Weight-Bearing weight-bearing as tolerated -EH Recorded by [EH] Crys Pinedo PT Bed Mobility, Assessment/Treatment Bed Mobility, Assistive Device bed rails;head of bed elevated;leg software intern - bed rails;head of bed elevated;leg software intern -EH Bed Mob, Supine to Sit, [place] conditional independence - supervision required - Bed Mobility, Comment safe technique using leg software intern - cueing for doffing leg software intern to scoot forward -EH Recorded by [] Maddie Nicole PTA [] Crys Pinedo, PT Transfer Assessment/Treatment Transfers, Sit-Stand [place] verbal cues required;contact guard assist - contact guard assist - Transfers, Stand-Sit [place] verbal cues required;contact guard assist - contact guard assist - Transfers, [id number]-Yeh, Assist Device rolling walker - rolling walker - Toilet Transfer, [place] -- - Toilet Transfer, Assistive Device -- -EH Recorded by [] Maddie Nicole PTA [] Crys Pinedo, PT Gait Assessment/Treatment Gait, [place] Level verbal cues required;contact guard assist - contact guard assist - Gait, Assistive Device rolling walker - rolling walker - Gait, Distance (Feet) 140 - 120 - Gait, Gait Pattern Analysis swing-to gait - Gait, Gait Deviations right:;antalgic;tracey decreased;decreased heel strike;kga-iv-tcjjp clearance decreased;step length decreased - right:;antalgic;weight-shifting ability decreased;forward flexed posture;mna-cz-kqleo clearance decreased;left:;step length decreased - Gait, Safety Issues step length decreased - step length decreased - Gait, Impairments strength decreased;pain - pain;strength decreased - Gait, Comment verbal cues for sequencing and to avoid hitting front of walker - VC for increasingstep length; VC for moving walker between each step. Pt progressing to step through gait pattern. -EH Recorded by [] Maddie Nicole, SHAYY [] Crys Pinedo, PT Therapy Exercises Bilateral Lower Extremities -- - Exercise Protocols total knee - total knee -EH Total Knee Exercises right:;10 reps;ankle pumps/circles;quad set;glut set;heel slides;with assist;hip abduction/adduction;LAQ - right:;ankle pumps/circles;quad set;glut set;heel slides;LAQ;with assist;SLR -EH Recorded by [] Maddie Nicole, HEALTH AND SAFETY COORDINATOR [] Crys Pinedo, PT Sensory Assessment/Intervention Light Touch RLE;LLE -EH LLE Light Touch WNL -EH RLE Light Touch WNL DF -EH Recorded by [] Crys Pinedo PT Positioning and Restraints Pre-Treatment Position in bed - in bed -EH in bed -EH Post Treatment Position bed - chair -EH chair -EH In Bed supine;call light within reach;encouraged to call for assist;exit alarm on - In Chair call light within reach;encouraged to call for assist;with nsg NSG agreed to turn exit alarm on -EH notified nsg;reclined;call light within reach;encouraged to call for assist;exit alarm on;with family/caregiver -EH Recorded by [] Maddie Nicole, HEALTH AND SAFETY COORDINATOR [] Crys Pinedo, PT [] Crys Pinedo, PT 01/19/17 1101 Positioning and Restraints Pre-Treatment Position -- -EH Post Treatment Position -- -EH In Chair -- -EH Recorded by [] Crys Pinedo, PT User Sage (r) = Recorded By, (t) = Taken By, (c) = Cosigned By Initials Name Effective Dates Crys Pinedo, PT 11/29/14 - Maddie Nicole, HEALTH AND SAFETY COORDINATOR 12/02/14 - IP PT Goals 01/20/17 0842 01/19/17 1739 01/19/17 1419 Bed Mobility PT LTG Bed Mobility PT LTG, Date Established 01/19/17 -EH Bed Mobility PT LTG, Time to Achieve 2 wks -EH Bed Mobility PT LTG, Activity Type all bed mobility -EH Bed Mobility PT LTG, [place] Level conditional independence -EH Bed Mobility PT LTG, Date Goal Reviewed 01/20/17 - Bed Mobility PT LTG, Outcome goal ongoing - goal ongoing -EH Transfer Training PT LTG Transfer Training PT LTG, Date Established 01/19/17 -EH Transfer Training PT LTG, Time to Achieve 2 wks -EH Transfer Training PT LTG, Activity Type all transfers -EH Transfer Training PT LTG, [place] Level conditional independence -EH Transfer Training PT LTG, Assist Device walker, rolling -EH Transfer Training PT LTG, Date Goal Reviewed 01/20/17 - Transfer Training PT LTG, Outcome goal ongoing - goal ongoing - Gait Training PT LTG Gait Training Goal PT LTG, Date Established 01/19/17 - Gait Training Goal PT LTG, Time to Achieve 2 wks - Gait Training Goal PT LTG, [place] Level conditional independence - Gait Training Goal PT LTG, Assist Device walker, rolling - Gait Training Goal PT LTG, Date Goal Reviewed 01/20/17 - Gait Training Goal PT LTG, Outcome goal ongoing - goal ongoing - User Sage (r) = Recorded By, (t) = Taken By, (c) = Cosigned By Initials Name Provider Type Crys Pinedo, PT Physical Therapist Maddie Nicole, HEALTH AND SAFETY COORDINATOR [employer] Physical Therapy Education Title: PT OT JAVA PROGRAMMER ANALYST Therapies (Active) Topic: Physical Therapy (Active) Point: Mobility training (Active) Learning Progress Summary Learner Readiness Method Response Comment Documented by Status Patient Acceptance E NR 01/20/17 0842 Active Acceptance E VU,NR 01/19/17 1739 Done Acceptance E NR 01/19/17 1418 Active Point: Home exercise program (Active) Learning Progress Summary Learner Readiness Method Response Comment Documented by Status Patient Acceptance E NR 01/20/17 0842 Active Acceptance E VU,NR 01/19/17 1739 Done Acceptance E NR 01/19/17 1418 Active Point: Body mechanics (Active) Learning Progress Summary Learner Readiness Method Response Comment Documented by Status Patient Acceptance E NR 01/20/17 0842 Active Acceptance E VU,NR 01/19/17 1739 Done Acceptance E NR 01/19/17 1418 Active Point: Precautions (Active) Learning Progress Summary Learner Readiness Method Response Comment Documented by Status Patient Acceptance E NR 01/20/17 0842 Active Acceptance E VU,NR 01/19/17 1739 Done Acceptance E NR 01/19/17 1418 Active User Sage Initials Effective Dates Name Provider Type [facility] 11/29/14 - Crys Pinedo, PT Physical Therapist PT 12/02/14 - Maddie Nicole, HEALTH AND SAFETY COORDINATOR [employer] PT PT Recommendation and Plan Plan of Care Review Plan Of Care Reviewed With: patient Progress: improving Outcome Summary/Follow up Plan: patient ambulated 140 feet with progression to step through with verbal cueing. Needs encouragement to progress knee flexion. Outcome Measures 01/20/17 0800 01/19/17 1615 01/19/17 1104 How much help from another person do you currently need... Turning from your back to your side while in flat bed without using bedrails? 4 - 4 -EH 4 -EH Moving from lying on back to sitting on the side of a flat bed without bedrails? 4 - 4 -EH 4 -EH Moving to and from a bed to a chair (including a wheelchair)? 3 - 3 -EH 3 -EH Standing up from a chair using your arms (e.g., wheelchair, bedside chair)? 3 - 3 -EH 3 -EH Climbing 3-5 steps with a railing? 3 - 3 -EH 3 -EH To walk in hospital room? 3 - 3 -EH 3 -EH AM-PAC 6 Clicks Score 20 - 20 -EH 20 -EH Functional Assessment Outcome Measure Options AM-PAC 6 Clicks Basic Mobility (PT) - AM-PAC 6 Clicks Basic Mobility (PT)- AM-PAC 6 Clicks Basic Mobility (PT) - 01/19/17 1020 How much help from another is currently needed... Putting on and taking off regular lower body clothing? 2 -ST Bathing (including washing, rinsing, and drying) 2 -ST Toileting (which includes using toilet bed oshea or urinal) 3 -ST Putting on and taking off regular upper body clothing 3 -ST Taking care of personal grooming (such as brushing teeth) 4 -ST Eating meals 4 -ST Score 18 -ST Functional Assessment Outcome Measure Options AM-PAC 6 Clicks Daily Activity (OT) -ST User Sage (r) = Recorded By, (t) = Taken By, (c) = Cosigned By Initials Name Provider Type EH Crys Pinedo, PT Physical Therapist [facility] Katy Hernandez, OTR Occupational Therapist Maddie Nicole PTA [employer] Time Calculation: PT Charges 01/20/17 0843 Time Calculation Start Time 0800 - PT Received On 01/20/17 - PT Goal Re-Cert Due Date 01/29/17 - Time Calculation- PT Total Timed Code Minutes- PT 30 minute(s) - User Sage (r) = Recorded By, (t) = Taken By, (c) = Cosigned By Initials Name Provider Type Maddie Nicole PTA [employer] Therapy Charges for Today Code Description Service Date Service Provider Modifiers Qty [id number] HC GAIT TRAINING EA 15 MIN 01/20/2017 Maddie Nicole PTA GP 1 [id number] HC PT THER PROC EA 15 MIN 01/20/2017 Maddie Nicole PTA GP 1 PT G-Codes Outcome Measure Options: AM-PAC 6 Clicks Basic Mobility (PT) Maddie Nicole PTA 01/20/2017 * Therapy Treatment Note - Crys Pinedo PT - 01/19/2017 5:41 PM EDT Acute Care - Physical Therapy Treatment Note [facility] Patient Name: Marialuisa Hampton : 1955 Today's Date: 01/19/2017 Onset of Illness/Injury or Date of Surgery Date: 01/18/17 Referring Physician: mD Sinan Admit Date: 01/18/2017 Visit Dx: ICD-10-CM ICD-9-CM 1. Impaired functional mobility, balance, gait, and endurance Z74.09 V49.89 2. Impaired mobility and ADLs Z74.09 799.89 Patient Active Problem List Diagnosis ??? Arthritis of knee, right ??? Status post total right knee replacement ??? HTN (hypertension) ??? Acute blood loss anemia, mild, asymptomatic ??? Leukocytosis, mild, likely reactive ??? Hypokalemia, replaced Adult Rehabilitation Note 01/19/17 1615 01/19/17 1104 01/19/17 1101 Rehab Assessment/Intervention Discipline physical therapist -EH Document Type therapy note (daily note) -EH Subjective Information agree to therapy;complains of;pain -EH Patient Effort, Rehab Treatment adequate -EH Symptoms Noted During/After Treatment increased pain -EH Precautions/Limitations fall precautions;other (see comments) Adductor canal nerve catheter; impulsive -EH Recorded by [EH] Crys Pinedo, PT Pain Assessment Pain Assessment 0-10 -EH Pain Score 7 -EH Post Pain Score 8 -EH Pain Type Acute pain -EH Pain Location Knee - Pain Orientation Right;Anterior;Posterior - Pain Intervention(s) Repositioned;Ambulation/increased activity - Recorded by [] Crys Pinedo, PT Cognitive Assessment/Intervention Current Cognitive/Communication Assessment functional - Orientation Status oriented x 4 - Follows Commands/Answers Questions 100% of the time;able to follow single-step instructions - able to follow single-step instructions;75% of the time - Personal Safety WNL/WFL - Personal Safety Interventions gait belt;fall prevention program maintained;nonskid shoes/slippers when out of bed - Recorded by [] Crys Pinedo, PT [] Crys Pinedo, PT Mobility Assessment/Training Extremity Weight-Bearing Status right lower extremity - Right Lower Extremity Weight-Bearing weight-bearing as tolerated - Recorded by [] Crys Pinedo, PT Bed Mobility, Assessment/Treatment Bed Mobility, Assistive Device bed rails;head of bed elevated;leg software intern - Bed Mob, Supine to Sit, [place] supervision required - Bed Mobility, Comment cueing for doffing leg software intern to scoot forward - Recorded by [] Crys Pinedo, PT Transfer Assessment/Treatment Transfers, Sit-Stand [place] contact guard assist - Transfers, Stand-Sit [place] contact guard assist - Transfers, Yka-Rihbo-Qpy, Assist Device rolling walker - Toilet Transfer, [place] -- - Toilet Transfer, Assistive Device -- -EH Recorded by [] Crys Pinedo, PT Gait Assessment/Treatment Gait, [place] Level contact guard assist - Gait, Assistive Device rolling walker - Gait, Distance (Feet) 120 - Gait, Gait Pattern Analysis swing-to gait - Gait, Gait Deviations right:;antalgic;weight-shifting ability decreased;forward flexed posture;znu-ix-dgoqr clearance decreased;left:;step length decreased - Gait, Safety Issues step length decreased - Gait, Impairments pain;strength decreased - Gait, Comment VC for increasing step length; VC for moving walker between each step. Pt progressingto step through gait pattern. - Recorded by [] Crys Pinedo, PT Therapy Exercises Bilateral Lower Extremities -- - Exercise Protocols total knee - Total Knee Exercises right:;ankle pumps/circles;quad set;glut set;heel slides;LAQ;with assist;SLR -EH Recorded by [] Crys Pinedo, PT Sensory Assessment/Intervention Light Touch RLE;LLE -EH LLE Light Touch WNL -EH RLE Light Touch WNL DF -EH Recorded by [] Crys Pinedo PT Positioning and Restraints Pre-Treatment Position in bed - in bed - -- -EH Post Treatment Position chair - chair -EH -- -EH In Chair call light within reach;encouraged to call for assist;with nsg NSG agreed to turn exit alarm on - notified nsg;reclined;call light within reach;encouraged to call for assist;exit alarm on;with family/caregiver - -- -EH Recorded by [] Crys Pinedo, PT [] Crys Pinedo, PT [] Crys Pinedo, PT User Sage (r) = Recorded By, (t) = Taken By, (c) = Cosigned By Initials Name Effective Dates Crys Pinedo, PT 11/29/14 - IP PT Goals 01/19/17 1739 01/19/17 1419 Bed Mobility PT LTG Bed Mobility PT LTG, Date Established 01/19/17 - Bed Mobility PT LTG, Time to Achieve 2 wks -EH Bed Mobility PT LTG, Activity Type all bed mobility - Bed Mobility PT LTG, [place] Level conditional independence - Bed Mobility PT LTG, Outcome goal ongoing - Transfer Training PT LTG Transfer Training PT LTG, Date Established 01/19/17 - Transfer Training PT LTG, Time to Achieve 2 wks -EH Transfer Training PT LTG, Activity Type all transfers - Transfer Training PT LTG, [place] Level conditional independence -EH Transfer Training PT LTG, Assist Device walker, rolling -EH Transfer Training PT LTG, Outcome goal ongoing - Gait Training PT LTG Gait Training Goal PT LTG, Date Established 01/19/17 - Gait Training Goal PT LTG, Time to Achieve 2 wks -EH Gait Training Goal PT LTG, [place] Level conditional independence -EH Gait Training Goal PT LTG, Assist Device walker, rolling -EH Gait Training Goal PT LTG, Outcome goal ongoing - User Sage (r) = Recorded By, (t) = Taken By, (c) = Cosigned By Initials Name Provider Type Crys Pinedo, PT Physical Therapist Physical Therapy Education Title: PT OT JAVA PROGRAMMER ANALYST Therapies (Active) Topic: Physical Therapy (Done) Point: Mobility training (Done) Learning Progress Summary Learner Readiness Method Response Comment Documented by Status Patient Acceptance E VU,NR 01/19/17 1739 Done Acceptance E NR 01/19/17 1418 Active Point: Home exercise program (Done) Learning Progress Summary Learner Readiness Method Response Comment Documented by Status Patient Acceptance E VU,[facility] 01/19/17 1739 Done Acceptance E [facility] 01/19/17 1418 Active Point: Body mechanics (Done) Learning Progress Summary Learner Readiness Method Response Comment Documented by Status Patient Acceptance E VU,[facility] 01/19/17 1739 Done Acceptance E [facility] 01/19/17 1418 Active Point: Precautions (Done) Learning Progress Summary Learner Readiness Method Response Comment Documented by Status Patient Acceptance E VU,NR 01/19/17 1739 Done Acceptance E [facility] 01/19/17 1418 Active User Sage Initials Effective Dates Name Provider Type [facility] 11/29/14 - Crys Pinedo, PT Physical Therapist PT PT Recommendation and Plan Plan of Care Review Plan Of Care Reviewed With: patient Progress: improving Outcome Summary/Follow up Plan: PT ambulates 120 ft in malhotra with step to gait pattern progressing to step through with verbal cueing. Improved ther ex tolerence. Pt lacking 12 degrees from 0 to 90 degrees flexion Outcome Measures 01/19/17 1615 01/19/17 1104 01/19/17 1020 How much help from another person do you currently need... Turning from your back to your side while in flat bed without using bedrails? 4 -EH 4 -EH Moving from lying on back to sitting on the side of a flat bed without bedrails? 4 -EH 4 -EH Moving to and from a bed to a chair (including a wheelchair)? 3 -EH 3 -EH Standing up from a chair using your arms (e.g., wheelchair, bedside chair)? 3 - EH 3 -EH Climbing 3-5 steps with a railing? 3 -EH 3 -EH To walk in hospital room? 3 -EH 3 -EH AM-PAC 6 Clicks Score 20 -EH 20 -EH How much help from another is currently needed... Putting on and taking off regular lower body clothing? 2 -ST Bathing (including washing, rinsing, and drying) 2 -ST Toileting (which includes using toilet bed oshea or urinal) 3 -ST Putting on and taking off regular upper body clothing 3 -ST Taking care of personal grooming (such as brushing teeth) 4 -ST Eating meals 4 -ST Score 18 -ST Functional Assessment Outcome Measure Options AM-PAC 6 Clicks Basic Mobility (PT) -EH AM-PAC 6 Clicks Basic Mobility (PT)-EH AM-PAC 6 Clicks Daily Activity (OT) -ST User Sage (r) = Recorded By, (t) = Taken By, (c) = Cosigned By Initials Name Provider Type Crys Pinedo, PT Physical Therapist ST Katy Hernandez, OTR Occupational Therapist Time Calculation: PT Charges 01/19/17 1740 01/19/17 1502 Time Calculation Start Time 1615 - 1104 - PT Received On 01/19/17 - 01/19/17 - PT Goal Re-Cert Due Date 01/29/17 - 01/29/17 - Time Calculation- PT Total Timed Code Minutes- PT 30 minute(s) -EH 15 minute(s) - User Sage (r) = Recorded By, (t) = Taken By, (c) = Cosigned By Initials Name Provider Type Crys Pinedo PT Physical Therapist Therapy Charges for Today Code Description Service Date Service Provider Modifiers Qty [id number] HC PT THER PROC EA 15 MIN 01/19/2017 Crys Pinedo, PT GP 1 [id number] HC PT EVAL MOD COMPLEXITY 3 01/19/2017 Crys Pinedo, PT GP 1 97321581049 HC GAIT TRAINING EA 15 MIN 01/19/2017 Crys Pinedo, PT GP 1 [id number] HC PT THER PROC EA 15 MIN 01/19/2017 Crys Pinedo, PT GP 1 PT G-Codes Outcome Measure Options: AM-PAC 6 Clicks Basic Mobility (PT) Crys Pinedo PT 01/19/2017 * Therapy Evaluation - Crys Pinedo, PT - 01/19/2017 3:04 PM EDT Acute Care - Physical Therapy Initial Evaluation [facility] Patient Name: Marialuisa Hampton : 1955 Today's Date: 01/19/2017 Onset of Illness/Injury or Date of Surgery Date: 01/18/17 Referring Physician: mD Sinan Admit Date: 01/18/2017 Visit Dx: ICD-10-CM ICD-9-CM 1. Impaired functional mobility, balance, gait, and endurance Z74.09 V49.89 2. Impaired mobility and ADLs Z74.09 799.89 Patient Active Problem List Diagnosis ??? Arthritis of knee, right ??? Status post total right knee replacement ??? HTN (hypertension) ??? Acute blood loss anemia, mild, asymptomatic ??? Leukocytosis, mild, likely reactive ??? Hypokalemia, replaced Past Medical History: Diagnosis Date ??? Anemia ??? Arthritis ??? High cholesterol ??? Irregular heartbeat ??? PONV (postoperative nausea and vomiting) ??? Wears contact lenses Past Surgical History: Procedure Laterality Date ??? CARDIAC CATHETERIZATION ??? HYSTERECTOMY ??? MT TOTAL KNEE ARTHROPLASTY Right 01/18/2017 Procedure: RIGHT TOTAL KNEE ARTHROPLASTY; Surgeon: Mj Menon MD; Location: [facility]; Service: Orthopedics PT ASSESSMENT (last 72 hours) PT Evaluation 01/19/17 1104 01/19/17 1101 Rehab Evaluation Document Type evaluation - Subjective Information no complaints;agree to therapy - Patient Effort, Rehab Treatment excellent - Symptoms Noted During/After Treatment increased pain -EH General Information Patient Profile Review yes - Onset of Illness/Injury or Date of Surgery Date 01/18/17 - Referring Physician mD Sinan - General Observations supine upon arrival; nerve cath intact - Pertinent History Of Current Problem Pt presents for sx management of long standing R knee pain anddysfunction that failed to improve with conservative measures; s/p R TKA with use of spinal & adductor canal cath - Precautions/Limitations fall precautions;other (see comments) Adductor canal nerve catheter; impulsive. - Prior Level of Function independent:;all household mobility;community mobility;feeding;grooming;minassist:;dressing;bathing;home management pain, increased time with t/f, LBD, ambulation. - Equipment Currently Used at Home walker, rolling;cane, straight - cane, straight;walker, rolling - Plans/Goals Discussed With patient;agreed upon - Risks Reviewed patient:;LOB;nausea/vomiting;dizziness;increased discomfort;change in vital signs - Benefits Reviewed patient:;improve function;increase independence;increase strength;increase balance;decrease pain;increase knowledge - Barriers to Rehab previous functional deficit impulsive - Living Environment Lives With alone - alone - Living Arrangements house - Home Accessibility bed and bath on same level - Transportation Available car;family or friend will provide - Living Environment Comment sister to assist with meal prep. - Pain Assessment Pain Assessment 0-10 - Pain Score 3 - Post Pain Score 7 - Pain Type Acute pain - Pain Location Knee - Pain Orientation Right;Anterior;Posterior - Pain Intervention(s) Repositioned;Ambulation/increased activity - Cognitive Assessment/Intervention Current Cognitive/Communication Assessment functional - Orientation Status oriented x 4 - Follows Commands/Answers Questions 100% of the time;able to follow single-step instructions - Personal Safety WNL/WFL - Personal Safety Interventions gait belt;fall prevention program maintained;nonskid shoes/slippers when out of bed - ROM (Range of Motion) General ROM Detail LLE WNL; RLE testing in P.M. - MMT (Manual Muscle Testing) General MMT Assessment Detail SLR intact RLE, LLE WNL - Mobility Assessment/Training Extremity Weight-Bearing Status right lower extremity - Right Lower Extremity Weight-Bearing weight-bearing as tolerated - Bed Mobility, Assessment/Treatment Bed Mobility, Assistive Device bed rails;head of bed elevated;leg software intern - Bed Mob, Supine to Sit, [place] supervision required - Bed Mobility, Comment increased time, cueing for leg software intern, - Transfer Assessment/Treatment Transfers, Sit-Stand [place] contact guard assist;2 person assist required - Transfers, Stand-Sit [place] contact guard assist;2 person assist required - Transfers, [id number]-Qhv, Assist Device rolling walker;elevated surface - Toilet Transfer, [place] contact guard assist - Toilet Transfer, Assistive Device bedside commode without drop arms;elevated toilet seat;rolling walker - Transfer, Comment cues for hand placement, fully turning prior to reaching for chair/bsc; progressing RLE prior to sitting - Gait Assessment/Treatment Gait, [place] Level contact guard assist - Gait, Assistive Device rolling walker - Gait, Distance (Feet) 100 - Gait, Gait Pattern Analysis swing-to gait - Gait, Gait Deviations right:;antalgic;decreased heel strike;uso-sq-nrfvp clearance decreased;left:;step length decreased - Gait, Comment VC for increasing step length in LLE; LLE step length improves, but right decreases. Additional improves step ength symmetry but remaines shortened. - Therapy Exercises Bilateral Lower Extremities AROM:;10 reps;ankle pumps/circles;LAQ;quad sets;hamstring stretch - Sensory Assessment/Intervention Light Touch RLE;LLE - LLE Light Touch WNL - RLE Light Touch WNL DF - Positioning and Restraints Pre-Treatment Position in bed - -- - Post Treatment Position chair - -- - In Chair notified nsg;reclined;call light within reach;encouraged to call for assist;exit alarm on;with family/caregiver - -- - 01/19/17 1020 01/18/172056 Rehab Evaluation Document Type evaluation;therapy note (daily note) -ST Patient Effort, Rehab Treatment adequate -ST Symptoms Noted During/After Treatment none -ST General Information Patient Profile Review yes -ST Onset of Illness/Injury or Date of Surgery Date 01/18/17 -ST Referring Physician MD Sinan -ST General Observations supine upon arrival; nerve cath intact -ST Pertinent History Of Current Problem Pt presents for sx management of long standing R knee pain anddysfunction that failed to improve with conservative measures; s/p R TKA with use of spinal & adductor canal cath -ST Precautions/Limitations fall precautions;other (see comments) adductor canal cath; impulsive -ST Prior Level of Function independent:;all household mobility;community mobility;feeding;grooming;minassist:;dressing;bathing;home management required to sit/increased time and pain with LBD/pain walk -ST Equipment Currently Used at Home walker, rolling;cane, straight -ST Plans/Goals Discussed With patient;agreed upon -ST Risks Reviewed patient:;LOB;nausea/vomiting;dizziness;increased discomfort;change in vital signs -ST Benefits Reviewed patient:;improve function;increase independence;increase strength;increase balance;decrease pain;increase knowledge -ST Barriers to Rehab previous functional deficit impulsive -ST Living Environment Lives With alone -ST Living Arrangements house -ST Home Accessibility bed and bath on same level;tub/shower is not walk in -ST Living Environment Comment sister to assist with meals, staying with after d/c -ST Pain Assessment Pain Assessment 0-10 -ST Pain Score 3 -ST Post Pain Score 4 -ST Pain Type Acute pain -ST Pain Location Knee -ST Pain Orientation Right;Anterior;Posterior -ST Pain Intervention(s) Repositioned;Ambulation/increased activity -ST Vision Assessment/Intervention Visual Impairment WNL -ST Cognitive Assessment/Intervention Current Cognitive/Communication Assessment functional -ST Orientation Status oriented x 4 -ST Follows Commands/Answers Questions 75% of the time;needs cueing -ST Personal Safety mild impairment -ST Personal Safety Interventions fall prevention program maintained;gait belt;nonskid shoes/slippers when out of bed -ST ROM (Range of Motion) General ROM no range of motion deficits identified -ST MMT (Manual Muscle Testing) General MMT Assessment no strength deficits identified -ST Muscle Tone Assessment Muscle Tone Assessment Bilateral Upper Extremities;LLE;RLE -AB Bilateral Upper Extremities Muscle Tone Assessment associated movements noted -AB LLE Muscle Tone Assessment associated movements noted -AB RLE Muscle Tone Assessment moderately decreased tone -AB Mobility Assessment/Training Extremity Weight-Bearing Status right lower extremity -ST Right Lower Extremity Weight-Bearing weight-bearing as tolerated -ST Bed Mobility, Assessment/Treatment Bed Mobility, Assistive Device bed rails;head of bed elevated;leg software intern -ST Bed Mob, Supine to Sit, [place] supervision required -ST Bed Mobility, Comment increased time to complete along with cuing for sequencing task -ST Transfer Assessment/Treatment Transfers, Sit-Stand [place] contact guard assist;2 person assist required -ST Transfers, Stand-Sit [place] contact guard assist;2 person assist required -ST Transfers, [id number], Assist Device rolling walker -ST Toilet Transfer, [place] contact guard assist -ST Toilet Transfer, Assistive Device elevated toilet seat;rolling walker -ST Transfer, Comment cuing for hand placement -ST Sensory Assessment/Intervention Light Touch LUE;RUE -ST LUE Light Touch WNL -ST RUE Light Touch WNL -ST Positioning and Restraints Pre-Treatment Position in bed -ST Post Treatment Position chair -ST In Chair notified nsg;reclined;call light within reach;encouraged to call for assist;exit alarm on;with PT -ST 01/18/17 1601 01/18/17 0820 Rehab Evaluation Evaluation Not Performed other (see comments) Attempted to initiate eval but patient's BP found to be 73/40. Not medically appropriate to performOOB assessment d/t low BP. Will check back in AM to complete eval. -LR General Information Prior Level of Function min assist:;all household mobility;community mobility;gait;transfer;bed mobility;home management;cooking;cleaning;shopping;using stairs;independent:;driving;work all mobility limited by pain. -LR Equipment Currently Used at Home cane, straight;walker, rolling not currently using AD -LR none Pt states she has a walker that belonged to her brother if she needs one, states she does not currently use it. -TS Living Environment Lives With alone -LR alone -TS Living Arrangements house -LR house -TS Home Accessibility bed and bath on same level;other (see comments) no steps to enter home; tub shower -LR bed and bath on same level -TS Stair Railings at Home none -TS Type of Financial/Environmental Concern none -LR none -TS Transportation Available family or friend will provide -LR car;family or friend will provide -TS Living Environment Comment Patient reports her sister will be staying with her to assist at all times upon d/c. -LR User Sage (r) = Recorded By, (t) = Taken By, (c) = Cosigned By Initials Name Provider Type Crys Pinedo, PT Physical Therapist ST Katy Hernandez, OTR Occupational Therapist LR Gissel Padgett, PT Physical Therapist SG Anne-Marie Kirkpatrick Lacrosse Player TS Yolande Ocampo, RN Registered Nurse AB Dominique Kwon, RN Registered Nurse Physical Therapy Education Title: PT OT JAVA PROGRAMMER ANALYST Therapies (Active) Topic: Physical Therapy (Active) Point: Mobility training (Active) Learning Progress Summary Learner Readiness Method Response Comment Documented by Status Patient Acceptance E NR 01/19/17 1418 Active Point: Home exercise program (Active) Learning Progress Summary Learner Readiness Method Response Comment Documented by Status Patient Acceptance E NR 01/19/17 1418 Active Point: Body mechanics (Active) Learning Progress Summary Learner Readiness Method Response Comment Documented by Status Patient Acceptance E NR 01/19/17 1418 Active Point: Precautions (Active) Learning Progress Summary Learner Readiness Method Response Comment Documented by Status Patient Acceptance E NR 01/19/17 1418 Active User Sage Initials Effective Dates Name Provider Type [facility] 11/29/14 - Crys Pinedo, PT Physical Therapist PT PT Recommendation and Plan Plan of Care Review Plan Of Care Reviewed With: patient Outcome Summary/Follow up Plan: Pt ambulates with CGA of one, needs cueing for safety. ROM to be measured P.M. IP PT Goals 01/19/17 1419 Bed Mobility PT LTG Bed Mobility PT LTG, Date Established 01/19/17 - Bed Mobility PT LTG, Time to Achieve 2 wks -EH Bed Mobility PT LTG, Activity Type all bed mobility -EH Bed Mobility PT LTG, [place] Level conditional independence -EH Transfer Training PT LTG Transfer Training PT LTG, Date Established 01/19/17 -EH Transfer Training PT LTG, Time to Achieve 2 wks -EH Transfer Training PT LTG, Activity Type all transfers -EH Transfer Training PT LTG, [place] Level conditional independence -EH Transfer Training PT LTG, Assist Device walker, rolling -EH Gait Training PT LTG Gait Training Goal PT LTG, Date Established 01/19/17 -EH Gait Training Goal PT LTG, Time to Achieve 2 wks -EH Gait Training Goal PT LTG, [place] Level conditional independence -EH Gait Training Goal PT LTG, Assist Device walker, rolling -EH User Sage (r) = Recorded By, (t) = Taken By, (c) = Cosigned By Initials Name Provider Type Crys Pinedo, PT Physical Therapist Outcome Measures 01/19/17 1104 01/19/17 1020 How much help from another person do you currently need... Turning from your back to your side while in flat bed without using bedrails? 4 -EH Moving from lying on back to sitting on the side of a flat bed without bedrails? 4 -EH Moving to and from a bed to a chair (including a wheelchair)? 3 -EH Standing up from a chair using your arms (e.g., wheelchair, bedside chair)? 3 -EH Climbing 3-5 steps with a railing? 3 -EH To walk in hospital room? 3 -EH AM-PAC 6 Clicks Score 20 -EH How much help from another is currently needed... Putting on and taking off regular lower body clothing? 2 -ST Bathing (including washing, rinsing, and drying) 2 -ST Toileting (which includes using toilet bed oshea or urinal) 3 -ST Putting on and taking off regular upper body clothing 3 -ST Taking care of personal grooming (such as brushing teeth) 4 -ST Eating meals 4 -ST Score 18 -ST Functional Assessment Outcome Measure Options AM-PAC 6 Clicks Basic Mobility (PT) -EH AM-PAC 6 Clicks Daily Activity (OT)-ST User Sage (r) = Recorded By, (t) = Taken By, (c) = Cosigned By Initials Name Provider Type Crys Pinedo, PT Physical Therapist ERIN Leon Occupational Therapist Time Calculation: PT Charges 01/19/17 1502 Time Calculation Start Time 1104 - PT Received On 01/19/17 - PT Goal Re-Cert Due Date 01/29/17 - Time Calculation- PT Total Timed Code Minutes- PT 15 minute(s) - User Sage (r) = Recorded By, (t) = Taken By, (c) = Cosigned By Initials Name Provider Type Crys Pinedo PT Physical Therapist Therapy Charges for Today Code Description Service Date Service Provider Modifiers Qty 17912498063 HC PT THER PROC EA 15 MIN 01/19/2017 Crys Pinedo, PT GP 1 90862106225 HC PT EVAL MOD COMPLEXITY 3 01/19/2017 Crys Pinedo, PT GP 1 PT G-Codes Outcome Measure Options: AM-PAC 6 Clicks Basic Mobility (PT) Crys Pinedo PT 01/19/2017 * Therapy Evaluation - Katy Hernandez OTR - 01/19/2017 2:11 PM EDT Acute Care - Occupational Therapy Initial Evaluation [facility] Patient Name: Marialuisa Hampton : 1955 Today's Date: 01/19/2017 Onset of Illness/Injury or Date of Surgery Date: 01/18/17 Date of Referral to OT: 01/19/17 Referring Physician: MD Sinan Admit Date: 01/18/2017 ICD-10-CM ICD-9-CM 1. Impaired functional mobility, balance, gait, and endurance Z74.09 V49.89 2. Impaired mobility and ADLs Z74.09 799.89 Patient Active Problem List Diagnosis ??? Arthritis of knee, right ??? Status post total right knee replacement ??? HTN (hypertension) ??? Acute blood loss anemia, mild, asymptomatic ??? Leukocytosis, mild, likely reactive ??? Hypokalemia, replaced Past Medical History: Diagnosis Date ??? Anemia ??? Arthritis ??? High cholesterol ??? Irregular heartbeat ??? PONV (postoperative nausea and vomiting) ??? Wears contact lenses Past Surgical History: Procedure Laterality Date ??? CARDIAC CATHETERIZATION ??? HYSTERECTOMY ??? MT TOTAL KNEE ARTHROPLASTY Right 01/18/2017 Procedure: RIGHT TOTAL KNEE ARTHROPLASTY; Surgeon: Mj Menon MD; Location: [facility]; Service: Orthopedics OT ASSESSMENT FLOWSHEET (last 72 hours) OT Evaluation 01/19/17 1101 01/19/17 1100 01/19/17 1020 01/18/17 2057 01/18/17 1601 Rehab Evaluation Document Type evaluation;therapy note (daily note) -ST Evaluation Not Performed other (see comments) Attempted to initiate eval but patient's BP found to be 73/40. Not medically appropriate to performOOB assessment d/t low BP. Will check back in AM to complete eval. -LR Patient Effort, Rehab Treatment adequate -ST Symptoms Noted During/After Treatment none -ST General Information Patient Profile Review yes -ST Onset of Illness/Injury or Date of Surgery Date 01/18/17 -ST Referring Physician MD Sinan -ST General Observations supine upon arrival; nerve cath intact -ST Pertinent History Of Current Problem Pt presents for sx management of long standing R knee pain anddysfunction that failed to improve with conservative measures; s/p R TKA with use of spinal & adductor canal cath -ST Precautions/Limitations fall precautions;other (see comments) adductor canal cath; impulsive -ST Prior Level of Function independent:;all household mobility;community mobility;feeding;grooming;minassist:;dressing;bathing;home management required to sit/increased time and pain with LBD/pain walk -ST min assist:;all household mobility;community mobility;gait;transfer;bed mobility;home management;cooking;cleaning;shopping;using stairs;independent:;driving;work all mobility limited by pain. -LR Equipment Currently Used at Home cane, straight;walker, rolling -SG walker, rolling;cane, straight -ST cane, straight;walker, rolling not currently using AD -LR Plans/Goals Discussed With patient;agreed upon -ST Risks Reviewed patient:;LOB;nausea/vomiting;dizziness;increased discomfort;change in vital signs -ST Benefits Reviewed patient:;improve function;increase independence;increase strength;increase balance;decrease pain;increase knowledge -ST Barriers to Rehab previous functional deficit impulsive -ST Living Environment Lives With alone -SG alone -ST alone -LR Living Arrangements house -ST house -LR Home Accessibility bed and bath on same level;tub/shower is not walk in -ST bed and bath on same level;other (see comments) no steps to enter home; tub shower -LR Type of Financial/Environmental Concern none -LR Transportation Available car;family or friend will provide -SG family or friend will provide -LR Living Environment Comment sister to assist with meals, staying with after d/c - ST Patient reports her sister will be staying with her to assist at all times upon d/c. -LR Clinical Impression Date of Referral to OT 01/19/17 -ST OT Diagnosis impaired ADLs -ST Prognosis good -ST Patient/Family Goals Statement return home -ST Criteria for Skilled Therapeutic Interventions Met yes -ST Rehab Potential good, to achieve stated therapy goals -ST Therapy Frequency daily -ST Anticipated Equipment Needs At Discharge tub bench -ST Anticipated Discharge Disposition home with assist -ST Functional Level Prior Ambulation 1-->assistive equipment -SG Transferring 1-->assistive equipment -SG Toileting 0-->independent -SG Bathing 0-->independent -SG Dressing 0-->independent -SG Eating 0-->independent -SG Communication 0-->understands/communicates without difficulty -SG Pain Assessment Pain Assessment 0-10 -ST Pain Score 3 -ST Post Pain Score 4 -ST Pain Type Acute pain -ST Pain Location Knee -ST Pain Orientation Right;Anterior;Posterior -ST Pain Intervention(s) Repositioned;Ambulation/increased activity -ST Vision Assessment/Intervention Visual Impairment WNL -ST Cognitive Assessment/Intervention Current Cognitive/Communication Assessment functional -ST Orientation Status oriented x 4 -ST Follows Commands/Answers Questions 75% of the time;needs cueing -ST Personal Safety mild impairment -ST Personal Safety Interventions fall prevention program maintained;gait belt;nonskid shoes/slippers when out of bed -ST ROM (Range of Motion) General ROM no range of motion deficits identified -ST MMT (Manual Muscle Testing) General MMT Assessment no strength deficits identified -ST Muscle Tone Assessment Muscle Tone Assessment Bilateral Upper Extremities;LLE;RLE -AB Bilateral Upper Extremities Muscle Tone Assessment associated movements noted -AB LLE Muscle Tone Assessment associated movements noted -AB RLE Muscle Tone Assessment moderately decreased tone -AB Mobility Assessment/Training Extremity Weight-Bearing Status right lower extremity -ST Right Lower Extremity Weight-Bearing weight-bearing as tolerated -ST Bed Mobility, Assessment/Treatment Bed Mobility, Assistive Device bed rails;head of bed elevated;leg software intern -ST Bed Mob, Supine to Sit, [place] supervision required -ST Bed Mobility, Comment increased time to complete along with cuing for sequencing task -ST Transfer Assessment/Treatment Transfers, Sit-Stand [place] contact guard assist;2 person assist required -ST Transfers, Stand-Sit [place] contact guard assist;2 person assist required -ST Transfers, [id number], Assist Device rolling walker -ST Toilet Transfer, [place] contact guard assist -ST Toilet Transfer, Assistive Device elevated toilet seat;rolling walker -ST Transfer, Comment cuing for hand placement -ST Functional Mobility Functional Mobility- Ind. Level contact guard assist -ST Functional Mobility- Device rolling walker -ST Functional Mobility-Distance (Feet) 100 -ST Functional Mobility- Comment cuing for proper position within self to walker -ST Upper Body Dressing Assessment/Training UB Dressing Assess/Train, Clothing Type doffing:;donning:;hospital gown -ST UB Dressing Assess/Train, Position sitting -ST Lower Body Dressing Assessment/Training LB Dressing Assess/Train, Comment able to don L non-sx sock however not able to reach R despite mult attempts with modifications; recommend behavioral therapy coordinator and sockaid -ST Toileting Assessment/Training Toileting Assess/Train, Assistive Device raised toilet seat -ST Toileting Assess/Train, Position sitting -ST Toileting Assess/Train, Indepen Level supervision required -ST Grooming Assessment/Training Grooming Assess/Train, Comment SS for hand hygiene SUA; cuing to turn facing sink as pt twisting/pivoting on sx LE -ST Sensory Assessment/Intervention Light Touch LUE;RUE -ST LUE Light Touch WNL -ST RUE Light Touch WNL -ST General Therapy Interventions Adaptive Equipment Training recommend behavioral therapy coordinator and sockaid for home use -ST Positioning and Restraints Pre-Treatment Position in bed -ST Post Treatment Position chair -ST In Chair notified nsg;reclined;call light within reach;encouraged to call for assist;exit alarm on;with PT -ST 01/18/17 1400 01/18/17 0820 General Information Equipment Currently Used at Home none Pt states she has a walker that belonged to her brother if she needs one, states she does not currently use it. -TS Living Environment Lives With alone -TS Living Arrangements house -TS Home Accessibility bed and bath on same level -TS Stair Railings at Home none -TS Type of Financial/Environmental Concern none -TS Transportation Available car;family or friend will provide -TS Functional Level Prior Ambulation 0-->independent -MM 0-->independent -TS Transferring 0-->independent -MM 0-->independent -TS Toileting 0-->independent -MM 0-->independent -TS Bathing 0-->independent -MM 0-->independent -TS Dressing 0-->independent -MM 0-->independent -TS Eating 0-->independent -MM 0-->independent -TS Communication 0-->understands/communicates without difficulty -MM 0-->understands/communicates without difficulty -TS Swallowing 0-->swallows foods/liquids without difficulty -MM 0-->swallows foods/liquids without difficulty -TS Prior Functional Level Comment 0 -MM User Sage (r) = Recorded By, (t) = Taken By, (c) = Cosigned By Initials Name Effective Dates ST Katy Jo Mary, OTR 08/02/16 - LR Gissel Padgett, PT 11/29/14 - SG Anne-Marie Kirkpatrick 10/13/15 - TS Yolande Ocampo RN 11/27/15 - AB Dominique Kwon RN 11/27/15 - MM Robyn Valdivia RN 01/05/16 - Occupational Therapy Education Title: PT OT JAVA PROGRAMMER ANALYST Therapies (Active) Topic: Occupational Therapy (Active) Point: ADL training (Active) Description: Instruct learner(s) on proper safety adaptation and remediation techniques during selfcare or transfers. Instruct in proper use of assistive devices. Learning Progress Summary Learner Readiness Method Response Comment Documented by Status Patient Acceptance E,TB,D NR requires cuing for safety with rwx and preventing twisting/pivoting; cuing for transfer safety; educated on benefits of activity, toileting and balance; bed mobility, leglifter use 01/19/17 1405 Active Point: Home exercise program (Active) Description: Instruct learner(s) on appropriate technique for monitoring, assisting and/or progressing therapeutic exercises/activities. Learning Progress Summary Learner Readiness Method Response Comment Documented by Status Patient Acceptance E,TB,D NR requires cuing for safety with rwx and preventing twisting/pivoting; cuing for transfer safety; educated on benefits of activity, toileting and balance; bed mobility, leglifter use 01/19/17 1405 Active Point: Precautions (Active) Description: Instruct learner(s) on prescribed precautions during self-care and functional transfers. Learning Progress Summary Learner Readiness Method Response Comment Documented by Status Patient Acceptance E,TB,D NR requires cuing for safety with rwx and preventing twisting/pivoting; cuing for transfer safety; educated on benefits of activity, toileting and balance; bed mobility, leglifter use 01/19/17 1405 Active Point: Body mechanics (Active) Description: Instruct learner(s) on proper positioning and spine alignment during self-care, functional mobility activities and/or exercises. Learning Progress Summary Learner Readiness Method Response Comment Documented by Status Patient Acceptance E,TB,D NR requires cuing for safety with rwx and preventing twisting/pivoting; cuing for transfer safety; educated on benefits of activity, toileting and balance; bed mobility, leglifter use 01/19/17 1405 Active User Sage Initials Effective Dates Name Provider Type Discipline 08/02/16 - ERIN Lopez Occupational Therapist OT OT Recommendation and Plan Anticipated Equipment Needs At Discharge: tub bench Anticipated Discharge Disposition: home with assist Therapy Frequency: daily Plan of Care Review Plan Of Care Reviewed With: patient Outcome Summary/Follow up Plan: Pt with impulsivity during transfers and using rwx, requiring cuingfor safety; unable to complete LBD this date w/o AE d/t dec. ROM and pain-recommend sockaid and behavioral therapy coordinator. Will progress with independence & safety with daily tasks in preparation for d/c home OT Goals 01/19/17 1020 Transfer Training OT LTG Transfer Training OT LTG, Time to Achieve 4 days -ST Transfer Training OT LTG, Activity Type tub -ST Transfer Training OT LTG, [place] Level contact guard assist -ST Transfer Training OT LTG, Assist Device walker, rolling -ST Transfer Training OT LTG, Outcome goal ongoing -ST LB Dressing OT LTG LB Dressing Goal OT LTG, Time to Achieve 4 days -ST LB Dressing Goal OT LTG, [place] Level conditional independence -ST LB Dressing Goal OT LTG, Adaptive Equipment laces, elastic;behavioral therapy coordinator;shoe horn, long handled;sock-aid-ST LB Dressing Goal OT LTG, Outcome goal ongoing -ST User Sage (r) = Recorded By, (t) = Taken By, (c) = Cosigned By Initials Name Provider Type ERIN Leon Occupational Therapist Outcome Measures 01/19/17 1020 How much help from another is currently needed... Putting on and taking off regular lower body clothing? 2 -ST Bathing (including washing, rinsing, and drying) 2 -ST Toileting (which includes using toilet bed oshea or urinal) 3 -ST Putting on and taking off regular upper body clothing 3 -ST Taking care of personal grooming (such as brushing teeth) 4 -ST Eating meals 4 -ST Score 18 -ST Functional Assessment Outcome Measure Options AM-PAC 6 Clicks Daily Activity (OT) -ST User Sage (r) = Recorded By, (t) = Taken By, (c) = Cosigned By Initials Name Provider Type ERIN Leon Occupational Therapist Time Calculation: OT Start Time: 1020 Therapy Charges for Today Code Description Service Date Service Provider Modifiers Qty [id number] OT THERAPEUTIC ACT EA 15 MIN 01/19/2017 Katy Hernandez, OTR GO 1 [id number] HC OT EVAL MOD COMPLEXITY 3 01/19/2017 ERIN Lopez GO 1 ERIN Mcclelland 01/19/2017 documented in this encounter Plan of Treatment Not on file documented as of this encounter Procedures Procedure Name Priority Date/Time Associated Diagnosis Comments CBC (NO DIFF) Routine 01/20/2017 5:56 AM EDT BASIC METABOLIC PANEL Routine 01/20/2017 5:56 AM EDT CBC (NO DIFF) Routine 01/19/2017 5:47 AM EDT BASIC METABOLIC PANEL Routine 01/19/2017 5:47 AM EDT XR KNEE 1 OR 2 VW RIGHT STAT 01/18/2017 12:33 PM EDT TOTAL KNEE ARTHROPLASTY 01/18/2017 9:50 AM EDT Special Needs PA, DEPUY CONV OR POTASSIUM STAT 01/18/2017 8:2 4 AM EDT TYPE AND SCREEN STAT 01/18/2017 8:24 AM EDT documented in this encounter Results * (ABNORMAL) CBC (No Diff) (01/20/2017 5:56 AM EDT) WBC 14.82(H) 3.50 - 10.80 10*3/mm3 01/20/2017 6:40 AM EDT [facility] RBC 3.50(L) 3.89 - 5.14 10*6/mm3 01/20/2017 6:40 AM EDT [facility] Hemoglobin 8.7(L) 11.5 - 15.5 g/dL 01/20/2017 6:40 AM EDT [facility] Hematocrit 27.4(L) 34.5 - 44.0 % 01/20/2017 6:40 AM EDT [facility] MCV 78.3(L) 80.0 - 99.0 fL 01/20/2017 6:40 AM EDT [facility] MCH 24.9(L) 27.0 - 31.0 pg 01/20/2017 6:40 AM EDT [facility] MCHC 31.8(L) 32.0 - 36.0 g/dL 01/20/2017 6:40 AM EDT [facility] RDW 16.4(H) 11.3 - 14.5 % 01/20/2017 6:40 AM EDT [facility] RDW-SD 47.4 37.0 - 54.0 fl 01/20/2017 6:40 AM EDT [facility] MPV 10.0 6.0 - 12.0 fL 01/20/2017 6:40 AM EDT [facility] Platelets 295 150 - 450 10*3/mm3 01/20/2017 6:40 AM EDT [facility] Blood 01/20/2017 5:56 AM EDT 01/20/2017 6:23 AM EDT Mj Menon MD LAB BLOOD ORDERABLES Final Res ult [facility]
[address] [place] [address], * (ABNORMAL) Basic Metabolic Panel (01/20/2017 5:56 AM EDT) Glucose 101(H) 70 - 100 mg/dL 01/20/2017 7:07 AM EDT [facility] BUN 10 9 - 23 mg/dL 01/20/2017 7:07 AM EDT [facility] Creatinine 0.40(L) 0.60 - 1.30 mg/dL 01/20/2017 7:07 AM EDT [facility] Sodium 136 132 - 146 mmol/L 01/20/2017 7:07 AM EDT [facility] Potassium 3.8 3.5 - 5.5 mmol/L 01/20/2017 7:07 AM EDT [facility] Chloride 108 99 - 109 mmol/L 01/20/2017 7:07 AM EDT [facility] CO2 23.0 20.0 - 31.0 mmol/L 01/20/2017 7:07 AM EDT [facility] Calcium 9.0 8.7 - 10.4 mg/dL 01/20/2017 7:07 AM EDT [facility] eGFR Non Amer >150 >60 mL/min/1.7 3 01/20/2017 7:07 AM EDT [facility] BUN/Creatinine Ratio 25.0 7.0 - 25.0 01/20/2017 7:07 AM EDT [facility] Anion Gap 5.0 3.0 - 11.0 mmol/L 01/20/2017 7:07 AM EDT [facility] Blood 01/20/2017 5:56 AM EDT 01/20/2017 6:23 AM EDT [facility] - 01/20/2017 7:07 AM EDT National [employer] Guidelines Stage ? Description ?GFR 1 ? Normal or High ? 90+ 2 ? Mild decrease ?60-89 3 ? Moderate decrease ??30-59 4 ? Severe decrease ?15-29 5 ? Kidney failure ? <15 Silvia Rollins [employer] LAB BLOOD ORDERABLES Final Result [facility]
[address] [place] [address], * (ABNORMAL) CBC (No Diff) (01/19/2017 5:47 AM EDT) WBC 12.79(H) 3.50 - 10.80 10*3/mm3 01/19/2017 6:28 AM EDT [facility] RBC 3.54(L) 3.89 - 5.14 10*6/mm3 01/19/2017 6:28 AM EDT [facility] Hemoglobin 9.0(L) 11.5 - 15.5 g/dL 01/19/2017 6:28 AM EDT [facility] Hematocrit 28.4(L) 34.5 - 44.0 % 01/19/2017 6:28 AM EDT [facility] MCV 80.2 80.0 - 99.0 fL 01/19/2017 6:28 AM EDT [facility] MCH 25.4(L) 27.0 - 31.0 pg 01/19/2017 6:28 AM EDT [facility] MCHC 31.7(L) 32.0 - 36.0 g/dL 01/19/2017 6:28 AM EDT [facility] RDW 16.1(H) 11.3 - 14.5 % 01/19/2017 6:28 AM EDT [facility] RDW-SD 48.0 37.0 - 54.0 fl 01/19/2017 6:28 AM EDT [facility] MPV 10.2 6.0 - 12.0 fL 01/19/2017 6:28 AM EDT [facility] Platelets 326 150 - 450 10*3/mm3 01/19/2017 6:28 AM EDT [facility] Blood 01/19/2017 5:47 AM EDT 01/19/2017 6:09 AM EDT us Mj Menon MD LAB BLOOD ORDERABLES Final Res ult [facility]
[address] [place] [address], * (ABNORMAL) Basic Metabolic Panel (01/19/2017 5:47 AM EDT) Glucose 110(H) 70 - 100 mg/dL 01/19/2017 7:05 AM [facility] BUN 9 9 - 23 mg/dL 01/19/2017 7:05 AM [facility] Creatinine 0.60 0.60 - 1.30 mg/dL 01/19/2017 7:05 AM [facility] Sodium 134 132 - 146 mmol/L 01/19/2017 7:05 AM [facility] Potassium 3.4(L) 3.5 - 5.5 mmol/L 01/19/2017 7:05 AM [facility] Chloride 106 99 - 109 mmol/L 01/19/2017 7:05 AM [facility] CO2 22.0 20.0 - 31.0 mmol/L 01/19/2017 7:05 AM [facility] Calcium 8.4(L) 8.7 - 10.4 mg/dL 01/19/2017 7:05 AM [facility] eGFR Non Amer 102 >60 mL/min/1.7 3 01/19/2017 7:05 AM [facility] BUN/Creatinine Ratio 15.0 7.0 - 25.0 01/19/2017 7:05 AM [facility] Anion Gap 6.0 3.0 - 11.0 mmol/L 01/19/2017 7:05 AM [facility] Blood 01/19/2017 5:47 AM EDT 01/19/2017 6:08 AM EDT [facility] - 01/19/2017 7:05 AM EDT National Kidney [employer] Guidelines Stage ? Description ?GFR 1 ? Normal or High ? 90+ 2 ? Mild decrease ?60-89 3 ? Moderate decrease ??30-59 4 ? Severe decrease ?15-29 5 ? Kidney failure ? <15 Silviaodalys Bonds [employer] LAB BLOOD ORDERABLES Final Result [facility]
[address] [place] [address], * XR Knee 1 or 2 View Right (01/18/2017 12:33 PM EDT) Anatomical Region Laterality Modality Lower Extremities, Knee Right Radiogra phic Imaging 01/19/2017 8:56 AM EDT Impressions 01/20/2017 6:48 PM EDT Expected postsurgical changes of total knee arthroplasty with satisfactory hardware positioning and anatomic alignment. D: ??01/19/2017 E: ??01/19/2017 This report was finalized on 01/20/2017 6:[address] Uli Sage. Narrative 01/20/2017 6:48 PM EDT EXAMINATION: XR KNEE 1 OR 2 VW RIGHT- INDICATION: Postop. COMPARISON: None. FINDINGS: Status post total knee arthroplasty with hardware and alignment in satisfactory positioning. Expected postsurgical changes of the overlying soft tissues without evidence of fracture or malalignment. No radiopaque foreign body. Procedure Note Uli Sage, - 01/20/2017 EXAMINATION: XR KNEE 1 OR 2 VW RIGHT- INDICATION: Postop. COMPARISON: None. FINDINGS: Status post total knee arthroplasty with hardware and alignment in satisfactory positioning. Expected postsurgical changes of the overlying soft tissues without evidence of fracture or malalignment. No radiopaque foreign body. IMPRESSION: Expected postsurgical changes of total knee arthroplasty with satisfactory hardware positioning and anatomic alignment. E: 01/19/2017 This report was finalized on 01/20/2017 6:[address] Uli Sage. Mj Menon MD IMG DIAGNOSTIC IMAGING ORDERAB LES Final Result * Type & Screen (01/18/2017 8:24 AM EDT) ABO Type A 01/18/2017 10:38 AM EDT [facility] RH type Positive 01/18/2017 10:38 AM EDT [facility] Antibody Screen Negative 01/18/2017 10:38 AM EDT [facility] Blood Line / Unknown 01/18/2017 8: 24 AM EDT 01/18/2017 8:37 AM EDT Mj Menon MD BLOOD BANK TEST ORDERABLES Angel alexandr Result - Final Performing Organization Address [facility]/ZIP Co de Phone Number [facility]
[address] [place] [address], * OR Potassium (01/18/2017 8:24 AM EDT) Potassium, OR 4.15 3.5 - 5.3 mmol/L 01/18/2017 8:31 AM EDT [facility] Blood Line / Unknown 01/18/2017 8: 24 AM EDT 01/18/2017 8:30 AM EDT Burak Rivera MD LAB BLOOD ORDERABLES Final Resu lt Performing Organization Address [facility] Co de Phone Number [facility]
[address] [place] [address], documented in this encounter Visit Diagnoses Not on filedocumented in this encounter Admitting Diagnoses Diagnosis Arthritis of knee, right documented in this encounter Administered Medications Inactive Administered Medications - up to 3 most recent administrations Medication Order MAR Action Action Date Dose Rate Site acetaminophen (TYLENOL) tablet 650 mg 650 mg, Oral, Every 4 Hours PRN, Mild Pain, Starting on Tue01/18/17 at 1404, Do not exceed 4 grams of acetaminophen in a 24 hr period. Given 01/19/2017 3:52 PM EDT 650 mg Given 01/19/2017 3:24 AM EDT 650 mg aspirin EC tablet 325 mg 325 mg, Oral, Daily, First dose on Tue01/19/17 at 0900 Given 01/20/2017 8:14 AM EDT 325 mg hydrALAZINE (APRESOLINE) injection 10 mg 10 mg, Intravenous, Every 6 Hours PRN, High Blood Pressure, for SBP over 170, Starting on Tue01/18/17 at 1320 HYDROcodone-acetaminophen (NORCO) 7.5-325 MG per tablet 1 tablet 1 tablet, Oral, Every 4 Hours PRN, Moderate Pain, Starting on Tue01/18/17 at 1404, For 10 days, Do not exceed 4g of acetaminophen in a 24 hour period. Given 01/20/2017 8:14 AM EDT 1 tablet Given 01/20/2017 2:23 AM EDT 1 tablet Given 01/19/2017 9:29 PM EDT 1 tablet HYDROmorphone (DILAUDID) injection 0.5 mg 0.5 mg, Intravenous, Every 2 Hours PRN, Severe Pain, Starting on Tue01/18/17 at 1404, For 10 days Given 01/18/2017 10:36 PM EDT 0.5 mg Given 01/18/2017 6:38 PM EDT 0.5 mg melatonin sublingual tablet 5 mg 5 mg, Sublingual, Nightly PRN, Sleep, Starting on Shirley 01/20/17 at 0011 Given 01/20/2017 12:13 AM EDT 5 mg meloxicam (MOBIC) tablet 15 mg 15 mg, Oral, Daily, First dose on Tue01/18/17 at 1445, Take with food. Given 01/20/2017 8:14 AM EDT 15 mg Given 01/19/2017 8:32 AM EDT 15 mg Given 01/18/2017 2:33 PM EDT 15 mg metoprolol tartrate (LOPRESSOR) tablet 25 mg 25 mg, Oral, Nightly, First dose on Tue01/18/17 at 2100, Hold for SBP <110 or HR <55 Given 01/19/2017 9:29 PM EDT 25 mg Morphine sulfate (PF) injection 4 mg 4 mg, Intravenous, Every 2 Hours PRN, Moderate Pain, Starting on Tue01/18/17 at 1404, For 10 days naloxone (NARCAN) injection 0.1 mg 0.1 mg, Intravenous, Every 5 Minutes PRN, Respiratory Depression, Starting on Tue01/18/17 at 1404, If respiratory rate is less than 8 breaths/minute or patient is difficult to arouse stop any narcotics and contact physician. Administer slow IV push. Repeat as ordered until patient's respiratory rate is greater than 12 breaths/minute. naloxone (NARCAN) injection 0.4 mg 0.4 mg, Intravenous, Every 5 Minutes PRN, Respiratory Depression, Starting on Tue01/18/17 at 1404, If respiratory rate is less than 8 breaths/minute or patient is difficult to arouse stop any narcotics and contact physician. Administer slow IV push. Repeat as ordered until patient's respiratory rate is greater than 12 breaths/minute. ondansetron (ZOFRAN) injection 4 mg 4 mg, Intravenous, Every 6 Hours PRN, Nausea, Vomiting, Starting on Tue01/18/17 at 1320 Given 01/19/2017 9:29 PM EDT 4 m g Given 01/18/2017 4:10 PM EDT 4 mg ropivacaine (NAROPIN) 0.2% 550 mL On-Q C-block 12 mL/hr, Peripheral Nerve, Continuous, Starting on Tue01/19/17 at 1145, On-Q C-block with ropivacaine 0.2%. Infuse at 12 mL/hr New Bag 01/20/2017 11:41 AM EDT 12 mL/hr 12 mL/hr Rate/Dose Change 01/20/2017 9:04 AM EDT 12 mL/hr 12 mL/h r ropivacaine (NAROPIN) 0.2% peripheral nerve cath (moog) 200 mL 12 mL/hr, Infiltration, Continuous, Starting on Tue01/19/17 at 1445 New Bag 01/19/2017 9:29 PM EDT 12 mL/hr 12 mL/hr Currently Infusing 01/19/2017 7:34 PM EDT 12 mL/hr 12 mL /hr ropivacaine 20 mL mixture As Needed, Starting on Tue01/18/17 at 1043 Given 01/18/2017 10:43 AM EDT 20.5 mL Kn ee Right sennosides-docusate sodium (SENOKOT-S) 8.6-50 MG tablet 2 tablet 2 tablet, Oral, 2 Times Daily, First dose on Tue01/18/17 at 1800 Given 01/20/2017 8:14 AM EDT 2 tablets Given 01/19/2017 5:23 PM EDT 2 tablets Given 01/19/2017 8:32 AM EDT 2 tablets sodium chloride (NS) irrigation solution As Needed, Starting on Tue01/18/17 at 1044 Given 01/18/2017 10:44 AM EDT 3,000 mL sodium chloride 0.9 % bolus 500 mL 500 mL, Intravenous, 3 Times Daily PRN, for SBP less than 90, Starting on Tue01/18/17 at 1320 New Bag 01/18/2017 4:17 PM EDT 500 mL sodium chloride 0.9 % infusion 120 mL/hr, Intravenous, Continuous, Starting on Tue01/18/17 at 1445 New Bag 01/19/2017 3:25 AM EDT 120 mL/hr 120 mL/hr New Bag 01/18/2017 8:57 PM EDT 120 mL/hr 120 mL/hr New Bag 01/18/2017 2:34 PM EDT 120 mL/hr 120 mL/hr sterile water irrigation solution As Needed, Starting on Tue01/18/17 at 1044 Given 01/18/2017 10:44 A M EDT 1,000 mL documented in this encounter Active and Recently Administered Medications Times are shown in EDT. Scheduled Medication Order 01/18/2017 01/19/2017 01/20/2017 acetaminophen (TYLENOL) tablet 1,000 mg (COMPLETED) 1,000 mg, Oral, Once, On Tue01/18/17 at 0845, For 1 dose, Do not exceed 4 grams of acetaminophen in a 24 hr period. 0839 (Given - Provider: Yolande Ocampo, ROXANA) aspirin EC tablet 325 mg 325 mg, Oral, Daily, First dose on Tue01/19/17 at 0900 1303 (Not Given - Provider: Heather Cueto RN - Reason: Patient/family refused) 0814 (Given - Provider: Judy Albert RN) ceFAZolin in dextrose (ANCEF) IVPB solution 2 g (COMPLETED) 2 g, Intravenous, Once, On Tue01/18/17 at 0845, For 1 dose, Indications: Surgical Prophylaxis 1005 (Given - Provider: Brian Ogden CRNA) ceFAZolin in dextrose (ANCEF) IVPB solution 2 g (COMPLETED) 2 g, Intravenous, Every 8 Hours, First dose on Tue01/18/17 at 1800, For 2 doses, Time first dose from pre-op dose., Indications: Surgical Prophylaxis 1730 (New Bag - Provider: Robyn Valdivia RN) 0212 (New Bag - Provider: Dominique Kwon RN) celecoxib (CeleBREX) capsule 200 mg (COMPLETED) 200 mg, Oral, Once, On Tue01/18/17 at 0845, For 1 dose, Caution: Look alike/sound alike drug alert. Take with food if GI upset occurs. 0839 (Given - Provider: Yolande Ocampo RN) famotidine (PEPCID) tablet 20 mg (COMPLETED) 20 mg, Oral, Once, On Tue01/18/17 at 0845, For 1 dose 0839 (Given - Provider: Yolande Ocampo, ROXANA) meloxicam (MOBIC) tablet 15 mg 15 mg, Oral, Daily, First dose on Tue01/18/17 at 1445, Take with food. 1433 (Given - Provider: Robyn Valdivia RN) 0832 (Given - Provider: Heather Cueto, RN) 0814 (Given - Provider: Judy Albert RN) metoprolol tartrate (LOPRESSOR) tablet 25 mg 25 mg, Oral, Nightly, First dose on Tue01/18/17 at 2100, Hold for SBP <110 or HR <55 2056 (Not Given - Provider: Dominique Kwon RN - Reason: Other) 2128 (Given - Provider: Cedric Vanegas, ROXANA) mupirocin (BACTROBAN) 2 % nasal ointment (COMPLETED) Each Nare, Once, On Tue01/18/17 at 0845, For 1 dose, {BK} 0840 (Given - Provider: Yolande Ocampo, ROXANA) oxyCODONE (oxyCONTIN) 12 hr tablet 10 mg (COMPLETED) 10 mg, Oral, Once, On Tue01/18/17 at 0845, For 1 dose, Swallow whole; do not crush, split, or chew. 0839 (Given - Provider: Yolande Ocampo, ROXANA) potassium chloride (MICRO-K) CR capsule 40 mEq (COMPLETED) 40 mEq, Oral, Once, On Tue01/19/17 at 0945, For 1 dose 1552 (Given - Provider: Heather Cueto RN) pregabalin (LYRICA) capsule 75 mg (COMPLETED) 75 mg, Oral, Once, On Tue01/18/17 at 0845, For 1 dose 0839 (Given - Provider: Yolande Ocampo, ROXANA) sennosides-docusate sodium (SENOKOT-S) 8.6-50 MG tablet 2 tablet 2 tablet, Oral, 2 Times Daily, First dose on Tue01/18/17 at 1800 1730 (Given - Provider: Robyn Valdivia RN) 0832 (Given - Provider: Heather Cueto, RN)1723 (Given - Provider: Heather Cueto, RN) 0814 (Given - Provider: Judy Albert, ROXANA) Continuous Medication Order 01/18/2017 01/19/2017 01/20/2017 lactated ringers infusion (CANCELED) 9 mL/hr, Intravenous, Continuous, Starting on Tue01/18/17 at 0845, May switch to NS IV at KVO if renal / if indicated 0810 (New Bag - Provider: Yolande Ocampo RN)1005 (New Bag - Provider: Brian Ogden CRNA)1139 (New Bag - Provider: Brian Ogden CRNA)1147 (Anesthesia Volume Adjustment - Provider: Brian Ogden CRNA) lactated ringers infusion 100 mL/hr, Intravenous, Continuous, Starting on Tue01/18/17 at 1115 1115 (Due) ropivacaine (NAROPIN) 0.2% 550 mL On-Q C-block 12 mL/hr, Peripheral Nerve, Continuous, Starting on Tue01/19/17 at 1145, On-Q C-block with ropivacaine 0.2%. Infuse at 12 mL/hr 0904 (Rate/Dose Change - Provider: Judy Albert RN)1141 (New Bag - Provider: Baldev Lee RN) ropivacaine (NAROPIN) 0.2% peripheral nerve cath (moog) 200 mL (CANCELED) 12 mL/hr, Peripheral Nerve, Continuous, Starting on Tue01/18/17 at 1115, For 5 days, For pain scale 7 or greater, increase rate to 16 mL/hr for 2 hours then return to original rate. Can be repeated every 12 hours. If no improvement, call Acute Pain Service at Ext. [phone] or Main OR desk for Anesthesia., Indications: Postoperative Pain 1212 (New Bag - Provider: Daniel Wolf, ROXANA) 0324 (New Bag - Provider: Dominique Kwon RN) ropivacaine (NAROPIN) 0.2% peripheral nerve cath (moog) 200 mL 12 mL/hr, Infiltration, Continuous, Starting on Tue01/19/17 at 1445 1934 (Currently Infusing - Provider: Cedric Vanegas, RN)2128 (New Bag - Provider: Cedric Vanegas, RN) sodium chloride 0.9 % infusion 120 mL/hr, Intravenous, Continuous, Starting on Tue01/18/17 at 1445 1434 (New Bag - Provider: Robyn Valdivia, RN)205 (New Bag - Provider: Dominique Kwon, RN) 0325 (New Bag - Provider: Dominique Kwon RN) PRN Medication Order 01/18/2017 01/19/2017 01/20/2017 acetaminophen (TYLENOL) tablet 650 mg 650 mg, Oral, Every 4 Hours PRN, Mild Pain, Starting on Tue01/18/17 at 1404, Do not exceed 4 grams of acetaminophen in a 24 hr period. 0324 (Given - Provider: Dominique Kwon RN)1304 (Not Given - Provider: Heather Cueto RN - Reason: Patient/family refused)1552 (Given - Provider: Heather Cueto RN) bisacodyl (DULCOLAX) EC tablet 10 mg 10 mg, Oral, Daily PRN, Constipation, Starting on Tue01/18/17 at 1404, Swallow whole. Do not crush, split, or chew tablet. bisacodyl (DULCOLAX) suppository 10 mg 10 mg, Rectal, Daily PRN, Constipation, Starting on Tue01/18/17 at 1404 docusate sodium (COLACE) capsule 100 mg 100 mg, Oral, 2 Times Daily PRN, Constipation, Starting on Tue01/18/17 at 1404, Swallow whole. Do not open, crush, or chew capsule. hydrALAZINE (APRESOLINE) injection 10 mg 10 mg, Intravenous, Every 6 Hours PRN, High Blood Pressure, for SBP over 170, Starting on Tue01/18/17 at 1320 HYDROcodone-acetaminoph en (NORCO) 7.5-325 MG per tablet 1 tablet 1 tablet, Oral, Every 4 Hours PRN, Moderate Pain, Starting on Tue01/18/17 at 1404, For 10 days, Do not exceed 4g of acetaminophen in a 24 hour period. 1610 (Given - Provider: Robyn Valdivia, RN)2057 (Given - Provider: Dominique Kwon, RN) 0607 (Given - Provider: Dominique Kwon, RN)1003 (Given - Provider: Heather Cueto, RN)1645 (Given - Provider: Heather Cueto, RN)2129 (Given - Provider: Cedric Vanegas, RN) 0223 (Given - Provider: Yanira Rios LPN)0814 (Given - Provider: Judy Albert, ROXANA) HYDROmorphone (DILAUDID) injection 0.5 mg(Linked Group 1) 0.5 mg, Intravenous, Every 2 Hours PRN, Severe Pain, Starting on Tue01/18/17 at 1404, For 10 days 1838 (Given - Provider: Robyn Valdivia RN)2236 (Given - Provider: Dominique Kwon, ROXANA) lidocaine PF 1% (XYLOCAINE) injection 0.5 mL (COMPLETED) 0.5 mL, Injection, Once As Needed, IV Start, Starting on Tue01/18/17 at 0803, For 1 dose 0810 (Given - Provider: Yolande Ocampo, ROXANA) magnesium hydroxide (MILK OF MAGNESIA) suspension 2400 mg/10mL 10 mL 10 mL, Oral, Daily PRN, Constipation, Starting on Tue01/18/17 at 1404 melatonin sublingual tablet 5 mg 5 mg, Sublingual, Nightly PRN, Sleep, Starting on Tue01/20/17 at 0011 0013 (Given - Provider: Cedric Vanegas, ROXANA) Morphine sulfate (PF) injection 4 mg(Linked Group 2) 4 mg, Intravenous, Every 2 Hours PRN, Moderate Pain, Starting on Tue01/18/17 at 1404, For 10 days naloxone (NARCAN) injection 0.1 mg(Linked Group 1) 0.1 mg, Intravenous, Every 5 Minutes PRN, Respiratory Depression, Starting on Tue01/18/17 at 1404, If respiratory rate is less than 8 breaths/minute or patient is difficult to arouse stop any narcotics and contact physician. Administer slow IV push. Repeat as ordered until patient's respiratory rate is greater than 12 breaths/minute. naloxone (NARCAN) injection 0.4 mg(Linked Group 2) 0.4 mg, Intravenous, Every 5 Minutes PRN, Respiratory Depression, Starting on Tue01/18/17 at 1404, If respiratory rate is less than 8 breaths/minute or patient is difficult to arouse stop any narcotics and contact physician. Administer slow IV push. Repeat as ordered until patient's respiratory rate is greater than 12 breaths/minute. ondansetron (ZOFRAN) injection 4 mg 4 mg, Intravenous, Every 6 Hours PRN, Nausea, Vomiting, Starting on Tue01/18/17 at 1404, If BOTH ondansetron (ZOFRAN) and promethazine (PHENERGAN) are ordered use ondansetron first and THEN promethazine IF ondansetron is ineffective. ondansetron (ZOFRAN) injection 4 mg 4 mg, Intravenous, Once As Needed, Nausea, Vomiting, Starting on Tue01/18/17 at 1038, For 1 dose, If BOTH ondansetron (ZOFRAN) and promethazine (PHENERGAN) are ordered use ondansetron first and THEN promethazine IF ondansetron is ineffective. ondansetron (ZOFRAN) injection 4 mg 4 mg, Intravenous, Every 6 Hours PRN, Nausea, Vomiting, Starting on Tue01/18/17 at 1320 1610 (Given - Provider: Robyn Valdivia, ROXANA) 212 (Given - Provider: Cedric Vanegas RN) ropivacaine 20 mL mixture (CANCELED) As Needed, Starting on Tue01/18/17 at 1043 1043 (Given - Provider: Mj Menon MD - Comment: + Morphine 5mg/0.5mL (see anesthesia documentation for waste)) sodium chloride (NS) irrigation solution (CANCELED) As Needed, Starting on Tue01/18/17 at 1044 1044 (Given - Provider: Mj Menon MD) sodium chloride 0.9 % bolus 500 mL 500 mL, Intravenous, 3 Times Daily PRN, for SBP less than 90, Starting on Tue01/18/17 at 1320 1617 (New Bag - Provider: Robyn Valdivia RN) sodium chloride 0.9 % flush 1-10 mL 1-10 mL, Intravenous, As Needed, Line Care, Starting on Tue01/18/17 at 1404 sterile water irrigation solution (CANCELED) As Needed, Starting on Tue01/18/17 at 1044 1044 (Given - Provider: Martin Moffett RN - Comment: Fire safety) Linked Groups Order Group 1: HYDROmorphone (DILAUDID) injection 0.5 mgJump to med 0.5 mg, Intravenous, Every 2 Hours PRN, Severe Pain, Starting on Tue01/18/17 at 1404, For 10 days And naloxone (NARCAN) injection 0.1 mgJump to med 0.1 mg, Intravenous, Every 5 Minutes PRN, Respiratory Depression, Starting on Tue01/18/17 at 1404, If respiratory rate is less than 8 breaths/minute or patient is difficult to arouse stop any narcotics and contact physician. Administer slow IV push. Repeat as ordered until patient's respiratory rate is greater than 12 breaths/minute. Group 2: Morphine sulfate (PF) injection 4 mgJump to med 4 mg, Intravenous, Every 2 Hours PRN, Moderate Pain, Starting on Tue01/18/17 at 1404, For 10 days And naloxone (NARCAN) injection 0.4 mgJump to med 0.4 mg, Intravenous, Every 5 Minutes PRN, Respiratory Depression, Starting on Tue01/18/17 at 1404, If respiratory rate is less than 8 breaths/minute or patient is difficult to arouse stop any narcotics and contact physician. Administer slow IV push. Repeat as ordered until patient's respiratory rate is greater than 12 breaths/minute. 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
--- OUTSIDE RECORDS SUMMARY | 2024-04-25 14:42 | XMS_ITS | Encounter Summary ---
Author Organization [facility] Address [address] [place] [id number] Care Team Providers Care Plastics Seasoner Operator Name Role Phone Meredith Conti Primary Care Provider [phone] Reason for Visit * Reason Comments Follow-up 6 week f/u post op. Right TKA on 01/18/17 Encounter Details Date Type Department Care Team (Late st Contact Info) Description 03/28/2017 2:10 PM EDT Office Visit [facility] [address] [place] [address] Mj Menon MD [address] [facility] [address] [place] [address] Status post total right knee replacement (Primary Dx); Orthopedic aftercare Social History Tobacco Use Types Packs/Day Years [...] Sign Reading Time Taken Comments Blood Pressure 158/76 03/28/2017 2:05 PM EDT Pulse 97 03/28/2017 2:05 PM EDT Temperature - - Respiratory Rate - - Oxygen Saturation - - Inhaled Oxygen Concentration - - Weight 64.2 kg (141 lb 9.6 oz) 03/28/2017 2:05 P M EDT Height 170.2 cm (5' 7 ) 03/28/2017 2:05 PM EDT Body Mass Index 22.18 03/28/2017 2:05 PM EDT documented in this encounter Progress Notes * Mj Menon MD - 03/28/2017 2:10 PM EDT Images from the original note were not included. [facility] [place] Subjective Chief Complaint Patient presents with ??? Right Knee - Follow-up 6 week f/u post op. Right TKA on 01/18/17 HPI Marialuisa Guajardo is a 61 y.o. female. No complaints today. 60% improvement compared to her preoperativesymptoms. Improved from her last visit. Patient Active Problem List Diagnosis ??? Arthritis of knee, right ??? Status post total right knee replacement ??? HTN (hypertension) ??? Acute blood loss anemia, mild, asymptomatic ??? Leukocytosis, mild, likely reactive ??? Hypokalemia, replaced Past Medical History: Diagnosis Date ??? Anemia ??? Arthritis ??? Cancer ??? High cholesterol ??? Irregular heartbeat controlled by metoprolol ??? PONV (postoperative nausea and vomiting) ??? Primary osteoarthritis of both knees ??? Wears contact lenses Past Surgical History: Procedure Laterality Date ??? CARDIAC CATHETERIZATION ??? HYSTERECTOMY ??? KNEE SURGERY ??? NM TOTAL KNEE ARTHROPLASTY Right 01/18/2017 Procedure: RIGHT TOTAL KNEE ARTHROPLASTY; Surgeon: Mj Menon MD; Location: [facility]; Service: Orthopedics Family History Problem Relation Age of Onset ??? Hypertension Mother ??? Osteoarthritis Mother ??? Stroke Mother ??? Heart disease Father ??? Diabetes Other ??? Cancer Other Social History Social History ??? Marital status: Single Spouse name: N/A ??? Number of children: N/A ??? Years of education: N/A Occupational History ??? Not on file. Social History Main Topics ??? Smoking status: Never Smoker ??? Smokeless tobacco: Never Used ??? Alcohol use Yes Comment: social- occasional ??? Drug use: No ??? Sexual activity: Defer Other Topics Concern ??? Not on file Social History Narrative Current Outpatient Prescriptions on File Prior to Visit Medication Sig Dispense Refill ??? aspirin EC 325 MG EC tablet Take 1 tablet by mouth Daily. For 1 month 30 tablet 0 ??? Cholecalciferol (VITAMIN D3) 2000 UNITS tablet Take 1 tablet by mouth Daily. ??? docusate sodium 100 MG capsule Take 100 mg by mouth 2 (Two) Times a Day As Needed for Constipation. 60 capsule 0 ??? ESTRADIOL TD Place on the skin Take As Directed. ??? ibuprofen (ADVIL,MOTRIN) 600 MG tablet Take 1,200 mg by mouth Take As Directed. ??? Krill Oil 1000 MG capsule Take 2 tablets by mouth Daily. ? ? lidocaine (LIDODERM) 5 % Place 1 patch on the skin Daily. Remove & Discard patch within 12 hours or as directed by MD ??? magnesium oxide (MAGOX) 400 (241.3 MG) MG tablet tablet Take 400 mg by mouth Daily. ??? metoprolol tartrate (LOPRESSOR) 25 MG tablet Take 25 mg by mouth every night at bedtime. ??? Multiple Vitamins-Minerals (MULTIVITAMIN ADULTS 50+) tablet Take 1 tablet by mouth Daily. ??? Catarina-3 Fatty Acids (FISH OIL) 1000 MG capsule capsule Take by mouth Daily With Breakfast. ??? ropivacaine (NAROPIN) 0.2 % 24 mg/hr by Peripheral Nerve route Continuous. ??? traMADol (ULTRAM) 50 MG tablet Take 50 mg by mouth Take As Directed. ??? HYDROcodone-acetaminophen (NORCO) 5-325 MG per tablet Take 1 tablet by mouth Every 8 (Eight) Hours As Needed for Moderate Pain . 30 tablet 0 No current facility-administered medications on file prior to visit. No Known Allergies Review of Systems Objective Physical Exam BP 158/76 Pulse 97 Ht 67 (170.2 cm) Wt 141 lb 9.6 oz (64.2 kg) BMI 22.18 kg/m2 Body mass index is 22.18 kg/(m^2). General: Mental Status: Alert Appearance: Cooperative, in no acute distress Build and Nutrition: Well-nourished and well developed female Orientation: Alert and oriented to person, place and time Posture: Normal Gait: Normal Integument: Right knee: Wound is well-healed with no signs of infection Lower Extremities: Right Knee: Tenderness: None Effusion: None Swelling: None Crepitus: None Range of motion: Extension: 0?? Flexion: 125?? Instability: No varus laxity, no valgus laxity, negative anterior drawer Deformities: None Assessment and Plan Marialuisa was seen today for follow-up. Diagnoses and all orders for this visit: Status post total right knee replacement Orthopedic aftercare She follows up today status post right total knee arthroplasty. She is doing well today. I will seeher back in 4 months with an x-ray, but sooner for any problems. Return in about 4 months (around 07/29/2017) for Recheck with X-Rays. Mj Menon MD 03/28/17 2:11 PM documented in this encounter Plan of Treatment Not on file documented as of this encounter Visit Diagnoses Diagnosis Status post total right knee replacement- Primary Orthopedic aftercare Unspecified orthopedic aftercare documented in this encounter Care Teams Plastics Seasoner Operator Relationship Specialty Start Date End Date Meredith Conti PA PCP - General Physician Electronics Utility Worker 02/11/17 documented as of this encounter
--- OUTSIDE RECORDS SUMMARY | 2024-04-25 14:42 | XMS_ITS | Encounter Summary ---
Author Organization [facility] Address [address] [place] [id number] Care Team Providers Care Operating Room Coordinator Name Role Phone Meredith Conti Primary Care Provider [phone] Reason for Visit * Reason Comments Follow-up Right Total Knee Art hroplasty month f/u Encounter Details Date Type Department Care Team (Late st Contact Info) Description 02/06/2018 2:40 PM EDT Office Visit [facility] [address] [place] [address] Mj Menon MD [address] [facility] [address] [place] [address] Status post total right knee replacement (Primary Dx); Postoperative examination Social [...] Taken Comments Blood Pressure - - Pulse 83 02/06/2018 2:33 PM EDT Temperature - - Respiratory Rate - - Oxygen Saturation 98% 02/06/2018 2:33 PM EDT Inhaled Oxygen Concentration - - Weight 64.5 kg (142 lb 3.2 oz) 02/06/2018 2:33 P M EDT Height 170.2 cm (5' 7.01 ) 02/06/2018 2:33 PM ED T Body Mass Index 22.27 02/06/2018 2:33 PM EDT documented in this encounter Progress Notes * Mj Menon MD - 02/06/2018 2:40 PM EDT Images from the original note were not included. [facility] [place]opa[facility] Surgery Clinic Note Subjective Chief Complaint Patient presents with ??? Right Knee - Follow-up Right Total Knee Arthroplasty 01/18/17 6 month f/u HPI Marialuisa Guajardo is a 62 y.o. female. She follows up today for her right total knee replacement. She isdoing well today, no pain. 100% improvement compared to her preoperative symptoms. Fully ambulatorywithout external aids. Patient Active Problem List Diagnosis ??? Arthritis of knee, right ??? Status post total right knee replacement ??? HTN (hypertension) ??? Acute blood loss anemia, mild, asymptomatic ??? Leukocytosis, mild, likely reactive ??? Hypokalemia, replaced Past Medical History: Diagnosis Date ??? Anemia ??? Arthritis ??? Cancer (CMS/HCC) ??? High cholesterol ??? Irregular heartbeat controlled by metoprolol ??? PONV (postoperative nausea and vomiting) ??? Primary osteoarthritis of both knees ??? Wears contact lenses Past Surgical History: Procedure Laterality Date ??? CARDIAC CATHETERIZATION ??? HYSTERECTOMY ??? KNEE SURGERY ??? NE TOTAL KNEE ARTHROPLASTY Right 01/18/2017 Procedure: RIGHT TOTAL KNEE ARTHROPLASTY; Surgeon: Mj Menon MD; Location: [facility]; Service: Orthopedics Family History Problem Relation Age [...] ??? Not on file Social History Narrative ??? No narrative on file Current Outpatient Prescriptions on File Prior to [...] on the skin Take As Directed. ??? HYDROcodone-acetaminophen (NORCO) 5-325 MG per tablet Take 1 tablet by mouth Every 8 (Eight) Hours As Needed for Moderate Pain . 30 tablet 0 ??? ibuprofen (ADVIL,MOTRIN) 600 MG tablet Take [...] Take 1 tablet by mouth Daily. ??? Ball-3 Fatty Acids (FISH OIL) 1000 MG capsule capsule Take by mouth Daily With Breakfast. ??? ropivacaine (NAROPIN) 0.2 % 24 mg/hr by Peripheral Nerve route Continuous. ??? traMADol (ULTRAM) 50 MG tablet Take 50 mg by mouth Take As Directed. ??? valACYclovir (VALTREX) 1000 MG tablet No current facility-administered medications on file prior to visit. No Known Allergies Review of Systems Constitutional: Negative for activity change, appetite change, chills, diaphoresis, fatigue, fever and unexpected weight change. HENT: Negative for congestion, dental problem, drooling, ear discharge, ear pain, facial swelling, hearing loss, mouth sores, nosebleeds, postnasal drip, rhinorrhea, sinus pressure, sneezing, sore throat, tinnitus, trouble swallowing and voice change. Eyes: Negative for photophobia, pain, discharge, redness, itching and visual disturbance. Respiratory: Negative for apnea, cough, choking, chest tightness, shortness of breath, wheezing andstridor. Cardiovascular: Negative for chest pain, palpitations and leg swelling. Gastrointestinal: Negative for abdominal distention, abdominal pain, anal bleeding, blood in stool,constipation, diarrhea, nausea, rectal pain and vomiting. Endocrine: Negative for cold intolerance, heat intolerance, polydipsia, polyphagia and polyuria. Genitourinary: Negative for decreased urine volume, difficulty urinating, dysuria, enuresis, flank pain, frequency, genital sores, hematuria and urgency. Musculoskeletal: Positive for joint swelling. Negative for arthralgias, back pain, gait problem, myalgias, neck pain and neck stiffness. Skin: Negative for color change, pallor, rash and wound. Allergic/Immunologic: Negative for environmental allergies, food allergies and immunocompromised state. Neurological: Negative for dizziness, tremors, seizures, syncope, facial asymmetry, speech difficulty, weakness, light-headedness, numbness and headaches. Hematological: Negative for adenopathy. Does not bruise/bleed easily. Psychiatric/Behavioral: Negative for agitation, behavioral problems, confusion, decreased concentration, dysphoric mood, hallucinations, self-injury, sleep disturbance and suicidal ideas. The patientis not nervous/anxious and is not hyperactive. Objective Physical Exam Pulse 83 Ht 170.2 cm (67.01 ) Wt 64.5 kg (142 lb 3.2 oz) SpO2 98% BMI 22.27 kg/m?? Body mass index is 22.27 kg/m??. General: Mental Status: Alert Appearance: Cooperative, [...] anterior drawer Deformities: None Imaging/Studies Imaging Results (last 24 hours) No results found for the last 24 hours. Assessment and Plan Marialuisa was seen today for follow-up. Diagnoses and all orders for this visit: Status post total right knee replacement - XR Knee 3+ View With [place] Right Postoperative examination I reviewed my findings with patient today. Her right total knee arthroplasty is functioning well, and I will see her back in 4 years with an x-ray. I will see her back sooner for any problems. Return in about 4 years (around 02/06/2022) for Recheck with X-Rays. Medical Decision Making Data/Risk: radiology tests and independent visualization of imaging, lab tests, or EMG/NCV Mj Menon MD 02/09/18 9:26 AM documented in this encounter Plan of Treatment Not on file documented as of this encounter Procedures Procedure Name Priority Date/Time Associated Diagnosis Comments XR KNEE 3+ VW W SUNRISE RIGHT Routine 02/06/2018 2:35 PM EDT Status post total right knee replacement documented in this encounter Results * XR Knee 3+ View With [place] Right (02/06/2018 2:35 PM EDT) Anatomical Region Laterality Modality Lower Extremities, Knee Right Xray Narrative 02/06/2018 2:54 PM EDT Right Knee Radiographs Indication: status-post right total knee arthroplasty Views: AP, lateral, and sunrise views of the right knee Comparison: no change compared to prior study, 08/08/2017 Findings: The components are well aligned, with no signs of loosening or failure. Mj Menon MD IMG DIAGNOSTIC IMAGING ORDERAB LES Final Result documented in this encounter Visit Diagnoses Diagnosis Status post total right knee replacement- Primary Postoperative examination Follow-up examination, following unspecified surgery documented in this encounter Care Teams Operating Room Coordinator Relationship Specialty Start Date End Date Meredith Conti PA PCP - General Physician Corner Cutter 02/11/17 documented as of this encounter
--- OUTSIDE RECORDS SUMMARY | 2024-04-25 14:42 | XMS_ITS ---
Author Organization [facility] Address [address] [place] [phone] Phone Care Team Providers Care Cryptozoologist Name Role Phone Deedee FATIMA, Vikram Unavailable [phone] Meredith Conti PA-C Unavailable [phone] Problems Includes: Active, inactive, and resolved Problems All Visits Onset Date Resolved Date Provider Condition S tatus Joint Pain Fingers 12/26/2023 Vikram Mark MD Active Last Documented On 11:24AM ; [facility], [facility] Plan of Treatment No Plan of Treatment Recorded Assessments Includes: Assessments for all patient encounters No Assessments Recorded Medical Equipment - Implanted Devices Includes: Current and historical Devices No Medical Equipment Recorded Medications Includes: Current and historical Medications Current Medications (continue as prescribed) Meloxicam 7.5 MG Oral Tablet 12/22/2023 Provider: Diagnosis: Last Documented On 4 11:26AM By Evelyn Martinez ; [facility], [facility] Meloxicam 7.5 MG Oral Tablet 09/21/2023 Provider: Diagnosis: Last Documented On 4 11:26AM By Evelyn Martinez ; [facility], [facility] Metoprolol Succinate ER 50 M G Oral Tablet, extended-release 24 hour 09/21/2023 Provider: Diagnosis: Last Documented On 4 11:26AM By Evelyn Soto [facility], [facility] Butalbital-Acetaminophen 50-325 MG Oral Tablet 024 Provider: Diagnosis: Last Documented On 4 11:26AM By Evelyn Martinez ; [facility], [facility] Medications Administered Includes: Administered Medications in patient's chart No Administered Medications Recorded Vital Signs Includes: Vital Signs from 04/25/2023 through 04/25/2024 Vital Name 12/26/2023 11:25A Height (in) 67 Weight (lb) 157 Body Mass Index 24.6 Body Surface Area 1.8 Note: cme Last Documented: On 12/26/2023 11:25A M ; [facility], [facility] Results Includes: Results from 04/25/2023 through 04/25/2024 No Results Recorded For Specified Dates History of Present Illness History of Present Illness not supported for this document type No History of Present Illness Recorded Social History Description Last Updated Alcohol use 12/26/2023 Last Documented On 4 12:05PM ; [facility], [facility] Caffeine use 12/26/2023 Last Documented On 4 12:05PM ; [facility], [facility] No recent change in diet 12/26/2023 Last Documented On 4 12:05PM ; [facility], [facility] Not a current smoker. 12/26/2023 Last Documented On 4 12:05PM ; [facility], [facility] Not exercising regularly 12/26/2023 Last Documented On 4 12:05PM ; [facility], [facility] Not using drugs 12/26/2023 Last Documented On 4 12:05PM ; [facility], [facility] Retired from work 12/26/2023 Last Documented On 4 12:05PM ; [facility], [facility] Smoking Status Unknown Procedures and Surgical History Includes: Procedures from 04/25/2023 through 04/25/2024 Procedures Code Diagnosis Performing Provider Service Location Service Date INJ TENDON SHEATH/LIGAMENT (RIGHT HAND, FOURTH DIGIT) 15169 Trigger finger, right ring finger Vikram Mark MD [facility] 12/26/2023 Last Documented On 4 12:49PM ; [facility], [facility] Injection, betamethasone acetate 6mg per cc and betamethason [id number] Trigger finger, right ring finger Vikram Mark MD [facility] 12/26/2023 Last Documented On 4 12:49PM ; [facility], [facility] Surgical History Last Updated History of hysterectomy 12/26/2023 Last Documented On 4 12:05PM ; [facility], [facility] History of total knee arthroplasty 12/25 Last Documented On 4 12:05PM ; [facility], [facility] Medical History Includes: Medical History in patient's chart Description Last Updated History of arthritis 12/26/2023 Last Documented On 4 12:05PM ; [facility], [facility] History of Irregular Heartbeat 4 Last Documented On 4 12:05PM ; [facility], [facility] Family History Includes: Family History in patient's chart Description Last Updated Diabetes mellitus 12/26/2023 Last Documented On 4 12:05PM ; [facility], [facility] Family history of heart disease 12/26/19 24 Last Documented On 4 12:05PM ; [facility], [facility] Family history of systemic hypertension 12/26/2023 Last Documented On 4 12:05PM ; [facility], [facility] Maternal history of systemic hypertensio n 12/26/2023 Last Documented On 4 12:05PM ; [facility], [facility] Paternal history of family history of he art disease 12/26/2023 Last Documented On 4 12:05PM ; [facility], [facility] Sororal history of diabetes mellitus Last Documented On 4 12:05PM ; [facility], [facility] Review of Systems Review of Systems not supported for this document type No Review of Systems Recorded Mental Status Description No anxiety Functional Status No Functional Status Recorded Physical Exam Physical Exam not supported for this document type No Physical Exam Recorded Allergies Includes: Active, inactive, and resolved Allergies No Known Allergies Encounters Includes: Encounters from 04/25/2023 through 04/25/2024 Encounter Provider Location Date Check-In Time Check-Out Time Diagnosis Physician Specified Vikram Mark MD [facility] 12/26/19 24 10:59AM 12:04PM Insurance Includes: Active Insurance Policies Plan Name Member ID Group # Subscriber Relationship Effect turner Dates 1 - [employer] [id number] Marialuisaromel Guajardo Self Clinical Notes Includes: Signed Clinical Notes starting from 05/27/2022 * Progress note Date Encounter Last Documented by 12/26/2023 Physician Specified Last beverly strange on 12/26/2023; 12:05 PM, Vikram Mark MD; [facility], [facility] Active Problems & Conditions - Joint Pain [...]
--- OUTSIDE RECORDS SUMMARY | 2024-04-25 14:42 | XMS_ITS | Encounter Summary ---
Author Organization [facility] Address [address] [place] [address] Care Team Providers Care Hall Worker Name Role Phone Meredith Conti Primary Care Provider [phone] Reason for Visit * Reason Comments Pain Encounter Details Date Type Department Care Team (Late st Contact Info) Description 04/09/2019 1:40 PM EDT Office Visit [facility]TH[facility] & SPORTS MEDICINE [address] [place] [address] Rosmery Laurent PA-C [address] [place] [address] Chronic pain of left knee (Primary Dx); Primary osteoarthritis of left knee; History of total right knee replacement Social History Tobacco Use Types Packs/Day Years [...] Taken Comments Blood Pressure - - Pulse 105 04/09/2019 1:41 PM EDT Temperature - - Respiratory Rate - - Oxygen Saturation 96% 04/09/2019 1:41 PM EDT Inhaled Oxygen Concentration - - Weight 72.2 kg (159 lb 2.8 oz) 04/09/2019 1:41 P M EDT Height 170.2 cm (5' 7.01 ) 04/09/2019 1:41 PM ED T Body Mass Index 24.92 04/09/2019 1:41 PM EDT documented in this encounter Progress Notes * Rosmery Laurent PA-C - 04/09/2019 1:40 PM EDT Images from the original note were not included. [facility] [place] Subjective CC: Pain of the Left Knee HPI Marialuisa Guajardo is a 63 y.o. female. Patient presents for evaluation of her left knee. She has had chronic left knee pain that has become exacerbated over the last 2 weeks. No history of injury or trauma. She was previously taking meloxicam but had to stop due to GI issues. Currently she endorses a pain scale of 7-8/10. The pain is localized predominantly to the medial joint line with burning down into the anterior medial lower leg. Severity the pain moderate. Quality the pain burning, throbbing. Symptoms are associated with popping, grinding, stiffness and giving away. Pain is worse with walking, standing, stairclimbing and it does affect her sleep. She is undergone Visco supplementation series which did provide some comfort but her insurance no longer covers it so she cannot afford it. Shedid have a corticosteroid injection by her PCP in September 2018 that worked up until recently. She denies any numbness or tingling into the extremity. Patient does have a history of right TKA January [address] Menon, which is doing quite well. She last saw Dr. Menon in January 2018 and was instructed to follow-up in 4 years with him. ROS: Constiutional:Pt denies fever, chills, nausea, or vomiting. MSK:as above Objective Past Medical History Past Medical History: Diagnosis Date ??? Anemia ??? Arthritis ??? Cancer (CMS/HCC) ??? High cholesterol ??? Irregular heartbeat controlled by metoprolol ??? PONV (postoperative nausea and vomiting) ??? Primary osteoarthritis of both knees ??? Wears contact lenses Physical Exam Pulse 105 Ht 170.2 cm (67.01 ) Wt 72.2 kg (159 lb 2.8 oz) LMP (LMP Unknown) SpO2 96% BMI 24.92 kg/m?? Body mass index is 24.92 kg/m??. Patient is well nourished and well developed. Ortho Exam Integument: Left knee: No skin lesions, no rash, no ecchymosis Neurologic: Sensation: Left foot: Intact to light touch on the dorsal and plantar aspect Motor: Left lower extremity: 5/5 quadriceps, hamstrings, ankle dorsiflexors, and ankle plantar flexors Vascular: Left lower extremity: 2+ dorsalis pedis pulse, prompt capillary refill Lower Extremities: Left Knee: Tenderness: Positive medial joint line along with mild discomfort noted jose alejandro-and retropatellar. Effusion: Trace Swelling: None Crepitus: Positive Atrophy: None Range of motion: Extension: 5?? Flexion: 120?? Instability: No varus laxity, no valgus laxity, negative anterior drawer Deformities: Genu varum Functional testing: Positive Tenisha???s pain but no catch or click noted. Patellar grind positive. Imaging/Labs/EMG Reviewed: Ordered left knee plain films. Imaging read by Dr. Menon. Imaging Results (last 24 hours) Procedure Component Value Units Date/Time XR Knee 4+ View Left [[id number]] Resulted: 04/09/191357 Updated: 04/09/191358 Narrative: Left Knee Radiographs Indication: left knee pain Views: Standing AP's and skiers of both knees, with lateral and sunrise views of the left knee Comparison: no prior studies available Findings: Brzr-fw-[id number] contact medial compartment, advanced patellofemoral arthritis, with varus alignment, and no acute bony abnormalities. Tricompartmental osteophytes. No unusual bony features. Impression: Left knee osteoarthritis. Assessment: 1. Chronic pain of left knee 2. Primary osteoarthritis of left knee 3. History of total right knee replacement Plan: 1. Chronic left knee pain due to osteoarthritis. 2. History of right TKA--stable and doing well. 3. Patient is interested in proceeding with L TKA but not at this time. She would like to consider it sometime after the new year. 4. Offered and accepted corticosteroid injection to the left knee. Injection given today. 5. Recommend [id number] pain medication as needed. 6. Follow-up in 3 months for repeat evaluation. Based on her response to the corticosteroid injection consider possible repeat injection or proceeding on with L TKA. 7. Questions and concerns answered. After discussing the risks, benefits, indications of injection, the patient gave consent to proceed. Her left knee was confirmed as the correct joint to be injected with a timeout. It was then prepped using Hibiclens and injected with a mixture of 4 cc of 1% plain lidocaine and 1 cc of Kenalog (40 mg per mL), without any resistance through the anterior lateral approach, patient in seated position. Area was cleaned, hemostasis was achieved and a Band-Aid was applied over the injection site. The patient tolerated procedure well. I instructed the patient on signs and symptoms of infection. They should report to the emergency department or return to clinic if any of these develop, for further evaluation and treatment. Recommended modifying activity for the next 48 hours to include rest, ice, elevation and oral pain medication as needed. Patient was observed ambulating normally after the injection. Rosmery Laurent PA-C 04/10/19 11:43 AM * Stephanie Roberts MA - 04/09/2019 1:40 PM EDTAssociated Order(s): Large Joint Arthrocentesis: L knee Post-Procedure Diagnose(s): Left knee pain, unspecified chronicity Procedure Large Joint Arthrocentesis: L knee Date/Time: 04/09/2019 2:18 PM Consent given by: patient Site marked: site marked Timeout: Immediately prior to procedure a time out was called to verify the correct patient, procedure, equipment, it application support analyst and site/side marked as required Supporting Documentation Indications: pain Procedure Details Location: knee - L knee Preparation: Patient was prepped and draped in the usual sterile fashion Needle size: 22 G Approach: anterolateral Medications administered: 4 mL lidocaine PF 1% 1 %; 40 mg triamcinolone acetonide 40 MG/ML Patient tolerance: patient tolerated the procedure well with no immediate complications documented in this encounter Plan of Treatment Not on file documented as of this encounter Procedures Procedure Name Priority Date/Time Associated Diagnosis Comments XR KNEE 4+ VW LEFT Routine 04/09/2019 1: 55 PM EDT Chronic pain of left knee ME ARTHROCENTESIS ASPIR&/INJ MAJOR JT/BURSA W/O US Routine 04/09/2019 1:40 PM EDT Chronic pain of left knee documented in this encounter Results * XR Knee 4+ View Left (04/09/2019 1:55 PM EDT) Anatomical Region Laterality Modality Lower Extremities, Knee Left Xray Narrative 04/09/2019 1:59 PM EDT Left Knee Radiographs Indication: left knee pain Views: Standing AP's and skiers of both knees, with lateral and sunrise views of the left knee Comparison: no prior studies available Findings: Jsgf-at-jmen contact medial compartment, advanced patellofemoral arthritis, with varus alignment, and no acute bony abnormalities. ?? Tricompartmental osteophytes. ??No unusual bony features. Impression: Left knee osteoarthritis. Mj Menon MD IMG DIAGNOSTIC IMAGING ORDERAB LES Final Result * ME ARTHROCENTESIS ASPIR&/INJ MAJOR JT/BURSA W/O US (04/09/2019 1:40 PM EDT) Narrative Rosmery Laurent PA-C - 04/09/2019 1:40 PM EDT Stephanie Roberts MA ? 04/10/2019 12:22 PM Large Joint Arthrocentesis: L knee Date/Time: 04/09/2019 2:18 PM Consent given by: patient Site marked: site marked Timeout: Immediately prior to procedure a time out was called to verify the correct patient, procedure, equipment, it application support analyst and site/side marked as required Supporting Documentation Indications: pain Procedure Details Location: knee - L knee Preparation: Patient was prepped and draped in the usual sterile fashion Needle size: 22 G Approach: anterolateral Medications administered: 4 mL lidocaine PF 1% 1 %; 40 mg triamcinolone acetonide 40 MG/ML Patient tolerance: patient tolerated the procedure well with no immediate complications Rosmery Laurent PA-C PROCEDURE/MINOR SURGI CINDI ORDERABLES Final Result documented in this encounter Visit Diagnoses Diagnosis Chronic pain of left knee- Primary Primary osteoarthritis of left knee History of total right knee replacement documented in this encounter Administered Medications Inactive Administered Medications - up to 3 most recent administrations Medication Order MAR Action Action Date Dose Rate Site lidocaine PF 1% (XYLOCAINE) injection 4 mL 4 mL, One-Time Injection, Starting on Tue04/09/19 at 1418, For 1 doseIndications:Chronic pain of left knee Given 04/09/2019 2:18 PM EDT 4 mL triamcinolone acetonide (KENALOG-40) injection 40 mg 40 mg, One-Time Injection, Starting on 04/09/19 at 1418, For 1 doseIndications:Chronic pain of left knee Given 04/09/2019 2:18 PM EDT 40 mg documented in this encounter Care Teams Hall Worker Relationship Specialty Start Date End Date Meredith Conti PA PCP - General Physician Access Manager 02/11/17 documented as of this encounter
--- OUTSIDE RECORDS SUMMARY | 2024-04-25 14:42 | XMS_ITS | Encounter Summary ---
Author Organization [facility] Address [address] [place] [id number] Care Team Providers Care Pipe Fitter Maintenance Name Role Phone Meredith Conti Primary Care Provider [phone] Reason for Visit * Reason Comments Follow-up 4 month follow up, 6 months status post: Right total knee arthroplasty 01/18/17 Encounter Details Date Type Department Care Team (Late st Contact Info) Description 08/08/2017 9:40 AM EST Office Visit [facility] ORTHOPEDICS & SPORTS MEDICINE [address] [place] [address] Mj Menon MD [address] [place] [address] Status post total right knee replacement (Primary Dx) Social History Tobacco [...] Sign Reading Time Taken Comments Blood Pressure 126/68 08/08/2017 9:31 AM EST Pulse 87 08/08/2017 9:31 AM EST Temperature - - Respiratory Rate - - Oxygen Saturation - - Inhaled Oxygen Concentration - - Weight 62.6 kg (138 lb 0.1 oz) 08/08/2017 9:31 A M EST Height 170.2 cm (5' 7.01 ) 08/08/2017 9:31 AM ES T Body Mass Index 21.61 08/08/2017 9:31 AM EST documented in this encounter Progress Notes * Mj Menon MD - 08/08/2017 9:40 AM EST Images from the original note were not included. [facility] [place] Subjective Chief Complaint Patient presents with ??? Right Knee - Follow-up 4 month follow up, 6 months status post: Right total knee arthroplasty 01/18/17 HPI Marialuisa Guajardo is a 61 y.o. female. She follows up today for her right total knee arthroplasty. She is doing well today. No complaints. 90% improvement compared to her preoperative symptoms. Ambulatorywithout external aids. Patient Active Problem List Diagnosis [...] CATHETERIZATION ??? HYSTERECTOMY ??? KNEE SURGERY ??? SD TOTAL KNEE ARTHROPLASTY Right 01/18/2017 Procedure: RIGHT TOTAL KNEE ARTHROPLASTY; Surgeon: Mj Menon MD; Location: [facility]; Service: Orthopedics Family History Problem Relation Age [...] Take 1 tablet by mouth Daily. ??? [place]-3 Fatty Acids (FISH OIL) 1000 MG capsule capsule Take by mouth Daily With Breakfast. ??? ropivacaine (NAROPIN) 0.2 % 24 mg/hr by Peripheral Nerve route Continuous. ??? traMADol (ULTRAM) 50 MG tablet Take 50 mg by mouth Take As Directed. No current facility-administered medications on file prior [...] sores, hematuria and urgency. Musculoskeletal: Positive for arthralgias. Negative for back pain, gait problem, joint swelling, myalgias, neck pain and neck stiffness. Skin: [...] and is not hyperactive. Objective Physical Exam BP 126/68 Pulse 87 Ht 170.2 cm (67.01 ) Wt 62.6 kg (138 lb 0.1 oz) BMI 21.61 kg/m2 Body mass index is 21.61 kg/(m^2). General: Mental Status: Alert Appearance: Cooperative, in no acute distress Build and Nutrition: Well-nourished and well developed female Orientation: Alert and oriented to person, place and time Posture: Normal Gait: Normal Integument: Right knee: Wound is well-healed with no signs of infection Lower Extremities: Right Knee: Tenderness: None Effusion: None Swelling: None Crepitus: None Range of motion: Extension: 0?? Flexion: 130?? Instability: No varus laxity, no valgus laxity, negative anterior drawer Deformities: None Imaging/Studies Imaging Results (last 24 hours) Procedure Component Value Units Date/Time XR Knee 3+ View With [place] Right [[id number]] Resulted: 08/08/17951 Updated: 08/08/17951 Narrative: Right Knee Radiographs Indication: status-post right total knee arthroplasty Views: AP, lateral, and sunrise views of the right knee Comparison: no change compared to prior study Findings: The components are well aligned, with no signs of loosening or failure. Assessment and Plan Marialuisa was seen today for follow-up. Diagnoses and all orders for this visit: Status post total right knee replacement - XR Knee 3+ View With [place] Right I reviewed my findings with patient today. Her right total knee arthroplasty is functioning well. Iwill see her back in 6 months, which will be a one-year checkup. I will see her back sooner for anyproblems. She is pleased with results. Return in about 6 months (around 02/05/2018) for Recheck with X-Rays. Medical Decision Making Data/Risk: radiology tests and independent visualization of imaging, lab tests, or EMG/NCV Mj Menon MD 08/08/17 9:55 AM documented in this encounter Plan of Treatment Not on file documented as of this encounter Procedures Procedure Name Priority Date/Time Associated Diagnosis Comments XR KNEE 3+ VW W SUNRISE RIGHT Routine 08/08/2017 9:50 AM EST Status post total right knee replacement documented in this encounter Results * XR Knee 3+ View With [place] Right (08/08/2017 9:50 AM EST) Anatomical Region Laterality Modality Lower Extremities, Knee Right Xray Narrative 08/08/2017 9:52 AM EST Right Knee Radiographs Indication: status-post right total knee arthroplasty Views: AP, lateral, and sunrise views of the right knee Comparison: no change compared to prior study Findings: The components are well aligned, with no signs of loosening or failure. us Mj Menon MD IMG DIAGNOSTIC IMAGING ORDERAB LES Final Result documented in this encounter Visit Diagnoses Diagnosis Status post total right knee replacement- Primary documented in this encounter Care Teams Pipe Fitter Maintenance Relationship Specialty Start Date End Date Meredith Conti PA PCP - General Physician Varnish Filterer 02/11/17 documented as of this encounter
--- OUTSIDE RECORDS SUMMARY | 2024-04-25 14:42 | XMS_ITS | Encounter Summary ---
Author Organization [facility] Address [address] [place] [address] Care Team Providers Care Surface Room Shop Optician Name Role Phone Meredith Conti Primary Care Provider [phone] Encounter Details Date Type Department Care Team (Late st Contact Info) Description 07/10/2019 Telephone [facility] ORTHOPEDICS & SPORTS MEDICINE [address] [place] [address] Mj Menon MD [address] [place] [address] Social History Tobacco Use Types Packs/Day Years [...] encounter Miscellaneous Notes * Telephone Encounter - Yajaira Lenz - 07/10/2019 4:32 PM EST ----- Message from Mj Menon MD sent at 07/10/2019 4:24 PM EST ----- I saw that - thanks. ----- Message ----- From: Yajaira Lenz Sent: 07/10/2019 3:58 PM EST To: Mj Menon MD PATIENT HAD HER SED RATE REPEATED AND WAS NORMAL. ----- Message ----- From: Mj Menon MD Sent: 07/03/2019 3:56 PM EST To: Yajaira Marks Delfin Has she been sick recently? We need to recheck the ESR before surgery. ----- Message ----- From: Yajaira Lenz Sent: 06/29/2019 10:40 AM EST To: Mj Menon MD PATIENT`S SED RATE WAS GREATER THAN 130 WBC 11 DOS 07/12/19 documented in this encounter Plan of Treatment Not on file documented as of this encounter Visit Diagnoses Not on filedocumented in this encounter Care Teams Surface Room Shop Optician Relationship Specialty Start Date End Date Meredith Conti PA PCP - General Physician Laborer Chemical Processing 02/11/17 documented as of this encounter
--- OUTSIDE RECORDS SUMMARY | 2024-04-25 14:42 | XMS_ITS | Encounter Summary ---
Author Organization [facility] Address [address] [place] [address] Care Team Providers Care Agency Development Manager Name Role Phone Meredith Conti Primary Care Provider [phone] Reason for Visit * Reason Comments Post Op 3 weeks s/p RIGHT TO CATHERINE KNEE ARTHROPLASTY 01/18/2017 Encounter Details Date Type Department Care Team (Late st Contact Info) Description 02/11/2017 9:20 AM EDT Office Visit [facility] ORTHOPEDICS & SPORTS MEDICINE [address] [place] [address] Mj Menon MD [address] [place] [address] H/O total knee replacement, right (Primary Dx); Orthopedic aftercare; Status post total replacement of right hip Social History Tobacco Use Types Packs/Day Years [...] as of this encounter Progress Notes * Mj Menon MD - 02/11/2017 9:20 AM EDT Images from the original note were not included. [facility] [place] Subjective Chief Complaint Patient presents with ??? Post Op 3 weeks s/p RIGHT TOTAL KNEE ARTHROPLASTY 01/18/2017 HPI Marialuisa Guajardo is a 61 y.o. female who presents 3 weeks status post right total knee arthroplasty. She is doing well today, and her range of motion and ambulation are improving postoperatively. Patient Active Problem List Diagnosis ??? Arthritis [...] Date ??? CARDIAC CATHETERIZATION ??? HYSTERECTOMY ??? ME TOTAL KNEE ARTHROPLASTY Right 01/18/2017 Procedure: RIGHT TOTAL KNEE ARTHROPLASTY; Surgeon: Mj Menon MD; Location: [facility]; Service: Orthopedics Family History Problem Relation [...] Take 1 tablet by mouth Daily. ??? [place]-3 Fatty Acids (FISH OIL) 1000 MG capsule [...] frequency, genital sores, hematuria and urgency. Musculoskeletal: Negative for arthralgias, back pain, gait problem, joint swelling, myalgias, [...] and is not hyperactive. Objective Physical Exam There were no vitals taken for this visit. There is no height or weight on file to calculate BMI. General: Mental Status: Alert Appearance: Cooperative, in no acute distress Build and Nutrition: Well-nourished and well developed Orientation: Alert and oriented to person, place and time Posture: Normal Gait: Mildly antalgic on the right Integument: Right knee: Wound is healing well with no signs of infection Lower Extremities: Right Knee: Tenderness: Mild medial and lateral joint line tenderness Effusion: none Swelling: none Crepitus: none Range of motion: 0-125 degrees Instability: no varus laxity, no valgus laxity, negative anterior drawer Deformities: none Assessment and Plan Marialuisa was seen today for post op. Diagnoses and all orders for this visit: H/O total knee replacement, right - XR Knee 3+ View With [place] Right Orthopedic aftercare Other orders - HYDROcodone-acetaminophen (NORCO) 5-325 MG per tablet; Take 1 tablet by mouth Every 8 (Eight) Hours As Needed for Moderate Pain . Patient is doing well following her right total knee arthroplasty. She continues to make improvements with therapy, and I will see her back in 6 weeks, but sooner for any problems. No x-rays are required on the next visit. Mj Menon MD 02/11/17 4:30 PM documented in this encounter Plan of Treatment Not on file documented as of this encounter Procedures Procedure Name Priority Date/Time Associated Diagnosis Comments XR KNEE 3+ VW W SUNRISE RIGHT Routine 02/11/2017 9:31 AM EDT H/O total knee replacement, right documented in this encounter Results * XR Knee 3+ View With [place] Right (02/11/2017 9:31 AM EDT) Anatomical Region Laterality Modality Lower Extremities, Knee Right Xray Narrative 02/11/2017 4:20 PM EDT Knee X-Ray Indication: Status-post total knee arthroplasty. Views: AP, lateral, and sunrise views of the right knee. Comparison: No change compared to prior study. Findings: Components are well aligned, with no signs of loosening or failure. Mj Menon MD IMG DIAGNOSTIC IMAGING ORDERAB LES Final Result documented in this encounter Visit Diagnoses Diagnosis H/O total knee replacement, right- Primary Orthopedic aftercare Unspecified orthopedic aftercare Status post total replacement of right hip documented in this encounter Care Teams Agency Development Manager Relationship Specialty Start Date End Date Meredith Conti PA PCP - General Physician Bobbin Cleaner Hand 02/11/17 documented as of this encounter
--- OUTSIDE RECORDS SUMMARY | 2024-04-25 14:42 | XMS_ITS | Encounter Summary ---
Author Organization [facility] Address [address] [place] [address] Care Team Providers Care Digital Press Operator Name Role Phone Meredith Conti Primary Care Provider [phone] Reason for Visit * Reason Comments Sinus Problem Cough Encounter Details Date Type Department Care Team (Late st Contact Info) Description 03/04/2019 11:15 AM EDT Office Visit [address] [place] [address] Acute recurrent maxillary sinusitis (Primary Dx); Coughing Social History Tobacco Use Types Packs/Day Years [...] Sign Reading Time Taken Comments Blood Pressure 136/78 03/04/2019 11:10 AM EDT Pulse 86 03/04/2019 11:10 AM EDT Temperature 36.4 ??C (97.6 ??F) 03/04/2019 11:10 AM E DT Respiratory Rate 12 03/04/2019 11:10 AM EDT Oxygen Saturation 98% 03/04/2019 11:10 AM EDT Inhaled Oxygen Concentration - - Weight 71.4 kg (157 lb 6.4 oz) 03/04/2019 11:10 AM EDT Height 170.2 cm (5' 7 ) 03/04/2019 11:10 AM EDT Body Mass Index 24.65 03/04/2019 11:10 AM EDT documented in this encounter Progress Notes * Quentin Mcclellan V, PUBLIC RELATIONS COORDINATOR - 03/04/2019 11:15 AM EDT Subjective Marialuisa Guajardo is a 63 y.o. female. Sinus Problem This is a recurrent problem. Episode onset: 2 weeks. The problem has been gradually worsening sinceonset. There has been no fever. The pain is severe. Associated symptoms include congestion, coughing, headaches, a hoarse voice, sinus pressure and sneezing. Pertinent negatives include no chills, ear pain, neck pain, shortness of breath, sore throat or swollen glands. Treatments tried: otc cough and cold medication. The treatment provided no relief. Cough This is a new problem. The current episode started in the past 7 days. The problem has been gradually worsening. The problem occurs every few minutes. The cough is non-productive. Associated symptomsinclude ear congestion, headaches, nasal congestion, postnasal drip and rhinorrhea. Pertinent negatives include no chest pain, chills, ear pain, fever, myalgias, rash, sore throat, shortness of breath, sweats, weight loss or wheezing. She has tried OTC cough suppressant for the symptoms. The treatment provided no relief. There is no history of asthma, bronchitis or pneumonia. The following portions of the patient's history were reviewed and updated as appropriate: allergies, current medications, past medical history, past social history, past surgical history and problem list. Review of Systems Constitutional: Negative for appetite change, chills, fever and weight loss. HENT: Positive for congestion, hoarse voice, postnasal drip, rhinorrhea, sinus pressure, sinus painand sneezing. Negative for ear pain, sore throat and trouble swallowing. Eyes: Negative. Respiratory: Positive for cough and chest tightness. Negative for shortness of breath and wheezing. Cardiovascular: Negative. Negative for chest pain. Gastrointestinal: Negative for abdominal pain, diarrhea, nausea and vomiting. Musculoskeletal: Negative. Negative for myalgias and neck pain. Skin: Negative. Negative for rash. Neurological: Positive for headaches. Negative for dizziness. Hematological: Negative for adenopathy. BP 136/78 Pulse 86 Temp 97.6 ??F (36.4 ??C) Resp 12 Ht 170.2 cm (67 ) Wt 71.4 kg (157 lb 6.4 oz) LMP (LMP Unknown) SpO2 98% BMI 24.65 kg/m?? Objective Physical Exam Constitutional: She is oriented to person, place, and time. Vital signs are normal. She appears well-developed and well-nourished. No distress. HENT: Head: Normocephalic. Right Ear: External ear and ear canal normal. No drainage, swelling or tenderness. Tympanic membrane is bulging. Tympanic membrane is not erythematous. Left Ear: External ear and ear canal normal. No drainage, swelling or tenderness. Tympanic membraneis bulging. Tympanic membrane is not erythematous. Nose: Mucosal edema and rhinorrhea (greenish, thick) present. Right sinus exhibits maxillary sinus tenderness (severe). Right sinus exhibits no frontal sinus tenderness. Left sinus exhibits maxillarysinus tenderness (severe). Left sinus exhibits no frontal sinus tenderness. Mouth/Throat: Uvula is midline, oropharynx is clear and moist and mucous membranes are normal. Tonsils are 0 on the right. Tonsils are 0 on the left. No tonsillar exudate. Eyes: Conjunctivae are normal. Pupils are equal, round, and reactive to light. Neck: Normal range of motion. Neck supple. Cardiovascular: Normal rate, regular rhythm, S1 normal, S2 normal and normal heart sounds. Pulmonary/Chest: Effort normal and breath sounds normal. No stridor. No respiratory distress. She has no decreased breath sounds. She has no wheezes. She has no rhonchi. She has no rales. Abdominal: Soft. Bowel sounds are normal. She exhibits no distension. There is no tenderness. Thereis no rebound and no guarding. Lymphadenopathy: Head (right side): No tonsillar adenopathy present. Head (left side): No tonsillar adenopathy present. She has no cervical adenopathy. Neurological: She is alert and oriented to person, place, and time. Skin: Skin is warm, dry and intact. No rash noted. She is not diaphoretic. Psychiatric: She has a normal mood and affect. Her speech is normal and behavior is normal. Thoughtcontent normal. Vitals reviewed. Assessment/Plan Marialuisa was seen today for sinus problem and cough. Diagnoses and all orders for this visit: Acute recurrent maxillary sinusitis - amoxicillin-clavulanate (AUGMENTIN) 875-125 MG per tablet; Take 1 tablet by mouth 2 (Two) Times aDay. - pseudoephedrine (SUDAFED) 120 MG 12 hr tablet; Take 1 tablet by mouth Every 12 (Twelve) Hours for10 days. - predniSONE (DELTASONE) 10 MG (21) tablet pack; Take by mouth Daily for 6 days. Use as directed onpackage Coughing - predniSONE (DELTASONE) 10 MG (21) tablet pack; Take by mouth Daily for 6 days. Use as directed onpackage - promethazine-dextromethorphan (PROMETHAZINE-DM) 6.25-15 MG/5ML syrup; Take 5 mL by mouth 4 (Four)Times a Day As Needed for Cough for up to 10 days. documented in this encounter Plan of Treatment Not on file documented as of this encounter Visit Diagnoses Diagnosis Acute recurrent maxillary sinusitis- Primary Coughing Cough documented in this encounter Care Teams Digital Press Operator Relationship Specialty Start Date End Date Meredith Conti PA PCP - General Physician Corset Maker 02/11/17 documented as of this encounter
--- OUTSIDE RECORDS SUMMARY | 2024-04-25 14:42 | XMS_ITS | Encounter Summary ---
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 Name Role Phone Provider, No Known Primary Care Provider Unavail able Reason for Visit * Auth/Cert Specialty Diagnoses / Procedures Referred By Sumit caldwell Referred To Contact Diagnoses TOTAL KNEE ARTHROPLASTY RIGHT Procedures LA TOTAL KNEE ARTHROPLASTY TOTAL KNEE ARTHROPLASTY RIGHT Referral ID Status Reason Start Date Expiration Date Visits Re quested Visits Authorized [id number] 1 1 Encounter Details Date Type Department Care Team (Late st Contact Info) Description 01/18/2017 7:28 AM EDT - 01/20/2017 12:07 PM EDT Hospital Encounter [facility] [address] [place] [address] Mj Menon MD [address] [place] [address] Impaired functional mobility, balance, gait, and endurance (Primary Dx); Impaired mobility and ADLs Discharge Disposition: Home [...] Sign Reading Time Taken Comments Blood Pressure 135/71 01/20/2017 7:13 AM EDT Pulse 94 01/20/2017 7:13 AM EDT Temperature 37.4 ??C (99.4 ??F) 01/20/2017 7:13 AM ED T Respiratory Rate 16 01/20/2017 7:13 AM EDT Oxygen Saturation 99% 01/20/2017 7:13 AM EDT Inhaled Oxygen Concentration - - Weight 66.7 kg (147 lb) 01/18/2017 8:15 AM EDT Height 170.2 cm (5' 7 ) 01/18/2017 8:15 AM EDT Body Mass Index 23.02 01/18/2017 8:15 AM EDT documented in this encounter Discharge Summaries * Qing Castellanos, PT - 01/20/2017 12:07 PM EDT Acute Care - Physical Therapy Discharge Summary [place] Patient Name: Marialuisa Hampton : 1955 Today's [...] Initials Name Provider Type Maddie Nicole PTA Manager Process Improvement IP PT Goals 01/20/17 0842 01/19/17 1739 01/19/17 1419 Bed Mobility PT LTG Bed Mobility PT LTG, Date Established 01/19/17 -EH Bed Mobility PT LTG, Time to Achieve 2 wks -EH Bed Mobility PT LTG, Activity Type all bed mobility -EH Bed Mobility PT LTG, [place] Level conditional independence -EH Bed Mobility PT LTG, Date Goal Reviewed 01/20/17 - Bed Mobility PT LTG, Outcome goal ongoing - goal ongoing -EH Transfer Training PT LTG Transfer Training PT LTG, Date Established 01/19/17 -EH Transfer Training PT LTG, Time to Achieve 2 wks -EH Transfer Training PT LTG, Activity Type all transfers -EH Transfer Training PT LTG, [place] Level conditional independence -EH Transfer Training PT LTG, Assist Device walker, rolling -EH Transfer Training PT LTG, Date Goal Reviewed 01/20/17 - Transfer Training PT LTG, Outcome goal ongoing - goal ongoing -EH Gait Training PT LTG Gait Training Goal PT LTG, Date Established 01/19/17 -EH Gait Training Goal PT LTG, Time to Achieve 2 wks -EH Gait Training Goal PT LTG, [place] Level conditional independence -EH Gait Training Goal PT LTG, Assist Device walker, rolling -EH Gait Training Goal PT LTG, Date Goal Reviewed 01/20/17 - Gait Training Goal PT LTG, Outcome goal ongoing - goal ongoing -EH User Sage (r) = Recorded By, (t) = Taken By, (c) = Cosigned By Initials Name Provider Type Crys Pinedo, PT Physical Therapist Maddie Nicole, SHIP SUPERINTENDENT Manager Process Improvement Goals Status: Treatment plan discontinued secondary to discharge from acute facility. PT Discharge Summary Reason for Discharge: Discharge from facility Outcomes Achieved: Refer to plan of care for updates on goals achieved Discharge Destination: Home Qing Castellanos, PT 01/22/2017 * Raymond Willard MD - [...] couple years. 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 She denies use of assistive device [...] 01/18/17 ? SURGEON: Mj Menon MD ?? MIS SPECIALIST: Crys Chavarria PA-C ?? PREOPERATIVE DIAGNOSIS: right knee arthritis ?? POSTOPERATIVE DIAGNOSIS: right knee arthritis ?? PROCEDURES PERFORMED: right total knee arthroplasty with [employer] components (# 4 narrow posterior stabilized femur, [...] Discharge Medications Marialuisa Hampton Home Medication Instructions JULIOCESAR:[id number] Printed on:01/20/17 4706 Medication Information aspirin EC 325 MG EC [...] Everywhere. * ACETAMINOPHEN; HYDROCODONE TABLETS OR CAPSULES (CAPE VERDEAN) * TOTAL KNEE REPLACEMENT, CARE AFTER (CAP[place] VERDEAN) * PERIPHERAL NERVE BLOCK (CAP[place]DE[place]) * HOW TO USE COMPRESSION STOCKINGS (CAP[place]DEAN) * INCENTIVE SPIROMETER (CAP[place] VERDEAN) * DOCUSATE CAPSULES (CAPE VERDEAN) * ASPIRIN, ASA ORAL TABLETS (CAPE VERDEAN) documented in this encounter Medications at Time [...] Choudhary CRNA - 01/20/2017 12:07 PM EDT [facility] Nerve Cath Post Op Call Patient Name: Marialuisa Hampton : 1955 Date of Discharge: 01/20/2017 Nerve Cath Post Op Call: Catheter Plan:Patient called/No answer/Message left to call [facility] pain service for any questions or complaints * Aleja Choudhary CRNA - 01/20/2017 12:07 PM EDT [facility] Nerve Cath Post Op Call Patient Name: Marialuisa Hampton : 1955 Date of Discharge: 01/20/2017 Nerve Cath Post Op Call: Catheter Plan:Patient called/No answer/Message left to call A pain service for any questions or complaints * Aleja Choudhary CRNA - 01/20/2017 12:07 PM EDT [facility] Nerve Cath Post Op Call Patient Name: Marialuisa Hampton : 1955 Date of Discharge: 01/20/2017 Nerve Cath Post Op Call: Catheter Plan:Patient called/No answer/Message left to call A pain service for any questions or complaints [...] Steiner CRNA - 01/20/2017 7:55 AM EDT [facility] Acute pain service Inpatient Progress Note Patient Name: Marialuisa Hampton : 1955 [facility] Pain Service Inpatient Progress Note: Analgesia:Good Pain Score:4/10 LOC: alert and awake Side Effects:None Catheter Site:clean and dry Cath type: peripheral nerve cath(MOOG pump) Infusion rate: 12ml/hr Catheter Plan:Catheter to remain Insitu, Continue catheter infusion rate unchanged and Patient to be discharged home Comments: Needs On Q teaching. * Yumiko Hoffmann CRNA - 01/19/2017 2:05 PM EDT [facility] Acute pain service Inpatient Progress Note Patient [...] reducing pain score in 2 hours * Raymond Willard MD - 01/19/2017 12:25 PM EDT IM progress note Marialuisa Hampton [id number] 1955 LOS: 1 day Attending: Mj Menon [...] 01/19/2017 11:05 AM EDT Discharge Planning Assessment [place] Patient Name: Marialuisa Hampton Today's Date: 01/19/2017 Admit Date: 01/18/2017 Discharge Needs Assessment 08/09/17 1101 Living Environment Lives With alone Transportation [...] pt at bedside. She resides alone in [facility] she was relatively independent with ADLs (was using a cane or RW with ambulation). No current HH. Confirmed she has [employer] insurance with Rx coverage. 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 Menno under spinal anesthesia. She tolerated surgery well and is admitted for further medical management. Her knee pain has progressively worsened over the last couple years. Conservative treatments failed to provide care home relief. She denies use of assistive device [...] Take 400 mg by mouth Daily. 01/17/2017 [id number] ??? metoprolol tartrate (LOPRESSOR) 25 MG tablet [...] Take 400 mg by mouth Daily. 01/17/2017 [id number] ??? metoprolol tartrate (LOPRESSOR) 25 MG tablet [...] UA Latest Ref Range: Clear Clear Specific [place], UA Latest Ref Range: 1.001 - 1.030 [...] bed mobility -- Bed Mobility PT LTG, [place] Level conditional independence -- Bed Mobility PT [...] all transfers -- Transfer Training PT LTG, [place] Level conditional independence -- Transfer Training PT [...] wks -- Gait Training Goal PT LTG, [place] Level conditional independence -- Gait Training Goal PT LTG, Assist Device walker, rolling -- Gait Training Goal PT LTG, Date Goal Reviewed -- 01/20/17 Gait Training Goal PT LTG, Outcome -- goal ongoing * Crys Pinedo, PT - 01/19/2017 5:40 PM EDT Problem: Patient Care Overview (Adult) Goal: Plan of Care Review Outcome: Ongoing (interventions implemented as appropriate) 01/19/17 1739 Coping/Psychosocial Response Interventions Plan Of Care Reviewed [...] bed mobility -- Bed Mobility PT LTG, [place] Level conditional independence -- Bed Mobility PT LTG, Outcome -- goal ongoing Goal: Transfer Training Goal 1 LTG- PT Outcome: Ongoing (interventions implemented as appropriate) 01/19/17141801/19/171738 Transfer Training PT LTG Transfer Training PT LTG, Date Established 01/19/17 -- Transfer Training PT LTG, Time to Achieve 2 wks -- Transfer Training PT LTG, Activity Type all transfers -- Transfer Training PT LTG, [place] Level conditional independence -- Transfer Training PT LTG, Assist Device walker, rolling -- Transfer Training PT LTG, Outcome -- goal ongoing Goal: Gait Training Goal LTG- PT Outcome: Ongoing (interventions implemented as appropriate) 01/19/17141801/19/171738 Gait Training PT LTG Gait Training Goal PT LTG, Date Established 01/19/17 -- Gait Training Goal PT LTG, Time to Achieve 2 wks -- Gait Training Goal PT LTG, [place] Level conditional independence -- Gait Training Goal PT LTG, Assist Device walker, rolling -- Gait Training Goal PT LTG, Outcome -- goal ongoing * Crys Pinedo PT - 01/19/2017 2:21 PM EDT Problem: Patient Care Overview (Adult) Goal: Plan of Care Review Outcome: Ongoing (interventions implemented as appropriate) 01/19/17 1419 Coping/Psychosocial Response Interventions Plan Of Care Reviewed [...] all bed mobility Bed Mobility PT LTG, [place] Level conditional independence Goal: Transfer Training Goal 1 LTG- PT Outcome: Ongoing (interventions implemented as appropriate) 01/19/17 1419 Transfer Training PT LTG Transfer Training PT LTG, Date Established 01/19/17 Transfer Training PT LTG, Time to Achieve 2 wks Transfer Training PT LTG, Activity Type all transfers Transfer Training PT LTG, [place] Level conditional independence Transfer Training PT LTG, Assist Device walker, rolling Goal: Gait Training Goal LTG- PT Outcome: Ongoing (interventions implemented as appropriate) 01/19/17 1419 Gait Training PT LTG Gait Training Goal PT LTG, Date Established 01/19/17 Gait Training Goal PT LTG, Time to Achieve 2 wks Gait Training Goal PT LTG, [place] Level conditional independence Gait Training Goal PT LTG, Assist Device walker, rolling * Katy Hernandez, OTR - 01/19/2017 2:09 PM EDT Problem: [...] d/t dec. ROM and pain-recommend sockaid and administrative resident. Will progress with independence & safety with daily tasks in preparation for d/c home Problem: Inpatient Occupational Therapy Goal: Transfer Training Goal 1 LTG- OT Outcome: Ongoing (interventions implemented as appropriate) 01/19/17 1020 Transfer Training OT LTG Transfer Training OT LTG, Time to Achieve 4 days Transfer Training OT LTG, Activity Type tub Transfer Training OT LTG, [place] Level contact guard assist Transfer Training OT LTG, Assist Device walker, rolling Transfer Training OT LTG, Outcome goal ongoing Goal: LB Dressing Goal LTG- OT Outcome: Ongoing (interventions implemented as appropriate) 01/19/17 1020 LB Dressing OT LTG LB Dressing Goal OT LTG, Time to Achieve 4 days LB Dressing Goal OT LTG, [place] Level conditional independence LB Dressing Goal OT LTG, Adaptive Equipment laces, elastic;administrative resident;shoe horn, long handled;sock-aid LB Dressing Goal OT LTG, Outcome goal ongoing * Maddie Thompson RN - 01/19/2017 12:24 PM EDT Acute Pain Service: On-Q teaching completed with patient . Video demonstration, handout and bracelet provided with [facility] bow maker production central phone number. Instructed to call with any questions or concerns.Patient verbalized understanding. Service will continue to follow until catheter DC'd. Please contact patient at [phone] if needed. * Dominique Kwon RN - [...] AM EDT DATE OF PROCEDURE: 01/18/17 SURGEON: Mj Menon MD MIS SPECIALIST: Crys Chavarria PA-C PREOPERATIVE DIAGNOSIS: right knee [...] the lateral gutter. Description ofarthritis: Severe osteoarthritis, qdnx-ny-apic medially and patellofemoral compartments. The knee was [...] closed with #1 Vicryl in an interrupted ibxuox-aw-hhqxi fashion in 4 strategic locations followed by [...] Notes * Therapy Treatment Note - Maddie Nicole PTA - 01/20/2017 8:44 AM EDT Acute Care - Physical Therapy Treatment Note [facility] Patient Name: Marialuisa Hampton : 1955 Today's [...] 01/19/17 1615 01/19/17 1104 Rehab Assessment/Intervention Discipline manager physical - physical therapist - Document Type therapy note (daily note) - [...] Maddie Nicole PTA [] Crys Pinedo, PT Pain Assessment Pain Assessment 0-10 - 0-10 -EH Pain Score 7 - 7 -EH Post Pain Score 8 - 8 -EH Pain Type Acute pain - Acute pain -EH Pain Location Knee - Knee -EH Pain Orientation Right;Anterior - Right;Anterior;Posterior -EH Pain Intervention(s) Repositioned;Ambulation/increased activity - Repositioned;Ambulation/increased activity -EH Recorded by [] Maddie Nicole SHIP SUPERINTENDENT [EH] Crys Pinedo, PT Cognitive Assessment/Intervention Current Cognitive/Communication [...] by [] Maddie Nicole PTA [EH] Crys Pinedo, PT [EH] Crys Pinedo, PT Mobility Assessment/Training Extremity Weight-Bearing Status right lower extremity -EH Right Lower Extremity Weight-Bearing weight-bearing as tolerated -EH Recorded by [EH] Crys Pinedo PT Bed Mobility, Assessment/Treatment Bed Mobility, Assistive Device bed rails;head of bed elevated;leg channel marketing coordinator - bed rails;head of bed elevated;leg channel marketing coordinator -EH Bed Mob, Supine to Sit, [place] conditional independence - supervision required - Bed Mobility, Comment safe technique using leg channel marketing coordinator - cueing for doffing leg channel marketing coordinator to scoot forward -EH Recorded by [] Maddie Nicole PTA [] Crys Pinedo, PT Transfer Assessment/Treatment Transfers, Sit-Stand [place] verbal cues required;contact guard assist - contact guard assist -EH Transfers, Stand-Sit [place] verbal cues required;contact guard assist - contact guard assist - Transfers, [id number], Assist Device rolling walker - rolling walker - Toilet Transfer, [place] -- - Toilet Transfer, Assistive Device -- -EH Recorded by [] Maddie Nicole PTA [] Crys Pinedo, PT Gait Assessment/Treatment Gait, [place] Level verbal cues required;contact guard assist - contact guard assist - Gait, Assistive Device rolling walker - rolling walker - Gait, Distance (Feet) 140 - 120 - Gait, Gait Pattern Analysis swing-to gait - Gait, Gait Deviations right:;antalgic;tracey decreased;decreased heel strike;qli-am-nrjdf clearance decreased;step length decreased - right:;antalgic;weight-shifting ability decreased;forward flexed posture;sjo-ib-tuxdh clearance decreased;left:;step length decreased - Gait, Safety Issues step length decreased - step length decreased - Gait, Impairments strength decreased;pain - pain;strength decreased - Gait, Comment verbal cues for sequencing and to avoid hitting front of walker - VC for increasingstep length; VC for moving walker between each step. Pt progressing to step through gait pattern. -EH Recorded by [] Maddie Nicole PTA [] Crys Pinedo PT Therapy Exercises Bilateral Lower Extremities -- - Exercise Protocols total knee - total knee - Total Knee Exercises right:;10 reps;ankle pumps/circles;quad set;glut set;heel slides;with assist;hip abduction/adduction;LAQ - right:;ankle pumps/circles;quad set;glut set;heel slides;LAQ;with assist;SLR -EH Recorded by [] Maddie Nicole, SHIP SUPERINTENDENT [] Crys Pinedo, PT Sensory Assessment/Intervention Light Touch RLE;LLE -EH LLE Light Touch WNL -EH RLE Light Touch WNL DF -EH Recorded by [EH] Crys Pinedo PT Positioning and Restraints Pre-Treatment [...] family/caregiver -EH Recorded by [] Maddie Nicole, SHAYY [] Crys Pinedo, PT [] Crys Pinedo, PT 01/19/17 1101 Positioning and Restraints Pre-Treatment Position -- -EH Post Treatment Position -- -EH In Chair -- -EH Recorded by [] Crys Pinedo, PT User Sage (r) = Recorded By, (t) = Taken By, (c) = Cosigned By Initials Name Effective Dates Crys Pinedo, PT 11/29/14 - Maddie Nicole, SHIP SUPERINTENDENT 12/02/14 - IP PT Goals 01/20/17 0842 01/19/17 1739 01/19/17 1419 Bed Mobility PT LTG Bed Mobility PT LTG, Date Established 01/19/17 -EH Bed Mobility PT LTG, Time to Achieve 2 wks -EH Bed Mobility PT LTG, Activity Type all bed mobility -EH Bed Mobility PT LTG, [place] Level conditional independence -EH Bed Mobility PT LTG, Date Goal Reviewed 01/20/17 - Bed Mobility PT LTG, Outcome goal ongoing - goal ongoing -EH Transfer Training PT LTG Transfer Training PT LTG, Date Established 01/19/17 -EH Transfer Training PT LTG, Time to Achieve 2 wks -EH Transfer Training PT LTG, Activity Type all transfers -EH Transfer Training PT LTG, [place] Level conditional independence -EH Transfer Training PT LTG, Assist Device walker, rolling -EH Transfer Training PT LTG, Date Goal Reviewed 01/20/17 - Transfer Training PT LTG, Outcome goal ongoing - goal ongoing -EH Gait Training PT LTG Gait Training Goal PT LTG, Date Established 01/19/17 -EH Gait Training Goal PT LTG, Time to Achieve 2 wks -EH Gait Training Goal PT LTG, [place] Level conditional independence -EH Gait Training Goal PT LTG, Assist Device walker, rolling -EH Gait Training Goal PT LTG, Date Goal Reviewed 01/20/17 - Gait Training Goal PT LTG, Outcome goal ongoing - goal ongoing -EH User Sage (r) = Recorded By, (t) = Taken By, (c) = Cosigned By Initials Name Provider Type Crys Pinedo, PT Physical Therapist Maddie Nicole, SHIP SUPERINTENDENT Manager Process Improvement Physical Therapy Education Title: PT OT ENGINE TESTING SUPERVISOR Therapies (Active) Topic: Physical Therapy (Active) Point: [...] Sage Initials Effective Dates Name Provider Type [facility] 11/29/14 - Crys Pinedo, PT Physical Therapist PT 12/02/14 - Maddie Nicole, SHIP SUPERINTENDENT Manager Process Improvement PT PT Recommendation and Plan Plan of [...] ST Katy Hernandez, OTR Occupational Therapist Maddie Nicole, SHIP SUPERINTENDENT Manager Process Improvement Time Calculation: PT Charges 01/20/17 0843 Time Calculation Start Time 0800 - PT Received On 01/20/17 - PT Goal Re-Cert Due Date 01/29/17 - Time Calculation- PT Total Timed Code Minutes- PT 30 minute(s) - User Sage (r) = Recorded By, (t) = Taken By, (c) = Cosigned By Initials Name Provider Type Maddie Nicole PTA Manager Process Improvement Therapy Charges for Today Code Description Service Date Service Provider Modifiers Qty 55312252696 HC GAIT TRAINING EA 15 MIN 01/20/2017 Maddie Nicole PTA GP 1 53840906688 HC PT THER PROC EA 15 MIN 01/20/2017 Maddie Nicole PTA GP 1 PT G-Codes Outcome Measure Options: AM-PAC 6 Clicks Basic Mobility (PT) Maddie Nicole PTA 01/20/2017 * Therapy Treatment Note - Crys Pinedo PT - 01/19/2017 5:41 PM EDT Acute Care - Physical Therapy Treatment Note [facility] Patient Name: Marialuisa Hampton : 1955 Today's [...] Pain Assessment 0-10 -EH Pain Score 7 - Post Pain Score 8 - Pain Type Acute pain - Pain [...] Assistive Device bed rails;head of bed elevated;leg channel marketing coordinator - Bed Mob, Supine to Sit, [place] supervision required - Bed Mobility, Comment cueing for doffing leg channel marketing coordinator to scoot forward - Recorded by [] Crys Pinedo, PT Transfer Assessment/Treatment Transfers, Sit-Stand [place] contact guard assist - Transfers, Stand-Sit [place] contact guard assist - Transfers, Dye-[id number]-Mgg, Assist Device rolling walker - Toilet Transfer, [place] -- - Toilet Transfer, Assistive Device -- -EH Recorded by [] Crys Pinedo, PT Gait Assessment/Treatment Gait, [place] Level contact guard assist - Gait, Assistive Device rolling walker - Gait, Distance (Feet) 120 - Gait, Gait Pattern Analysis swing-to gait - Gait, Gait Deviations right:;antalgic;weight-shifting ability decreased;forward flexed posture;gwn-ty-ptenf clearance decreased;left:;step length decreased - Gait, Safety [...] slides;LAQ;with assist;SLR -EH Recorded by [] Crys Pinedo PT Sensory Assessment/Intervention Light Touch RLE;LLE -EH LLE Light Touch WNL -EH RLE Light Touch WNL DF -EH Recorded by [] Crys Pinedo PT Positioning and Restraints Pre-Treatment Position in bed -EH in bed -EH -- -EH Post Treatment Position chair -EH chair -EH -- -EH In Chair call [...] bed mobility - Bed Mobility PT LTG, [place] Level conditional independence - Bed Mobility PT LTG, Outcome goal ongoing - Transfer Training PT LTG Transfer Training PT LTG, Date Established 01/19/17 - Transfer Training PT LTG, Time to Achieve 2 wks -EH Transfer Training PT LTG, Activity Type all transfers - Transfer Training PT LTG, [place] Level conditional independence -EH Transfer Training PT LTG, Assist Device walker, rolling -EH Transfer Training PT LTG, Outcome goal ongoing - Gait Training PT LTG Gait Training Goal PT LTG, Date Established 01/19/17 - Gait Training Goal PT LTG, Time to Achieve 2 wks -EH Gait Training Goal PT LTG, [place] Level conditional independence -EH Gait Training Goal PT LTG, Assist Device walker, rolling -EH Gait Training Goal PT LTG, Outcome goal ongoing -EH User Sage (r) = Recorded By, (t) = Taken By, (c) = Cosigned By Initials Name Provider Type Crys Pinedo, PT Physical Therapist Physical Therapy Education Title: PT OT ENGINE TESTING SUPERVISOR Therapies (Active) Topic: Physical Therapy (Done) Point: Mobility training (Done) Learning Progress Summary Learner Readiness Method Response Comment Documented by Status Patient Acceptance E VU,NR 01/19/17 1739 Done Acceptance E [facility] 01/19/17 1418 Active Point: Home exercise program (Done) Learning Progress Summary Learner Readiness Method Response Comment Documented by Status Patient Acceptance E [facility] 01/19/17 1739 Done Acceptance E [facility] 01/19/17 1418 Active Point: Body mechanics (Done) Learning Progress Summary Learner Readiness Method Response Comment Documented by Status Patient Acceptance E [facility] 01/19/17 1739 Done Acceptance E [facility] 01/19/17 1418 Active Point: Precautions (Done) Learning Progress Summary Learner Readiness Method Response Comment Documented by Status Patient Acceptance E [facility]U,[facility] 01/19/17 1739 Done Acceptance E [facility] 01/19/17 1418 Active User Sage Initials Effective Dates Name Provider Type [facility] 11/29/14 - Crys Pinedo, PT Physical Therapist [...] 01/19/17 1502 Time Calculation Start Time 1615 [facility] 1104 - PT Received On 01/19/17 - 01/19/17 - PT Goal Re-Cert Due Date 01/29/17 - 01/29/17 - Time Calculation- PT Total Timed Code Minutes- PT 30 minute(s) -EH 15 minute(s) - User Sage (r) = Recorded By, (t) = Taken By, (c) = Cosigned By Initials Name Provider Type Crys Pinedo, STEPAN Physical Therapist Therapy Charges for Today Code Description Service Date Service Provider Modifiers Qty 03820148648 HC PT THER PROC EA 15 MIN 01/19/2017 Crys Pinedo, PT GP 1 48098867124 HC PT EVAL MOD COMPLEXITY 3 01/19/2017 Crys Pinedo, PT GP 1 [id number] HC GAIT TRAINING EA 15 MIN 01/19/2017 Crys Pinedo, PT GP 1 [id number] HC PT THER PROC EA 15 MIN 01/19/2017 Crys Pinedo, PT GP 1 PT G-Codes Outcome Measure Options: AM-PAC 6 Clicks Basic Mobility (PT) Crys Pinedo PT 01/19/2017 * Therapy Evaluation - Crys Pinedo, PT - 01/19/2017 3:04 PM EDT Acute Care - Physical Therapy Initial Evaluation [facility] Patient Name: Marialuisa Hampton : 1955 Today's [...] Date ??? CARDIAC CATHETERIZATION ??? HYSTERECTOMY ??? [place] TOTAL KNEE ARTHROPLASTY Right 01/18/2017 Procedure: RIGHT TOTAL KNEE ARTHROPLASTY; Surgeon: Mj Menon MD; Location: [facility]; Service: Orthopedics PT ASSESSMENT (last 72 hours) PT Evaluation 01/19/17 1104 01/19/17 1101 Rehab Evaluation Document Type evaluation - Subjective Information no complaints;agree to therapy - Patient Effort, Rehab Treatment excellent - Symptoms Noted During/After Treatment increased pain - General Information Patient Profile Review yes - [...] Assistive Device bed rails;head of bed elevated;leg channel marketing coordinator - Bed Mob, Supine to Sit, [place] supervision required - Bed Mobility, Comment increased time, cueing for leg channel marketing coordinator, - Transfer Assessment/Treatment Transfers, Sit-Stand [place] contact guard assist;2 person assist required - Transfers, Stand-Sit [place] contact guard assist;2 person assist required - Transfers, [id number], Assist Device rolling walker;elevated surface - Toilet Transfer, [place] contact guard assist - Toilet Transfer, Assistive Device bedside commode without drop arms;elevated toilet seat;rolling walker - Transfer, Comment cues for hand placement, fully turning prior to reaching for chair/bsc; progressing RLE prior to sitting - Gait Assessment/Treatment Gait, [place] Level contact guard assist - Gait, Assistive Device rolling walker - Gait, Distance (Feet) 100 - Gait, Gait Pattern Analysis swing-to gait - Gait, Gait Deviations right:;antalgic;decreased heel strike;[id number] clearance decreased;left:;step length decreased - Gait, Comment [...] Assistive Device bed rails;head of bed elevated;leg channel marketing coordinator -ST Bed Mob, Supine to Sit, [place] supervision required -ST Bed Mobility, Comment increased time to complete along with cuing for sequencing task -ST Transfer Assessment/Treatment Transfers, Sit-Stand [place] contact guard assist;2 person assist required -ST Transfers, Stand-Sit [place] contact guard assist;2 person assist required -ST Transfers, Atl-[id number]-Ull, Assist Device rolling walker -ST Toilet Transfer, [place] contact guard assist -ST Toilet Transfer, Assistive [...] Padgett, PT Physical Therapist SG Anne-Marie Kirkpatrick Sheetmetal Patternmaker Yolande Ocampo, RN Registered Nurse AB Dominique Kwon, RN Registered Nurse Physical Therapy Education Title: PT OT ENGINE TESTING SUPERVISOR Therapies (Active) Topic: Physical Therapy (Active) Point: [...] Sage Initials Effective Dates Name Provider Type [facility] 11/29/14 - Crys Pinedo, PT Physical Therapist [...] bed mobility -EH Bed Mobility PT LTG, [place] Level conditional independence -EH Transfer Training PT LTG Transfer Training PT LTG, Date Established 01/19/17 -EH Transfer Training PT LTG, Time to Achieve 2 wks -EH Transfer Training PT LTG, Activity Type all transfers -EH Transfer Training PT LTG, [place] Level conditional independence -EH Transfer Training PT LTG, Assist Device walker, rolling -EH Gait Training PT LTG Gait Training Goal PT LTG, Date Established 01/19/17 -EH Gait Training Goal PT LTG, Time to Achieve 2 wks -EH Gait Training Goal PT LTG, [place] Level conditional independence -EH Gait Training Goal [...] (PT) -EH AM-PAC 6 Clicks Daily Activity (OT)- User Sage (r) = Recorded By, (t) = Taken By, (c) = Cosigned By Initials Name Provider Type Crys Pinedo PT Physical Therapist ERIN Lopez Occupational Therapist Time Calculation: PT Charges 01/19/17 1502 Time Calculation Start Time 1104 -EH PT Received On 01/19/17 - PT Goal Re-Cert Due Date 01/29/17 - Time Calculation- PT Total Timed Code Minutes- PT 15 minute(s) - User Sage (r) = Recorded By, (t) = Taken By, (c) = Cosigned By Initials Name Provider Type Crys Pinedo PT Physical Therapist Therapy Charges for Today Code Description Service Date Service Provider Modifiers Qty [id number] PT THER PROC EA 15 MIN 01/19/2017 Crys Pinedo PT GP 1 [id number] PT EVAL MOD COMPLEXITY 3 01/19/2017 Crys Pinedo PT GP 1 PT G-Codes Outcome Measure Options: AM-PAC 6 Clicks Basic Mobility (PT) Crys Pinedo PT 01/19/2017 * Therapy Evaluation - Katy Hernandez OTR - 01/19/2017 2:11 PM EDT Acute Care - Occupational Therapy Initial Evaluation [place] Patient Name: Marialuisa Hampton : 1955 Today's [...] Date ??? CARDIAC CATHETERIZATION ??? HYSTERECTOMY ??? LA TOTAL KNEE ARTHROPLASTY Right 01/18/2017 Procedure: RIGHT TOTAL KNEE ARTHROPLASTY; Surgeon: Mj Menon MD; Location: [facility]; Service: Orthopedics OT ASSESSMENT FLOWSHEET (last 72 [...] Assistive Device bed rails;head of bed elevated;leg channel marketing coordinator -ST Bed Mob, Supine to Sit, [place] supervision required -ST Bed Mobility, Comment increased time to complete along with cuing for sequencing task -ST Transfer Assessment/Treatment Transfers, Sit-Stand [place] contact guard assist;2 person assist required -ST Transfers, Stand-Sit [place] contact guard assist;2 person assist required -ST Transfers, Fif-Rjbom-Jae, Assist Device rolling walker -ST Toilet Transfer, [place] contact guard assist -ST Toilet Transfer, Assistive [...] R despite mult attempts with modifications; recommend administrative resident and sockaid -ST Toileting Assessment/Training Toileting Assess/Train, [...] General Therapy Interventions Adaptive Equipment Training recommend administrative resident and sockaid for home use -ST Positioning [...] By Initials Name Effective Dates ST Katy Hernandez, OTR 08/02/16 - LR Gissel Padgett, PT 11/29/14 - SG Anne-Marie Kirkpatrick 10/13/15 - TS Yolande Ocampo, ROXANA 11/27/15 - AB Dominique Kwon, RN 11/27/15 - MM Robyn Valdivia, RN 01/05/16 - Occupational Therapy Education Title: PT OT ENGINE TESTING SUPERVISOR Therapies (Active) Topic: Occupational Therapy (Active) Point: [...] Initials Effective Dates Name Provider Type Discipline ST 08/02/16 - ERIN Lopez Occupational Therapist OT OT Recommendation and Plan Anticipated Equipment Needs At Discharge: tub bench Anticipated Discharge Disposition: home with assist Therapy Frequency: daily Plan of Care Review Plan Of Care Reviewed With: patient Outcome Summary/Follow up Plan: Pt with impulsivity during transfers and using rwx, requiring cuingfor safety; unable to complete LBD this date w/o AE d/t may. ROM and pain-recommend sockaid and administrative resident. Will progress with independence & safety with daily tasks in preparation for d/c home OT Goals 01/19/17 1020 Transfer Training OT LTG Transfer Training OT LTG, Time to Achieve 4 days -ST Transfer Training OT LTG, Activity Type tub -ST Transfer Training OT LTG, [place] Level contact guard assist -ST Transfer Training OT LTG, Assist Device walker, rolling -ST Transfer Training OT LTG, Outcome goal ongoing -ST LB Dressing OT LTG LB Dressing Goal OT LTG, Time to Achieve 4 days -ST LB Dressing Goal OT LTG, [place] Level conditional independence -ST LB Dressing Goal OT LTG, Adaptive Equipment laces, elastic;administrative resident;shoe horn, long handled;sock-aid-ST LB Dressing Goal OT LTG, Outcome goal ongoing -ST User Sage (r) = Recorded By, (t) = Taken By, (c) = Cosigned By Initials Name Provider Type ST ERIN Lopez Occupational Therapist Outcome Measures 01/19/17 1020 How [...] Description Service Date Service Provider Modifiers Qty [id number] OT THERAPEUTIC ACT EA 15 MIN 01/19/2017 Katy Hernandez OTR GO 1 [id number] OT EVAL MOD COMPLEXITY 3 01/19/2017 ERIN Lopez GO 1 REIN Mcclelland 01/19/2017 documented in this encounter Plan [...] CBC (No Diff) (01/20/2017 5:56 AM EDT) [facility] WBC 14.82(H) 3.50 - 10.80 10*3/mm3 01/20/2017 6:40 AM EDT [facility] RBC 3.50(L) 3.89 - 5.14 10*6/mm3 01/20/2017 6:40 AM EDT [facility] Hemoglobin 8.7(L) 11.5 - 15.5 g/dL 01/20/2017 6:40 AM EDT [facility] Hematocrit 27.4(L) 34.5 - 44.0 % 01/20/2017 6:40 AM EDT [facility] MCV 78.3(L) 80.0 - 99.0 fL 01/20/2017 6:40 AM EDT [facility] MCH 24.9(L) 27.0 - 31.0 pg 01/20/2017 6:40 AM EDT [facility] MCHC 31.8(L) 32.0 - 36.0 g/dL 01/20/2017 6:40 AM EDT [facility] RDW 16.4(H) 11.3 - 14.5 % 01/20/2017 6:40 AM EDT [facility] RDW-SD 47.4 37.0 - 54.0 fl 01/20/2017 6:40 AM EDT [facility] MPV 10.0 6.0 - 12.0 fL 01/20/2017 6:40 AM EDT [facility] Platelets 295 150 - 450 10*3/mm3 01/20/2017 6:40 AM EDT [facility] Blood 01/20/2017 5:56 AM EDT 01/20/2017 6:23 AM EDT Mj Menon MD LAB BLOOD ORDERABLES Final Res ult [facility]
[address] [place] [address], * (ABNORMAL) Basic Metabolic Panel (01/20/2017 5:56 AM EDT) Glucose 101(H) 70 - 100 mg/dL 01/20/2017 7:07 AM EDT [facility] BUN 10 9 - 23 mg/dL 01/20/2017 7:07 AM EDT [facility] Creatinine 0.40(L) 0.60 - 1.30 mg/dL 01/20/2017 7:07 AM EDT [facility] Sodium 136 132 - 146 mmol/L 01/20/2017 7:07 AM EDT [facility] Potassium 3.8 3.5 - 5.5 mmol/L 01/20/2017 7:07 AM EDT [facility] Chloride 108 99 - 109 mmol/L 01/20/2017 7:07 AM EDT [facility] CO2 23.0 20.0 - 31.0 mmol/L 01/20/2017 7:07 AM EDT [facility] Calcium 9.0 8.7 - 10.4 mg/dL 01/20/2017 7:07 AM EDT [facility] eGFR Non Amer >150 >60 mL/min/1.7 3 01/20/2017 7:07 AM EDT [facility] BUN/Creatinine Ratio 25.0 7.0 - 25.0 01/20/2017 7:07 AM EDT [facility] Anion Gap 5.0 3.0 - 11.0 mmol/L 01/20/2017 7:07 AM EDT [facility] Blood 01/20/2017 5:56 AM EDT 01/20/2017 6:23 AM EDT [facility] - 01/20/2017 7:07 AM EDT National Kidney [employer] Guidelines Stage ? Description ?GFR 1 ? Normal or High ? 90+ 2 ? Mild decrease ?60-89 3 ? Moderate decrease ??30-59 4 ? Severe decrease ?15-29 5 ? Kidney failure ? <15 Silvia Paris MANAGER [facility] LAB BLOOD ORDERABLES Final Result [facility]
[address] [id number], * (ABNORMAL) CBC (No Diff) (01/19/2017 5:47 AM EDT) WBC 12.79(H) 3.50 - 10.80 10*3/mm3 01/19/2017 6:28 AM EDT [facility] RBC 3.54(L) 3.89 - 5.14 10*6/mm3 01/19/2017 6:28 AM EDT [facility] Hemoglobin 9.0(L) 11.5 - 15.5 g/dL 01/19/2017 6:28 AM EDT [facility] Hematocrit 28.4(L) 34.5 - 44.0 % 01/19/2017 6:28 AM EDT [facility] MCV 80.2 80.0 - 99.0 fL 01/19/2017 6:28 AM EDT [facility] MCH 25.4(L) 27.0 - 31.0 pg 01/19/2017 6:28 AM EDT [facility] MCHC 31.7(L) 32.0 - 36.0 g/dL 01/19/2017 6:28 AM EDT [facility] RDW 16.1(H) 11.3 - 14.5 % 01/19/2017 6:28 AM EDT [facility] RDW-SD 48.0 37.0 - 54.0 fl 01/19/2017 6:28 AM EDT [facility] MPV 10.2 6.0 - 12.0 fL 01/19/2017 6:28 AM EDT [facility] Platelets 326 150 - 450 10*3/mm3 01/19/2017 6:28 AM EDT [facility] Blood 01/19/2017 5:47 AM EDT 01/19/2017 6:09 AM EDT us Mj Menon MD LAB BLOOD ORDERABLES Final Res ult [facility]
[address] [place] [address], * (ABNORMAL) Basic Metabolic Panel (01/19/2017 5:47 AM EDT) [facility] Glucose 110(H) 70 - 100 mg/dL 01/19/2017 7:05 AM [facility] BUN 9 9 - 23 mg/dL 01/19/2017 7:05 AM [facility] Creatinine 0.60 0.60 - 1.30 mg/dL 01/19/2017 7:05 AM [facility] Sodium 134 132 - 146 mmol/L 01/19/2017 7:05 AM [facility] Potassium 3.4(L) 3.5 - 5.5 mmol/L 01/19/2017 7:05 AM [facility] Chloride 106 99 - 109 mmol/L 01/19/2017 7:05 AM [facility] CO2 22.0 20.0 - 31.0 mmol/L 01/19/2017 7:05 AM [facility] Calcium 8.4(L) 8.7 - 10.4 mg/dL 01/19/2017 7:05 AM [facility] eGFR Non Amer 102 >60 mL/min/1.7 3 01/19/2017 7:05 AM [facility] BUN/Creatinine Ratio 15.0 7.0 - 25.0 01/19/2017 7:05 AM [facility] Anion Gap 6.0 3.0 - 11.0 mmol/L 01/19/2017 7:05 AM [facility] Blood 01/19/2017 5:47 AM EDT 01/19/2017 6:08 AM EDT [facility] - 01/19/2017 7:05 AM EDT National Kidney Foundation Guidelines Stage ? Description ?GFR 1 ? Normal or High ? 90+ 2 ? Mild decrease ?60-89 3 ? Moderate decrease ??30-59 4 ? Severe decrease ?15-29 5 ? Kidney failure ? <15 Silvia Bonds MANAGER [facility] LAB BLOOD ORDERABLES Final Result [facility]
[address] [place] [address], * XR Knee 1 or 2 View [...] radiopaque foreign body. Procedure Note Uli Sage, DO - 01/20/2017 EXAMINATION: XR KNEE 1 OR [...] ABO Type A 01/18/2017 10:38 AM EDT [facility] RH type Positive 01/18/2017 10:38 AM EDT [facility] Antibody Screen Negative 01/18/2017 10:38 AM EDT [facility] Blood Line / Unknown 01/18/2017 8: 24 AM EDT 01/18/2017 8:37 AM EDT Mj Menon MD BLOOD BANK TEST ORDERABLES Angel alexandr Result - Final Performing Organization Address City/[facility]/ZIP Co de Phone Number [facility]
[address] [place] [address], * OR Potassium (01/18/2017 8:24 AM EDT) Potassium, OR 4.15 3.5 - 5.3 mmol/L 01/18/2017 8:31 AM EDT [facility] Blood Line / Unknown 01/18/2017 8: 24 AM EDT 01/18/2017 8:30 AM EDT Burak Rivera MD LAB BLOOD ORDERABLES Final Resu lt Performing Organization Address [facility]/ZIP Co de Phone Number [facility]
[address] [place] [address], documented in this encounter Visit Diagnoses Diagnosis Impaired functional mobility, balance, gait, and endurance Impaired mobility and ADLs Arthritis of knee, right Status post total right knee replacement HTN (hypertension) Unspecified essential hypertension Acute blood loss anemia, mild, asymptomatic Acute posthemorrhagic anemia Leukocytosis, mild, likely reactive Leukocytosis, unspecified Hypokalemia, replaced Hypopotassemia documented in this encounter Admitting Diagnoses Diagnosis Arthritis of knee, right documented in this encounter Administered Medications Inactive Administered Medications - up to 3 most recent administrations Medication Order MAR Action Action Date Dose Rate Site acetaminophen (TYLENOL) tablet 1,000 mg 1,000 mg, Oral, Once, On Tue01/18/17 at 0845, For 1 dose, Do not exceed 4 grams of acetaminophen in a 24 hr period. Given 01/18/2017 8:39 AM EDT 1,000 mg acetaminophen (TYLENOL) tablet 650 mg [...] Given 01/20/2017 8:14 AM EDT 325 mg ceFAZolin in dextrose (ANCEF) IVPB solution 2 g 2 g, Intravenous, Every 8 Hours, First dose on Tue01/18/17 at 1800, For 2 doses, Time first dose from pre-op dose., Indications: Surgical ProphylaxisIndications:Surgical Prophylaxis New Bag 01/19/2017 2:12 AM EDT 2 g New Bag 01/18/2017 5:30 PM EDT 2 g celecoxib (CeleBREX) capsule 200 mg 200 mg, Oral, Once, On Tue01/18/17 at 0845, For 1 dose, Caution: Look alike/sound alike drug alert. Take with food if GI upset occurs. Given 01/18/2017 8:39 AM EDT 200 mg famotidine (PEPCID) tablet 20 mg 20 mg, Oral, Once, On Tue01/18/17 at 0845, For 1 dose Given 01/18/2017 8:39 AM EDT 20 mg hydrALAZINE (APRESOLINE) injection 10 mg 10 [...] Given 01/18/2017 6:38 PM EDT 0.5 mg lactated ringers infusion 9 mL/hr, Intravenous, Continuous, Starting on Tue01/18/17 at 0845, May switch to NS IV at KVO if renal / if indicated New Bag 01/18/2017 11:39 AM EDT New Bag 01/18/2017 10:05 AM EDT New Bag 01/18/2017 8:10 AM EDT 9 mL/hr 9 mL/hr lidocaine PF 1% (XYLOCAINE) injection 0.5 mL 0.5 mL, Injection, Once As Needed, IV Start, Starting on Tue01/18/17 at 0803, For 1 dose Given 01/18/2017 8:10 AM EDT 0 .2 mL melatonin sublingual tablet 5 mg 5 mg, [...] on Tue01/18/17 at 1404, For 10 days mupirocin (BACTROBAN) 2 % nasal ointment Each Nare, Once, On Tue01/18/17 at 0845, For 1 dose, {BKC} Given 01/18/2017 8:40 AM EDT naloxone (NARCAN) injection 0.1 mg 0.1 mg, [...] Given 01/18/2017 4:10 PM EDT 4 mg oxyCODONE (oxyCONTIN) 12 hr tablet 10 mg 10 mg, Oral, Once, On Tue01/18/17 at 0845, For 1 dose, Swallow whole; do not crush, split, or chew. Given 01/18/2017 8:39 AM EDT 10 mg potassium chloride (MICRO-K) CR capsule 40 mEq 40 mEq, Oral, Once, On Tue01/19/17 at 0945, For 1 dose Given 01/19/2017 3:52 PM EDT 40 mEq pregabalin (LYRICA) capsule 75 mg 75 mg, Oral, Once, On Tue01/18/17 at 0845, For 1 dose Given 01/18/2017 8:39 AM EDT 75 mg ropivacaine (NAROPIN) 0.2% 550 mL On-Q C-block 12 mL/hr, Peripheral Nerve, Continuous, Starting on Tue01/19/17 at 1145, On-Q C-block with ropivacaine 0.2%. Infuse at 12 mL/hr New Bag 01/20/2017 11:41 AM EDT 12 mL/hr 12 mL/hr Rate/Dose Change 01/20/2017 9:04 AM EDT 12 mL/hr 12 mL/h r ropivacaine (NAROPIN) 0.2% peripheral nerve cath (moog) 200 mL 12 mL/hr, Peripheral Nerve, Continuous, Starting on Tue01/18/17 at 1115, For 5 days, For pain scale 7 or greater, increase rate to 16 mL/hr for 2 hours then return to original rate. Can be repeated every 12 hours. If no improvement, call Acute Pain Service at Ext. [phone] or Main OR desk for Anesthesia., Indications: Postoperative PainIndications:Postoperative Pain 01/19/2017 3:24 AM EDT 12 mL/ hr 12 mL/hr 01/18/2017 12:12 PM EDT 12 mL/hr 12 mL/hr ropivacaine (NAROPIN) 0.2% peripheral nerve cath (moog) 200 mL 12 mL/hr, Infiltration, Continuous, Starting on Tue01/19/17 at 1445 01/19/2017 9:29 PM EDT 12 mL/hr 12 mL/hr Currently Infusing 01/19/2017 7:34 PM EDT 12 mL/hr 12 mL /hr sennosides-docusate sodium (SENOKOT-S) 8.6-50 MG tablet 2 tablet 2 tablet, Oral, 2 Times Daily, First dose on Tue01/18/17 at 1800 Given 01/20/2017 8:14 AM EDT 2 tablets Given 01/19/2017 5:23 PM EDT 2 tablets Given 01/19/2017 8:32 AM EDT 2 tablets sodium chloride 0.9 % bolus 500 mL 500 mL, Intravenous, 3 Times Daily PRN, for SBP less than 90, Starting on Tue01/18/17 at 1320 01/18/2017 4:17 PM EDT 500 mL sodium chloride 0.9 % infusion 120 mL/hr, Intravenous, Continuous, Starting on Tue01/18/17 at 1445 01/19/2017 3:25 AM EDT 120 mL/hr 120 mL/hr 01/18/2017 8:57 PM EDT 120 mL/hr 120 mL/hr 01/18/2017 2:34 PM EDT 120 mL/hr 120 mL/hr documented in this encounter Active and Recently Administered Medications Times are shown in EDT. Scheduled Medication Order 01/18/2017 01/19/2017 01/20/2017 acetaminophen (TYLENOL) tablet 1,000 mg (COMPLETED) 1,000 mg, Oral, Once, On Tue01/18/17 at 0845, For 1 dose, Do not exceed 4 grams of acetaminophen in a 24 hr period. 39 (Given - Provider: Yolande Ocampo RN) aspirin EC tablet 325 mg 325 mg, Oral, Daily, First dose on Tue01/19/17 at 0900 1303 (Not Given - Provider: Heather Cueto RN - Reason: Patient/family refused) 0814 (Given - Provider: Judy Albert, ROXANA) ceFAZolin in dextrose (ANCEF) IVPB solution 2 [...] 1 dose 0839 (Given - Provider: Yolande Ocampo RN) meloxicam (MOBIC) tablet 15 mg 15 mg, Oral, Daily, First dose on Tue01/18/17 at 1445, Take with food. 1433 (Given - Provider: Robyn Valdivia RN) 0832 (Given - Provider: Heather Cueto, ROXANA) 0814 (Given - Provider: Judy Albert, ROXANA) metoprolol tartrate (LOPRESSOR) tablet 25 mg 25 mg, Oral, Nightly, First dose on Tue01/18/17 at 2100, Hold for SBP <110 or HR <55 2056 (Not Given - Provider: Dominique Kwon RN - Reason: Other) 2128 (Given - Provider: Cedric Vanegas RN) mupirocin (BACTROBAN) 2 % nasal ointment (COMPLETED) [...] 1 dose 1552 (Given - Provider: Heather Cueto, ROXANA) pregabalin (LYRICA) capsule 75 mg (COMPLETED) 75 mg, Oral, Once, On Tue01/18/17 at 0845, For 1 dose 0839 (Given - Provider: Yolande Ocampo RN) sennosides-docusate sodium (SENOKOT-S) 8.6-50 MG tablet 2 tablet 2 tablet, Oral, 2 Times Daily, First dose on Tue01/18/17 at 1800 1730 (Given - Provider: Robyn Valdivia RN) 0832 (Given - Provider: Heather Cueto, ROXANA)1723 (Given - Provider: Heather Cueto, ROXANA) 0814 (Given - Provider: Judy Albert, ROXANA) Continuous Medication Order 01/18/2017 01/19/2017 01/20/2017 lactated ringers infusion (CANCELED) 9 mL/hr, Intravenous, Continuous, Starting on Tue01/18/17 at 0845, May switch to NS IV at O if renal / if indicated 0810 (New Bag - Provider: Yolande Ocampo, ROXANA)1005 (New Bag - Provider: Brian Ogden CRNA)1139 [...] mL/hr 0904 (Rate/Dose Change - Provider: Judy Albert, ROXANA)1141 (New Bag - Provider: Baldev Lee RN) [...] Pain 1212 (New Bag - Provider: Daniel Wolf RN) 0324 (New Bag - Provider: Dominique Kwon RN) ropivacaine (NAROPIN) 0.2% peripheral nerve cath (moog) 200 mL 12 mL/hr, Infiltration, Continuous, Starting on Tue01/19/17 at 1445 1934 (Currently Infusing - Provider: Cedric Vanegas, ROXANA)2129 (New Bag - Provider: Cedric Vanegas RN) sodium chloride 0.9 % infusion 120 mL/hr, Intravenous, Continuous, Starting on Tue01/18/17 at 1445 1434 (New Bag - Provider: Robyn Valdivia RN)2057 (New Bag - Provider: Dominique Kwon, ROXANA) 0325 (New Bag - Provider: Dominique Kwon, RN) PRN Medication Order 01/18/2017 01/19/2017 01/20/2017 [...] hour period. 1610 (Given - Provider: Robyn Valdivia RN)2057 (Given - Provider: Dominique Kwon RN) 0607 (Given - Provider: Dominique Kwon RN)1003 (Given - Provider: Heather Cueto RN)1645 (Given - Provider: Heather Cueto RN)2129 (Given - Provider: Cedric Vanegas RN) 0223 (Given - Provider: Yanira Rios LPN)0814 (Given - Provider: Judy Albert RN) HYDROmorphone (DILAUDID) injection 0.5 mg(Linked Group 1) 0.5 mg, Intravenous, Every 2 Hours PRN, Severe Pain, Starting on Tue01/18/17 at 1404, For 10 days 1838 (Given - Provider: Robyn Valdivia RN)2236 (Given - Provider: Dominique Kwon RN) lidocaine PF 1% (XYLOCAINE) injection 0.5 mL (COMPLETED) 0.5 mL, Injection, Once As Needed, IV Start, Starting on Tue01/18/17 at 0803, For 1 dose 0810 (Given - Provider: Yolande D Damaris, RN) magnesium hydroxide (MILK OF MAGNESIA) suspension 2400 mg/10mL 10 mL 10 mL, Oral, Daily PRN, Constipation, Starting on Tue01/18/17 at 1404 melatonin sublingual tablet 5 mg 5 mg, Sublingual, Nightly PRN, Sleep, Starting on Shirley 01/20/17 at 0011 0013 (Given - Provider: Cedric Vanegas RN) Morphine sulfate (PF) injection 4 mg(Linked Group [...] 1320 1610 (Given - Provider: Robyn Valdivia, RN) 2128 (Given - Provider: Cedric Vanegas RN) ropivacaine [...] breaths/minute. documented in this encounter Care Teams Garage Door Hanger Relationship Specialty Start Date End Date Provider, [place] [address] PCP - General 01/11/17 02/10/17 documented as of this encounter
--- OUTSIDE RECORDS SUMMARY | 2024-04-25 14:42 | XMS_ITS | Encounter Summary ---
Author Organization [facility] Address [address] [place] [address] Care Team Providers Care Haunted History Tour Guide Name Role Phone Meredith Conti Primary Care Provider Reason for Visit * Auth/Cert Specialty Diagnoses / Procedures Referred By Contac t Referred To Contact Diagnoses Primary osteoarthritis of left knee Primary osteoarthritis of left knee [M17.12] Procedures OH TOTAL KNEE ARTHROPLASTY TOTAL KNEE ARTHROPLASTY LEFT Referral ID Status Reason Start Date Expiration Date Visits Re quested Visits Authorized [id number] 1 1 Encounter Details Date Type Department Care Team (Late st Contact Info) Description 07/12/2019 7:28 AM EST Anesthesia Event [facility] OR [address] [place] [address] Burak Rivera MD [address] [place] [address] Luis Manuel Johnson CRNA [address] [place] [address] Anesthesia Record Procedure Summary Procedure Name Responsible Anesthesiologist Anesthesia Start Time Anesthesia Stop Time TOTAL KNEE ARTHROPLASTY LEFT (Left: Knee) Burak Rivera MD 07/12/19 0728 07/12/19 0931 Events Date Time Event Comment 07/12/2019 0709 0714 AN Equip Check 0728 An Start Data 0728 An Start The patient was reevaluated immediately before moderate or deep sedation use and before anesthesia induction. 0736 Spinal Placed 0741 Quick Note Music therapy w ith Noise Cancelling Headphones initiated. Music selection per pt. Request., pt. resting Without complaint. 0925 an stop data 0931 An Stop 0940 Block Placed 0951 Handoff to RN The following has been [...] of report from the receiving PACU/ICU team Meds Name Total propofol (DIPRIVAN) infusion 10 mg/mL 10 0 mL 688.32 mg dexamethasone (DECADRON) 4 mg/mL 8 mg ondansetron 2 mg/mL 4 mg ceFAZolin in dextrose (ANCEF) IVPB solut ion 2 g 2 g tranexamic acid 1000 mg in 100 ml NS Min i-bag plus 1,000 mg tranexamic acid 1000 mg in 100 ml NS Min i-bag plus 1,000 mg bupivacaine (MARCAINE) 0.5 % injection 1 .8 mL bupivacaine PF (MARCAINE) 0.25 % injecti on 20 mL lactated ringers infusion 1,300 mL * Agents Name O2 * Blood No blood administrations on file. Lines, Drains, and Airways Type Details Placement Removal Wound Left; knee; Incision ; N; (prineo; abd; 4x4; softroll; andrew) 07/12/19 0814 by Nerve Block 07/12/19; 0951 (amisha strange via procedure documentation); left 07/12/19 0951 by Luis Manuel Johnson CRNA Peripheral IV Placement Date: 06/15 ; Placement Time: 0645; Catheter Size: 18 G; Orientation: Left, Lateral; Location: Wrist; Site Prep: Chlorhexidine; Local Anes: Injectable (Lidocaine); Technique: Anatomical landmarks; Inserted by: Corrine Soto RN; Insertion Attempts: 1; Patient Tolerance: Tolerated well; Removal Date: 07/13/19; Removal Time: 1300 07/12/19 0645 by Stephanie iJ RN 07/13/19 1300 by Olivia Arango RN documented in this encounter Social History Tobacco [...] OR Notes * Anesthesia Postprocedure Evaluation - Luis Manuel Johnson CRNA - 07/12/2019 9:51 AM EST Patient: Marialuisa Guajardo Procedure Summary Date: 07/12/19 Room / Location: [facility] OR [address] [place] [address] [facility] Anesthesia Start: 727 Anesthesia Stop: 930 Procedure: TOTAL KNEE ARTHROPLASTY LEFT (Left Knee) Diagnosis: Primary osteoarthritis of left knee (Primary osteoarthritis of left knee [M17.12]) Surgeon: Mj Menon MD Provider: Burak Rivera MD Anesthesia Type: spinal ASA Status: 2 Anesthesia Type: spinal Vitals Vitals Value Taken Time BP 106/70 07/12/2019 9:45 AM Temp 97.3 ??F (36.3 ??C) 07/12/2019 9:30 AM Pulse 57 07/12/2019 9:50 AM Resp 16 07/12/2019 9:30 AM SpO2 100 % 07/12/2019 9:50 AM Vitals shown include unvalidated device data. Post Anesthesia Care and Evaluation Patient location during evaluation: PACU Patient participation: complete - patient participated Level of consciousness: awake and alert Pain score: 0 Pain management: adequate Airway patency: patent Anesthetic complications: No anesthetic complications PONV Status: none Cardiovascular status: hemodynamically stable and acceptable Respiratory status: nonlabored ventilation, acceptable and nasal cannula Hydration status: acceptable * Anesthesia Procedure Notes - Luis Manuel Johnson CRNA - 07/12/2019 8:16 AM EST Associated Order(s): Peripheral Block Peripheral Block Patient reassessed immediately prior to procedure Patient location during procedure: post-op Reason for block: at surgeon's request and post-op pain management Performed by DISH CLOTH INSPECTOR: Luis Manuel Johnson CRNA Preanesthetic Checklist Completed: patient identified, site marked, surgical consent, pre-op evaluation, timeout performed,IV checked, risks and benefits discussed and monitors and equipment checked Prep: Pt Position: supine Sterile barriers:cap, gloves, mask and sterile barriers Prep: ChloraPrep Patient monitoring: blood pressure monitoring, continuous pulse oximetry and EKG Procedure Performed under: spinal Guidance:ultrasound guided Images:still images obtained, printed/placed on chart Laterality:left Block Type:adductor canal block Injection Technique:catheter Needle Type:Tuohy and echogenic Needle Gauge:18 G Resistance on Injection: none Catheter Size:20 G (20g) Cath Depth at skin: 11 cm Medications Used: bupivacaine PF (MARCAINE) 0.25 % injection, 20 mL Med admintered at 07/12/2019 9:40 AM Post Assessment Injection Assessment: negative aspiration for [...] Thank you. * Anesthesia Procedure Notes - Luis Manuel Johnson CRNA - 07/12/2019 7:23 AM EST Associated Order(s): Spinal Block Spinal Block Patient reassessed immediately prior to procedure Patient location during procedure: OR Indication:at surgeon's request Performed By DISH CLOTH INSPECTOR: Luis Manuel Johnson CRNA Preanesthetic Checklist Completed: patient identified, site marked, surgical consent, pre-op evaluation, timeout performed,IV checked, risks and benefits discussed and monitors and equipment checked Spinal Block Prep: Patient Position:sitting Manager Travel:cap, gloves, sterile barriers and mask Prep:Chloraprep Patient Monitoring:blood pressure monitoring, continuous pulse oximetry and EKG Spinal Block Procedure Approach:midline Guidance:landmark technique and palpation technique Location:L3-L4 Needle Type:Quincke Needle Gauge:22 G Placement of Spinal needle event:cerebrospinal fluid aspirated Paresthesia: no Fluid Appearance:clear Medications: bupivacaine (MARCAINE) 0.5 % injection, 1.8 mL Med Administered at 07/12/2019 7:36 AM Post Assessment Patient Tolerance:patient tolerated the procedure [...] flow was obtained and LA was injected: Exp date: 2021-04-12 Lot # [id number] * Anesthesia Preprocedure Evaluation - Burak Rivera MD - 07/12/2019 7:04 AM EST Anesthesia Evaluation Patient summary reviewed and Nursing notes reviewed history of anesthetic complications: PONV Airway Mallampati: I TM distance: >3 FB Neck ROM: full No difficulty expected Dental - normal exam Pulmonary - negative pulmonary ROS and normal exam Cardiovascular - normal exam (+) hypertension, hyperlipidemia, Neuro/Psych- negative ROS GI/Hepatic/Renal/Endo - negative ROS Musculoskeletal Abdominal - normal exam Bowel sounds: normal. 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 Plan discussed with DISH CLOTH INSPECTOR. documented in this encounter Plan of Treatment Not on file documented as of this encounter Procedures Procedure Name Priority Date/Time Associated Diagnosis Comments ANESTHESIA PERIPHERAL BLOCK Routine 07/12/2019 8:16 AM EST SPINAL Routine 07/12/2019 7:23 AM EST documented in this encounter Results * BH AN PERIPHERAL BLOCK CATHETER (07/12/2019 8:16 AM EST) Narrative Luis Manuel Johnson CRNA - 07/12/2019 8:16 AM EST Luis Manuel Johnson CRNA ? 07/12/2019 ??9:51 AM Peripheral Block Patient reassessed immediately prior to procedure Patient location during procedure: post-op Reason for block: at surgeon's request and post-op pain management Performed by DISH CLOTH INSPECTOR: Luis Manuel Johnson CRNA Preanesthetic Checklist Completed: patient identified, site marked, surgical consent, pre-op evaluation, timeout performed, IV checked, risks and benefits discussed and monitors and equipment checked Prep: Pt Position: supine Sterile barriers:cap, gloves, mask and sterile barriers Prep: ChloraPrep Patient monitoring: blood pressure monitoring, continuous pulse oximetry and EKG Procedure Performed under: spinal Guidance:ultrasound guided Images:still images obtained, printed/placed on chart Laterality:left Block Type:adductor canal block Injection Technique:catheter Needle Type:Tuohy and echogenic Needle Gauge:18 G Resistance on Injection: none Catheter Size:20 G (20g) Cath Depth at skin: 11 cm Medications Used: bupivacaine PF (MARCAINE) 0.25 % injection, 20 mL Med admintered at 07/12/2019 9:40 AM Post Assessment Injection Assessment: negative aspiration for [...] catheter and CHG transparent dressing. ??Thank you. us Burak Rivera MD ANESTHESIA ORDERABLES Final Res ult * HC AN SPINAL TRAY (07/12/2019 7:23 AM EST) Narrative Luis Manuel Johnson CRNA - 07/12/2019 7:23 AM EST Luis Manuel Johnson CRNA ? 07/12/2019 ??7:49 AM Spinal Block Patient reassessed immediately prior to procedure Patient location during procedure: OR Indication:at surgeon's request Performed By BASIA: Luis Manuel Johnson CRNA Preanesthetic Checklist Completed: patient identified, site marked, surgical consent, pre-op evaluation, timeout performed, IV checked, risks and benefits discussed and monitors and equipment checked Spinal Block Prep: Patient Position:sitting Manager Travel:cap, gloves, sterile barriers and mask Prep:Chloraprep Patient Monitoring:blood pressure monitoring, continuous pulse oximetry and EKG Spinal Block Procedure Approach:midline Guidance:landmark technique and palpation technique Location:L3-L4 Needle Type:Quincke Needle Gauge:22 G Placement of Spinal needle event:cerebrospinal fluid aspirated Paresthesia: no Fluid Appearance:clear Medications: bupivacaine (MARCAINE) 0.5 % injection, 1.8 mL Med Administered at 07/12/2019 7:36 AM Post Assessment Patient Tolerance:patient tolerated the procedure [...] flow was obtained and LA was injected: ? Exp date: 2021-04-12 Lot # [id number] Luis Manuel Johnson DISH CLOTH INSPECTOR ANESTHESIA ORDERABLES Final R esult documented in this encounter Visit Diagnoses Not on filedocumented in this encounter Administered Medications Inactive Administered Medications - up to 3 most recent administrations Medication Order MAR Action Action Date Dose Rate Site bupivacaine (MARCAINE) 0.5 % injection Injection, Starting on Shirley 07/12/19 at 0736 Given 07/12/2019 7:36 AM EST 1.8 mL bupivacaine (PF) (MARCAINE) 0.25 % injection Injection, Starting on Shirley 07/12/19 at 0940 Given 07/12/2019 9:40 AM EST 20 mL ceFAZolin in dextrose (ANCEF) IVPB solution 2 g 2 g, Intravenous, Administer over 30 Minutes, Once, On Shirley 07/12/19 at 0707, For 1 dose, Administer Within 1 Hour of Surgical Incision. Redose 4 Hours From Pre-Op Dose if Procedure Ongoing or Blood Loss Greater Than 1.5 L Caution: Look alike/sound alike drug alert, Indications: Surgical ProphylaxisIndications:Surg ical Prophylaxis Given 07/12/2019 7:32 AM EST 2 g dexamethasone (DECADRON) injection Intravenous, As Needed, Starting on Shirley 07/12/19 at 0746 Given 07/12/2019 7:46 AM EST 8 mg lactated ringers infusion 9 mL/hr, Intravenous, Continuous, Starting on Shirley 07/12/19 at 0707, May switch to NS IV at KVO if renal / if indicated Currently Infusing 07/12/2019 7:28 AM EST New Bag 07/12/2019 6:45 AM EST 9 mL/hr 9 mL/hr ondansetron (ZOFRAN) injection Intravenous, As Needed, Starting on Shirley 07/12/19 at 0841 Given 07/12/2019 8:41 AM EST 4 mg propofol (DIPRIVAN) infusion 10 mg/mL 100 mL Intravenous, Continuous PRN, Starting on Shirley 07/12/19 at 0739 Rate/Dose Change 07/12/2019 8:57 AM EST 75 mcg/kg/min 32.3 mL/hr New Bag 07/12/2019 7:39 AM EST 100 mcg/kg/min 43 mL/hr tranexamic acid 1000 mg in 100 ml NS Mini-bag plus 1,000 mg, Intravenous, Administer over 30 Minutes, Once, On Shirley 07/12/19 at 0707, For 1 dose, Give prior to incision. Break seal and mix to activate vial before using. Max. Dose for IV use - 1000mg.Indications:Primary osteoarthritis of left knee Given 07/12/2019 7:41 AM EST 1,000 mg tranexamic acid 1000 mg in 100 ml NS Mini-bag plus 1,000 mg, Intravenous, Administer over 30 Minutes, Once, On Shirley 07/12/19 at 0707, For 1 dose, Hip Replacement: Give at start of incision closure. Knee Replacement: Give 5-10 minutes before tourniquet release. Break seal and mix to activate vial before using. Max. Dose for IV use - 1000mg.Indications:Primary osteoarthritis of left knee Given 07/12/2019 8:30 AM EST 1,000 mg documented in this encounter Care Teams Haunted History Tour Guide Relationship Specialty Start Date End Date Meredith Conti PA PCP - General Physician Assistant Associate Full Professor 02/11/17 documented as of this encounter
--- OUTSIDE RECORDS SUMMARY | 2024-04-25 14:43 | XMS_ITS | Clinical Summary ---
Author Organization [facility] , [facility] Address [address] [place] [address] Phone Care Team Providers Care Life Skills Coordinator Volunteer Name Role Phone Deedee FATIMA, Vikram Unavailable [phone] Meredith Conti PA-C Unavailable [phone] Reason for Visit and Chief Complaint The Chief Complaint is: ring finger trigger Problems Includes: Problems addressed during this encounter and other active Problems Current Visit Onset Date Resolved Date Provider Gerard jones Status Joint Pain Fingers 12/26/2023 Vikram Mark MD Active Last Documented On 11:24AM ; [facility] Plan of Treatment Patient has a [...] - Last Documented On 12/26/2023 12:05PM ; [facility] Assessments Includes: Assessments from this encounter No Assessments Recorded Medical Equipment - Implanted Devices Includes: Current Devices No Medical Equipment Recorded Medications Includes: Medications discussed during this encounter and other current Medications Current Medications (continue as prescribed) Meloxicam 7.5 MG Oral Tablet 12/22/2023 Provider: Diagnosis: Last Documented On 11:26AM By Evelyn Eckler ; [facility] Meloxicam 7.5 MG Oral Tablet 09/21/2023 Provider: Diagnosis: Last Documented On 4 11:26AM By Evelyn Martinez ; [facility], [facility] Metoprolol Succinate ER 50 M G Oral Tablet, extended-release 24 hour 09/21/2023 Provider: Diagnosis: Last Documented On 4 11:26AM By Evelyn Martinez ; [facility], [facility] Butalbital-Acetaminophen 50-325 MG Oral Tablet 024 Provider: Diagnosis: Last Documented On 4 11:26AM By Evelyn Martinez ; [facility], [facility] Medications Administered Includes: Administered Medications from this encounter No Administered Medications Recorded Vital Signs Includes: Vital Signs from this encounter Vital Name 12/26/2023 11:25A Height (in) 67 Weight (lb) 157 Body Mass Index 24.6 Body Surface Area 1.8 Note: cme Last Documented: On 12/26/2023 11:25A M ; [facility], [facility] Results Includes: Results discussed during this encounter [...] Documented On 4 12:05PM ; [facility] Caffeine use 12/26/2023 Last Documented On 4 12:05PM ; [facility], [facility] No recent change in diet 12/26/2023 Last Documented On 4 12:05PM ; [facility], [facility] Not a current smoker. 12/26/2023 Last Documented On 4 12:05PM ; [facility], [facility] Not exercising regularly 12/26/2023 Last Documented On 4 12:05PM ; [facility], [facility] Not using drugs 12/26/2023 Last Documented On 4 12:05PM ; [facility] Retired from work 12/26/2023 Last Documented On 4 12:05PM ; [facility], [facility] Smoking Status Unknown Procedures and Surgical History Includes: Procedures from this encounter Procedures Code Diagnosis Performing Provider Service Location Service Date INJ TENDON SHEATH/LIGAMENT (RIGHT HAND, FOURTH DIGIT) Trigger finger, right ring finger [facility]ram [facility] 12/26/2023 Last Documented On 4 12:49PM ; [facility], [facility] Injection, betamethasone acetate 6mg per cc and betamethason [id number] Trigger finger, right ring finger Vikram Mark MD [facility] 12/26/2023 Last Documented On 4 12:49PM ; [facility], [facility] Surgical History Last Updated History of hysterectomy 12/26/2023 Last Documented On 4 12:05PM ; [facility], [facility] History of total knee arthroplasty 12/25 Last Documented On 4 12:05PM ; [facility], [facility] Medical History Includes: Medical History addressed during this encounter Description Last Updated History of arthritis 12/26/2023 Last Documented On 4 12:05PM ; [facility] History of Irregular Heartbeat 4 Last Documented On 4 12:05PM ; [facility], [facility] Family History Includes: Family History addressed during this encounter Description Last Updated Diabetes mellitus 12/26/2023 Last Documented On 4 12:05PM ; [facility], [facility] Family history of heart disease 12/26/19 24 Last Documented On 4 12:05PM ; [facility] Family history of systemic hypertension 12/26/2023 Last Documented On 4 12:05PM ; [facility], [facility] Maternal history of systemic hypertensio n 12/26/2023 Last Documented On 4 12:05PM ; [facility], [facility] Paternal history of family history of he art disease 12/26/2023 Last Documented On 4 12:05PM ; [facility] Sororal history of diabetes mellitus Last Documented On 4 12:05PM ; [facility] Review of Systems Includes: Review of [...] Time Diagnosis Physician Specified Vikram Mark MD [facility] 12/26/19 24 10:59AM 12:04PM Insurance Includes: Active Insurance Policies Plan Name Member ID Group # Subscriber Relationship Effect turner Dates 1 - [employer] [id number] Marialuisa Guajardo Self Clinical Notes Includes: Clinical Notes from this encounter * Progress note Date Encounter Last Documented by 12/26/2023 Physician Specified Last beverly strange on 12/26/2023; 12:05 PM, Vikram Mark MD; [facility] Active Problems & Conditions - Joint [...]
[2024-04-25 14:49] VITALS: BP 131/69; PULSE 72; RESP 18; O2SAT 95; BMI 24.5
--- NOTE | 2024-04-25 15:06 | A.OFFVIS_ITS ---
[facility] Disclaimer: The information contained in this section may have been updated after the patient was seen, as this information can be updated by other users. Medical History Hypertension Migraine headache Arrhythmia Surgical History Status post right knee replacement (~01/2017) Family History Other Unknown family medical history Social History Smoking Status: Never smoker alcohol intake: never substance use type: denies use current occupational status: other Travel in the last 8 weeks: None household members: adopted family PM Subjective & Objective Subjective Subjective:: Patient is a pleasant 68-year-old female who presents today for follow-up of her first lumbar medial branch block bilaterally L4-L5 and L5-S1 on 04/10/2024. Today she does right her pain a 0 out of 10. Patient states that she did have 100% improvement for definitely the first day following this procedure and does state that it is continued to provide relief and that she is rating it more of a 60% currently. She states she has been able to move around easier and feels much more functional on a day-to-day basis. Patient was sent in a 90-day supply of her meloxicam 15 mg daily. She denies any side effects from this medication. She is also managed with compounded cream. Her Rip has been reviewed and is appropriate. Review of Systems: General: No recent weight changes, no fever, no sleep disturbances Respiratory: No cough, no shortness of air, no recurring pulmonary infections Cardiovascular/peripheral vascular: No chest pain, no palpitations, no edema, no shortness of breath Gastrointestinal: No new onset incontinence, normal bowel movements reported Genitourinary: No new onset incontinence Musculoskeletal: Low back pain Psychiatric: [Normal mood/affect] Neurological: [Denies weakness in extremities], [denies balance issues] Pain at rest (0-10 scale): 0 Objective Objective:: Physical Exam: General: Alert and oriented x3, no acute distress, pleasant and cooperative Lungs: Respirations even and unlabored, symmetrical chest expansion Eyes: PERRL Musculoskeletal: Flexion and extension of lumbar [spine] somewhat guarded secondary to pain Neurological: Speech clear, no gross sensory deficit Has patient had previous pain injection?: Yes Percent improvement in pain since last injection: 100% - 60% Conservative treatment options previously tried: Home exercise plan Length of treatment: Longer than 12 weeks Meds Home Medications and Allergies Home Medications ?Medication ?Instructions ?Recorded ?Confirmed ?Type krill oil 500 mg capsule 1,000 mg PO DIRECTED SUPPLIMENT 09/09/20 04/25/24 History magnesium oxide 140 mg capsule 140 mg PO DAILY 09/09/20 04/25/24 History butalbital 50 mg-acetaminophen 325 1 tab PO Q6HP PRN Headache #60 tabs 09/21/23 04/25/24 Rx mg tablet metoprolol succinate 50 mg 50 mg PO DAILY #90 tabs 09/21/23 04/25/24 Rx tablet,extended release 24 hr (Toprol XL) meloxicam 7.5 mg tablet 7.5 mg PO DAILY #30 tabs 12/22/23 04/25/24 Rx meloxicam 15 mg tablet 15 mg PO DAILY #90 tabs 03/12/24 04/25/24 Rx New Prescriptions to Start Prescriptions: Allergies Allergy/AdvReac Type Severity Reaction Status Date / Time No Known Allergies Allergy Verified 01/31/24 14:24 Assessment and Plan *Assessment and plan (1) Lumbar facet arthropathy: Status: Acute Category: Medical Code(s): M47.816 - Spondylosis without myelopathy or radiculopathy, lumbar region (2) Low back pain: Status: Acute Category: Medical Code(s): M54.50 - Low back pain, unspecified Plan Patient has had significant improvement following her first lumbar medial branch block and does not require any additional injection therapy at this time. Patient will return to clinic in 2 weeks for reevaluation of symptoms and plan of care. Patient has been instructed to contact the clinic with any concerns before the next appointment. Dr. Huang has reviewed this note and agrees with this plan of care. This note was dictated using voice recognition software and make contain errors or omissions. All injections are used with Lidocaine or Bupivacaine and Depo Medrol.
== END 2024-04-25 23:59 | disposition home or self-care (01) ==
LOC: SC.PAIN 14:39
PROVIDERS: PCP Physician Assistant; Visit Provider Nurse Practitioner Family
DX: M47.816 Spondylosis without myelopathy or radiculopathy, lumbar region (principal); M54.50 Low back pain, unspecified
CPT/HCPCS: 99212; G0463

== ENCOUNTER 2024-05-07 13:34 | Outpatient (POV) | payer MEDICARE, SELFPAY ==
--- OUTSIDE RECORDS SUMMARY | 2024-05-07 13:36 | XMS_ITS | Encounter Summary ---
Author Organization [facility] Address [address] [place] [address] Care Team Providers Care Licensed Embalmer Supervisor Name Role Phone Meredith Cnoti Primary Care Provider [phone] Encounter Details Date Type Department Care Team (Late st Contact Info) Description 09/06/2019 Telephone [facility] [address] [place] [address] Mj Menon MD [address] [place] [address] Social History Tobacco Use Types Packs/Day Years [...] on filedocumented in this encounter Care Teams Licensed Embalmer Supervisor Relationship Specialty Start Date End Date Meredith Conti PA PCP - General Physician Wastewater Design Engineer 02/11/17 documented as of this encounter
--- OUTSIDE RECORDS SUMMARY | 2024-05-07 13:36 | XMS_ITS | Encounter Summary ---
Author Organization [facility] Address [address] [place] [id number] Care Team Providers Care Software Support Specialist Name Role Phone Meredith Conti Primary Care Provider Reason for Visit * Reason Comments Follow-up 11 months follow up; 1 year statust post (L) TKA 07/12/2019 Encounter Details Date Type Department Care Team (Late st Contact Info) Description 06/30/2020 1:20 PM EST Office Visit [facility] [address] [place] [address] Mj Menon MD [address] [place] [address] Status post total left knee replacement (Primary [...] from the original note were not included. [facility] [place] [place] [facility] Note Subjective Chief Complaint [...] COLONOSCOPY ??? HYSTERECTOMY ??? KNEE SURGERY ??? KS TOTAL KNEE ARTHROPLASTY Right 01/18/2017 Procedure: RIGHT [...] for Constipation. 60 each 0 ??? [DISCONTINUED] Iaxwsqclwdx-VTX-Aujixamqsg Acd ([facility]) Take 1 tablet [...] Units Date/Time XR Knee 3+ View With [place] Left [[id number]] Resulted: 06/30/20 1349 Updated: 06/30/20 1350 Narrative: [...] (Primary) - XR Knee 3+ View With [place] Left 2. Postoperative examination 1. Status post [...] of this encounter note is an electronic follow up clerk/translation of spoken language to printed text. The [...] Results * XR Knee 3+ View With [place] Left (06/30/2020 1:32 PM EST) Anatomical Region [...] surgery documented in this encounter Care Teams Software Support Specialist Relationship Specialty Start Date End Date Meredith Conti PA PCP - General Physician Top Lifter 02/11/17 documented as of this encounter
--- OUTSIDE RECORDS SUMMARY | 2024-05-07 13:36 | XMS_ITS | Encounter Summary ---
Author Organization [facility] Address [address] [place] [address] Care Team Providers Care Warehouse Stock Clerk Name Role Phone Meredith Conti Primary Care Provider [phone] Reason for Visit * Reason Comments Post-op 3 weeks s/p (L) TKA 07/12/2019 Encounter Details Date Type Department Care Team (Late st Contact Info) Description 08/01/2019 1:40 PM EST Office Visit [facility] [address] [place] [address] Rosmery Laurent PA-C [address] [place] [address] Status post total left knee replacement (Primary [...] from the original note were not included. [facility] Orth[facility] Surgery Clinic Note Subjective Post-op (3 weeks s/p (L) TKA 07/12/2019) LAURA Guajardo is a 63 y.o. female. Patient presents today for initial postop visit for left TKA performed on the above date by Dr. Menon. She is currently using a cane to assist with ambulation. She has been doing outpatient PT at [facility]. She endorses a pain scale of 4/10. [...] nail beds Right--no cyanotic nail beds Bilateral: [place] nail beds with brisk capillary refill Palpation: [...] Indication: status-post TKA ?? AP, Lateral, and [place] views of Left knee Findings: No signs [...] Gan provided patient with a prescription for [place] 5/325. 5. Continue use of compression stockings. [...] Results * XR Knee 3+ View With [place] Left (08/01/2019 1:47 PM EST) Anatomical Region Laterality Modality Lower Extremities, Knee Left Xray Narrative 08/01/2019 1:56 PM EST TKA X-Ray Indication: status-post TKA AP, Lateral, and [place] views of Left knee Findings: No signs of fracture No signs of loosening No change compared to prior study Components are well aligned us Danielito Gan MD IMG DIAGNOSTIC IMAGING ORDER COURTNEY Final Result documented in this encounter Visit Diagnoses Diagnosis Status post total left knee replacement- Primary documented in this encounter Care Teams Warehouse Stock Clerk Relationship Specialty Start Date End Date Meredith Conti PA PCP - General Physician Kettle Chipper 02/11/17 documented as of this encounter
--- OUTSIDE RECORDS SUMMARY | 2024-05-07 13:36 | XMS_ITS | Clinical Summary ---
Author Organization [facility] Address [address] [place] [address] Care Team Providers Care Director Of Rotc Name Role Phone Meredith Conti Primary Care Provider [phone] Allergies Active Allergy Reactions Criticality Noted Date [...] (04/12/2019): Added automatically from request for surgery [id number] Acute blood loss anemia, mild, asymptomatic 02/2017 [...] Testing (1 year) 1956 LIPID PANEL 1956 TDAP/TD VACCINES (1 - Tdap) 12/16/1975 MAMMOGRAM 1996 ZOSTER VACCINE (1 of 2) 2006 ANNUAL PHYSICAL 01/11/2017 HEPATITIS C SCREENING 01/11/2017 PAP SMEAR 01/11/2017 Pneumococcal Vaccine 65+ (1 of 1 - PCV) 2021 INFLUENZA VACCINE 01/12/2024 COVID-19 Vaccine (1 - season) 2024 Medical Devices Implanted Type Area Photo Colorer Device Identifier Shelf Expiration Date Model / Serial / Lot Cmt Bone Simplex/P Full Dose 10/Pk - [id number] Implanted:Qty: 2 on 01/18/2017 by Mj Menon MD at [facility] Implant Right: Knee ASHLEY KIERAN 06/12/2019 [id number] / / [id number] Base Tib Attune Cmt Rp Sz3 - [id number] Implanted:Qty: 1 on 01/18/2017 by Mj Menon MD at [facility] Implant Right: Knee DEPUY 02/10/2026 [id number] / / [id number] Comp Fem Attune Cmt Ps Nrw Sz4 Rt - [id number] Implanted:Qty: 1 on 01/18/2017 by Mj Menon MD at [facility] Implant Right: Knee DEPUY 08/10/2026 [id number] / / [id number] Comp Pat Attune Cmt Medl Gisselle 32mm - [id number] Implanted:Qty: 1 on 01/18/2017 by Mj Menon MD at [facility] Implant Right: Knee DEPUY 09/10/2021 [id number] / / [id number] Tib Attune Ps Rp Sz4 6mm - [id number] Implanted:Qty: 1 on 01/18/2017 by Mj Menon MD at [facility] Implant Right: Knee DEPUY 07/13/2021 [id number] / / [id number] Totl Kn Attune Depuy [id number] - [id number] Implanted:Qty: 1 on 01/18/2017 by Mj Menon MD at [facility] Implant Right: Knee DEPUY CAPKNEETOTALD EP5 / / Comp Pat Attune Cmt Medl Gisselle 32mm - [id number] Implanted:Qty: 1 on 07/12/2019 by Mj Menon MD at [facility] Implant Left: Knee DEPUY 05/12/2024 [id number] / / [id number] Insrt Tib Attune Ps Rp Sz4 6mm - [id number] Implanted:Qty: 1 on 07/12/2019 by Mj Menon MD at [facility] Implant Left: Knee DEPUY 10/11/2023 [id number] / / [id number] Totl Kn Attune Depuy [id number] - [id number] Implanted:Qty: 1 on 07/12/2019 by Mj Menon MD at [facility] Implant Left: Knee DEPUY CAPKNEETOTALD EP5 / / Base Tib Attune Cmt Rp S Pls Sz3 - [id number] Implanted:Qty: 1 on 07/12/2019 by Mj Menon MD at [facility] Implant Left: Knee DEPUY 03/12/2028 [id number] / / [id number] Comp Fem Attune Cmt Ps Nrw Sz4 Lt - [id number] Implanted:Qty: 1 on 07/12/2019 by Mj Menon MD at [facility] Implant Left: Knee DEPUY 10/10/2028 [id number] / / [id number] Cmt Bone Simplex/P Full Dose 10/Pk - [id number] Implanted:Qty: 2 on 07/12/2019 by Mj Menon MD at [facility] Implant Left: Knee ASHLEY KIERAN 06/12/2021 [id number] / / [id number] [place] [address] [place] [address] EMPLOYEE Advance Directives * CPR (Attempt to [...] Of Support Discussed With: Patient Care Teams Director Of Rotc Relationship Specialty Start Date End Date Meredith Conti PA PCP - General Physician Sleep Lab Technologist 02/11/17
--- OUTSIDE RECORDS SUMMARY | 2024-05-07 13:37 | XMS_ITS | Encounter Summary ---
Author Organization [facility] Address [address] [place] [id number] Care Team Providers Care Egg Smeller Name Role Phone Meredith Conti Primary Care Provider [phone] Reason for Referral * Surgical (Routine) - Closed Specialty Diagnoses / Procedures Referred By Contac t Referred To Contact Diagnoses Primary osteoarthritis of left knee Procedures Case Request KS TOTAL KNEE ARTHROPLASTY Mj Menon MD [address] [place] [address] Phone: tel: fax: [facility] [address] [place] [address] Referral ID Status Reason Start Date Expiration Date Visits Re quested Visits Authorized [id number] Closed 04/11/2019 04/10/2020 1 1 Encounter Details Date Type Department Care Team (Late st Contact Info) Description 04/11/2019 Prep for Surgery [facility]DERS ONLY [address] [place] [address] Mj Menon MD [address] [place] [address] Primary osteoarthritis of left knee (Primary Dx) [...] - 0.50 mg/dL 06/28/2019 12:30 PM EST [facility] Blood Venipuncture / Unknown 06/28/2019 11:45 AM EST 06/28/2019 12:04 PM EST Mj Menon MD LAB BLOOD ORDERABLES Final Res ult Performing Organization Address City/[facility]/ZIP Co de Phone Number [facility]
[address] [place] [address], * (ABNORMAL) Sedimentation rate (06/28/2019 11:45 AM EST) Sed Rate >130(H) 0 - 30 mm/hr 06/28/2019 12:18 PM EST [facility] Blood Venipuncture / Unknown 06/28/2019 11:45 AM EST 06/28/2019 12:04 PM EST Mj Menon MD LAB BLOOD ORDERABLES Final Res ult [facility]
[address] [place] [address], * APTT (06/28/2019 11:45 AM EST) PTT 29.1 24.0 - 37.0 seconds 06/28/2019 12:39 PM EST [facility] Blood Venipuncture / Unknown 06/28/2019 11:45 AM EST 06/28/2019 12:04 PM EST Narrative [facility] - 06/28/2019 12:39 PM EST PTT = The equivalent PTT values for the therapeutic range of heparin levels at 0.3 to 0.5 U/ml are 55 to 70 seconds. Mj Menon MD LAB BLOOD ORDERABLES Final Res ult Performing Organization Address City/[facility] Co de Phone Number [facility]
[address] [place] [address], * Protime-INR (06/28/2019 11:45 AM EST) Protime 12.3 11.2 - 14.3 Seconds 06/28/2019 12:39 PM EST [facility] INR 0.96 0.85 - 1.16 06/28/2019 12:39 PM EST [facility] Blood Venipuncture / Unknown 06/28/2019 11:45 AM EST 06/28/2019 12:04 PM EST Mj Menon MD LAB BLOOD ORDERABLES Final Res ult Performing Organization Address [facility] Co de Phone Number [facility]
[address] [place] [address], * Basic metabolic panel (06/28/2019 11:45 AM EST) Glucose 90 65 - 99 mg/dL 06/28/2019 12:33 PM EST [facility] BUN 11 8 - 23 mg/dL 06/28/2019 12:33 PM EST [facility] Creatinine 0.60 0.57 - 1.00 mg/dL 06/28/2019 12:33 PM [facility] Sodium 139 136 - 145 mmol/L 06/28/2019 12:33 PM EST [facility] Potassium 5.0 3.5 - 5.2 mmol/L 06/28/2019 12:33 PM EST [facility] Chloride 102 98 - 107 mmol/L 06/28/2019 12:33 PM EST [facility] CO2 25.0 22.0 - 29.0 mmol/L 06/28/2019 12:33 PM EST [facility] Calcium 10.3 8.6 - 10.5 mg/dL 06/28/2019 12:33 PM EST [facility] eGFR Non Amer 101 >60 mL/min/1.7 3 06/28/2019 12:33 PM EST [facility] BUN/Creatinine Ratio 18.3 7.0 - 25.0 06/28/2019 12:33 PM EST [facility] Anion Gap 12.0 5.0 - 15.0 mmol/L 06/28/2019 12:33 PM EST [facility] Blood Venipuncture / Unknown 06/28/2019 11:45 AM EST 06/28/2019 12:04 PM EST Narrative [facility] - 06/28/2019 12:33 PM EST GFR Normal >60 Chronic Kidney Disease <60 Kidney Failure <15 us Mj Menon MD LAB BLOOD ORDERABLES Final Res ult [facility]
[address] [place] [address], documented in this encounter Visit Diagnoses Diagnosis Primary osteoarthritis of left knee- Primary documented in this encounter Care Teams Egg Smeller Relationship Specialty Start Date End Date Meredith Conti PA PCP - General Physician Horse Racer 02/11/17 documented as of this encounter
--- OUTSIDE RECORDS SUMMARY | 2024-05-07 13:37 | XMS_ITS | Encounter Summary ---
[facility] [address] [place] [address] Care Team Providers Care Carpet Weaver Name Role Phone Provider, No Known Primary Care Provider Unavail able Reason for Visit * Auth/Cert Specialty Diagnoses / Procedures Referred By Sumit caldwell Referred To Contact Diagnoses TOTAL KNEE ARTHROPLASTY RIGHT Procedures PA TOTAL KNEE ARTHROPLASTY TOTAL KNEE ARTHROPLASTY RIGHT Referral ID Status Reason Start Date Expiration Date Visits Re quested Visits Authorized [id number] 1 1 Encounter Details Date Type Department Care Team (Late st Contact Info) Description 01/18/2017 9:55 AM EDT - 01/18/2017 12:25 PM EDT Surgery [id number] Mj Menon MD [address] [place] [address] RIGHT TOTAL KNEE ARTHROPLASTY [[id number] (CPT??)] Social History Tobacco Use Types Packs/Day [...] Acute Care - Physical Therapy Discharge Summary [facility] Patient Name: Marialuisa Hampton : 1955 Today's [...] Initials Name Provider Type Maddie Nicole PTA Purification Operator Helper IP PT Goals 01/20/17 0842 01/19/17 1739 01/19/17 1419 Bed Mobility PT LTG Bed Mobility PT LTG, Date Established 01/19/17 - Bed Mobility PT LTG, Time to Achieve 2 wks -EH Bed Mobility PT LTG, Activity Type all bed mobility -EH Bed Mobility PT LTG, [place] Level conditional independence -EH Bed Mobility PT LTG, Date Goal Reviewed 01/20/17 - Bed Mobility PT LTG, Outcome goal ongoing - goal ongoing -EH Transfer Training PT LTG Transfer Training PT LTG, Date Established 01/19/17 -EH Transfer Training PT LTG, Time to Achieve 2 wks -EH Transfer Training PT LTG, Activity Type all transfers -EH Transfer Training PT LTG, [place] Level conditional independence -EH Transfer Training PT LTG, Assist Device walker, rolling -EH Transfer Training PT LTG, Date Goal Reviewed 01/20/17 - Transfer Training PT LTG, Outcome goal ongoing - goal ongoing -EH Gait Training PT LTG Gait Training Goal PT LTG, Date Established 01/19/17 -EH Gait Training Goal PT LTG, Time to Achieve 2 wks -EH Gait Training Goal PT LTG, [place] Level conditional independence -EH Gait Training Goal PT LTG, Assist Device walker, rolling -EH Gait Training Goal PT LTG, Date Goal Reviewed 01/20/17 - Gait Training Goal PT LTG, Outcome goal ongoing - goal ongoing -EH User Sage (r) = Recorded By, (t) = Taken By, (c) = Cosigned By Initials Name Provider Type Crys Pinedo, PT Physical Therapist Maddie Nicole, RESIDENTIAL BUILDING INSPECTOR Purification Operator Helper Goals Status: Treatment plan discontinued secondary to [...] couple years. Conservative treatments failed to provide retirement relief. She denies use of assistive device [...] 01/18/17 ? SURGEON: Mj Menon MD ?? SALES SUPPORT ASSISTANT: Crys Chavarria PA-C ?? PREOPERATIVE DIAGNOSIS: right [...] Discharge Medications Marialuisa Hampton Home Medication Instructions JULICOESAR:[id number] Printed on:01/20/17 5599 Medication Information aspirin EC 325 MG EC [...] Everywhere. * ACETAMINOPHEN; HYDROCODONE TABLETS OR CAPSULES (ALGERIAN) * TOTAL KNEE REPLACEMENT, CARE AFTER (ALGERIAN) * PERIPHERAL NERVE BLOCK (ALGERIAN) * HOW TO USE COMPRESSION STOCKINGS (ALGERIAN) * INCENTIVE SPIROMETER (ALGERIAN) * DOCUSATE CAPSULES (ALGERIAN) * ASPIRIN, ASA ORAL TABLETS (ALGERIAN) documented in this encounter Medications at Time [...] Choudhary CRNA - 01/20/2017 12:07 PM EDT [facility] Nerve Cath Post Op Call Patient Name: Marialuisa Hampton : 1955 Date of Discharge: 01/20/2017 Nerve Cath Post Op Call: Catheter Plan:Patient called/No answer/Message left to call [facility] pain service for any questions or complaints * Aleja Choudhary CRNA - 01/20/2017 12:07 PM EDT Startist Nerve Cath Post Op Call Patient Name: Marialuisa Hampton : 1955 Date of Discharge: 01/20/2017 Nerve Cath Post Op Call: Catheter Plan:Patient called/No answer/Message left to call [facility] pain service for any questions or complaints * Aleja Choudhary CRNA - 01/20/2017 12:07 PM EDT [facility] Nerve Cath Post Op Call Patient [...] Steiner CRNA - 01/20/2017 7:55 AM EDT [facility] Acute pain service Inpatient Progress Note [...] Hoffmann CRNA - 01/19/2017 2:05 PM EDT [facility] Acute pain service Inpatient Progress Note [...] PM EDT IM progress note Marialuisa Hampton [id number] 1955 LOS: 1 day Attending: Mj Menon [...] pt at bedside. She [facility] she was relatively independent with ADLs (was using a cane or RW with ambulation). No current HH. Confirmed she has [email or web address] insurance with Rx coverage. Goal is to [...] Information Permission Granted to Share Information With case packerlearning program manager Status 01/19/17 1100 Functional Status Prior [...] XR Knee 1 or 2 View Right [[id number]] Updated: 01/18/17 1234 PT: Results Review: I [...] Marialuisa Hampton : 1955 DOS: 01/18/2017 Attending: jM Menon MD Primary Care Provider: No Known Provider Chief complaint: right knee pain Subjective Patient is a 61 y.o. female presented for right total knee arthroplasty by Dr. Menon under spinal anesthesia. She tolerated surgery well and is admitted for further medical management. Her knee pain has progressively worsened over the last couple years. Conservative treatments failed to provide half-way relief. She denies use of assistive device [...] Take 400 mg by mouth Daily. 01/17/2017 [id number] ??? metoprolol tartrate (LOPRESSOR) 25 MG tablet [...] Take 400 mg by mouth Daily. 01/17/2017 [id number] ??? metoprolol tartrate (LOPRESSOR) 25 MG tablet [...] UA Latest Ref Range: Clear Clear Specific [place], UA Latest Ref Range: 1.001 - 1.030 [...] bed mobility -- Bed Mobility PT LTG, [place] Level conditional independence -- Bed Mobility PT [...] all transfers -- Transfer Training PT LTG, [place] Level conditional independence -- Transfer Training PT [...] wks -- Gait Training Goal PT LTG, [place] Level conditional independence -- Gait Training Goal PT LTG, Assist Device walker, rolling -- Gait Training Goal PT LTG, Date Goal Reviewed -- 01/20/17 Gait Training Goal PT LTG, Outcome -- goal ongoing * Crys Pinedo, PT - 01/19/2017 5:40 PM EDT Problem: Patient Care Overview (Adult) Goal: Plan of Care Review Outcome: Ongoing (interventions implemented as appropriate) 01/19/17 6799 Coping/Psychosocial Response Interventions Plan Of Care Reviewed [...] bed mobility -- Bed Mobility PT LTG, [place] Level conditional independence -- Bed Mobility PT LTG, Outcome -- goal ongoing Goal: Transfer Training Goal 1 LTG- PT Outcome: Ongoing (interventions implemented as appropriate) 01/19/17141801/19/171738 Transfer Training PT LTG Transfer Training PT LTG, Date Established 01/19/17 -- Transfer Training PT LTG, Time to Achieve 2 wks -- Transfer Training PT LTG, Activity Type all transfers -- Transfer Training PT LTG, [place] Level conditional independence -- Transfer Training PT LTG, Assist Device walker, rolling -- Transfer Training PT LTG, Outcome -- goal ongoing Goal: Gait Training Goal LTG- PT Outcome: Ongoing (interventions implemented as appropriate) 01/19/17141801/19/171738 Gait Training PT LTG Gait Training Goal PT LTG, Date Established 01/19/17 -- Gait Training Goal PT LTG, Time to Achieve 2 wks -- Gait Training Goal PT LTG, [place] Level conditional independence -- Gait Training Goal [...] all bed mobility Bed Mobility PT LTG, [place] Level conditional independence Goal: Transfer Training Goal 1 LTG- PT Outcome: Ongoing (interventions implemented as appropriate) 01/19/17 1419 Transfer Training PT LTG Transfer Training PT LTG, Date Established 01/19/17 Transfer Training PT LTG, Time to Achieve 2 wks Transfer Training PT LTG, Activity Type all transfers Transfer Training PT LTG, [place] Level conditional independence Transfer Training PT LTG, Assist Device walker, rolling Goal: Gait Training Goal LTG- PT Outcome: Ongoing (interventions implemented as appropriate) 01/19/17 1419 Gait Training PT LTG Gait Training Goal PT LTG, Date Established 01/19/17 Gait Training Goal PT LTG, Time to Achieve 2 wks Gait Training Goal PT LTG, [place] Level conditional independence Gait Training Goal PT [...] d/t dec. ROM and pain-recommend sockaid and facing cutting 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. Will progress with independence & safety with daily tasks in preparation for d/c home Problem: Inpatient Occupational Therapy Goal: Transfer Training Goal 1 LTG- OT Outcome: Ongoing (interventions implemented as appropriate) 01/19/17 1020 Transfer Training OT LTG Transfer Training OT LTG, Time to Achieve 4 days Transfer Training OT LTG, Activity Type tub Transfer Training OT LTG, [place] Level contact guard assist Transfer Training OT LTG, Assist Device walker, rolling Transfer Training OT LTG, Outcome goal ongoing Goal: LB Dressing Goal LTG- OT Outcome: Ongoing (interventions implemented as appropriate) 01/19/17 1020 LB Dressing OT LTG LB Dressing Goal OT LTG, Time to Achieve 4 days LB Dressing Goal OT LTG, [place] Level conditional independence LB Dressing Goal OT LTG, Adaptive Equipment laces, elastic;facing cutting 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;shoe horn, long handled;sock-aid LB Dressing Goal OT LTG, Outcome goal ongoing * Maddie Thompson RN - 01/19/2017 12:24 PM EDT Acute Pain Service: On-Q teaching completed with patient . Video demonstration, handout and bracelet provided with [facility] marketing and public relations manager central phone number. Instructed to call with any questions or concerns.Patient verbalized understanding. Service will continue to follow until catheter DC'd. Please contact patient at [phone] if needed. * Dominique Kwon RN - [...] Ongoing (interventions implemented as appropriate) * Yolande Oacmpo RN - 01/18/2017 8:27 AM EDT Problem: [...] OF PROCEDURE: 01/18/17 SURGEON: Mj Menon MD SALES SUPPORT ASSISTANT: Crys Chavarria PA-C PREOPERATIVE DIAGNOSIS: right knee [...] the lateral gutter. Description ofarthritis: Severe osteoarthritis, hfre-qe-ctxy medially and patellofemoral compartments. The knee was [...] closed with #1 Vicryl in an interrupted bjuclf-le-arxiq fashion in 4 strategic locations followed by [...] * Therapy Treatment Note - Maddie Nicole, RESIDENTIAL BUILDING INSPECTOR - 01/20/2017 8:44 AM EDT Acute Care - Physical Therapy Treatment Note [facility] Patient Name: Marialuisa Hampton : 1955 [...] 01/19/17 1615 01/19/17 1104 Rehab Assessment/Intervention Discipline physical fitness teacher - physical therapist -EH Document Type therapy [...] Nicole PTA [] Crys Pinedo, PT [EH] Crys Pinedo, PT Mobility Assessment/Training Extremity Weight-Bearing Status right lower extremity -EH Right Lower Extremity Weight-Bearing weight-bearing as tolerated -EH Recorded by [EH] Crys Pinedo PT Bed Mobility, Assessment/Treatment Bed Mobility, Assistive Device bed rails;head of bed elevated;leg service station manager - bed rails;head of bed elevated;leg service station manager -EH Bed Mob, Supine to Sit, [place] conditional independence - supervision required - Bed Mobility, Comment safe technique using leg service station manager - cueing for doffing leg service station manager to scoot forward -EH Recorded by [] Maddie Nicole PTA [] Crys Pinedo, PT Transfer Assessment/Treatment Transfers, Sit-Stand [place] verbal cues required;contact guard assist - contact guard assist - Transfers, Stand-Sit [place] verbal cues required;contact guard assist - contact guard assist - Transfers, [id number], Assist Device rolling walker - rolling walker - Toilet Transfer, [place] -- - Toilet Transfer, Assistive Device -- -EH Recorded by [] Maddie Nicole PTA [] Crys Pinedo, PT Gait Assessment/Treatment Gait, [place] Level verbal cues required;contact guard assist - contact guard assist - Gait, Assistive Device rolling walker - rolling walker - Gait, Distance (Feet) 140 - 120 - Gait, Gait Pattern Analysis swing-to gait - Gait, Gait Deviations right:;antalgic;tracey decreased;decreased heel strike;lux-ju-pywwr clearance decreased;step length decreased - right:;antalgic;weight-shifting ability decreased;forward flexed posture;ivd-wn-xipmi clearance decreased;left:;step length decreased - Gait, Safety [...] assist;SLR -EH Recorded by [] Maddie Nicole, RESIDENTIAL BUILDING INSPECTOR [] Crys Pinedo, PT Sensory Assessment/Intervention Light [...] family/caregiver -EH Recorded by [] Maddie Nicole, RESIDENTIAL BUILDING INSPECTOR [] Crys Pinedo, PT [] Crys Pinedo, PT 01/19/17 1101 Positioning and Restraints Pre-Treatment Position -- -EH Post Treatment Position -- -EH In Chair -- -EH Recorded by [] Crys Pinedo, PT User Sage (r) = Recorded By, (t) = Taken By, (c) = Cosigned By Initials Name Effective Dates Crys Pinedo, PT 11/29/14 - Maddie Nicole, RESIDENTIAL BUILDING INSPECTOR 12/02/14 - IP PT Goals 01/20/17 0842 01/19/17 1739 01/19/17 1419 Bed Mobility PT LTG Bed Mobility PT LTG, Date Established 01/19/17 -EH Bed Mobility PT LTG, Time to Achieve 2 wks -EH Bed Mobility PT LTG, Activity Type all bed mobility -EH Bed Mobility PT LTG, [place] Level conditional independence -EH Bed Mobility PT LTG, Date Goal Reviewed 01/20/17 - Bed Mobility PT LTG, Outcome goal ongoing - goal ongoing -EH Transfer Training PT LTG Transfer Training PT LTG, Date Established 01/19/17 -EH Transfer Training PT LTG, Time to Achieve 2 wks -EH Transfer Training PT LTG, Activity Type all transfers -EH Transfer Training PT LTG, [place] Level conditional independence -EH Transfer Training PT LTG, Assist Device walker, rolling -EH Transfer Training PT LTG, Date Goal Reviewed 01/20/17 - Transfer Training PT LTG, Outcome goal ongoing - goal ongoing - Gait Training PT LTG Gait Training Goal PT LTG, Date Established 01/19/17 - Gait Training Goal PT LTG, Time to Achieve 2 wks - Gait Training Goal PT LTG, [place] Level conditional independence - Gait Training Goal PT LTG, Assist Device walker, rolling - Gait Training Goal PT LTG, Date Goal Reviewed 01/20/17 - Gait Training Goal PT LTG, Outcome goal ongoing - goal ongoing - User Sage (r) = Recorded By, (t) = Taken By, (c) = Cosigned By Initials Name Provider Type Crys Pinedo, PT Physical Therapist Maddie Nicole, RESIDENTIAL BUILDING INSPECTOR Purification Operator Helper Physical Therapy Education Title: PT OT EMPLOYMENT COORDINATOR Therapies (Active) Topic: Physical Therapy (Active) Point: [...] Initials Effective Dates Name Provider Type [facility] 11/29/14 - Crys Pinedo, PT Physical Therapist PT 12/02/14 - Maddie Nicole, RESIDENTIAL BUILDING INSPECTOR Purification Operator Helper PT PT Recommendation and Plan Plan of [...] Hernandez, OTR Occupational Therapist Maddie Nicole PTA Purification Operator Helper Time Calculation: PT Charges 01/20/17 0843 Time Calculation Start Time 0800 - PT Received On 01/20/17 - PT Goal Re-Cert Due Date 01/29/17 - Time Calculation- PT Total Timed Code Minutes- PT 30 minute(s) - User Sage (r) = Recorded By, (t) = Taken By, (c) = Cosigned By Initials Name Provider Type Maddie Nicole PTA Purification Operator Helper Therapy Charges for Today Code Description Service Date Service Provider Modifiers Qty 58267810372 HC GAIT TRAINING EA 15 MIN 01/20/2017 Maddie Nicole PTA GP 1 [id number] HC PT THER PROC EA 15 MIN 01/20/2017 Maddie Nicole PTA GP 1 PT G-Codes Outcome Measure Options: AM-PAC 6 Clicks Basic Mobility (PT) Maddie Nicole PTA 01/20/2017 * Therapy Treatment Note - Crys Pinedo PT - 01/19/2017 5:41 PM EDT Acute Care - Physical Therapy Treatment Note [facility] Patient Name: Marialuisa Hampton : 1955 [...] Assistive Device bed rails;head of bed elevated;leg service station manager - Bed Mob, Supine to Sit, [place] supervision required - Bed Mobility, Comment cueing for doffing leg service station manager to scoot forward - Recorded by [] Crys Pinedo, PT Transfer Assessment/Treatment Transfers, Sit-Stand [place] contact guard assist - Transfers, Stand-Sit [place] contact guard assist - Transfers, [id number], Assist Device rolling walker - Toilet Transfer, [place] -- - Toilet Transfer, Assistive Device -- -EH Recorded by [] Crys Pinedo, PT Gait Assessment/Treatment Gait, [place] Level contact guard assist - Gait, Assistive Device rolling walker - Gait, Distance (Feet) 120 - Gait, Gait Pattern Analysis swing-to gait - Gait, Gait Deviations right:;antalgic;weight-shifting ability decreased;forward flexed posture;tnc-ex-neura clearance decreased;left:;step length decreased - Gait, Safety [...] bed mobility - Bed Mobility PT LTG, [place] Level conditional independence - Bed Mobility PT LTG, Outcome goal ongoing - Transfer Training PT LTG Transfer Training PT LTG, Date Established 01/19/17 - Transfer Training PT LTG, Time to Achieve 2 wks -EH Transfer Training PT LTG, Activity Type all transfers - Transfer Training PT LTG, [place] Level conditional independence -EH Transfer Training PT LTG, Assist Device walker, rolling -EH Transfer Training PT LTG, Outcome goal ongoing - Gait Training PT LTG Gait Training Goal PT LTG, Date Established 01/19/17 - Gait Training Goal PT LTG, Time to Achieve 2 wks -EH Gait Training Goal PT LTG, [place] Level conditional independence -EH Gait Training Goal PT LTG, Assist Device walker, rolling -EH Gait Training Goal PT LTG, Outcome goal ongoing - User Sage (r) = Recorded By, (t) = Taken By, (c) = Cosigned By Initials Name Provider Type Crys Pinedo, PT Physical Therapist Physical Therapy Education Title: PT OT EMPLOYMENT COORDINATOR Therapies (Active) Topic: Physical Therapy (Done) Point: Mobility training (Done) Learning Progress Summary Learner Readiness Method Response Comment Documented by Status Patient Acceptance E VU,NR 01/19/17 1739 Done Acceptance E NR 01/19/17 1418 Active Point: Home exercise program (Done) Learning Progress Summary Learner Readiness Method Response Comment Documented by Status Patient Acceptance E VU,[facility] 01/19/17 1739 Done Acceptance E [facility] 01/19/17 1418 Active Point: Body mechanics (Done) Learning Progress Summary Learner Readiness Method Response Comment Documented by Status Patient Acceptance E VU,[facility] 01/19/17 1739 Done Acceptance E [facility] 01/19/17 1418 Active Point: Precautions (Done) Learning Progress Summary Learner Readiness Method Response Comment Documented by Status Patient Acceptance E VU,NR 01/19/17 1739 Done Acceptance E [facility] 01/19/17 1418 Active User Sage Initials Effective Dates Name Provider Type [facility] 11/29/14 - Crys Pinedo, PT Physical [...] Description Service Date Service Provider Modifiers Qty 58446957903 HC PT THER PROC EA 15 MIN 01/19/2017 Crys Pinedo, PT GP 1 99832421324 HC PT EVAL MOD COMPLEXITY 3 01/19/2017 Crys Pinedo, PT GP 1 09742325075 HC GAIT TRAINING EA 15 MIN 01/19/2017 Crys Pinedo, PT GP 1 01775301742 HC PT THER PROC EA 15 MIN 01/19/2017 Crys Pinedo, PT GP 1 PT G-Codes Outcome Measure Options: AM-PAC 6 Clicks Basic Mobility (PT) Crys Pinedo PT 01/19/2017 * Therapy Evaluation - Crys Pinedo, PT - 01/19/2017 3:04 PM EDT Acute Care - Physical Therapy Initial Evaluation [facility] Patient Name: Marialuisa Hampton : 1955 Today's [...] Date ??? CARDIAC CATHETERIZATION ??? HYSTERECTOMY ??? PA TOTAL KNEE ARTHROPLASTY Right 01/18/2017 Procedure: RIGHT TOTAL KNEE ARTHROPLASTY; Surgeon: Mj Menon MD; Location: [facility]; Service: Orthopedics PT ASSESSMENT (last [...] Assistive Device bed rails;head of bed elevated;leg service station manager - Bed Mob, Supine to Sit, [place] supervision required - Bed Mobility, Comment increased time, cueing for leg service station manager, - Transfer Assessment/Treatment Transfers, Sit-Stand [place] contact guard assist;2 person assist required - Transfers, Stand-Sit [place] contact guard assist;2 person assist required - Transfers, [id number], Assist Device rolling walker;elevated surface - Toilet Transfer, [place] contact guard assist - Toilet Transfer, Assistive Device bedside commode without drop arms;elevated toilet seat;rolling walker - Transfer, Comment cues for hand placement, fully turning prior to reaching for chair/bsc; progressing RLE prior to sitting - Gait Assessment/Treatment Gait, [place] Level contact guard assist - Gait, Assistive Device rolling walker - Gait, Distance (Feet) 100 - Gait, Gait Pattern Analysis swing-to gait - Gait, Gait Deviations right:;antalgic;decreased heel strike;rpm-xy-errtd clearance decreased;left:;step length decreased - Gait, Comment [...] Assistive Device bed rails;head of bed elevated;leg service station manager -ST Bed Mob, Supine to Sit, [place] supervision required -ST Bed Mobility, Comment increased time to complete along with cuing for sequencing task -ST Transfer Assessment/Treatment Transfers, Sit-Stand [place] contact guard assist;2 person assist required -ST Transfers, Stand-Sit [place] contact guard assist;2 person assist required -ST Transfers, [id number], Assist Device rolling walker -ST Toilet Transfer, [place] contact guard assist -ST Toilet Transfer, Assistive [...] Padgett, PT Physical Therapist SG Anne-Marie Kirkpatrick Reeling Operator TS Yolande Ocampo, RN Registered Nurse AB Dominique Kwon, RN Registered Nurse Physical Therapy Education Title: PT OT EMPLOYMENT COORDINATOR Therapies (Active) Topic: Physical Therapy (Active) Point: [...] Initials Effective Dates Name Provider Type [facility] 11/29/14 - Crys Pinedo, PT Physical [...] bed mobility -EH Bed Mobility PT LTG, [place] Level conditional independence -EH Transfer Training PT LTG Transfer Training PT LTG, Date Established 01/19/17 -EH Transfer Training PT LTG, Time to Achieve 2 wks -EH Transfer Training PT LTG, Activity Type all transfers -EH Transfer Training PT LTG, [place] Level conditional independence -EH Transfer Training PT LTG, Assist Device walker, rolling -EH Gait Training PT LTG Gait Training Goal PT LTG, Date Established 01/19/17 -EH Gait Training Goal PT LTG, Time to Achieve 2 wks -EH Gait Training Goal PT LTG, [place] Level conditional independence -EH Gait Training Goal [...] Description Service Date Service Provider Modifiers Qty [id number] HC PT THER PROC EA 15 MIN 01/19/2017 Crys Pinedo, PT GP 1 [id number] HC PT EVAL MOD COMPLEXITY 3 01/19/2017 Crys Pinedo, PT GP 1 PT G-Codes Outcome Measure Options: AM-PAC 6 Clicks Basic Mobility (PT) Crys Pinedo PT 01/19/2017 * Therapy Evaluation - Katy Hernandez OTR - 01/19/2017 2:11 PM EDT Acute Care - Occupational Therapy Initial Evaluation [facility] Patient Name: Marialuisa Hampton : 1955 [...] Date ??? CARDIAC CATHETERIZATION ??? HYSTERECTOMY ??? PA TOTAL KNEE ARTHROPLASTY Right 01/18/2017 Procedure: RIGHT TOTAL KNEE ARTHROPLASTY; Surgeon: Mj Menon MD; Location: [facility]; Service: Orthopedics OT ASSESSMENT FLOWSHEET [...] Assistive Device bed rails;head of bed elevated;leg service station manager -ST Bed Mob, Supine to Sit, [place] supervision required -ST Bed Mobility, Comment increased time to complete along with cuing for sequencing task -ST Transfer Assessment/Treatment Transfers, Sit-Stand [place] contact guard assist;2 person assist required -ST Transfers, Stand-Sit [place] contact guard assist;2 person assist required -ST Transfers, [id number], Assist Device rolling walker -ST Toilet Transfer, [place] contact guard assist -ST Toilet Transfer, Assistive [...] R despite mult attempts with modifications; recommend facing cutting 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 and sockaid -ST Toileting Assessment/Training Toileting Assess/Train, [...] General Therapy Interventions Adaptive Equipment Training recommend facing cutting 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 and sockaid for home use -ST Positioning [...] - Occupational Therapy Education Title: PT OT EMPLOYMENT COORDINATOR Therapies (Active) Topic: Occupational Therapy (Active) Point: [...] d/t dec. ROM and pain-recommend sockaid and facing cutting 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. Will progress with independence & safety with daily tasks in preparation for d/c home OT Goals 01/19/17 1020 Transfer Training OT LTG Transfer Training OT LTG, Time to Achieve 4 days -ST Transfer Training OT LTG, Activity Type tub -ST Transfer Training OT LTG, [place] Level contact guard assist -ST Transfer Training OT LTG, Assist Device walker, rolling -ST Transfer Training OT LTG, Outcome goal ongoing -ST LB Dressing OT LTG LB Dressing Goal OT LTG, Time to Achieve 4 days -ST LB Dressing Goal OT LTG, [place] Level conditional independence -ST LB Dressing Goal OT LTG, Adaptive Equipment laces, elastic;facing cutting 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;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, 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 handled;sock-aid-ST LB Dressing Goal OT [...] Description Service Date Service Provider Modifiers Qty [id number] OT THERAPEUTIC ACT EA 15 MIN 01/19/2017 Katy Hernandez, OTR GO 1 [id number] HC OT EVAL MOD COMPLEXITY 3 01/19/2017 [...] - 10.80 10*3/mm3 01/20/2017 6:40 AM EDT [facility] RBC 3.50(L) 3.89 - 5.14 10*6/mm3 01/20/2017 6:40 AM EDT [facility] Hemoglobin 8.7(L) 11.5 - 15.5 g/dL 01/20/2017 6:40 AM EDT [facility] Hematocrit 27.4(L) 34.5 - 44.0 % 01/20/2017 6:40 AM EDT [facility] MCV 78.3(L) 80.0 - 99.0 fL 01/20/2017 6:40 AM EDT [facility] MCH 24.9(L) 27.0 - 31.0 pg 01/20/2017 6:40 AM EDT [facility] MCHC 31.8(L) 32.0 - 36.0 g/dL 01/20/2017 6:40 AM EDT [facility] RDW 16.4(H) 11.3 - 14.5 % 01/20/2017 6:40 AM EDT [facility] RDW-SD 47.4 37.0 - 54.0 fl 01/20/2017 6:40 AM EDT [facility] MPV 10.0 6.0 - 12.0 fL 01/20/2017 6:40 AM EDT [facility] Platelets 295 150 - 450 10*3/mm3 01/20/2017 6:40 AM EDT [facility] Blood 01/20/2017 5:56 AM EDT 01/20/2017 6:23 AM EDT Mj Menon MD LAB BLOOD ORDERABLES Final Res ult [facility]
[address] [place] [address], * (ABNORMAL) Basic Metabolic Panel (01/20/2017 5:56 AM EDT) Glucose 101(H) 70 - 100 mg/dL 01/20/2017 7:07 AM EDT [facility] BUN 10 9 - 23 mg/dL 01/20/2017 7:07 AM EDT [facility] Creatinine 0.40(L) 0.60 - 1.30 mg/dL 01/20/2017 7:07 AM EDT [facility] Sodium 136 132 - 146 mmol/L 01/20/2017 7:07 AM EDT [facility] Potassium 3.8 3.5 - 5.5 mmol/L 01/20/2017 7:07 AM EDT [facility] Chloride 108 99 - 109 mmol/L 01/20/2017 7:07 AM EDT [facility] CO2 23.0 20.0 - 31.0 mmol/L 01/20/2017 7:07 AM EDT [facility] Calcium 9.0 8.7 - 10.4 mg/dL 01/20/2017 7:07 AM EDT [facility] eGFR Non Amer >150 >60 mL/min/1.7 3 01/20/2017 7:07 AM EDT [facility] BUN/Creatinine Ratio 25.0 7.0 - 25.0 01/20/2017 7:07 AM EDT [facility] Anion Gap 5.0 3.0 - 11.0 mmol/L 01/20/2017 7:07 AM EDT [facility] Blood 01/20/2017 5:56 AM EDT 01/20/2017 6:23 AM EDT [facility] - 01/20/2017 7:07 AM EDT National Kidney Foundation Guidelines Stage ? Description ?GFR 1 ? Normal or High ? 90+ 2 ? Mild decrease ?60-89 3 ? Moderate decrease ??30-59 4 ? Severe decrease ?15-29 5 ? Kidney failure ? <15 Silvia Urbana COOLER MAN LAB BLOOD ORDERABLES Final Result [facility]
[address] [place] [address], * (ABNORMAL) CBC (No Diff) (01/19/2017 5:47 AM EDT) WBC 12.79(H) 3.50 - 10.80 10*3/mm3 01/19/2017 6:28 AM EDT [facility] RBC 3.54(L) 3.89 - 5.14 10*6/mm3 01/19/2017 6:28 AM EDT [facility] Hemoglobin 9.0(L) 11.5 - 15.5 g/dL 01/19/2017 6:28 AM EDT [facility] Hematocrit 28.4(L) 34.5 - 44.0 % 01/19/2017 6:28 AM EDT [facility] MCV 80.2 80.0 - 99.0 fL 01/19/2017 6:28 AM EDT [facility] MCH 25.4(L) 27.0 - 31.0 pg 01/19/2017 6:28 AM EDT [facility] MCHC 31.7(L) 32.0 - 36.0 g/dL 01/19/2017 6:28 AM EDT [facility] RDW 16.1(H) 11.3 - 14.5 % 01/19/2017 6:28 AM EDT [facility] RDW-SD 48.0 37.0 - 54.0 fl 01/19/2017 6:28 AM EDT [facility] MPV 10.2 6.0 - 12.0 fL 01/19/2017 6:28 AM EDT [facility] Platelets 326 150 - 450 10*3/mm3 01/19/2017 6:28 AM EDT [facility] Blood 01/19/2017 5:47 AM EDT 01/19/2017 6:09 AM EDT us Mj Menon MD LAB BLOOD ORDERABLES Final Res ult [facility]
[address] [place] [address], * (ABNORMAL) Basic Metabolic Panel (01/19/2017 5:47 AM EDT) Glucose 110(H) 70 - 100 mg/dL 01/19/2017 7:05 AM [facility] BUN 9 9 - 23 mg/dL 01/19/2017 7:05 AM [facility] Creatinine 0.60 0.60 - 1.30 mg/dL 01/19/2017 7:05 AM [facility] Sodium 134 132 - 146 mmol/L 01/19/2017 7:05 AM [facility] Potassium 3.4(L) 3.5 - 5.5 mmol/L 01/19/2017 7:05 AM [facility] Chloride 106 99 - 109 mmol/L 01/19/2017 7:05 AM [facility] CO2 22.0 20.0 - 31.0 mmol/L 01/19/2017 7:05 AM [facility] Calcium 8.4(L) 8.7 - 10.4 mg/dL 01/19/2017 7:05 AM [facility] eGFR Non Amer 102 >60 mL/min/1.7 3 01/19/2017 7:05 AM [facility] BUN/Creatinine Ratio 15.0 7.0 - 25.0 01/19/2017 7:05 AM [facility] Anion Gap 6.0 3.0 - 11.0 mmol/L 01/19/2017 7:05 AM [facility] Blood 01/19/2017 5:47 AM EDT 01/19/2017 6:08 AM EDT [facility] - 01/19/2017 7:05 AM EDT National Kidney Foundation Guidelines Stage ? Description ?GFR 1 ? Normal or High ? 90+ 2 ? Mild decrease ?60-89 3 ? Moderate decrease ??30-59 4 ? Severe decrease ?15-29 5 ? Kidney failure ? <15 Silviaodalys Bonds COOLER MAN LAB BLOOD ORDERABLES Final Result [facility]
[address] [place] [address], * XR Knee 1 or 2 View [...] ABO Type A 01/18/2017 10:38 AM EDT [facility] RH type Positive 01/18/2017 10:38 AM EDT [facility] Antibody Screen Negative 01/18/2017 10:38 AM EDT [facility] Blood Line / Unknown 01/18/2017 8: 24 AM EDT 01/18/2017 8:37 AM EDT Mj Menon MD BLOOD BANK TEST ORDERABLES Angel alexandr Result - Final Performing Organization Address [facility]/ZIP Co de Phone Number [facility]
[address] [place] [address], * OR Potassium (01/18/2017 8:24 AM EDT) Potassium, OR 4.15 3.5 - 5.3 mmol/L 01/18/2017 8:31 AM EDT [facility] Blood Line / Unknown 01/18/2017 8: 24 AM EDT 01/18/2017 8:30 AM EDT Burak Rivera MD LAB BLOOD ORDERABLES Final Resu lt Performing Organization Address [facility] Co de Phone Number [facility]
[address] [place] [address], documented in this encounter Visit Diagnoses Not [...] Valdivia RN) 0832 (Given - Provider: Heather Ceuto, RN) 0814 (Given - Provider: Judy Albert [...] breaths/minute. documented in this encounter Care Teams Carpet Weaver Relationship Specialty Start Date End Date Provider, [place] [address] PCP - General 01/11/17 02/10/17 documented as of this encounter
--- OUTSIDE RECORDS SUMMARY | 2024-05-07 13:37 | XMS_ITS | Encounter Summary ---
Author Organization [facility] Address [address] [place] [id number] Care Team Providers Care Grid Maker Name Role Phone Meredith Conti Primary Care Provider [phone] Reason for Visit * Reason Comments Follow-up 4 month follow up, 6 months status post: Right total knee arthroplasty 01/18/17 Encounter Details Date Type Department Care Team (Late st Contact Info) Description 08/08/2017 9:40 AM EST Office Visit [facility] [address] [place] [address] Mj Menon MD [address] [place] [address] Status post total right knee replacement (Primary [...] original note were not included. [facility] Subjective Chief Complaint [...] CATHETERIZATION ??? HYSTERECTOMY ??? KNEE SURGERY ??? [place] TOTAL KNEE ARTHROPLASTY Right 01/18/2017 Procedure: RIGHT TOTAL KNEE ARTHROPLASTY; Surgeon: Mj Menon MD; Location: [facility]; Service: Orthopedics Family History Problem Relation Age [...] Take 1 tablet by mouth Daily. ??? [place]-3 Fatty Acids (FISH OIL) 1000 MG capsule [...] Units Date/Time XR Knee 3+ View With Dearing Right [[id number]] Resulted: 08/08/17951 Updated: 08/08/17951 Narrative: Right Knee [...] replacement - XR Knee 3+ View With Dearing Right I reviewed my findings with patient [...] Results * XR Knee 3+ View With Dearing Right (08/08/2017 9:50 AM EST) Anatomical Region [...] Primary documented in this encounter Care Teams Grid Maker Relationship Specialty Start Date End Date Meredith Conti PA PCP - General Physician Wheel Cutter 02/11/17 documented as of this encounter
--- OUTSIDE RECORDS SUMMARY | 2024-05-07 13:37 | XMS_ITS | Encounter Summary ---
Author Organization [facility] Address [address] [place] [id number] Care Team Providers Care Slat Basket Maker Name Role Phone Meredith Conti Primary Care Provider [phone] Reason for Visit * Reason Comments Follow-up 6 week f/u post op. Right TKA on 01/18/17 Encounter Details Date Type Department Care Team (Late st Contact Info) Description 03/28/2017 2:10 PM EDT Office Visit [facility] MEDICINE [address] [place] [address] Mj Menon MD [facility] [address] [place] [address] Status post total right knee replacement (Primary [...] from the original note were not included. [facility] Subjective Chief Complaint [...] KNEE ARTHROPLASTY; Surgeon: Mj Menon MD; Location: [facility]; Service: Orthopedics Family History Problem Relation [...] Take 1 tablet by mouth Daily. ??? [place]-3 Fatty Acids (FISH OIL) 1000 MG capsule [...] aftercare documented in this encounter Care Teams Slat Basket Maker Relationship Specialty Start Date End Date Meredith Conti PA PCP - General Physician Brake Repair Supervisor 02/11/17 documented as of this encounter
--- OUTSIDE RECORDS SUMMARY | 2024-05-07 13:37 | XMS_ITS | Encounter Summary ---
Author Organization [facility] Address [address] [place] [id number] Care Team Providers Care Alpaca Farmer Name Role Phone Meredith Conti Primary Care Provider [phone] Reason for Visit * Reason Comments Follow-up Right Total Knee Art hroplasty month f/u Encounter Details Date Type Department Care Team (Late st Contact Info) Description 02/06/2018 2:40 PM EDT Office Visit [facility]ICINE [address] [place] [address] Mj Menon MD [address] [facility] [address] [place] [address] Status post total right knee replacement (Primary [...] from the original note were not included. [facility] [place] [place] [facility] Note Subjective Chief Complaint [...] CATHETERIZATION ??? HYSTERECTOMY ??? KNEE SURGERY ??? [place] TOTAL KNEE ARTHROPLASTY Right 01/18/2017 Procedure: RIGHT TOTAL KNEE ARTHROPLASTY; Surgeon: Mj Menon MD; Location: [facility]; Service: Orthopedics Family History Problem Relation [...] Take 1 tablet by mouth Daily. ??? [place]-3 Fatty Acids (FISH OIL) 1000 MG capsule [...] replacement - XR Knee 3+ View With Godfrey Right Postoperative examination I reviewed my findings [...] Results * XR Knee 3+ View With Godfrey Right (02/06/2018 2:35 PM EDT) Anatomical Region [...] surgery documented in this encounter Care Teams Alpaca Farmer Relationship Specialty Start Date End Date Meredith Conti PA PCP - General Physician Aviation Electrical Technician 02/11/17 documented as of this encounter
--- OUTSIDE RECORDS SUMMARY | 2024-05-07 13:37 | XMS_ITS | Encounter Summary ---
[facility] Address [address] [place] [address] Care Team Providers Care Torpedo Specialist Name Role Phone Meredith Conti Primary Care Provider [phone] Reason for Visit * Reason Comments Post Op 3 weeks s/p RIGHT TO CATHERINE KNEE ARTHROPLASTY 01/18/2017 Encounter Details Date Type Department Care Team (Late st Contact Info) Description 02/11/2017 9:20 AM EDT Office Visit [facility] ORTHOPED[facility]TS MEDICINE [address] [place] [address] Mj Menon MD [address] [place] [address] H/O total knee replacement, right (Primary Dx); [...] from the original note were not included. [facility] [place] Subjective Chief Complaint [...] Date ??? CARDIAC CATHETERIZATION ??? HYSTERECTOMY ??? [place] TOTAL KNEE ARTHROPLASTY Right 01/18/2017 Procedure: RIGHT TOTAL KNEE ARTHROPLASTY; Surgeon: Mj Menon MD; Location: [facility]; Service: Orthopedics Family History Problem Relation Age [...] Take 1 tablet by mouth Daily. ??? [place]-3 Fatty Acids (FISH OIL) 1000 MG capsule [...] right - XR Knee 3+ View With Driggs Right Orthopedic aftercare Other orders - HYDROcodone-acetaminophen [...] Results * XR Knee 3+ View With Driggs Right (02/11/2017 9:31 AM EDT) Anatomical Region [...] hip documented in this encounter Care Teams Torpedo Specialist Relationship Specialty Start Date End Date Meredith Conti PA PCP - General Physician Manager Java 02/11/17 documented as of this encounter
--- OUTSIDE RECORDS SUMMARY | 2024-05-07 13:37 | XMS_ITS | Encounter Summary ---
Author Organization [facility] Address [address] [place] [address] Care Team Providers Care Toilet Products Molder Name Role Phone Meredith Conti Primary Care Provider [phone] Reason for Visit * Auth/Cert Specialty Diagnoses / Procedures Referred By Contac t Referred To Contact Diagnoses Primary osteoarthritis of left knee Primary osteoarthritis of left knee [M17.12] Procedures RI TOTAL KNEE ARTHROPLASTY TOTAL KNEE ARTHROPLASTY LEFT Referral ID Status Reason Start Date Expiration Date Visits Re quested Visits Authorized [id number] 1 1 Encounter Details Date Type Department Care Team (Late st Contact Info) Description 07/12/2019 7:28 AM EST Anesthesia Event [facility] OR [address] [place] [address] Burak Rivera MD [address] [place] [address] Luis Manuel Johnson CRNA [address] [place] [address] Anesthesia Record Procedure Summary Procedure Name Responsible [...] Removal Time: 1300 07/12/19 0645 by Stephanie Ji RN 07/13/19 1300 by Olivia Arango RN [...] Date: 07/12/19 Room / Location: [facility] OR [address] [place] [address] [facility] OR Anesthesia Start: 727 Anesthesia Stop: [...] request and post-op pain management Performed by PEARL STRINGER: Luis Manuel Johnson CRNA Preanesthetic Checklist Completed: [...] procedure: OR Indication:at surgeon's request Performed By PEARL STRINGER: Luis Manuel Johnson CRNA Preanesthetic Checklist Completed: patient identified, site marked, surgical consent, pre-op evaluation, timeout performed,IV checked, risks and benefits discussed and monitors and equipment checked Spinal Block Prep: Patient Position:sitting Ankle Patch Molder:cap, gloves, sterile barriers and mask Prep:Chloraprep Patient [...] was injected: Exp date: 2021-04-12 Lot # [id number] * Anesthesia Preprocedure Evaluation - Burak Rivera [...] sounds: normal. 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 Plan discussed with PEARL STRINGER. documented in this encounter Plan of Treatment [...] request and post-op pain management Performed by PEARL STRINGER: Luis Manuel Johnson CRNA Preanesthetic Checklist Completed: [...] equipment checked Spinal Block Prep: Patient Position:sitting Ankle Patch Molder:cap, gloves, sterile barriers and mask Prep:Chloraprep Patient [...] injected: ? Exp date: 2021-04-12 Lot # [id number] Luis Manuel Johnson PEARL STRINGER ANESTHESIA ORDERABLES Final R esult documented in [...] mg documented in this encounter Care Teams Toilet Products Molder Relationship Specialty Start Date End Date Meredith Conti PA PCP - General Physician Drum Handler 02/11/17 documented as of this encounter
--- OUTSIDE RECORDS SUMMARY | 2024-05-07 13:37 | XMS_ITS | Encounter Summary ---
[facility] Address [address] [place] [address] Care Team Providers Care Manager Poker Name Role Phone Meredith Conti Primary Care Provider [phone] Encounter Details Date Type Department Care Team (Late st Contact Info) Description 07/04/2019 2:45 PM EST Lab [facility] [address] [place] [address] Primary osteoarthritis of left knee [...] - 30 mm/hr 07/04/2019 11:18 PM EST [facility] Blood Venipuncture / Unknown 07/04/2019 2:40 PM EST 07/04/2019 2:40 PM EST Mj Menon MD LAB BLOOD ORDERABLES Final Res ult [facility]
[address] [place] [address], documented in this encounter Visit Diagnoses Diagnosis Primary osteoarthritis of left knee documented in this encounter Care Teams Manager Poker Relationship Specialty Start Date End Date Meredith Conti PA PCP - General Physician Permit Technician 02/11/17 documented as of this encounter
--- OUTSIDE RECORDS SUMMARY | 2024-05-07 13:37 | XMS_ITS | Encounter Summary ---
Author Organization [facility] Address [address] [place] [address] Care Team Providers Care Bandoleer Packer Name Role Phone eMredith Conti Primary Care Provider [phone] Reason for Visit * Reason Comments Sinus Problem Cough Encounter Details Date Type Department Care Team (Late st Contact Info) Description 03/04/2019 11:15 AM EDT Office Visit [address] [place] [address] Acute recurrent maxillary sinusitis (Primary Dx); Coughing [...] encounter Progress Notes * Quentin Mcclellan V, GENERAL LABOR FORKLIFT OPERATOR - 03/04/2019 11:15 AM EDT Subjective Marialuisa [...] Cough documented in this encounter Care Teams Bandoleer Packer Relationship Specialty Start Date End Date Meredith Conti PA PCP - General Physician Heating Repair Technician 02/11/17 documented as of this encounter
--- OUTSIDE RECORDS SUMMARY | 2024-05-07 13:37 | XMS_ITS | Encounter Summary ---
Author Organization [facility] Address [address] [place] [address] Care Team Providers Care Foreman Or Supervisor And Operator Name Role Phone Meredith Conti Primary Care Provider [phone] Reason for Visit * Reason Comments Pain Encounter Details Date Type Department Care Team (Late st Contact Info) Description 04/09/2019 1:40 PM EDT Office Visit [facility]THOP[facility] MEDICINE [address] [place] [address] Rosmery Laurent PA-C [address] [place] [address] Chronic pain of left knee (Primary Dx); [...] the original note were not included. [facility] Orthopa[facility] Clinic Note Subjective CC: Pain [...] Units Date/Time XR Knee 4+ View Left [[id number]] Resulted: 04/09/191357 Updated: 04/09/191358 Narrative: Left Knee Radiographs Indication: left knee pain Views: Standing AP's and skiers of both knees, with lateral and sunrise views of the left knee Comparison: no prior studies available Findings: Erbp-tf-hhep contact medial compartment, advanced patellofemoral arthritis, with [...] left knee. Injection given today. 5. Recommend arbr-xgx-ewmdonr pain medication as needed. 6. Follow-up in [...] to verify the correct patient, procedure, equipment, lab support tech and site/side marked as required Supporting Documentation [...] PM EDT Chronic pain of left knee AK ARTHROCENTESIS ASPIR&/INJ MAJOR JT/BURSA W/O US Routine [...] knee Comparison: no prior studies available Findings: Oufg-kv-hwyl contact medial compartment, advanced patellofemoral arthritis, with varus alignment, and no acute bony abnormalities. ?? Tricompartmental osteophytes. ??No unusual bony features. Impression: Left knee osteoarthritis. Mj Menon MD IMG DIAGNOSTIC IMAGING ORDERAB LES Final Result * [place] ARTHROCENTESIS ASPIR&/INJ MAJOR JT/BURSA W/O US (04/09/2019 1:40 PM EDT) Narrative Rosmery Laurent PA-C - 04/09/2019 1:40 PM EDT Stephanie Roberts MA ? 04/10/2019 12:22 PM Large Joint Arthrocentesis: L knee Date/Time: 04/09/2019 2:18 PM Consent given by: patient Site marked: site marked Timeout: Immediately prior to procedure a time out was called to verify the correct patient, procedure, equipment, lab support tech and site/side marked as required Supporting Documentation [...] mg documented in this encounter Care Teams Foreman Or Supervisor And Operator Relationship Specialty Start Date End Date Meredith Conti PA PCP - General Physician Grocery Store Associate 02/11/17 documented as of this encounter
--- OUTSIDE RECORDS SUMMARY | 2024-05-07 13:37 | XMS_ITS | Encounter Summary ---
Author Organization [facility] Address [address] [place] [address] Care Team Providers Care Photographer Still Name Role Phone Provider, No Known Primary Care Provider Unavail able Reason for Visit * Auth/Cert Specialty Diagnoses / Procedures Referred By Sumit caldwell Referred To Contact Diagnoses TOTAL KNEE ARTHROPLASTY RIGHT Procedures DE TOTAL KNEE ARTHROPLASTY TOTAL KNEE ARTHROPLASTY RIGHT Referral ID Status Reason Start Date Expiration Date Visits Re quested Visits Authorized [id number] 1 1 Encounter Details Date Type Department Care Team (Late st Contact Info) Description 01/18/2017 10:05 AM EDT Anesthesia Event [facility] [address] [place] [address] Burak Rivera MD [address] [place] [id number] Anesthesia Record Procedure Summary Procedure Name Responsible [...] basilic vein (medial side of arm), right; ztxj-[id number]-[id number] catheter system; 18 gauge (x1 stick per Isis Ji RN); intradermal injection, tolerated well; 10/26/17 (Removed via batch job for retired LDAs post CPM S17 upgrade); 1034 (Removed via batch job for retired LDAs post CPM S17 upgrade) 01/18/17 0810 by Yolande Ocampo RN 10/26/17 1034 by Car Starter (MASKED), Batch Retired Incision 01/18/17; 0821; Righ t; knee; 10/26/17 (Removed via batch job for retired LDAs post CPM S17 upgrade); 1034 (Removed via batch job for retired LDAs post CPM S17 upgrade) 01/18/17 0821 by Martin Moffett RN 10/26/17 1034 by Car Starter (MASKED), Batch Retired Nerve Block Catheter 01/18/17; 1153 (created via procedure documentation); catheter; 10/26/17 (Removed via batch job for retired LDAs post CPM S17 upgrade); 1034 (Removed via batch job for retired LDAs post CPM S17 upgrade) 01/18/17 1153 by Kailey Ogden CRNA 10/26/17 1034 by Car Starter (MASKED), Batch documented in this encounter Social [...] request and post-op pain management Performed by TABLE KEEPER: KAILEY OGDEN Assisted by: KALYN SCOTT Preanesthetic [...] 10:38 AM Indication:at surgeon's request Performed By TABLE KEEPER: KAILEY OGDEN Preanesthetic Checklist Completed: patient identified, site marked, surgical consent, pre-op evaluation, timeout performed,IV checked, risks and benefits discussed and monitors and equipment checked Spinal Block Prep: Patient Position:sitting Secondary English Teacher:cap, gloves, sterile barriers and mask Prep:Chloraprep Patient [...] sounds: normal. 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 Plan discussed with TABLE KEEPER. documented in this encounter Plan of Treatment Not on file documented as of this encounter Procedures Procedure Name Priority Date/Time Associated Diagnosis Comments ANESTHESIA PERIPHERAL BLOCK Routine 01/18/2017 11:53 AM EDT SPINAL Routine 01/18/2017 10:38 AM EDT documented in this encounter Results * BH AN PERIPHERAL BLOCK CATHETER (01/18/2017 11:53 AM EDT) Narrative Kailey Ogden CRNA - 01/18/2017 11:53 AM EDT Kailey Ogden CRNA ? 01/18/2017 11:53 AM Peripheral Block Patient location during procedure: post-op Start time: 01/18/2017 11:53 AM Stop time: 01/18/2017 11:53 AM Reason for block: at surgeon's request and post-op pain management Performed by TABLE KEEPER: KAILEY OGDEN Assisted by: KALYN SCOTT Preanesthetic [...] request and post-op pain management Performed by TABLE KEEPER: KAILEY OGDEN Assisted by: KALYN SCOTT Preanesthetic [...] via a 25g needle. A BBraun 4 rhjq36m echogenic needle was then inserted approximately midline, [...] equipment checked Spinal Block Prep: Patient Position:sitting Secondary English Teacher:cap, gloves, sterile barriers and mask Prep:Chloraprep Patient [...] 10:38 AM Indication:at surgeon's request Performed By TABLE KEEPER: KAILEY OGDEN Preanesthetic Checklist Completed: patient identified, site marked, surgical consent, pre-opevaluation, timeout performed, IV checked, risks and benefits discussedand monitors and equipment checked Spinal Block Prep: Patient Position:sitting Secondary English Teacher:cap, gloves, sterile barriers and mask Prep:Chloraprep Patient [...] 01/18/2017 11:19 AM EDT 5 mg phenylephrine (RENTETA-SYNEPHRINE) injection Intravenous, As Needed, Starting on Tue01/18/17 [...] mg documented in this encounter Care Teams Photographer Still Relationship Specialty Start Date End Date Provider, [place] [address] PCP - General 01/11/17 02/10/17 documented as of this encounter
--- OUTSIDE RECORDS SUMMARY | 2024-05-07 13:37 | XMS_ITS | Encounter Summary ---
Author Organization [facility] Address [address] [place] [address] Care Team Providers Care Packer Denture Name Role Phone Meredith Conti Primary Care Provider [phone] Reason for Referral * Physical Therapy (Routine) - Closed Specialty Diagnoses / Procedures Referred By Contac t Referred To Contact Physical Therapy Diagnoses Status post total left knee replacement Impaired mobility and ADLs Jose Guadalupe Menon MD [address] [place] [address] Phone: tel: fax: Referral ID Status Reason Start Date Expiration Date V isits Requested Visits Authorized [id number] Closed Specialty Services Required 07/13/2019 07/12/2020 1 1 Reason for Visit * Auth/Cert Specialty Diagnoses / Procedures Referred By Contac t Referred To Contact Diagnoses Primary osteoarthritis of left knee Primary osteoarthritis of left knee [M17.12] Procedures MD TOTAL KNEE ARTHROPLASTY TOTAL KNEE ARTHROPLASTY LEFT Referral ID Status Reason Start Date Expiration Date Visits Re quested Visits Authorized [id number] 1 1 Encounter Details Date Type Department Care Team (Late st Contact Info) Description 07/12/2019 5:44 AM EST - 07/13/2019 1:10 PM EST Hospital Encounter [address] [place] [address] [phone] Jose Guadalupe Menon MD [address] [place] [address] Status post total left knee replacement (Primary [...] y.o. Female) PT referral from Phuong Hung BUDGET DIRECTOR, Case Management, ph [phone] Date of Social Security Number Address Home Phone N [id number] [address] [facility] [address] [phone] Confucianist Marital Status Anglican Single Admission Date Admission Type Admitting Provider Attending Provider Department, Room/Bed 07/12/19 Elective Jose Guadalupe Meonn MD Kirk, Michael E, MD [facility] 3G, S361/1 Discharge Date Discharge Disposition [...] Payor Plan Insurance Group Employer/Plan Group [employer] [id number] Payor Plan Address Payor Plan Phone Number Payor Plan Fax Number Effective Dates [address] 06/13/2014 - None Entered [place] [address] Subscriber Name Subscriber Date Member ID MARIALUISA HAMPTON 1955 [id number] 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 Ambulatory Referral to Physical Therapy Evaluate and treat, Ortho; Full weight bearing ?? Patient: Marialuisa Hampton [address] [facility] [address] : 1955 SSN: [id number] Sex: F ?? 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 GEORGE STERLING [id number] ?? Referring Provider Information: JOSE GUADALUPE MENON [...] regarding this request for services. Please contact [address] at [phone] during normal business hours. ?? Verbal Order [...] anatomic patella). SURGEON: Jose Guadalupe Menon MD [employer] SIGNAL OFFICER: Iris Taylor PA-C SPECIMENS: None ANESTHESIA: Spinal STAFF: Copyholder: Anne-Marie Fry RN Scrub Person: Ruddy Magallon Materials Clerk: Liza Khalil Wedding Coordinator: Iris Taylor PA TOURNIQUET TIME: 18 minutes [...] into the lateral gutter. Description of arthritis: Ukgj-aq-wahh contact the medial compartment, lateral degeneration, with [...] closed with #1 Vicryl in an interrupted zrvicn-qn-sixab fashion in 4 strategic locations followed by [...] Jose Guadalupe Menon MD at 07/13/19 0852 [facility] Orthopaedic Surgery Progress Note Subjective LOS: 0 days Patient Care Team: Meredith Conti PA as PCP - General (Physician Wedding Coordinator) Marialuisa Bergeron MD as Consulting Physician (Internal [...] XR Knee 1 or 2 View Left [[id number]] Collected: 07/12/19 1028 Updated: 07/12/19 1708 Narrative: [...] COLONOSCOPY ??? HYSTERECTOMY ??? KNEE SURGERY ??? MD TOTAL KNEE ARTHROPLASTY Right 01/18/2017 Procedure: RIGHT TOTAL KNEE ARTHROPLASTY; Surgeon: Jose Guadalupe Menon MD; Location: [facility]; Service: Orthopedics ??? TOTAL KNEE ARTHROPLASTY Left 07/12/2019 Procedure: TOTAL KNEE ARTHROPLASTY LEFT; Surgeon: Jose Guadalupe Menon MD; Location: [facility]; Service: Orthopedics General Information Row Name [...] - Row Name 07/13/19929 Bed-Chair Transfer Bed-Chair [place] (Transfers) conditional independence;verbal cues -CS Assistive Device (Bed-Chair Transfers) walker, front-wheeled -CS Row Name 07/13/19929 Sit-Stand Transfer Sit-Stand [place] (Transfers) conditional independence;verbal cues -CS Assistive Device (Sit-Stand Transfers) walker, front-wheeled -CS Row Name 07/13/19929 Gait/Stairs Assessment/Training 14477 - Gait Training Minutes 15 -CS Gait/Stairs Assessment/Training gait/ambulation independence;gait/ambulation assistive device;distance ambulated;gait pattern -CS [place] Level (Gait) verbal cues;stand by assist - [...] -CS Comment (Therapeutic Exercise) VC's on technique -[facility] Name 07/13/19929 Sensory Assessment/Intervention Sensory General Assessment no sensation deficits identified -CS User Sage (r) = Recorded By, (t) = Taken By, (c) = Cosigned By Initials Name Provider Type CS Rosmery Mixon, PT Physical Therapist Goals/Plan Row Name 07/13/19929 Bed Mobility Goal 1 (PT) Activity/Assistive Device (Bed Mobility Goal 1, PT) bed mobility activities, all -CS [place] Level/Cues Needed (Bed Mobility Goal 1, PT) conditional independence -CS Time Frame (Bed Mobility Goal 1, PT) long winder tender goal (LTG);3 days -CS Progress/Outcomes (Bed Mobility Goal 1, PT) goal met -[facility] Name 07/13/19929 Transfer Goal 1 (PT) Activity/Assistive Device (Transfer Goal 1, PT) doh-vv-qslxx/rhdzq-az-yus;ngg-lh-tkiyk/zisxs-nr-tdi;walker, rolling -CS [place] Level/Cues Needed (Transfer Goal 1, PT) conditional independence -CS Time Frame (Transfer Goal 1, PT) long winder tender goal (LTG);3 days -CS Progress/Outcome (Transfer Goal 1, PT) goal partially met;discharged from facility - Row Name 07/13/19929 Gait Training Goal 1 (PT) Activity/Assistive Device (Gait Training Goal 1, PT) gait (walking locomotion);assistive device use;walker, rolling -CS [place] Level (Gait Training Goal 1, PT) conditional independence -CS Distance (Gait Goal 1, PT) 500' -CS Time Frame (Gait Training Goal 1, PT) long winder tender goal (LTG);3 days -CS Progress/Outcome (Gait Training Goal 1, PT) goal partially met;discharged from facility - Row Name 07/13/19929 ROM Goal 1 (PT) ROM Goal 1 (PT) 0-90 deg knee ROM -CS Time Frame (ROM Goal 1, PT) long winder tender goal (LTG);3 days -CS Progress/Outcome (ROM Goal [...] Minutes- PT 23 minute(s) -CS Timed Charges 89183 - PT Therapeutic Exercise Minutes 8 -CS 77624 - Gait Training Minutes 15 -CS User Sage (r) = Recorded By, (t) = Taken By, (c) = Cosigned By Initials Name Provider Type CS Rosmery Mixon, PT Physical Therapist Therapy Charges for Today Code Description Service Date Service Provider Modifiers Qty 47941020184 HC GAIT TRAINING EA 15 MIN 07/12/2019 Rosmery Mixon, PT GP 1 28289206088 HC PT EVAL MOD COMPLEXITY 3 07/12/2019 Rosmery Mixon, PT GP 1 33595424322 HC PT THER SUPP EA 15 MIN 07/12/2019 Rosmery Mixon, PT GP 2 23629477813 HC PT THER PROC EA 15 MIN 07/13/2019 Rosmery Mixon, PT GP 1 76467131198 HC GAIT TRAINING EA 15 MIN 07/13/2019 [...] PROCEDURES PERFORMED: left total knee arthroplasty with [employer] Trusera components (#4 narrow posterior stabilized femur, #3 [...] above formulated discharge plan with patient and HEALTH CARE SOCIAL WORKER.wy. * Rosmery Mixon PT - 07/13/2019 9:30 [...] COLONOSCOPY ??? HYSTERECTOMY ??? KNEE SURGERY ??? MD TOTAL KNEE ARTHROPLASTY Right 01/18/2017 Procedure: RIGHT TOTAL KNEE ARTHROPLASTY; Surgeon: Jose Guadalupe Menon MD; Location: [facility] [place]; Service: Orthopedics ??? TOTAL KNEE ARTHROPLASTY Left 07/12/2019 Procedure: TOTAL KNEE ARTHROPLASTY LEFT; Surgeon: Jose Guadalupe Menon MD; Location: [facility] [place]; Service: Orthopedics General Information Row Name 07/13/19929 [...] - Row Name 07/13/19929 Bed-Chair Transfer Bed-Chair [place] (Transfers) conditional independence;verbal cues -CS Assistive Device (Bed-Chair Transfers) walker, front-wheeled - Row Name 07/13/19929 Sit-Stand Transfer Sit-Stand [place] (Transfers) conditional independence;verbal cues -CS Assistive Device (Sit-Stand Transfers) walker, front-wheeled - Row Name 07/13/19929 Gait/Stairs Assessment/Training 49392 - Gait Training Minutes 15 -CS Gait/Stairs Assessment/Training gait/ambulation independence;gait/ambulation assistive device;distance ambulated;gait pattern -CS [place] Level (Gait) verbal cues;stand by assist - [...] 1, PT) bed mobility activities, all -CS [place] Level/Cues Needed (Bed Mobility Goal 1, PT) conditional independence -CS Time Frame (Bed Mobility Goal 1, PT) long winder tender goal (LTG);3 days -CS Progress/Outcomes (Bed Mobility Goal 1, PT) goal met - Row Name 07/13/19929 Transfer Goal 1 (PT) Activity/Assistive Device (Transfer Goal 1, PT) xbm-ch-oqack/jhdtp-st-wqj;phc-th-musdu/xhagz-zt-arb;walker, rolling -CS [place] Level/Cues Needed (Transfer Goal 1, PT) conditional independence -CS Time Frame (Transfer Goal 1, PT) correction goal (LTG);3 days -CS Progress/Outcome (Transfer Goal 1, PT) goal partially met;discharged from facility - Row Name 07/13/19929 Gait Training Goal 1 (PT) Activity/Assistive Device (Gait Training Goal 1, PT) gait (walking locomotion);assistive device use;walker, rolling -CS [place] Level (Gait Training Goal 1, PT) conditional independence -CS Distance (Gait Goal 1, PT) 500' -CS Time Frame (Gait Training Goal 1, PT) long winder tender goal (LTG);3 days -CS Progress/Outcome (Gait Training Goal 1, PT) goal partially met;discharged from facility - Row Name 07/13/19929 ROM Goal 1 (PT) ROM Goal 1 (PT) 0-90 deg knee ROM -CS Time Frame (ROM Goal 1, PT) correction goal (LTG);3 days -CS Progress/Outcome (ROM Goal [...] Minutes- PT 23 minute(s) -CS Timed Charges 54521 - PT Therapeutic Exercise Minutes 8 -CS 62784 - Gait Training Minutes 15 -CS User Sage (r) = Recorded By, (t) = Taken By, (c) = Cosigned By Initials Name Provider Type Rosmery Shaw, PT Physical Therapist Therapy Charges for Today Code Description Service Date Service Provider Modifiers Qty 60447305737 HC GAIT TRAINING EA 15 MIN 07/12/2019 Rosmery Mixon, PT GP 1 23893364261 HC PT EVAL MOD COMPLEXITY 3 07/12/2019 Rosmery Mixon, PT GP 1 81323091474 HC PT THER SUPP EA 15 MIN 07/12/2019 Rosmery Mixon, PT GP 2 05331714194 HC PT THER PROC EA 15 MIN 07/13/2019 Rosmery Mixon, PT GP 1 02904210250 HC GAIT TRAINING EA 15 MIN 07/13/2019 Rosmery Mixon, PT GP 1 PT G-Codes Outcome Measure Options: AM-PAC 6 Clicks Basic Mobility (PT) AM-PAC 6 Clicks Score (PT): 23 PT Discharge Summary Anticipated Discharge Disposition (PT): home with assist, home with home health Rosmery Mixon, PT 07/13/2019 * Gissel Rivera, OT - 07/13/2019 8:50 AM EST Acute Care - Occupational Therapy Initial Eval/Discharge [facility] Patient Name: Marialuisa Hampton : 1955 Today's [...] COLONOSCOPY ??? HYSTERECTOMY ??? KNEE SURGERY ??? MD TOTAL KNEE ARTHROPLASTY Right 01/18/2017 Procedure: RIGHT TOTAL KNEE ARTHROPLASTY; Surgeon: Jose Guadalupe Menon MD; Location: [facility]; Service: Orthopedics ??? TOTAL KNEE ARTHROPLASTY Left 07/12/2019 Procedure: TOTAL KNEE ARTHROPLASTY LEFT; Surgeon: Jose Guadalupe Menon MD; Location: [facility]; Service: Orthopedics OT ASSESSMENT FLOWSHEET (last [...] catheter - Equipment Issued to Patient leg inside outside sales representative - Barriers to Rehab none identified - [...] Assessment/Treatment Bed Mobility Assessment/Treatment supine-sit - Supine-Sit [place] (Bed Mobility) supervision - Assistive Device (Bed Mobility) head of bed elevated - Comment (Bed Mobility) Educated on use of leg inside outside sales representative for bed mobility. Demonstrated understanding. - Functional [...] for hand placement. - Sit-Stand Transfer Sit-Stand [place] (Transfers) stand by assist;verbal cues - Assistive Device (Sit-Stand Transfers) walker, front-wheeled -LC Stand-Sit Transfer Stand-Sit [place] (Transfers) stand by assist;verbal cues - Assistive Device (Stand-Sit Transfers) walker, front-wheeled -LC Shower Transfer Type (Shower Transfer) lateral - Assistive Device (Shower Transfer) -- Pt. declined shower transfer despite encouragment from OT. - ADL Assessment/Intervention 09271 - OT Self Care/Mgmt Minutes 15 - BADL Assessment/Intervention upper body dressing;lower body dressing;grooming;toileting;bathing - Bathing Assessment/Intervention Bathing [place] Level lower body;moderate assist (50% patient effort) - Comment (Bathing) Educated pt. to not shower until AC nerve catheter is discontinued and cleared with MD. - Upper Body Dressing Assessment/Training Upper Body Dressing [place] Level don;bra/undergarment;pull-over garment;independent - Upper Body Dressing Position unsupported sitting - Lower Body Dressing Assessment/Training Lower Body Dressing [place] Level don;pants/bottoms - Lower Body Dressing Position unsupported sitting - Comment (Lower Body Dressing) Educated pt. on LBD technique to improve independence and comfort with task. Pt. demonstrated understanding. Pt. also educated on AC nerve catheter mgmt during LBD. Pt. verbalized and demonstrated understanding. - Grooming Assessment/Training [place] Level (Grooming) hair care, combing/brushing;oral care regimen;wash face, hands;supervision - Grooming Position supported standing - Comment (Grooming) Completed grooming standing at sink with RWx. No LOB. - Toileting Assessment/Training [place] Level (Toileting) adjust/manage clothing - Comment (Toileting) [...] balance - Static Sitting Balance Level of [place] (Unsupported Sitting, Static Balance) independent - Sitting Position (Unsupported Sitting, Static Balance) sitting on edge of bed - Time Able to Maintain Position (Unsupported Sitting, Static Balance) more than 5 minutes - Dynamic Sitting Balance Level of [place], Reaches Outside Midline (Sitting, Dynamic Balance) supervision - Sitting Position, Reaches Outside Midline (Sitting, Dynamic Balance) sitting on edge of bed - Static Standing Balance Level of [place] (Supported Standing, Static Balance) supervision - Time Able to Maintain Position (Supported Standing, Static Balance) more than 5 minutes - Assistive Device Utilized (Supported Standing, Static Balance) walker, rolling - Dynamic Standing Balance Level of [place], Reaches Outside Midline (Standing, Dynamic Balance) standby [...] on Hospital Admission: N -SC Side: Left -AK Orientation: anterior -SC Location: knee -AK Primary Wound Type: Incision -AK Additional Comments: -- -SC, prineo; abd; 4x4; [...] (OT) Activity/Assistive Device (Transfer Goal 1, OT) tea-iw-edecq/mjdbp-pc-xqo -LC [place] Level/Cues Needed (Transfer Goal 1, OT) standby assist;verbal cues required - Time Frame (Transfer Goal 1, OT) 1 day -LC Progress/Outcome (Transfer Goal 1, OT) goal met - Dressing Goal 1 (OT) Activity/Assistive Device (Dressing Goal 1, OT) lower body dressing - [place]/Cues Needed (Dressing Goal 1, OT) moderate assist [...] PT) bed mobility activities, all -CS -- [place] Level/Cues Needed (Bed Mobility Goal 1, PT) conditional independence -CS -- Time Frame (Bed Mobility Goal 1, PT) long winder tender goal (LTG);3 days -CS -- Progress/Outcomes (Bed Mobility Goal 1, PT) goal met -CS -- Transfer Goal 1 (PT) Activity/Assistive Device (Transfer Goal 1, PT) xzd-or-yuyxl/cxtxx-be-ktp;kcj-yx-rqlph/jqmdj-jf-kcu;walker, rolling -CS -- [place] Level/Cues Needed (Transfer Goal 1, PT) conditional independence - CS -- Time Frame (Transfer Goal 1, PT) correction goal (LTG);3 days -CS -- Progress/Outcome (Transfer Goal 1, PT) goal partially met;discharged from facility -CS -- Gait Training Goal 1 (PT) Activity/Assistive Device (Gait Training Goal 1, PT) gait (walking locomotion);assistive device use;walker, rolling -CS -- [place] Level (Gait Training Goal 1, PT) conditional independence -CS -- Distance (Gait Goal 1, PT) 500' -CS -- Time Frame (Gait Training Goal 1, PT) long winder tender goal (LTG);3 days -CS -- Progress/Outcome (Gait Training Goal 1, PT) goal partially met;discharged from facility -CS -- ROM Goal 1 (PT) ROM Goal 1 (PT) 0-90 deg knee ROM -CS -- Time Frame (ROM Goal 1, PT) correction goal (LTG);3 days -CS -- Progress/Outcome (ROM Goal 1, PT) goal partially met;discharged from facility - -- Occupational Therapy Goals Transfer Goal Selection (OT) -- transfer, OT goal 1 -LC Dressing Goal Selection (OT) -- dressing, OT goal 1 -LC Transfer Goal 1 (OT) Activity/Assistive Device (Transfer Goal 1, OT) -- asj-dq-pmxsm/zeudt-cs-dqp -LC [place] Level/Cues Needed (Transfer Goal 1, OT) -- standby assist;verbal cues required - Time Frame (Transfer Goal 1, OT) -- 1 day - Progress/Outcome (Transfer Goal 1, OT) -- goal met - Dressing Goal 1 (OT) Activity/Assistive Device (Dressing Goal 1, OT) -- lower body dressing - [place]/Cues Needed (Dressing Goal 1, OT) -- moderate [...] Due Date -- 07/23/19 - Timed Charges 86621 - Gait Training Minutes 15 - -- 67687 - OT Self Care/Mgmt Minutes -- 15 - User Sage (r) = Recorded By, (t) = Taken By, (c) = Cosigned By Initials Name Provider Type Rosmery Shaw, PT Physical Therapist Gissel Nelson, OT Occupational Therapist Therapy Suggested Charges Code Minutes Charges 86354 (CPT??) Hc Ot Neuromusc Re Education Ea 15 Min 41249 (CPT??) Hc Ot Ther Proc Ea 15 Min 68102 (CPT??) Hc Ot Therapeutic Act Ea 15 Min 68626 (CPT??) Hc Ot Manual Therapy Ea 15 Min 67940 (CPT??) Hc Ot Iontophoresis Ea 15 Min 92443 (CPT??) Hc Ot Elec Stim Ea-Per 15 Min 42119 (CPT??) Hc Ot Ultrasound Ea 15 Min 70217 (CPT??) Hc Ot Self Care/Mgmt/Train Ea 15 Min 15 1 Total 15 1 Therapy Charges for Today Code Description Service Date Service Provider Modifiers Qty [id number] HC OT SELF CARE/MGMT/TRAIN EA 15 MIN 07/13/2019 Gissel Rivera OT GO 1 21845213862 HC OT EVAL MOD COMPLEXITY 3 07/13/2019 Gissel Rivera OT GO 1 OT Discharge Summary Anticipated Discharge Disposition (OT): home with assist, home with home health Gissel Rivera OT 07/13/2019 documented in this encounter Discharge Instructions * Attachments The following attachments cannot be sent through Care Everywhere. * Total Knee Replacement Care After (Ukrainian) * Continuous Peripheral Nerve Block Infusion Self-Care (Ukrainian) * How to Use an Incentive Spirometer (Ukrainian) * Preventing Constipation After Surgery (Ukrainian) * Acetaminophen; Hydrocodone tablets or capsules (Ukrainian) * Docusate capsules (Ukrainian) documented in this encounter Medications at Time [...] each 07/13/2019 1:02 PM EST 07/13/2019 1 Dsoobimsfii-JBV-B yaluronic Acd ([facility] PO) Take 1 tablet by mouth Daily. 1 Ropivacine HCl-NaCl (NAROPIN)Indicati ons:Acute Pain 20 mg/hr by Peripheral Nerve route Continuous. Indications: Acute Pain 07/13/2019 1 Turmeric 450 MG capsule Take 1 capsule by mouth Daily. 03/25/2019 1 documented as of this encounter Progress Notes * Aleja Choudhary CRNA - 07/13/2019 1:10 PM EST [facility] Nerve Cath Post Op Call Patient Name: Marialuisa Hampton : 1955 Date of Discharge: 07/13/2019 Nerve Cath Post Op Call: Catheter Plan:Patient called/No answer/Message left to call [facility] pain service for any questions or complaints * Stiven Long CRNA - 07/13/2019 1:10 PM EST [facility] Nerve Cath Post Op Call Patient Name: Marialuisa Hampton : 1955 Date of Discharge: 07/13/2019 Nerve Cath Post Op Call: Catheter Plan:Patient called/No answer/Message left to call [facility] pain service for any questions or complaints and The patient was instructed to call [facility] Anesthesia provider for any questions or problems * Phuong Hung RN - 07/13/2019 12:11 PM EST Discharge Planning Assessment [facility] Patient Name: Marialuisa Hampton Today's Date: [...] In person Patient's Choice of Community Agency(s) [facility] in [place], [place] Discharge Plan Row Name 07/13/19 1206 Plan Plan Home with family assistance and [facility] in [place] Patient/Family in Agreement with Plan yes Plan Comments Met with Ms. Hampton and her family at the bedside for discharge planning. Ms. Hampton lives alone in [facility]. She stated that her sister, David, will be staying with her in the hometo assist her after discharged. She denies any DME needs. Discussed physical therapy and Ms. Hampton requested [facility] in [place]. Called and faxed referral to [facility] PT, LM with facility. Ms. [...] Information Permission Granted to Share Info With registered nurse hh case managercall center manager Information Comments Sister: David Hampton, ph [phone] Functional Status Row Name 07/13/19 1204 Functional [...] from the original note were not included. [facility] Orthopaedic Surgery Progress Note Subjective LOS: 0 days Patient Care Team: Meredith Conti PA as PCP - General (Physician Wedding Coordinator) Marialuisa Bergeron MD as Consulting Physician (Internal [...] XR Knee 1 or 2 View Left [[id number]] Collected: 07/12/19 1028 Updated: 07/12/191707 Narrative: EXAMINATION: [...] Take 1 tablet by mouth Daily. 07/11/2019 [id number] ??? Kpltkivopci-KSR-Ghbwjmszxu Acd ([facility] PO) Take 1 tablet [...] COLONOSCOPY ??? HYSTERECTOMY ??? KNEE SURGERY ??? MD TOTAL KNEE ARTHROPLASTY Right 01/18/2017 Procedure: RIGHT TOTAL KNEE ARTHROPLASTY; Surgeon: Jose Guadalupe Menon MD; Location: [facility]; Service: Orthopedics Family History Problem [...] 6:57 AM EST Pre-Op H&P Marialuisa Hampton [id number] 1955 Chief complaint: left knee pain HPI: Patient is a 63 y.o.female who presents with longstanding history of left knee pain with progressive worsening. Recent imaging of left knee showed wfhy-ps-gkyi contact medial compartment, advanced patellofemoral arthritis, with [...] COLONOSCOPY ??? HYSTERECTOMY ??? KNEE SURGERY ??? MD TOTAL KNEE ARTHROPLASTY Right 01/18/2017 Procedure: RIGHT TOTAL KNEE ARTHROPLASTY; Surgeon: Jose Guadalupe Menon MD; Location: [facility]; Service: Orthopedics Immunization History: Influenza: yes Pneumococcal: [...] with nursing. Recommend patient home with assist [facility] PT. PADD: 9 documented in this [...] anatomic patella). SURGEON: Jose Guadalupe Menon MD V[employer] SIGNAL OFFICER: Iris Taylor PA-C SPECIMENS: None ANESTHESIA: Spinal STAFF: Copyholder: Anne-Marie Fry RN Scrub Person: Ruddy Magallon Materials Clerk: Liza Khalil Wedding Coordinator: Iris Taylor PA TOURNIQUET TIME: 18 minutes [...] into the lateral gutter. Description of arthritis: Kjaa-bq-wekd contact the medial compartment, lateral degeneration, with [...] closed with #1 Vicryl in an interrupted dmnefc-re-yxrmz fashion in 4 strategic locations followed by [...] COLONOSCOPY ??? HYSTERECTOMY ??? KNEE SURGERY ??? MD TOTAL KNEE ARTHROPLASTY Right 01/18/2017 Procedure: RIGHT TOTAL KNEE ARTHROPLASTY; Surgeon: Jose Guadalupe Menon MD; Location: [facility]; Service: Orthopedics General Information Row Name 07/12/19 1340 PT Evaluation Time/Intention Document Type evaluation -CS Mode of Treatment individual therapy;physical therapy -CS Row Name 07/12/19 5908 General Information Patient Profile Reviewed? yes -CS [...] Assessment/Treatment Bed Mobility Assessment/Treatment supine-sit -CS Supine-Sit [place] (Bed Mobility) supervision;verbal cues -CS Assistive Device [...] -CS Row Name 07/12/191339 Sit-Stand Transfer Sit-Stand [place] (Transfers) contact guard;verbal cues -CS Assistive Device (Sit-Stand Transfers) walker, front-wheeled -CS Row Name 07/12/191339 Gait/Stairs Assessment/Training 91607 - Gait Training Minutes 10 -CS Gait/Stairs Assessment/Training gait/ambulation independence;gait/ambulation assistive device;distance ambulated;gait pattern -CS [place] Level (Gait) verbal cues;contact guard;2 person assist [...] 1, PT) bed mobility activities, all -CS [place] Level/Cues Needed (Bed Mobility Goal 1, PT) conditional independence -CS Time Frame (Bed Mobility Goal 1, PT) long winder tender goal (LTG);3 days -CS Progress/Outcomes (Bed Mobility Goal 1, PT) goal ongoing -CS Row Name 07/12/19 134 Transfer Goal 1 (PT) Activity/Assistive Device (Transfer Goal 1, PT) xgd-wj-wrvfe/hgdts-vv-luz;eiu-oo-hgosa/cxrji-jo-tbh;walker, rolling -CS [place] Level/Cues Needed (Transfer Goal 1, PT) conditional independence -CS Time Frame (Transfer Goal 1, PT) long winder tender goal (LTG);3 days -CS Progress/Outcome (Transfer Goal 1, PT) goal ongoing -CS Row Name 07/12/191339 Gait Training Goal 1 (PT) Activity/Assistive Device (Gait Training Goal 1, PT) gait (walking locomotion);assistive device use;walker, rolling -CS [place] Level (Gait Training Goal 1, PT) conditional independence -CS Distance (Gait Goal 1, PT) 500' -CS Time Frame (Gait Training Goal 1, PT) long winder tender goal (LTG);3 days -CS Progress/Outcome (Gait Training Goal 1, PT) goal ongoing -CS Row Name 07/12/191339 ROM Goal 1 (PT) ROM Goal 1 (PT) 0-90 deg knee ROM -CS Time Frame (ROM Goal 1, PT) correction goal (LTG);3 days -CS Progress/Outcome (ROM Goal [...] with nursing. [facility] PADD: 9 Time Calculation: PT Charges Row Name 07/12/19 1340 Time Calculation Start Time 1340 -CS PT Received On 07/12/19 -CS PT Goal Re-Cert Due Date 07/22/19 -CS Time Calculation- PT Total Timed Code Minutes- PT 12 minute(s) -CS Timed Charges 29791 - PT Therapeutic Exercise Minutes 2 -CS 49959 - Gait Training Minutes 10 -CS User Sage (r) = Recorded By, (t) = Taken By, (c) = Cosigned By Initials Name Provider Type CS Rosmery Mixon, PT Physical Therapist Therapy Charges for Today Code Description Service Date Service Provider Modifiers Qty 66083176670 HC GAIT TRAINING EA 15 MIN 07/12/2019 Rosmery Mixon, PT GP 1 77028415954 HC PT EVAL MOD COMPLEXITY 3 07/12/2019 Rosmery Mixon, PT GP 1 97101116858 HC PT THER SUPP EA 15 MIN [...] - 10.80 10*3/mm3 07/13/2019 6:21 AM EST [facility] RBC 3.63(L) 3.77 - 5.28 10*6/mm3 07/13/2019 6:21 AM EST [facility] Hemoglobin 9.9(L) 12.0 - 15.9 g/dL 07/13/2019 6:21 AM EST [facility] Hematocrit 31.8(L) 34.0 - 46.6 % 07/13/2019 6:21 AM EST [facility] MCV 87.6 79.0 - 97.0 fL 07/13/2019 6:21 AM [facility] MCH 27.3 26.6 - 33.0 pg 07/13/2019 6:21 AM EST [facility] MCHC 31.1(L) 31.5 - 35.7 g/dL 07/13/2019 6:21 AM EST [facility] RDW 15.6(H) 12.3 - 15.4 % 07/13/2019 6:21 AM EST [facility] RDW-SD 49.8 37.0 - 54.0 fl 07/13/2019 6:21 AM [facility] MPV 10.6 6.0 - 12.0 fL 07/13/2019 6:21 AM EST [facility] Platelets 296 140 - 450 10*3/mm3 07/13/2019 6:21 AM EST [facility] Blood Venipuncture / Unknown 07/13/2019 5:45 AM EST 07/13/2019 6:13 AM EST Jose Guadalupe Menon MD LAB BLOOD ORDERABLES Final Res ult [facility]
[address] [place] [address], * (ABNORMAL) Basic Metabolic Panel (07/13/2019 5:45 AM EST) Glucose 95 65 - 99 mg/dL 07/13/2019 7:22 AM EST [facility] BUN 13 8 - 23 mg/dL 07/13/2019 7:22 AM [facility] Creatinine 0.70 0.57 - 1.00 mg/dL 07/13/2019 7:22 AM [facility] Sodium 139 136 - 145 mmol/L 07/13/2019 7:22 AM EST [facility] Potassium 3.6 3.5 - 5.2 mmol/L 07/13/2019 7:22 AM [facility] Chloride 107 98 - 107 mmol/L 07/13/2019 7:22 AM [facility] CO2 22.0 22.0 - 29.0 mmol/L 07/13/2019 7:22 AM [facility] Calcium 8.5(L) 8.6 - 10.5 mg/dL 07/13/2019 7:22 AM [facility] eGFR Non Amer 85 >60 mL/min/1.7 3 07/13/2019 7:22 AM [facility] BUN/Creatinine Ratio 18.6 7.0 - 25.0 07/13/2019 7:22 AM [facility] Anion Gap 10.0 5.0 - 15.0 mmol/L 07/13/2019 7:22 AM EST [facility] Blood Venipuncture / Unknown 07/13/2019 5:45 AM EST 07/13/2019 6:13 AM EST Narrative [facility] - 07/13/2019 7:22 AM EST GFR Normal >60 Chronic Kidney Disease <60 Kidney Failure <15 us Silvia Bonds APRN LAB BLOOD ORDERABLES Final Result [facility]
[address] [place] [address], * XR Knee 1 or 2 View [...] Arango RN)1315 (Currently Infusing - Provider: Olivia Arango RN) sodium chloride 0.9 % infusion 120 [...] ineffective. documented in this encounter Care Teams Packer Denture Relationship Specialty Start Date End Date Meredith Conti PA PCP - General Physician Wedding Coordinator 02/11/17 documented as of this encounter
--- OUTSIDE RECORDS SUMMARY | 2024-05-07 13:37 | XMS_ITS | Encounter Summary ---
Author Organization [facility] Address [address] [place] [address] Care Team Providers Care Inpatient Coder Name Role Phone Provider, No Known Primary Care Provider Unavail able Reason for Visit * Auth/Cert Specialty Diagnoses / Procedures Referred By Sumit caldwell Referred To Contact Diagnoses TOTAL KNEE ARTHROPLASTY RIGHT Procedures UT TOTAL KNEE ARTHROPLASTY TOTAL KNEE ARTHROPLASTY RIGHT Referral ID Status Reason Start Date Expiration Date Visits Re quested Visits Authorized [id number] 1 1 Encounter Details Date Type Department Care Team (Late st Contact Info) Description 01/18/2017 7:28 AM EDT - 01/20/2017 12:07 PM EDT Hospital Encounter [facility] [address] [place] [address] Mj Menon MD [address] [place] [address] Impaired functional mobility, balance, gait, and endurance [...] Acute Care - Physical Therapy Discharge Summary [place] Patient Name: Marialuisa Hampton : 1955 Today's [...] Initials Name Provider Type Maddie Nicole PTA Aeronautical Engineering Officer IP PT Goals 01/20/17 0842 01/19/17 1739 01/19/17 1419 Bed Mobility PT LTG Bed Mobility PT LTG, Date Established 01/19/17 -EH Bed Mobility PT LTG, Time to Achieve 2 wks -EH Bed Mobility PT LTG, Activity Type all bed mobility -EH Bed Mobility PT LTG, [place] Level conditional independence -EH Bed Mobility PT LTG, Date Goal Reviewed 01/20/17 - Bed Mobility PT LTG, Outcome goal ongoing - goal ongoing -EH Transfer Training PT LTG Transfer Training PT LTG, Date Established 01/19/17 -EH Transfer Training PT LTG, Time to Achieve 2 wks -EH Transfer Training PT LTG, Activity Type all transfers -EH Transfer Training PT LTG, [place] Level conditional independence -EH Transfer Training PT LTG, Assist Device walker, rolling -EH Transfer Training PT LTG, Date Goal Reviewed 01/20/17 - Transfer Training PT LTG, Outcome goal ongoing - goal ongoing -EH Gait Training PT LTG Gait Training Goal PT LTG, Date Established 01/19/17 -EH Gait Training Goal PT LTG, Time to Achieve 2 wks -EH Gait Training Goal PT LTG, [place] Level conditional independence -EH Gait Training Goal PT LTG, Assist Device walker, rolling -EH Gait Training Goal PT LTG, Date Goal Reviewed 01/20/17 - Gait Training Goal PT LTG, Outcome goal ongoing - goal ongoing -EH User Sage (r) = Recorded By, (t) = Taken By, (c) = Cosigned By Initials Name Provider Type Crys Pinedo, PT Physical Therapist Maddie Nicole, SECURITY SHIFT SUPERVISOR Aeronautical Engineering Officer Goals Status: Treatment plan discontinued secondary to [...] couple years. Conservative treatments failed to provide termite inspector relief. She denies use of assistive device [...] 01/18/17 ? SURGEON: Mj Menon MD ?? FRONT DESK TEAM MEMBER: Crys Chavarria PA-C ?? PREOPERATIVE DIAGNOSIS: right knee arthritis ?? POSTOPERATIVE DIAGNOSIS: right knee arthritis ?? PROCEDURES PERFORMED: right total knee arthroplasty with DeP[employer] Zinc Aheadune components (# 4 narrow posterior stabilized femur, [...] Discharge Medications Marialuisa Hampton Home Medication Instructions JULIOCESAR:[id number] Printed on:01/20/17 1810 Medication Information aspirin EC 325 MG EC [...] Everywhere. * ACETAMINOPHEN; HYDROCODONE TABLETS OR CAPSULES ([place]) * TOTAL KNEE REPLACEMENT, CARE AFTER ([place]) * PERIPHERAL NERVE BLOCK ([place]) * HOW TO USE COMPRESSION STOCKINGS ([place]) * INCENTIVE SPIROMETER ([place] CIT[place]) * DOCUSATE CAPSULES ([place]) * ASPIRIN, ASA ORAL TABLETS ([place]) documented in this encounter Medications at Time [...] Choudhary CRNA - 01/20/2017 12:07 PM EDT appiris Nerve Cath Post Op Call Patient Name: Marialuisa Hampton : 1955 Date of Discharge: 01/20/2017 Nerve Cath Post Op Call: Catheter Plan:Patient called/No answer/Message left to call [facility] pain service for any questions or complaints * Aleja Choudhary CRNA - 01/20/2017 12:07 PM EDT appiris Nerve Cath Post Op Call Patient Name: Marialuisa Hampton : 1955 Date of Discharge: 01/20/2017 Nerve Cath Post Op Call: Catheter Plan:Patient called/No answer/Message left to call A pain service for any questions or complaints * Aleja Choudhary CRNA - 01/20/2017 12:07 PM EDT [facility] Nerve Cath Post Op Call Patient Name: [...] Steiner CRNA - 01/20/2017 7:55 AM EDT [facility] Acute pain service Inpatient Progress Note Patient Name: Marialuisa Hampton : 1955 [facility] Pain Service Inpatient Progress Note: Analgesia:Good Pain Score:4/10 LOC: alert and awake Side Effects:None Catheter Site:clean and dry Cath type: peripheral nerve cath(MOOG pump) Infusion rate: 12ml/hr Catheter Plan:Catheter to remain Insitu, Continue catheter infusion rate unchanged and Patient to be discharged home Comments: Needs On Q teaching. * Yumiko Hoffmann CRNA - 01/19/2017 2:05 PM EDT [facility] Acute pain service Inpatient Progress Note Patient [...] PM EDT IM progress note Marialuisa Hampton [id number] 1955 LOS: 1 day Attending: Mj Menon [...] 01/19/2017 11:05 AM EDT Discharge Planning Assessment [place] Patient Name: Marialuisa Hampton Today's Date: 01/19/2017 [...] pt at bedside. She resides alone in [facility] she was relatively independent with ADLs (was using a cane or RW with ambulation). No current HH. Confirmed she has [employer] insurance with Rx coverage. Goal is to [...] Information Permission Granted to Share Information With nurse case managercredit risk analytics manager Status 01/19/17 1100 Functional Status Prior [...] XR Knee 1 or 2 View Right [[id number]] Updated: 01/18/17 1234 PT: Results Review: I [...] Take 400 mg by mouth Daily. 01/17/2017 [id number] ??? metoprolol tartrate (LOPRESSOR) 25 MG tablet [...] Take 400 mg by mouth Daily. 01/17/2017 [id number] ??? metoprolol tartrate (LOPRESSOR) 25 MG tablet [...] UA Latest Ref Range: Clear Clear Specific [place], UA Latest Ref Range: 1.001 - 1.030 [...] bed mobility -- Bed Mobility PT LTG, [place] Level conditional independence -- Bed Mobility PT [...] all transfers -- Transfer Training PT LTG, [place] Level conditional independence -- Transfer Training PT [...] wks -- Gait Training Goal PT LTG, [place] Level conditional independence -- Gait Training Goal [...] bed mobility -- Bed Mobility PT LTG, [place] Level conditional independence -- Bed Mobility PT LTG, Outcome -- goal ongoing Goal: Transfer Training Goal 1 LTG- PT Outcome: Ongoing (interventions implemented as appropriate) 01/19/17141801/19/171738 Transfer Training PT LTG Transfer Training PT LTG, Date Established 01/19/17 -- Transfer Training PT LTG, Time to Achieve 2 wks -- Transfer Training PT LTG, Activity Type all transfers -- Transfer Training PT LTG, [place] Level conditional independence -- Transfer Training PT LTG, Assist Device walker, rolling -- Transfer Training PT LTG, Outcome -- goal ongoing Goal: Gait Training Goal LTG- PT Outcome: Ongoing (interventions implemented as appropriate) 01/19/17141801/19/171738 Gait Training PT LTG Gait Training Goal PT LTG, Date Established 01/19/17 -- Gait Training Goal PT LTG, Time to Achieve 2 wks -- Gait Training Goal PT LTG, [place] Level conditional independence -- Gait Training Goal [...] all bed mobility Bed Mobility PT LTG, [place] Level conditional independence Goal: Transfer Training Goal 1 LTG- PT Outcome: Ongoing (interventions implemented as appropriate) 01/19/17 1419 Transfer Training PT LTG Transfer Training PT LTG, Date Established 01/19/17 Transfer Training PT LTG, Time to Achieve 2 wks Transfer Training PT LTG, Activity Type all transfers Transfer Training PT LTG, [place] Level conditional independence Transfer Training PT LTG, Assist Device walker, rolling Goal: Gait Training Goal LTG- PT Outcome: Ongoing (interventions implemented as appropriate) 01/19/17 1419 Gait Training PT LTG Gait Training Goal PT LTG, Date Established 01/19/17 Gait Training Goal PT LTG, Time to Achieve 2 wks Gait Training Goal PT LTG, [place] Level conditional independence Gait Training Goal PT [...] d/t dec. ROM and pain-recommend sockaid and cement conveyor operator. Will progress with independence & safety with daily tasks in preparation for d/c home Problem: Inpatient Occupational Therapy Goal: Transfer Training Goal 1 LTG- OT Outcome: Ongoing (interventions implemented as appropriate) 01/19/17 1020 Transfer Training OT LTG Transfer Training OT LTG, Time to Achieve 4 days Transfer Training OT LTG, Activity Type tub Transfer Training OT LTG, [place] Level contact guard assist Transfer Training OT LTG, Assist Device walker, rolling Transfer Training OT LTG, Outcome goal ongoing Goal: LB Dressing Goal LTG- OT Outcome: Ongoing (interventions implemented as appropriate) 01/19/17 1020 LB Dressing OT LTG LB Dressing Goal OT LTG, Time to Achieve 4 days LB Dressing Goal OT LTG, [place] Level conditional independence LB Dressing Goal OT LTG, Adaptive Equipment laces, elastic;cement conveyor operator;shoe horn, long handled;sock-aid LB Dressing Goal OT LTG, Outcome goal ongoing * Maddie Thompson RN - 01/19/2017 12:24 PM EDT Acute Pain Service: On-Q teaching completed with patient . Video demonstration, handout and bracelet provided with [facility] chief juvenile probation officer central phone number. Instructed to call with any questions or concerns.Patient verbalized understanding. Service will continue to follow until catheter DC'd. Please contact patient at [phone] if needed. * Dominique Kwon RN - [...] OF PROCEDURE: 01/18/17 SURGEON: Mj Menon MD FRONT DESK TEAM MEMBER: Crys Chavarria PA-C PREOPERATIVE DIAGNOSIS: right knee [...] the lateral gutter. Description ofarthritis: Severe osteoarthritis, yyxe-wm-tuls medially and patellofemoral compartments. The knee was [...] closed with #1 Vicryl in an interrupted fmyxiv-az-egnkn fashion in 4 strategic locations followed by [...] Acute Care - Physical Therapy Treatment Note [facility] Patient Name: Marialuisa Hampton : 1955 Today's [...] 01/19/17 1615 01/19/17 1104 Rehab Assessment/Intervention Discipline outpatient physical therapist - physical therapist - Document Type therapy [...] activity -EH Recorded by [] Maddie Nicole SECURITY SHIFT SUPERVISOR [EH] Crys Pinedo, PT Cognitive Assessment/Intervention Current [...] Assistive Device bed rails;head of bed elevated;leg summer school coordinator - bed rails;head of bed elevated;leg summer school coordinator -EH Bed Mob, Supine to Sit, [place] conditional independence - supervision required - Bed Mobility, Comment safe technique using leg summer school coordinator - cueing for doffing leg summer school coordinator to scoot forward -EH Recorded by [] Maddie Nicole PTA [] Crys Pinedo, PT Transfer Assessment/Treatment Transfers, Sit-Stand [place] verbal cues required;contact guard assist - contact guard assist -EH Transfers, Stand-Sit [place] verbal cues required;contact guard assist - contact guard assist - Transfers, [id number], Assist Device rolling walker - rolling walker - Toilet Transfer, [place] -- - Toilet Transfer, Assistive Device -- -EH Recorded by [] Maddie Nicole PTA [] Crys Pinedo, PT Gait Assessment/Treatment Gait, [place] Level verbal cues required;contact guard assist - contact guard assist - Gait, Assistive Device rolling walker - rolling walker - Gait, Distance (Feet) 140 - 120 - Gait, Gait Pattern Analysis swing-to gait - Gait, Gait Deviations right:;antalgic;tracey decreased;decreased heel strike;xsi-hg-twacc clearance decreased;step length decreased - right:;antalgic;weight-shifting ability decreased;forward flexed posture;ocf-yi-uflvg clearance decreased;left:;step length decreased - Gait, Safety [...] assist;SLR -EH Recorded by [] Maddie Nicole, SECURITY SHIFT SUPERVISOR [] Crys Pinedo, PT Sensory Assessment/Intervention Light [...] Crys Pinedo, PT 11/29/14 - Maddie Nicole, SECURITY SHIFT SUPERVISOR 12/02/14 - IP PT Goals 01/20/17 0842 01/19/17 1739 01/19/17 1419 Bed Mobility PT LTG Bed Mobility PT LTG, Date Established 01/19/17 -EH Bed Mobility PT LTG, Time to Achieve 2 wks -EH Bed Mobility PT LTG, Activity Type all bed mobility -EH Bed Mobility PT LTG, [place] Level conditional independence -EH Bed Mobility PT LTG, Date Goal Reviewed 01/20/17 - Bed Mobility PT LTG, Outcome goal ongoing - goal ongoing -EH Transfer Training PT LTG Transfer Training PT LTG, Date Established 01/19/17 -EH Transfer Training PT LTG, Time to Achieve 2 wks -EH Transfer Training PT LTG, Activity Type all transfers -EH Transfer Training PT LTG, [place] Level conditional independence -EH Transfer Training PT LTG, Assist Device walker, rolling -EH Transfer Training PT LTG, Date Goal Reviewed 01/20/17 - Transfer Training PT LTG, Outcome goal ongoing - goal ongoing -EH Gait Training PT LTG Gait Training Goal PT LTG, Date Established 01/19/17 -EH Gait Training Goal PT LTG, Time to Achieve 2 wks -EH Gait Training Goal PT LTG, [place] Level conditional independence -EH Gait Training Goal PT LTG, Assist Device walker, rolling -EH Gait Training Goal PT LTG, Date Goal Reviewed 01/20/17 - Gait Training Goal PT LTG, Outcome goal ongoing - goal ongoing -EH User Sage (r) = Recorded By, (t) = Taken By, (c) = Cosigned By Initials Name Provider Type Crys Pinedo, PT Physical Therapist Maddie Nicole, SECURITY SHIFT SUPERVISOR Aeronautical Engineering Officer Physical Therapy Education Title: PT OT EMBEDDED SYSTEMS SOFTWARE ENGINEER Therapies (Active) Topic: Physical Therapy (Active) Point: [...] Sage Initials Effective Dates Name Provider Type [facility] 11/29/14 - Crys Pinedo, PT Physical Therapist PT 12/02/14 - Maddie Nicole, SECURITY SHIFT SUPERVISOR Aeronautical Engineering Officer PT PT Recommendation and Plan Plan of [...] Katy Hernandez, OTR Occupational Therapist Maddie Nicole, SECURITY SHIFT SUPERVISOR Aeronautical Engineering Officer Time Calculation: PT Charges 01/20/17 0843 Time Calculation Start Time 0800 - PT Received On 01/20/17 - PT Goal Re-Cert Due Date 01/29/17 - Time Calculation- PT Total Timed Code Minutes- PT 30 minute(s) - User Sage (r) = Recorded By, (t) = Taken By, (c) = Cosigned By Initials Name Provider Type Maddie Nicole PTA Aeronautical Engineering Officer Therapy Charges for Today Code Description Service Date Service Provider Modifiers Qty 70696513926 HC GAIT TRAINING EA 15 MIN 01/20/2017 Maddie Nicole PTA GP 1 [id number] HC PT THER PROC EA 15 MIN 01/20/2017 Maddie Nicole PTA GP 1 PT G-Codes Outcome Measure Options: AM-PAC 6 Clicks Basic Mobility (PT) Maddie Nicole PTA 01/20/2017 * Therapy Treatment Note - Crys Pinedo PT - 01/19/2017 5:41 PM EDT Acute Care - Physical Therapy Treatment Note [facility] Patient Name: Marialuisa Hampton : 1955 Today's [...] Assistive Device bed rails;head of bed elevated;leg summer school coordinator - Bed Mob, Supine to Sit, [place] supervision required - Bed Mobility, Comment cueing for doffing leg summer school coordinator to scoot forward - Recorded by [] Crys Pinedo, PT Transfer Assessment/Treatment Transfers, Sit-Stand [place] contact guard assist - Transfers, Stand-Sit [place] contact guard assist - Transfers, Efg-[id number]-Gus, Assist Device rolling walker - Toilet Transfer, [place] -- - Toilet Transfer, Assistive Device -- -EH Recorded by [] Crys Pinedo, PT Gait Assessment/Treatment Gait, [place] Level contact guard assist - Gait, Assistive Device rolling walker - Gait, Distance (Feet) 120 - Gait, Gait Pattern Analysis swing-to gait - Gait, Gait Deviations right:;antalgic;weight-shifting ability decreased;forward flexed posture;qbl-jk-piwia clearance decreased;left:;step length decreased - Gait, Safety [...] bed mobility - Bed Mobility PT LTG, [place] Level conditional independence - Bed Mobility PT LTG, Outcome goal ongoing - Transfer Training PT LTG Transfer Training PT LTG, Date Established 01/19/17 - Transfer Training PT LTG, Time to Achieve 2 wks -EH Transfer Training PT LTG, Activity Type all transfers - Transfer Training PT LTG, [place] Level conditional independence -EH Transfer Training PT LTG, Assist Device walker, rolling -EH Transfer Training PT LTG, Outcome goal ongoing - Gait Training PT LTG Gait Training Goal PT LTG, Date Established 01/19/17 - Gait Training Goal PT LTG, Time to Achieve 2 wks -EH Gait Training Goal PT LTG, [place] Level conditional independence -EH Gait Training Goal PT LTG, Assist Device walker, rolling -EH Gait Training Goal PT LTG, Outcome goal ongoing -EH User Sage (r) = Recorded By, (t) = Taken By, (c) = Cosigned By Initials Name Provider Type Crys Pinedo, PT Physical Therapist Physical Therapy Education Title: PT OT EMBEDDED SYSTEMS SOFTWARE ENGINEER Therapies (Active) Topic: Physical Therapy (Done) Point: Mobility training (Done) Learning Progress Summary Learner Readiness Method Response Comment Documented by Status Patient Acceptance E VU,NR 01/19/17 1739 Done Acceptance E [facility] 01/19/17 1418 Active Point: Home exercise program (Done) Learning Progress Summary Learner Readiness Method Response Comment Documented by Status Patient Acceptance E VU,[facility] 01/19/17 1739 Done Acceptance E [facility] 01/19/17 1418 Active Point: Body mechanics (Done) Learning Progress Summary Learner Readiness Method Response Comment Documented by Status Patient Acceptance E VU,[facility] 01/19/17 1739 Done Acceptance E [facility] 01/19/17 1418 Active Point: Precautions (Done) Learning Progress Summary Learner Readiness Method Response Comment Documented by Status Patient Acceptance E VU,[facility] 01/19/17 1739 Done Acceptance E [facility] 01/19/17 1418 Active User Sage Initials Effective Dates Name Provider Type [facility] 11/29/14 - Crys Pinedo, PT [...] 01/19/17 1502 Time Calculation Start Time 1615 [facility] 1104 - PT Received On 01/19/17 - [...] Description Service Date Service Provider Modifiers Qty 96377032257 HC PT THER PROC EA 15 MIN 01/19/2017 Crys Pinedo, PT GP 1 43075350218 HC PT EVAL MOD COMPLEXITY 3 01/19/2017 Crys Pinedo, PT GP 1 53173944997 HC GAIT TRAINING EA 15 MIN 01/19/2017 Crys Pinedo, PT GP 1 89849627970 HC PT THER PROC EA 15 MIN 01/19/2017 Crys Pinedo, PT GP 1 PT G-Codes Outcome Measure Options: AM-PAC 6 Clicks Basic Mobility (PT) Crys Pinedo PT 01/19/2017 * Therapy Evaluation - Crys Pinedo, PT - 01/19/2017 3:04 PM EDT Acute Care - Physical Therapy Initial Evaluation [facility] Patient Name: Marialuisa Hampton : 1955 Today's [...] Date ??? CARDIAC CATHETERIZATION ??? HYSTERECTOMY ??? UT TOTAL KNEE ARTHROPLASTY Right 01/18/2017 Procedure: RIGHT TOTAL KNEE ARTHROPLASTY; Surgeon: Mj Menon MD; Location: [facility]; Service: Orthopedics PT ASSESSMENT (last 72 [...] Assistive Device bed rails;head of bed elevated;leg summer school coordinator - Bed Mob, Supine to Sit, [place] supervision required - Bed Mobility, Comment increased time, cueing for leg summer school coordinator, - Transfer Assessment/Treatment Transfers, Sit-Stand [place] contact guard assist;2 person assist required - Transfers, Stand-Sit [place] contact guard assist;2 person assist required - Transfers, Wan-Wfcze-Afl, Assist Device rolling walker;elevated surface - Toilet Transfer, [place] contact guard assist - Toilet Transfer, Assistive Device bedside commode without drop arms;elevated toilet seat;rolling walker - Transfer, Comment cues for hand placement, fully turning prior to reaching for chair/bsc; progressing RLE prior to sitting - Gait Assessment/Treatment Gait, [place] Level contact guard assist - Gait, Assistive Device rolling walker - Gait, Distance (Feet) 100 - Gait, Gait Pattern Analysis swing-to gait - Gait, Gait Deviations right:;antalgic;decreased heel strike;xqx-ov-qoxbv clearance decreased;left:;step length decreased - Gait, Comment [...] Assistive Device bed rails;head of bed elevated;leg summer school coordinator -ST Bed Mob, Supine to Sit, [place] supervision required -ST Bed Mobility, Comment increased time to complete along with cuing for sequencing task -ST Transfer Assessment/Treatment Transfers, Sit-Stand [place] contact guard assist;2 person assist required -ST Transfers, Stand-Sit [place] contact guard assist;2 person assist required -ST Transfers, Irj-Lqwma-Lvk, Assist Device rolling walker -ST Toilet Transfer, [place] contact guard assist -ST Toilet Transfer, Assistive [...] Padgett, PT Physical Therapist SG Anne-Marie Kirkpatrick Nanny Babysitter Yolande Ocampo, RN Registered Nurse AB Dominique Kwon, RN Registered Nurse Physical Therapy Education Title: PT OT EMBEDDED SYSTEMS SOFTWARE ENGINEER Therapies (Active) Topic: Physical Therapy (Active) Point: [...] Sage Initials Effective Dates Name Provider Type [facility] 11/29/14 - Crys Pinedo, PT [...] bed mobility -EH Bed Mobility PT LTG, [place] Level conditional independence -EH Transfer Training PT LTG Transfer Training PT LTG, Date Established 01/19/17 -EH Transfer Training PT LTG, Time to Achieve 2 wks -EH Transfer Training PT LTG, Activity Type all transfers -EH Transfer Training PT LTG, [place] Level conditional independence -EH Transfer Training PT LTG, Assist Device walker, rolling -EH Gait Training PT LTG Gait Training Goal PT LTG, Date Established 01/19/17 -EH Gait Training Goal PT LTG, Time to Achieve 2 wks -EH Gait Training Goal PT LTG, [place] Level conditional independence -EH Gait Training Goal [...] Description Service Date Service Provider Modifiers Qty [id number] PT THER PROC EA 15 MIN 01/19/2017 Crys Pinedo PT GP 1 [id number] PT EVAL MOD COMPLEXITY 3 01/19/2017 Crys Pinedo PT GP 1 PT G-Codes Outcome Measure Options: AM-PAC 6 Clicks Basic Mobility (PT) Crys Pinedo PT 01/19/2017 * Therapy Evaluation - Katy Hernandez OTR - 01/19/2017 2:11 PM EDT Acute Care - Occupational Therapy Initial Evaluation [place] Patient Name: Marialuisa Hampton : 1955 Today's [...] Date ??? CARDIAC CATHETERIZATION ??? HYSTERECTOMY ??? UT TOTAL KNEE ARTHROPLASTY Right 01/18/2017 Procedure: RIGHT TOTAL KNEE ARTHROPLASTY; Surgeon: Mj Menon MD; Location: [facility]; Service: Orthopedics OT ASSESSMENT FLOWSHEET (last [...] Assistive Device bed rails;head of bed elevated;leg summer school coordinator -ST Bed Mob, Supine to Sit, [place] supervision required -ST Bed Mobility, Comment increased time to complete along with cuing for sequencing task -ST Transfer Assessment/Treatment Transfers, Sit-Stand [place] contact guard assist;2 person assist required -ST Transfers, Stand-Sit [place] contact guard assist;2 person assist required -ST Transfers, [id number]-Tcz, Assist Device rolling walker -ST Toilet Transfer, [place] contact guard assist -ST Toilet Transfer, Assistive [...] R despite mult attempts with modifications; recommend cement conveyor operator and sockaid -ST Toileting Assessment/Training Toileting [...] General Therapy Interventions Adaptive Equipment Training recommend cement conveyor operator and sockaid for home use -ST [...] TS Yolande Ocampo, ROXANA 11/27/15 - AB Domniique Kwon, RN 11/27/15 - MM Robyn Valdivia, RN 01/05/16 - Occupational Therapy Education Title: PT OT EMBEDDED SYSTEMS SOFTWARE ENGINEER Therapies (Active) Topic: Occupational Therapy (Active) Point: [...] Provider Type Discipline ST 08/02/16 - ERIN Loepz Occupational Therapist OT OT Recommendation and Plan Anticipated Equipment Needs At Discharge: tub bench Anticipated Discharge Disposition: home with assist Therapy Frequency: daily Plan of Care Review Plan Of Care Reviewed With: patient Outcome Summary/Follow up Plan: Pt with impulsivity during transfers and using rwx, requiring cuingfor safety; unable to complete LBD this date w/o AE d/t may. ROM and pain-recommend sockaid and cement conveyor operator. Will progress with independence & safety with daily tasks in preparation for d/c home OT Goals 01/19/17 1020 Transfer Training OT LTG Transfer Training OT LTG, Time to Achieve 4 days -ST Transfer Training OT LTG, Activity Type tub -ST Transfer Training OT LTG, [place] Level contact guard assist -ST Transfer Training OT LTG, Assist Device walker, rolling -ST Transfer Training OT LTG, Outcome goal ongoing -ST LB Dressing OT LTG LB Dressing Goal OT LTG, Time to Achieve 4 days -ST LB Dressing Goal OT LTG, [place] Level conditional independence -ST LB Dressing Goal OT LTG, Adaptive Equipment laces, elastic;cement conveyor operator;shoe horn, long handled;sock-aid-ST LB Dressing Goal [...] Description Service Date Service Provider Modifiers Qty [id number] OT THERAPEUTIC ACT EA 15 MIN 01/19/2017 Katy Hernandez OTR GO 1 [id number] OT EVAL MOD COMPLEXITY 3 01/19/2017 ERIN [...] CBC (No Diff) (01/20/2017 5:56 AM EDT) [facility] WBC 14.82(H) 3.50 - 10.80 10*3/mm3 01/20/2017 6:40 AM EDT [facility] RBC 3.50(L) 3.89 - 5.14 10*6/mm3 01/20/2017 6:40 AM EDT [facility] Hemoglobin 8.7(L) 11.5 - 15.5 g/dL 01/20/2017 6:40 AM EDT [facility] Hematocrit 27.4(L) 34.5 - 44.0 % 01/20/2017 6:40 AM EDT [facility] MCV 78.3(L) 80.0 - 99.0 fL 01/20/2017 6:40 AM EDT [facility] MCH 24.9(L) 27.0 - 31.0 pg 01/20/2017 6:40 AM EDT [facility] MCHC 31.8(L) 32.0 - 36.0 g/dL 01/20/2017 6:40 AM EDT [facility] RDW 16.4(H) 11.3 - 14.5 % 01/20/2017 6:40 AM EDT [facility] RDW-SD 47.4 37.0 - 54.0 fl 01/20/2017 6:40 AM EDT [facility] MPV 10.0 6.0 - 12.0 fL 01/20/2017 6:40 AM EDT [facility] Platelets 295 150 - 450 10*3/mm3 01/20/2017 6:40 AM EDT [facility] Blood 01/20/2017 5:56 AM EDT 01/20/2017 6:23 AM EDT Mj Menon MD LAB BLOOD ORDERABLES Final Res ult [facility]
[address] [place] [address], * (ABNORMAL) Basic Metabolic Panel (01/20/2017 5:56 AM EDT) Glucose 101(H) 70 - 100 mg/dL 01/20/2017 7:07 AM EDT [facility] BUN 10 9 - 23 mg/dL 01/20/2017 7:07 AM EDT [facility] Creatinine 0.40(L) 0.60 - 1.30 mg/dL 01/20/2017 7:07 AM EDT [facility] Sodium 136 132 - 146 mmol/L 01/20/2017 7:07 AM EDT [facility] Potassium 3.8 3.5 - 5.5 mmol/L 01/20/2017 7:07 AM EDT [facility] Chloride 108 99 - 109 mmol/L 01/20/2017 7:07 AM EDT [facility] CO2 23.0 20.0 - 31.0 mmol/L 01/20/2017 7:07 AM EDT [facility] Calcium 9.0 8.7 - 10.4 mg/dL 01/20/2017 7:07 AM EDT [facility] eGFR Non Amer >150 >60 mL/min/1.7 3 01/20/2017 7:07 AM EDT [facility] BUN/Creatinine Ratio 25.0 7.0 - 25.0 01/20/2017 7:07 AM EDT [facility] Anion Gap 5.0 3.0 - 11.0 mmol/L 01/20/2017 7:07 AM EDT [facility] Blood 01/20/2017 5:56 AM EDT 01/20/2017 6:23 AM EDT [facility] - 01/20/2017 7:07 AM EDT National Kidney Foundation Guidelines Stage ? Description ?GFR 1 ? Normal or High ? 90+ 2 ? Mild decrease ?60-89 3 ? Moderate decrease ??30-59 4 ? Severe decrease ?15-29 5 ? Kidney failure ? <15 Silvia Bellefonte LOCK TENDER CHIEF OPERATOR LAB BLOOD ORDERABLES Final Result [facility]
[address] [id number], * (ABNORMAL) CBC (No Diff) (01/19/2017 5:47 AM EDT) WBC 12.79(H) 3.50 - 10.80 10*3/mm3 01/19/2017 6:28 AM EDT [facility] RBC 3.54(L) 3.89 - 5.14 10*6/mm3 01/19/2017 6:28 AM EDT [facility] Hemoglobin 9.0(L) 11.5 - 15.5 g/dL 01/19/2017 6:28 AM EDT [facility] Hematocrit 28.4(L) 34.5 - 44.0 % 01/19/2017 6:28 AM EDT [facility] MCV 80.2 80.0 - 99.0 fL 01/19/2017 6:28 AM EDT [facility] MCH 25.4(L) 27.0 - 31.0 pg 01/19/2017 6:28 AM EDT [facility] MCHC 31.7(L) 32.0 - 36.0 g/dL 01/19/2017 6:28 AM EDT [facility] RDW 16.1(H) 11.3 - 14.5 % 01/19/2017 6:28 AM EDT [facility] RDW-SD 48.0 37.0 - 54.0 fl 01/19/2017 6:28 AM EDT [facility] MPV 10.2 6.0 - 12.0 fL 01/19/2017 6:28 AM EDT [facility] Platelets 326 150 - 450 10*3/mm3 01/19/2017 6:28 AM EDT [facility] Blood 01/19/2017 5:47 AM EDT 01/19/2017 6:09 AM EDT us Mj Menon MD LAB BLOOD ORDERABLES Final Res ult [facility]
[address] [place] [address], * (ABNORMAL) Basic Metabolic Panel (01/19/2017 5:47 AM EDT) [facility] Glucose 110(H) 70 - 100 mg/dL 01/19/2017 7:05 AM [facility] BUN 9 9 - 23 mg/dL 01/19/2017 7:05 AM [facility] Creatinine 0.60 0.60 - 1.30 mg/dL 01/19/2017 7:05 AM [facility] Sodium 134 132 - 146 mmol/L 01/19/2017 7:05 AM [facility] Potassium 3.4(L) 3.5 - 5.5 mmol/L 01/19/2017 7:05 AM [facility] Chloride 106 99 - 109 mmol/L 01/19/2017 7:05 AM [facility] CO2 22.0 20.0 - 31.0 mmol/L 01/19/2017 7:05 AM [facility] Calcium 8.4(L) 8.7 - 10.4 mg/dL 01/19/2017 7:05 AM [facility] eGFR Non Amer 102 >60 mL/min/1.7 3 01/19/2017 7:05 AM [facility] BUN/Creatinine Ratio 15.0 7.0 - 25.0 01/19/2017 7:05 AM [facility] Anion Gap 6.0 3.0 - 11.0 mmol/L 01/19/2017 7:05 AM [facility] Blood 01/19/2017 5:47 AM EDT 01/19/2017 6:08 AM EDT [facility] - 01/19/2017 7:05 AM EDT National Kidney Foundation Guidelines Stage ? Description ?GFR 1 ? Normal or High ? 90+ 2 ? Mild decrease ?60-89 3 ? Moderate decrease ??30-59 4 ? Severe decrease ?15-29 5 ? Kidney failure ? <15 Silvia Bonds LOCK TENDER CHIEF OPERATOR LAB BLOOD ORDERABLES Final Result [facility]
[address] [place] [address], * XR Knee 1 or 2 View [...] ABO Type A 01/18/2017 10:38 AM EDT [facility] RH type Positive 01/18/2017 10:38 AM EDT [facility] Antibody Screen Negative 01/18/2017 10:38 AM EDT [facility] Blood Line / Unknown 01/18/2017 8: 24 AM EDT 01/18/2017 8:37 AM EDT Mj Menon MD BLOOD BANK TEST ORDERABLES Angel alexandr Result - Final Performing Organization Address City/[facility]/ZIP Co de Phone Number [facility]
[address] [place] [address], * OR Potassium (01/18/2017 8:24 AM EDT) Potassium, OR 4.15 3.5 - 5.3 mmol/L 01/18/2017 8:31 AM EDT [facility] Blood Line / Unknown 01/18/2017 8: 24 AM EDT 01/18/2017 8:30 AM EDT Burak Rivera MD LAB BLOOD ORDERABLES Final Resu lt Performing Organization Address [facility]/ZIP Co de Phone Number [facility]
[address] [place] [address], documented in this encounter Visit Diagnoses Diagnosis [...] breaths/minute. documented in this encounter Care Teams Inpatient Coder Relationship Specialty Start Date End Date Provider, [place] [address] PCP - General 01/11/17 02/10/17 documented as of this encounter
--- OUTSIDE RECORDS SUMMARY | 2024-05-07 13:37 | XMS_ITS | Encounter Summary ---
Author Organization [facility] Address [address] [place] [address] Care Team Providers Care Academic Support Center Director Name Role Phone Meredith Conti Primary Care Provider [phone] Encounter Details Date Type Department Care Team (Late st Contact Info) Description 07/10/2019 Telephone PSYCHIATRIC MEDICAL [facility] [address] [place] [address] Mj Menon MD [address] [place] [address] Social History Tobacco Use Types Packs/Day Years [...] on filedocumented in this encounter Care Teams Academic Support Center Director Relationship Specialty Start Date End Date Meredith Conti PA PCP - General Physician Junior Network Administrator 02/11/17 documented as of this encounter
--- OUTSIDE RECORDS SUMMARY | 2024-05-07 13:37 | XMS_ITS | Encounter Summary ---
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 Name Role Phone Meredith Conti Primary Care Provider [phone] Reason for Visit * Auth/Cert Specialty Diagnoses / Procedures Referred By Contac t Referred To Contact Diagnoses Primary osteoarthritis of left knee Primary osteoarthritis of left knee [M17.12] Procedures IN TOTAL KNEE ARTHROPLASTY TOTAL KNEE ARTHROPLASTY LEFT Referral ID Status Reason Start Date Expiration Date Visits Re quested Visits Authorized [id number] 1 1 Encounter Details Date Type Department Care Team (Late st Contact Info) Description 07/12/2019 7:15 AM EST - 07/12/2019 9:51 AM EST Surgery [place] [phone] Jose Guadalupe Menon MD [address] [place] [address] TOTAL KNEE ARTHROPLASTY LEFT Social History Tobacco [...] y.o. Female) PT referral from [facility], Case Management, ph [phone] Date of Social Security Number Address Home Phone MRN [id number] [address] [id number] Uats[place] Marital Status Druze Single Admission Date Admission Type Admitting Provider Attending Provider Department, Room/Bed 07/12/19 Elective Jose Guadalupe Menon MD Kirk, Michael E, MD [address], S361/1 Discharge Date Discharge Disposition Discharge Destination Home or Self Care Attending Provider: Jose Guadalupe Menon MD Allergies: Chlorhexidine Isolation: None Infection: None Code Status: CPR Ht: 170.2 cm (67 ) Wt: 71.7 kg (158 lb) Admission Cmt: None Principal Problem: Status post total left knee replacement [Z96.652] Active Insurance as of 07/12/2019 Primary Coverage Payor Plan Insurance Group Employer/Plan Group [facility] mySchoolNotebook [employer] [id number] Payor Plan Address Payor Plan Phone Number Payor Plan Fax Number Effective Dates [phone] 06/13/2014 - None Entered [facility] [address] Subscriber Name Subscriber Date Member ID MARIALUISA HAMPTON 1955 [id number] Emergency Contacts 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 Ambulatory Referral to Physical Therapy Evaluate and treat, Ortho; Full weight bearing ?? Patient: Marialuisa Hampton [address] [facility] [id number] : 1955 SSN: [id number] Sex: F ?? 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 [employer]M [employer]OSS [id number] ?? Referring Provider Information: JOSE GUADALUPE MENON [...] regarding this request for services. Please contact [address] at [phone] during normal business hours. ?? Verbal Order [...] anatomic patella). SURGEON: Jose Guadalupe Menon MD FOREPART REDUCER: Iris Taylor PA-C SPECIMENS: None ANESTHESIA: Spinal STAFF: Forensic Scientist: Anne-Marie Fry RN Scrub Person: Ruddy Magallon Field Account Manager: Liza Khalil Due Diligence Coordinator: Iris Taylor PA TOURNIQUET TIME: 18 [...] into the lateral gutter. Description of arthritis: Wzgi-yj-kolo contact the medial compartment, lateral degeneration, with [...] closed with #1 Vicryl in an interrupted xrvzxd-tc-aidto fashion in 4 strategic locations followed by [...] Jose Guadalupe Menon MD 07/12/19 9:13 AM 1165 Physician Progress Notes (most recent note) Jose Guadalupe Menon MD at 07/13/19 0852 [facility] [place] Progress Note Subjective LOS: 0 days Patient Care Team: Meredith Conti PA as PCP - General (Physician Due Diligence Coordinator) Marialuisa Bergeron MD as Consulting Physician [...] XR Knee 1 or 2 View Left [[id number]] Collected: 07/12/19 1028 Updated: 07/12/19 1708 Narrative: [...] COLONOSCOPY ??? HYSTERECTOMY ??? KNEE SURGERY ??? IN TOTAL KNEE ARTHROPLASTY Right 01/18/2017 Procedure: RIGHT TOTAL KNEE ARTHROPLASTY; Surgeon: Jose Guadalupe Menon MD; Location: [facility]; Service: Orthopedics ??? TOTAL KNEE ARTHROPLASTY Left 07/12/2019 Procedure: TOTAL KNEE ARTHROPLASTY LEFT; Surgeon: Jose Guadalupe Menon MD; Location: [facility]; Service: Orthopedics General Information Row [...] -CS Row Name 07/13/19929 Bed-Chair Transfer Bed-Chair [place] (Transfers) conditional independence;verbal cues -CS Assistive Device (Bed-Chair Transfers) walker, front-wheeled -CS Row Name 07/13/19929 Sit-Stand Transfer Sit-Stand [place] (Transfers) conditional independence;verbal cues -CS Assistive Device (Sit-Stand Transfers) walker, front-wheeled -CS Row Name 07/13/19929 Gait/Stairs Assessment/Training 34222 - Gait Training Minutes 15 -CS Gait/Stairs Assessment/Training gait/ambulation independence;gait/ambulation assistive device;distance ambulated;gait pattern -CS Oz[place] Level (Gait) verbal cues;stand by assist -CS [...] 1, PT) bed mobility activities, all -CS [place] Level/Cues Needed (Bed Mobility Goal 1, PT) conditional independence -CS Time Frame (Bed Mobility Goal 1, PT) termite control technician goal (LTG);3 days -CS Progress/Outcomes (Bed Mobility Goal 1, PT) goal met -CS Row Name 07/13/19929 Transfer Goal 1 (PT) Activity/Assistive Device (Transfer Goal 1, PT) cyh-hk-ltbun/fmany-mx-pna;zeg-zb-tkqpn/porls-gu-qln;walker, rolling -CS [place] Level/Cues Needed (Transfer Goal 1, PT) conditional independence -CS Time Frame (Transfer Goal 1, PT) prison goal (LTG);3 days -CS Progress/Outcome (Transfer Goal 1, PT) goal partially met;discharged from facility - Row Name 07/13/19929 Gait Training Goal 1 (PT) Activity/Assistive Device (Gait Training Goal 1, PT) gait (walking locomotion);assistive device use;walker, rolling -CS [place] Level (Gait Training Goal 1, PT) conditional independence -CS Distance (Gait Goal 1, PT) 500' -CS Time Frame (Gait Training Goal 1, PT) termite control technician goal (LTG);3 days -CS Progress/Outcome (Gait Training Goal 1, PT) goal partially met;discharged from facility - Row Name 07/13/19929 ROM Goal 1 (PT) ROM Goal 1 (PT) 0-90 deg knee ROM -CS Time Frame (ROM Goal 1, PT) prison goal (LTG);3 days -CS Progress/Outcome (ROM Goal [...] Minutes- PT 23 minute(s) -CS Timed Charges 02149 - PT Therapeutic Exercise Minutes 8 -CS 97589 - Gait Training Minutes 15 -CS User Sage (r) = Recorded By, (t) = Taken By, (c) = Cosigned By Initials Name Provider Type CS Rosmery Mixon, PT Physical Therapist Therapy Charges for Today Code Description Service Date Service Provider Modifiers Qty 92783099108 HC GAIT TRAINING EA 15 MIN 07/12/2019 Rosmery Mixon, PT GP 1 90518252432 HC PT EVAL MOD COMPLEXITY 3 07/12/2019 Rosmery Mixon, PT GP 1 72507319877 HC PT THER SUPP EA 15 MIN 07/12/2019 Rosmery Mixon, PT GP 2 47407603763 HC PT THER PROC EA 15 MIN 07/13/2019 Rosmery Mixon, PT GP 1 01192735314 HC GAIT TRAINING EA 15 MIN 07/13/2019 [...] above formulated discharge plan with patient and MANAGER IN TRAINING.wy. * Rosmery Mixon, PT - 07/13/2019 9:30 [...] COLONOSCOPY ??? HYSTERECTOMY ??? KNEE SURGERY ??? IN TOTAL KNEE ARTHROPLASTY Right 01/18/2017 Procedure: RIGHT TOTAL KNEE ARTHROPLASTY; Surgeon: Jose Guadalupe Menon MD; Location: [facility]; Service: Orthopedics ??? TOTAL KNEE ARTHROPLASTY Left 07/12/2019 Procedure: TOTAL KNEE ARTHROPLASTY LEFT; Surgeon: Jose Guadalupe Menon MD; Location: [facility]; Service: Orthopedics General Information Row [...] -CS Row Name 07/13/19929 Bed-Chair Transfer Bed-Chair [place] (Transfers) conditional independence;verbal cues -CS Assistive Device (Bed-Chair Transfers) walker, front-wheeled -CS Row Name 07/13/19929 Sit-Stand Transfer Sit-Stand [place] (Transfers) conditional independence;verbal cues -CS Assistive Device (Sit-Stand Transfers) walker, front-wheeled -CS Row Name 07/13/19929 Gait/Stairs Assessment/Training 96579 - Gait Training Minutes 15 -CS Gait/Stairs Assessment/Training gait/ambulation independence;gait/ambulation assistive device;distance ambulated;gait pattern -CS [place] Level (Gait) verbal cues;stand by assist -CS [...] 1, PT) bed mobility activities, all -CS [place] Level/Cues Needed (Bed Mobility Goal 1, PT) conditional independence -CS Time Frame (Bed Mobility Goal 1, PT) prison goal (LTG);3 days -CS Progress/Outcomes (Bed Mobility Goal 1, PT) goal met - Row Name 07/13/19929 Transfer Goal 1 (PT) Activity/Assistive Device (Transfer Goal 1, PT) hhm-pf-tjwre/wairz-pe-qut;frq-nw-fllrn/ibzdz-uj-qoo;walker, rolling -CS [place] Level/Cues Needed (Transfer Goal 1, PT) conditional independence -CS Time Frame (Transfer Goal 1, PT) prison goal (LTG);3 days -CS Progress/Outcome (Transfer Goal 1, PT) goal partially met;discharged from facility - Row Name 07/13/19929 Gait Training Goal 1 (PT) Activity/Assistive Device (Gait Training Goal 1, PT) gait (walking locomotion);assistive device use;walker, rolling -CS [place] Level (Gait Training Goal 1, PT) conditional independence -CS Distance (Gait Goal 1, PT) 500' -CS Time Frame (Gait Training Goal 1, PT) termite control technician goal (LTG);3 days -CS Progress/Outcome (Gait Training Goal 1, PT) goal partially met;discharged from facility - Row Name 07/13/19929 ROM Goal 1 (PT) ROM Goal 1 (PT) 0-90 deg knee ROM -CS Time Frame (ROM Goal 1, PT) termite control technician goal (LTG);3 days -CS Progress/Outcome (ROM Goal [...] Minutes- PT 23 minute(s) -CS Timed Charges 16209 - PT Therapeutic Exercise Minutes 8 -CS 25282 - Gait Training Minutes 15 -CS User Sage (r) = Recorded By, (t) = Taken By, (c) = Cosigned By Initials Name Provider Type CS Rosmery Mixon, PT Physical Therapist Therapy Charges for Today Code Description Service Date Service Provider Modifiers Qty 52254531961 HC GAIT TRAINING EA 15 MIN 07/12/2019 Rosmery Mixon, PT GP 1 13024363861 HC PT EVAL MOD COMPLEXITY 3 07/12/2019 Rosmery Mixon, PT GP 1 27167658167 HC PT THER SUPP EA 15 MIN 07/12/2019 Rosmery Mixon, PT GP 2 62059441142 HC PT THER PROC EA 15 MIN 07/13/2019 Rosmery Mixon, PT GP 1 56793363929 HC GAIT TRAINING EA 15 MIN 07/13/2019 [...] COLONOSCOPY ??? HYSTERECTOMY ??? KNEE SURGERY ??? IN TOTAL KNEE ARTHROPLASTY Right 01/18/2017 Procedure: RIGHT TOTAL KNEE ARTHROPLASTY; Surgeon: Jose Guadalupe Menon MD; Location: [facility]; Service: Orthopedics ??? TOTAL KNEE ARTHROPLASTY Left 07/12/2019 Procedure: TOTAL KNEE ARTHROPLASTY LEFT; Surgeon: Jose Guadalupe Menon MD; Location: [facility]; Service: Orthopedics OT ASSESSMENT FLOWSHEET [...] catheter - Equipment Issued to Patient leg due diligence coordinator - Barriers to Rehab none identified - [...] Assessment/Treatment Bed Mobility Assessment/Treatment supine-sit - Supine-Sit Oz[place] (Bed Mobility) supervision - Assistive Device (Bed Mobility) head of bed elevated - Comment (Bed Mobility) Educated on use of leg due diligence coordinator for bed mobility. Demonstrated understanding. - Functional [...] for hand placement. - Sit-Stand Transfer Sit-Stand [place] (Transfers) stand by assist;verbal cues - Assistive Device (Sit-Stand Transfers) walker, front-wheeled - Stand-Sit Transfer Stand-Sit [place] (Transfers) stand by assist;verbal cues - Assistive Device (Stand-Sit Transfers) walker, front-wheeled - Shower Transfer Type (Shower Transfer) lateral - Assistive Device (Shower Transfer) -- Pt. declined shower transfer despite encouragment from OT. - ADL Assessment/Intervention 09979 - OT Self Care/Mgmt Minutes 15 - BADL Assessment/Intervention upper body dressing;lower body dressing;grooming;toileting;bathing - Bathing Assessment/Intervention Bathing Ozark Level lower body;moderate assist (50% patient effort) - Comment (Bathing) Educated pt. to not shower until AC nerve catheter is discontinued and cleared with MD. - Upper Body Dressing Assessment/Training Upper Body Dressing Ozark Level don;bra/undergarment;pull-over garment;independent - Upper Body Dressing Position unsupported sitting - Lower Body Dressing Assessment/Training Lower Body Dressing Ozark Level don;pants/bottoms - Lower Body Dressing Position unsupported sitting - Comment (Lower Body Dressing) Educated pt. on LBD technique to improve independence and comfort with task. Pt. demonstrated understanding. Pt. also educated on AC nerve catheter mgmt during LBD. Pt. verbalized and demonstrated understanding. - Grooming Assessment/Training Ozark Level (Grooming) hair care, combing/brushing;oral care regimen;wash face, hands;supervision - Grooming Position supported standing - Comment (Grooming) Completed grooming standing at sink with RWx. No LOB. - Toileting Assessment/Training Ozark Level (Toileting) adjust/manage clothing - Comment (Toileting) [...] balance - Static Sitting Balance Level of Ozark (Unsupported Sitting, Static Balance) independent - Sitting Position (Unsupported Sitting, Static Balance) sitting on edge of bed - Time Able to Maintain Position (Unsupported Sitting, Static Balance) more than 5 minutes - Dynamic Sitting Balance Level of Oz[place], Reaches Outside Midline (Sitting, Dynamic Balance) supervision - Sitting Position, Reaches Outside Midline (Sitting, Dynamic Balance) sitting on edge of bed - Static Standing Balance Level of Ozark (Supported Standing, Static Balance) supervision - Time Able to Maintain Position (Supported Standing, Static Balance) more than 5 minutes - Assistive Device Utilized (Supported Standing, Static Balance) walker, rolling - Dynamic Standing Balance Level of Ozark, Reaches Outside Midline (Standing, Dynamic Balance) standby [...] on Hospital Admission: N -SC Side: Left -AL Orientation: anterior -AL Location: knee -AL Primary Wound Type: Incision -AL Additional Comments: -- -SC, prineo; abd; 4x4; [...] (OT) Activity/Assistive Device (Transfer Goal 1, OT) thy-bb-kzxim/appgi-ci-pat - [place] Level/Cues Needed (Transfer Goal 1, OT) standby assist;verbal cues required - Time Frame (Transfer Goal 1, OT) 1 day - Progress/Outcome (Transfer Goal 1, OT) goal met -LC Dressing Goal 1 (OT) Activity/Assistive Device (Dressing Goal 1, OT) lower body dressing -LC Ozark/Cues Needed (Dressing Goal 1, OT) moderate assist [...] PT) bed mobility activities, all -CS -- [place] Level/Cues Needed (Bed Mobility Goal 1, PT) conditional independence -CS -- Time Frame (Bed Mobility Goal 1, PT) termite control technician goal (LTG);3 days -CS -- Progress/Outcomes (Bed Mobility Goal 1, PT) goal met -CS -- Transfer Goal 1 (PT) Activity/Assistive Device (Transfer Goal 1, PT) yil-su-zwwte/dgfuo-ik-ncw;pjp-il-zhodp/ebrqs-lo-edh;walker, rolling -CS -- [place] Level/Cues Needed (Transfer Goal 1, PT) conditional independence - CS -- Time Frame (Transfer Goal 1, PT) termite control technician goal (LTG);3 days -CS -- Progress/Outcome (Transfer Goal 1, PT) goal partially met;discharged from facility -CS -- Gait Training Goal 1 (PT) Activity/Assistive Device (Gait Training Goal 1, PT) gait (walking locomotion);assistive device use;walker, rolling -CS -- [place] Level (Gait Training Goal 1, PT) conditional independence -CS -- Distance (Gait Goal 1, PT) 500' -CS -- Time Frame (Gait Training Goal 1, PT) termite control technician goal (LTG);3 days -CS -- Progress/Outcome (Gait Training Goal 1, PT) goal partially met;discharged from facility -CS -- ROM Goal 1 (PT) ROM Goal 1 (PT) 0-90 deg knee ROM -CS -- Time Frame (ROM Goal 1, PT) termite control technician goal (LTG);3 days -CS -- Progress/Outcome (ROM Goal 1, PT) goal partially met;discharged from facility - CS -- Occupational Therapy Goals Transfer Goal Selection (OT) -- transfer, OT goal 1 -LC Dressing Goal Selection (OT) -- dressing, OT goal 1 -LC Transfer Goal 1 (OT) Activity/Assistive Device (Transfer Goal 1, OT) -- cub-kg-bfmwi/cqmiz-uc-wsw - [place] Level/Cues Needed (Transfer Goal 1, OT) -- standby assist;verbal cues required -LC Time Frame (Transfer Goal 1, OT) -- 1 day -LC Progress/Outcome (Transfer Goal 1, OT) -- goal met -LC Dressing Goal 1 (OT) Activity/Assistive Device (Dressing Goal 1, OT) -- lower body dressing -LC [place]/Cues Needed (Dressing Goal 1, OT) -- moderate [...] Due Date -- 07/23/19 - Timed Charges 30673 - Gait Training Minutes 15 -CS -- 87479 - OT Self Care/Mgmt Minutes -- 15 - User Sage (r) = Recorded By, (t) = Taken By, (c) = Cosigned By Initials Name Provider Type Rosmery Shaw, PT Physical Therapist Gissel Nelson OT Occupational Therapist Therapy Suggested Charges Code Minutes Charges 37311 (CPT??) Hc Ot Neuromusc Re Education Ea 15 Min 24919 (CPT??) Hc Ot Ther Proc Ea 15 Min 46675 (CPT??) Hc Ot Therapeutic Act Ea 15 Min 47341 (CPT??) Hc Ot Manual Therapy Ea 15 Min 39735 (CPT??) Hc Ot Iontophoresis Ea 15 Min 90890 (CPT??) Hc Ot Elec Stim Ea-Per 15 Min 22138 (CPT??) Hc Ot Ultrasound Ea 15 Min 84126 (CPT??) Hc Ot Self Care/Mgmt/Train Ea 15 Min 15 1 Total 15 1 Therapy Charges for Today Code Description Service Date Service Provider Modifiers Qty 10413183097 HC OT SELF CARE/MGMT/TRAIN EA 15 MIN 07/13/2019 Gissel Rivera OT GO 1 76788613531 HC OT EVAL MOD COMPLEXITY 3 07/13/2019 Gissel Rivera, TODD GO 1 OT Discharge Summary Anticipated Discharge Disposition (OT): home with assist, home with home health Gissel Rivera OT 07/13/2019 documented in this encounter Discharge Instructions * Attachments The following attachments cannot be sent through Care Everywhere. * Total Knee Replacement Care After (Djiboutian) * Continuous Peripheral Nerve Block Infusion Self-Care (Djiboutian) * How to Use an Incentive Spirometer (Djiboutian) * Preventing Constipation After Surgery (Djiboutian) * Acetaminophen; Hydrocodone tablets or capsules (Djiboutian) * Docusate capsules (Djiboutian) documented in this encounter Medications at Time [...] each 07/13/2019 1:02 PM EST 07/13/2019 1 Zpwdtdolypo-LJK-H yaluronic Acd ([facility] PO) Take 1 tablet by mouth Daily. 1 Ropivacine HCl-NaCl (NAROPIN)Indicati ons:Acute Pain 20 mg/hr by Peripheral Nerve route Continuous. Indications: Acute Pain 07/13/2019 1 Turmeric 450 MG capsule Take 1 capsule by mouth Daily. 03/25/2019 1 documented as of this encounter Progress Notes * Aleja Choudhary CRNA - 07/13/2019 1:10 PM [facility] Patient Name: Marialuisa Hampton : 1955 Date of Discharge: 07/13/2019 Nerve Cath Post Op Call: Catheter Plan:Patient called/No answer/Message left to call [facility] pain service for any questions or complaints * Stiven Long CRNA - 07/13/2019 1:10 PM EST [facility] Nerve Cath Post Op Call Patient Name: Marialuisa Hampton : 1955 Date of Discharge: 07/13/2019 Nerve Cath Post Op Call: Catheter Plan:Patient called/No answer/Message left to call [facility] pain service for any questions or complaints and The patient was instructed to call [facility] Anesthesia provider for any questions or problems * Phuong Hung RN - 07/13/2019 12:11 PM EST Discharge Planning Assessment [facility] Patient Name: Marialuisa Hampton Today's Date: 07/13/2019 [...] In person Patient's Choice of Community Agency(s) [facility] in [place], [place] Discharge Plan Row Name 07/13/19 1206 Plan Plan Home with family assistance and [facility] in [place] Patient/Family in Agreement with Plan yes Plan Comments Met with Ms. Hampton and her family at the bedside for discharge planning. Ms. Hampton lives alone in [facility]. She stated that her sister, David, will be staying with her in the hometo assist her after discharged. She denies any DME needs. Discussed physical therapy and Ms. Hampton requested [facility] in [place]. Called and faxed referral to [facility], LM with facility. Ms. 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 [facility] [place] Note Subjective LOS: 0 days Patient Care Team: Meredith Conti PA as PCP - General (Physician Due Diligence Coordinator) Marialuisa Bergeron MD as Consulting Physician [...] XR Knee 1 or 2 View Left [[id number]] Collected: 07/12/19 1028 Updated: 07/12/19 1708 Narrative: [...] with assist and home health PT. (07/13/19 4033)] Results Review: I reviewed the patient's new [...] Take 1 tablet by mouth Daily. 07/11/2019 to7458 ??? Gzoatsczzia-WXP-Slatjznovf Acd ([facility] PO) Take 1 tablet [...] COLONOSCOPY ??? HYSTERECTOMY ??? KNEE SURGERY ??? IN TOTAL KNEE ARTHROPLASTY Right 01/18/2017 Procedure: RIGHT TOTAL KNEE ARTHROPLASTY; Surgeon: Jose Guadalupe Menon MD; Location: [facility]; Service: Orthopedics Family History Problem [...] 6:57 AM EST Pre-Op H&P Marialuisa Hampton [id number] 1955 Chief complaint: left knee pain HPI: Patient is a 63 y.o.female who presents with longstanding history of left knee pain with progressive worsening. Recent imaging of left knee showed qtzv-kj-ppnd contact medial compartment, advanced patellofemoral arthritis, with [...] COLONOSCOPY ??? HYSTERECTOMY ??? KNEE SURGERY ??? IN TOTAL KNEE ARTHROPLASTY Right 01/18/2017 Procedure: RIGHT TOTAL KNEE ARTHROPLASTY; Surgeon: Jose Guadalupe Menon MD; Location: [facility]; Service: Orthopedics Immunization History: Influenza: [...] with nursing. Recommend patient home with assist [facility] PT. PADD: 9 documented in this [...] anatomic patella). SURGEON: Jose Guadalupe Menon MD FOREPART REDUCER: Iris Taylor PA-C SPECIMENS: None ANESTHESIA: Spinal STAFF: Forensic Scientist: Anne-Marie Fry RN Scrub Person: Ruddy Magallon Field Account Manager: Liza Khalil Due Diligence Coordinator: Iris Taylor PA TOURNIQUET TIME: 18 [...] into the lateral gutter. Description of arthritis: Lqle-jj-hodh contact the medial compartment, lateral degeneration, with [...] closed with #1 Vicryl in an interrupted thhbaq-qp-ubqjz fashion in 4 strategic locations followed by [...] COLONOSCOPY ??? HYSTERECTOMY ??? KNEE SURGERY ??? IN TOTAL KNEE ARTHROPLASTY Right 01/18/2017 Procedure: RIGHT TOTAL KNEE ARTHROPLASTY; Surgeon: Jose Guadalupe Menon MD; Location: [facility]; Service: Orthopedics General Information Row [...] Assessment/Treatment Bed Mobility Assessment/Treatment supine-sit -CS Supine-Sit [place] (Bed Mobility) supervision;verbal cues -CS Assistive Device [...] -CS Row Name 07/12/191339 Sit-Stand Transfer Sit-Stand [place] (Transfers) contact guard;verbal cues -CS Assistive Device (Sit-Stand Transfers) walker, front-wheeled - Row Name 07/12/191339 Gait/Stairs Assessment/Training 84917 - Gait Training Minutes 10 -CS Gait/Stairs Assessment/Training gait/ambulation independence;gait/ambulation assistive device;distance ambulated;gait pattern - [place] Level (Gait) verbal cues;contact guard;2 person assist [...] Cosigned By Initials Name Provider Type CS Rosmeyr Mixon, PT Physical Therapist Obj/Interventions Row Name [...] 1, PT) bed mobility activities, all -CS [place] Level/Cues Needed (Bed Mobility Goal 1, PT) conditional independence -CS Time Frame (Bed Mobility Goal 1, PT) prison goal (LTG);3 days -CS Progress/Outcomes (Bed Mobility Goal 1, PT) goal ongoing -CS Row Name 07/12/19 134 Transfer Goal 1 (PT) Activity/Assistive Device (Transfer Goal 1, PT) rjg-ne-hkros/vxlyj-lu-njx;dwc-ka-dsusj/cqpri-aw-aac;walker, rolling -CS [place] Level/Cues Needed (Transfer Goal 1, PT) conditional independence -CS Time Frame (Transfer Goal 1, PT) termite control technician goal (LTG);3 days -CS Progress/Outcome (Transfer Goal 1, PT) goal ongoing -CS Row Name 07/12/19 134 Gait Training Goal 1 (PT) Activity/Assistive Device (Gait Training Goal 1, PT) gait (walking locomotion);assistive device use;walker, rolling -CS [place] Level (Gait Training Goal 1, PT) conditional independence -CS Distance (Gait Goal 1, PT) 500' -CS Time Frame (Gait Training Goal 1, PT) termite control technician goal (LTG);3 days -CS Progress/Outcome (Gait Training Goal 1, PT) goal ongoing -CS Row Name 07/12/19 134 ROM Goal 1 (PT) ROM Goal 1 (PT) 0-90 deg knee ROM -CS Time Frame (ROM Goal 1, PT) termite control technician goal (LTG);3 days -CS Progress/Outcome (ROM Goal 1, PT) goal ongoing -CS User Sage (r) = Recorded By, (t) = Taken By, (c) = Cosigned By Initials Name Provider Type CS Rosmery Mixon, PT Physical Therapist Clinical Impression Row Name 07/12/19 975 Pain Assessment Additional Documentation Pain Scale: Numbers Pre/Post-Treatment (Group) -CS Row Name 07/12/19 8448 Pain Scale: Numbers Pre/Post-Treatment Pain Scale: Numbers, Pretreatment 4/10 -CS Pain Scale: Numbers, Post-Treatment 4/10 -CS Pain Location - Side Left -CS Pain Location - Orientation anterior -CS Pain Location knee -CS Pain Intervention(s) Repositioned;Ambulation/increased activity;Cold applied -CS Row Name 07/12/19 1344 Plan of Care Review Plan of Care Reviewed With patient -CS Progress improving -CS Outcome Summary Pt able to amb 250' with RW CGA x 2 with step through gait mechanics. Pt limited byfatigue. Encouraged patient to ambulate later with nursing. Recommend patient home with assist and home health PT. PADD: 9 -CS Row Name 07/12/19 140 Physical Therapy Clinical Impression Patient/Family Goals Statement (PT Clinical Impression) To go home -CS Criteria for Skilled Interventions Met (PT Clinical Impression) yes;treatment indicated -CS Rehab Potential (PT Clinical Summary) good, to achieve stated therapy goals -CS Predicted Duration of Therapy (PT) 3 days -CS Row Name 07/12/19 1579 Positioning and Restraints Pre-Treatment Position in bed [...] with nursing. [facility] PADD: 9 Time Calculation: PT Charges Row Name 07/12/19 1340 Time Calculation Start Time 1340 -CS PT Received On 07/12/19 - PT Goal Re-Cert Due Date 07/22/19 - Time Calculation- PT Total Timed Code Minutes- PT 12 minute(s) -CS Timed Charges 03289 - PT Therapeutic Exercise Minutes 2 -CS 37412 - Gait Training Minutes 10 -CS User Sage (r) = Recorded By, (t) = Taken By, (c) = Cosigned By Initials Name Provider Type CS Rosmery Mixon, PT Physical Therapist Therapy Charges for Today Code Description Service Date Service Provider Modifiers Qty 13718018840 HC GAIT TRAINING EA 15 MIN 07/12/2019 Rosmery Mixon, PT GP 1 [id number] HC PT EVAL MOD COMPLEXITY 3 07/12/2019 Rosmery Mixon, PT GP 1 73017591855 HC PT THER SUPP EA 15 MIN [...] 3.40 - 10.80 10*3/mm3 07/13/2019 6:21 AM [facility] RBC 3.63(L) 3.77 - 5.28 10*6/mm3 07/13/2019 6:21 AM EST [facility] Hemoglobin 9.9(L) 12.0 - 15.9 g/dL 07/13/2019 6:21 AM [facility] Hematocrit 31.8(L) 34.0 - 46.6 % 07/13/2019 6:21 AM EST [facility] MCV 87.6 79.0 - 97.0 fL 07/13/2019 6:21 AM [facility] MCH 27.3 26.6 - 33.0 pg 07/13/2019 6:21 AM [facility] MCHC 31.1(L) 31.5 - 35.7 g/dL 07/13/2019 6:21 AM [facility] RDW 15.6(H) 12.3 - 15.4 % 07/13/2019 6:21 AM [facility] RDW-SD 49.8 37.0 - 54.0 fl 07/13/2019 6:21 AM [facility] MPV 10.6 6.0 - 12.0 fL 07/13/2019 6:21 AM [facility] Platelets 296 140 - 450 10*3/mm3 07/13/2019 6:21 AM [facility] Blood Venipuncture / Unknown 07/13/2019 5:45 AM EST 07/13/2019 6:13 AM EST us Jose Guadalupe Menon MD LAB BLOOD ORDERABLES Final Res ult [facility]
[address] [place] [address], * (ABNORMAL) Basic Metabolic Panel (07/13/2019 5:45 AM EST) [facility] Glucose 95 65 - 99 mg/dL 07/13/2019 7:22 AM [facility] BUN 13 8 - 23 mg/dL 07/13/2019 7:22 AM EST [facility] Creatinine 0.70 0.57 - 1.00 mg/dL 07/13/2019 7:22 AM EST [facility] Sodium 139 136 - 145 mmol/L 07/13/2019 7:22 AM EST [facility] Potassium 3.6 3.5 - 5.2 mmol/L 07/13/2019 7:22 AM EST [facility] Chloride 107 98 - 107 mmol/L 07/13/2019 7:22 AM EST [facility] CO2 22.0 22.0 - 29.0 mmol/L 07/13/2019 7:22 AM [facility] Calcium 8.5(L) 8.6 - 10.5 mg/dL 07/13/2019 7:22 AM [facility] eGFR Non Amer 85 >60 mL/min/1.7 3 07/13/2019 7:22 AM EST [facility] BUN/Creatinine Ratio 18.6 7.0 - 25.0 07/13/2019 7:22 AM [facility] Anion Gap 10.0 5.0 - 15.0 mmol/L 07/13/2019 7:22 AM EST [facility] Blood Venipuncture / Unknown 07/13/2019 5:45 AM EST 07/13/2019 6:13 AM EST Narrative [facility] - 07/13/2019 7:22 AM EST GFR Normal >60 Chronic Kidney Disease <60 Kidney Failure <15 [facility] LAB BLOOD ORDERABLES Final Result [facility]
[address] [place] [address], * XR Knee 1 or 2 View [...] 0707, May switch to NS IV at [facility] if renal / if indicated Currently [...] (Not Given: See Alt - Provider: Maddie Pacheco, ROXANA) acetaminophen (TYLENOL) tablet 650 mg(Linked [...] ineffective. documented in this encounter Care Teams Wrecking Car Driver Relationship Specialty Start Date End Date Meredith Conti PA PCP - General Physician Due Diligence Coordinator 02/11/17 documented as of this encounter
--- OUTSIDE RECORDS SUMMARY | 2024-05-07 13:38 | XMS_ITS | Clinical Summary ---
Author Organization [facility] Address [address] [place] [address] Phone Care Team Providers Care Mold Finisher Name Role Phone Deedee FATIMA, Vikram Unavailable [phone] Meredith Conti PA-C Unavailable [phone] Reason for Visit and Chief Complaint The Chief Complaint is: ring finger trigger Problems Includes: Problems addressed during this encounter and other active Problems Current Visit Onset Date Resolved Date Provider Gearrd jones Status Joint Pain Fingers 12/26/2023 Vikram Mark MD Active Last Documented On 11:24AM ; [facility] Plan of Treatment Patient has a [...] - Last Documented On 12/26/2023 12:05PM ; [facility] Assessments Includes: Assessments from this encounter No Assessments Recorded Medical Equipment - Implanted Devices Includes: Current Devices No Medical Equipment Recorded Medications Includes: Medications discussed during this encounter and other current Medications Current Medications (continue as prescribed) Meloxicam 7.5 MG Oral Tablet 12/22/2023 Provider: Diagnosis: Last Documented On 11:26AM By Evelyn Eckler ; [facility] Meloxicam 7.5 MG Oral Tablet 09/21/2023 Provider: Diagnosis: Last Documented On 4 11:26AM By Evelyn Martinez ; [facility] Metoprolol Succinate ER 50 M G Oral Tablet, extended-release 24 hour 09/21/2023 Provider: Diagnosis: Last Documented On 4 11:26AM By Evelyn Martinez ; [facility] Butalbital-Acetaminophen 50-325 MG Oral Tablet 024 Provider: Diagnosis: Last Documented On 4 11:26AM By Evelyn Martinez ; [facility] Medications Administered Includes: Administered Medications from this encounter No Administered Medications Recorded Vital Signs Includes: Vital Signs from this encounter Vital Name 12/26/2023 11:25A Height (in) 67 Weight (lb) 157 Body Mass Index 24.6 Body Surface Area 1.8 Note: cme Last Documented: On 12/26/2023 11:25A M ; [facility] Results Includes: Results discussed during this encounter [...] Documented On 4 12:05PM ; [facility] Caffeine use 12/26/2023 Last Documented On 4 12:05PM ; [facility] No recent change in diet 12/26/2023 Last Documented On 4 12:05PM ; [facility] Not a current smoker. 12/26/2023 Last Documented On 4 12:05PM ; [facility] Not exercising regularly 12/26/2023 Last Documented On 4 12:05PM ; [facility] Not using drugs 12/26/2023 Last Documented On 4 12:05PM ; [facility] Retired from work 12/26/2023 Last Documented On 4 12:05PM ; [facility], [facility] Smoking Status Unknown Procedures and Surgical History Includes: Procedures from this encounter Procedures Code Diagnosis Performing Provider Service Location Service Date INJ TENDON SHEATH/LIGAMENT (RIGHT HAND, FOURTH DIGIT) Trigger finger, right ring finger [facility] 12/26/2023 Last Documented On 4 12:49PM ; [facility], [facility] Injection, betamethasone acetate 6mg per cc and betamethason J0702 Trigger finger, right ring finger Vikram Mark MD [facility] 12/26/2023 Last Documented On 4 12:49PM ; [facility], [facility] Surgical History Last Updated History of hysterectomy 12/26/2023 Last Documented On 4 12:05PM ; [facility] History of total knee arthroplasty 12/25 Last Documented On 4 12:05PM ; [facility], [facility] Medical History Includes: Medical History addressed during this encounter Description Last Updated History of arthritis 12/26/2023 Last Documented On 4 12:05PM ; [facility] History of Irregular Heartbeat 4 Last Documented On 4 12:05PM ; [facility], [facility] Family History Includes: Family History addressed during this encounter Description Last Updated Diabetes mellitus 12/26/2023 Last Documented On 4 12:05PM ; [facility], [facility] Family history of heart disease 12/26/19 24 Last Documented On 4 12:05PM ; [facility] Family history of systemic hypertension 12/26/2023 Last Documented On 4 12:05PM ; [facility] Maternal history of systemic hypertensio n 12/26/2023 Last Documented On 4 12:05PM ; [facility] Paternal history of family history of he art disease 12/26/2023 Last Documented On 4 12:05PM ; [facility] Sororal history of diabetes mellitus Last Documented On 4 12:05PM ; [facility] Review of Systems Includes: Review of [...] Time Diagnosis Physician Specified Vikram Mark MD [facility] 12/26/19 24 10:59AM 12:04PM Insurance Includes: Active Insurance Policies Plan Name Member ID Group # Subscriber Relationship Effect turner Dates 1 - [employer] [id number] Marialuisa Guajardo Self Clinical Notes Includes: Clinical Notes from this encounter * Progress note Date Encounter Last Documented by 12/26/2023 Physician Specified Last beverly strange on 12/26/2023; 12:05 PM, Vikram Mark MD; [facility] Active Problems & Conditions - Joint [...]
--- OUTSIDE RECORDS SUMMARY | 2024-05-07 13:38 | XMS_ITS ---
Care Plan - [facility], [facility] Created on: May 07, 2024 Marialuisa Guajardo : 1955 Sex: Female Author Organization [facility] Address [address] [place] [address] Phone Care Team Providers Care Auto Servicer Name Role Phone Deedee FATIMA, Vikram Unavailable [phone] Meredith Conti PA-C Unavailable [phone]
--- OUTSIDE RECORDS SUMMARY | 2024-05-07 13:38 | XMS_ITS | Encounter Summary ---
[facility] Address [address] [place] [address] Care Team Providers Care Services Program Manager Name Role Phone Unavailable Primary Care Provider Unavailabl e Encounter Details Date Type Department Care Team (Late st Contact Info) Description 10/20/2011 Historical Mammograp hy Encounter [facility] HISTORICAL CONV [address] [place] [address] Interface, See Report Social History [...] PM EDT Narrative 10/28/2011 3:46 PM EDT ?[facility] ? [address] ??[place], [place] [address] ? NAME: MEMOMARIALUISA ? : ??[birth year] ??MR#: [id number] ? LOC: ?? DIS ? AGE: 55Y ?? Pt type: CO ?Exam Date: 10/20/11 1352 ? SEX: F ?? AN#:[id number] ?Ck-in#: [id number] ? SPIREK,MANJU J ? [address] ? [address] ? [place] ?? [place] ?[address] ? Chk-in # ?? Order ?Exam ?[id number] ?? 0001 ? [id number] ??BC MAMM SCREEN BILAT DIG PNL ? Ord Diag: SCREENING ? ROUTINE DIGITAL SCREENING MAMMOGRAM: ?? HISTORY: Routine screening. ? IMAGE COMPARISON: ??06/03/2006 from [facility] in [place], [place]. ?? TECHNIQUE: ??Routine bilateral CC and [...] FINAL ?CONTINUED ?Page ??1 ? RADIOLOGY REPORT ?[facility] ? [address] ??[place], [place] [address] ? NAME: MARIALUISA GUAJARDO ? : ??[birth year] ??MR#: [id number] ? LOC: ?? DIS ? AGE: 55Y ?? Pt type: CO ?Exam Date: 10/20/11 1352 ? SEX: F ?? AN#:[id number] ?Ck-in#: [id number] ? MANJU MARTINEZ ? [address] ? [address] ? [place] ?? [place] ?[address] ? Checkin-Exam Code Summary ? [phone] Complex patterns or increased breast density will markedly elevate the false negative rate of mammography. ?? A letter, in lay terminology, with the results of this exam will be mailed to the patient. ? If there is a palpable area of concern, biopsy should be considered regardless of imaging findings. ?/READ BY/ CHARLA MASTERS ?/Released By/ CHARLA MASTERS ?Released By Date/Time: ??/17/12 1406 ?Hoop Machine Operator: ??MJP ? FINAL ? Page ??2 ? RADIOLOGY REPORT us See Report Interface IMG MAMMOGRAPHY ORDERABLES Final Result documented in this encounter Visit Diagnoses Not on filedocumented in this encounter
--- OUTSIDE RECORDS SUMMARY | 2024-05-07 13:38 | XMS_ITS ---
Author Organization [facility] Address [address] [place] [address] Phone Care Team Providers Care Customer Service Receptionist Name Role Phone Deedee FATIMA, Vikram Unavailable [phone] Meredith Conti PA-C Unavailable [phone] Problems Includes: Active, inactive, and resolved Problems All Visits Onset Date Resolved Date Provider Condition S tatus Joint Pain Fingers 12/26/2023 Vikram Mark MD Active Last Documented On 11:24AM ; [facility] Plan of Treatment No Plan of Treatment Recorded Assessments Includes: Assessments for all patient encounters No Assessments Recorded Medical Equipment - Implanted Devices Includes: Current and historical Devices No Medical Equipment Recorded Medications Includes: Current and historical Medications Current Medications (continue as prescribed) Meloxicam 7.5 MG Oral Tablet 12/22/2023 Provider: Diagnosis: Last Documented On 4 11:26AM By Evelyn Martinez ; [facility], [facility] Meloxicam 7.5 MG Oral Tablet 09/21/2023 Provider: Diagnosis: Last Documented On 4 11:26AM By Evelyn Martinez ; [facility], [facility] Metoprolol Succinate ER 50 M G Oral Tablet, extended-release 24 hour 09/21/2023 Provider: Diagnosis: Last Documented On 4 11:26AM By Evelyn Soto [facility], [facility] Butalbital-Acetaminophen 50-325 MG Oral Tablet 024 Provider: Diagnosis: Last Documented On 4 11:26AM By Evelyn Martinez ; [facility], [facility] Medications Administered Includes: Administered Medications in patient's chart No Administered Medications Recorded Vital Signs Includes: Vital Signs from 05/07/2023 through 05/07/2024 Vital Name 12/26/2023 11:25A Height (in) 67 Weight (lb) 157 Body Mass Index 24.6 Body Surface Area 1.8 Note: cme Last Documented: On 12/26/2023 11:25A M ; [facility], [facility] Results Includes: Results from 05/07/2023 through 05/07/2024 No Results Recorded For Specified Dates History of Present Illness History of Present Illness not supported for this document type No History of Present Illness Recorded Social History Description Last Updated Alcohol use 12/26/2023 Last Documented On 4 12:05PM ; [facility], [facility] Caffeine use 12/26/2023 Last Documented On 4 12:05PM ; [facility], [facility] No recent change in diet 12/26/2023 Last Documented On 4 12:05PM ; [facility], [facility] Not a current smoker. 12/26/2023 Last Documented On 4 12:05PM ; [facility], [facility] Not exercising regularly 12/26/2023 Last Documented On 4 12:05PM ; [facility], [facility] Not using drugs 12/26/2023 Last Documented On 4 12:05PM ; [facility], [facility] Retired from work 12/26/2023 Last Documented On 4 12:05PM ; [facility], [facility] Smoking Status Unknown Procedures and Surgical History Includes: Procedures from 05/07/2023 through 05/07/2024 Procedures Code Diagnosis Performing Provider Service Location Service Date INJ TENDON SHEATH/LIGAMENT (RIGHT HAND, FOURTH DIGIT) [address] Trigger finger, right ring finger Vikram Mark MD [facility] 12/26/2023 Last Documented On 4 12:49PM ; [facility], [facility] Injection, betamethasone acetate 6mg per cc and betamethason J0702 Trigger finger, right ring finger Vikram aMrk MD [facility] 12/26/2023 Last Documented On 4 12:49PM ; [facility], [facility] Surgical History Last Updated History of hysterectomy 12/26/2023 Last Documented On 4 12:05PM ; [facility], [facility] History of total knee arthroplasty 12/25 Last Documented On 4 12:05PM ; [facility], [facility] Medical History Includes: Medical History in patient's chart Description Last Updated History of arthritis 12/26/2023 Last Documented On 4 12:05PM ; [facility], [facility] History of Irregular Heartbeat 4 Last Documented On 4 12:05PM ; [facility], [facility] Family History Includes: Family History in patient's chart Description Last Updated Diabetes mellitus 12/26/2023 Last Documented On 4 12:05PM ; [facility] Family history of heart disease 12/26/19 24 Last Documented On 4 12:05PM ; [facility] Family history of systemic hypertension 12/26/2023 Last Documented On 4 12:05PM ; [facility] Maternal history of systemic hypertensio n 12/26/2023 Last Documented On 4 12:05PM ; [facility], [facility] Paternal history of family history of he art disease 12/26/2023 Last Documented On 4 12:05PM ; [facility] Sororal history of diabetes mellitus Last Documented On 4 12:05PM ; [facility], [facility] Review of Systems Review of Systems not supported for this document type No Review of Systems Recorded Mental Status Description No anxiety Functional Status No Functional Status Recorded Physical Exam Physical Exam not supported for this document type No Physical Exam Recorded Allergies Includes: Active, inactive, and resolved Allergies No Known Allergies Encounters Includes: Encounters from 05/07/2023 through 05/07/2024 Encounter Provider Location Date Check-In Time Check-Out Time Diagnosis Physician Specified Vikram Mark MD [facility] 12/26/19 24 10:59AM 12:04PM Insurance Includes: Active Insurance Policies Plan Name Member ID Group # Subscriber Relationship Effect turner Dates 1 - [employer] [id number] Marialuisaromel Guajardo Self Clinical Notes Includes: Signed Clinical Notes starting from 05/27/2022 * Progress note Date Encounter Last Documented by 12/26/2023 Physician Specified Last beverly strange on 12/26/2023; 12:05 PM, Vikram Mark MD; [facility], [facility] Active Problems & Conditions - Joint [...]
--- OUTSIDE RECORDS SUMMARY | 2024-05-07 13:38 | XMS_ITS | Encounter Summary ---
Author Organization [facility] Address [address] [place] [address] Care Team Providers Care Director Craft Center Name Role Phone Provider, No Known Primary Care Provider Unavail able Reason for Visit * (Routine) - Closed Specialty Diagnoses / Procedures Referred By Sumit t Referred To Contact Radiology Procedures XR Chest PA & Lateral Mj Menon MD Phone: tel: fax: Referral ID Status Reason Start Date Expiration Date Visits Re quested Visits Authorized [id number] Closed 01/11/2017 01/11/2018 1 1 Encounter Details Date Type Department Care Team (Late st Contact Info) Description 01/11/2017 11:45 AM EDT - 01/11/2017 11:59 PM [place]T [place] [address] [place] [address] [place] [address] Discharge Disposition: Home or Self Care Social [...] on filedocumented in this encounter Care Teams Director Craft Center Relationship Specialty Start Date End Date Provider, [place] [address] PCP - General 01/11/17 02/10/17 documented as of this encounter"
--- NOTE | 2024-05-07 14:10 | EXP.PAIN.SOA ---
[facility] Disclaimer: The information contained in this section may have been updated after the patient was seen, as this information can be updated by other users. Medical History Hypertension Migraine headache Arrhythmia Surgical History Status post right knee replacement (~01/2017) Family History Other Unknown family medical history Social History Smoking Status: Never smoker alcohol intake: never substance use type: denies use current occupational status: other household members: adopted family PM Subjective & Objective Subjective Subjective:: Patient is a pleasant 68-year-old female who presents today for 1 month follow-up. Today she does rate her pain and 0 out of 10 while seated however does state that when she is up moving around and doing certain positions such as bending, twisting or lifting that the pain goes to a 8 out of 10. Patient denies any new falls or injuries. She does state that this is still the same pain that we have been treating her for. Patient did previously have her first lumbar medial branch block bilaterally L4-L5 and L5-S1 back on April 10, 2024 that did provide 100% relief for 24 hours and then slowly decrease down over the next 2 weeks. Patient at her last visit was still getting some improvement well enough that she did not need any additional injections however today she does state that she would like to see about repeating her prior injection because the pain has gotten worse. Patient has been doing meloxicam 15 mg daily along with a SI stimulator belt that does help decrease her pain down. She states this is the only thing keeping her able to do more currently. Patient denies any other changes. She has continued to do at home exercising and stretching for longer than 12 weeks. Her Rip has been reviewed and is appropriate. Review of Systems: General: No recent weight changes, no fever, no sleep disturbances Respiratory: No cough, no shortness of air, no recurring pulmonary infections Cardiovascular/peripheral vascular: No chest pain, no palpitations, no edema, no shortness of breath Gastrointestinal: No new onset incontinence, normal bowel movements reported Genitourinary: No new onset incontinence Musculoskeletal: Low back pain Psychiatric: [Normal mood/affect] Neurological: [Denies weakness in extremities], [denies balance issues] Pain at rest (0-10 scale): 8 Objective Objective:: Physical Exam: General: Alert and oriented x3, no acute distress, pleasant and cooperative Lungs: Respirations even and unlabored, symmetrical chest expansion Eyes: PERRL Musculoskeletal: Flexion and extension of lumbar [spine] somewhat guarded secondary to pain, [antalgic gait noted] positive Kemps test Neurological: Speech clear, no gross sensory deficit Has patient had previous pain injection?: No Conservative treatment options previously tried: Home exercise plan Length of treatment: Longer than 12 weeks Meds Home Medications and Allergies Home Medications ?Medication ?Instructions ?Recorded ?Confirmed ?Type krill oil 500 mg capsule 1,000 mg PO DIRECTED SUPPLIMENT 09/09/20 04/25/24 History magnesium oxide 140 mg capsule 140 mg PO DAILY 09/09/20 04/25/24 History butalbital 50 mg-acetaminophen 325 1 tab PO Q6HP PRN Headache #60 tabs 09/21/23 04/25/24 Rx mg tablet metoprolol succinate 50 mg 50 mg PO DAILY #90 tabs 09/21/23 04/25/24 Rx tablet,extended release 24 hr (Toprol XL) meloxicam 7.5 mg tablet 7.5 mg PO DAILY #30 tabs 12/22/23 04/25/24 Rx meloxicam 15 mg tablet 15 mg PO DAILY #90 tabs 03/12/24 04/25/24 Rx New Prescriptions to Start Prescriptions: Allergies Allergy/AdvReac Type Severity Reaction Status Date / Time No Known Allergies Allergy Verified 01/31/24 14:24 Assessment and Plan *Assessment and plan (1) Lumbar facet arthropathy: Status: Acute Category: Medical Code(s): M47.816 - Spondylosis without myelopathy or radiculopathy, lumbar region (2) Low back pain: Status: Acute Category: Medical Code(s): M54.50 - Low back pain, unspecified Plan Patient is starting to experience more pain in her low back with a positive Kemps test and limited range of motion of her lumbar spine. Patient did previously have her first lumbar medial branch block they did provide 100% relief for 24 hours and then continue to provide additional improvements over the last month or more. Patient was counseled that due to her increasing pain that she may benefit from a repeat lumbar medial branch block. Risk and benefits were discussed with patient and she would like to proceed forward with this plan of care. Patient was again counseled that if she gets significant relief with her next block that we will plan on proceeding forward with a lumbar RFA at a later date. Patient agrees with this plan of care. Patient will be scheduled for her second lumbar medial branch block bilaterally L4-L5 and L5-S1 under fluoroscopy. Patient has tried and failed conservative therapy including continued at home stretching exercise for longer than 12 weeks. Patient has been instructed to contact the clinic with any concerns before the next appointment. Dr. Huang has reviewed this note and agrees with this plan of care. This note was dictated using voice recognition software and make contain errors or omissions. All injections are used with Lidocaine or Bupivacaine and Depo Medrol.
[2024-05-07 15:59] VITALS: BP 131/68; PULSE 92; RESP 18; O2SAT 96; BMI 24.5
== END 2024-05-07 23:59 | disposition home or self-care (01) ==
LOC: SC.PAIN 13:34
PROVIDERS: PCP Physician Assistant; Visit Provider Nurse Practitioner Family
DX: M47.816 Spondylosis without myelopathy or radiculopathy, lumbar region (principal); M54.50 Low back pain, unspecified; Z96.651 Presence of right artificial knee joint
CPT/HCPCS: 99212; G0463

== ENCOUNTER 2024-06-12 13:02 | Day surgery (SDC) | payer MEDICARE, SELFPAY ==
[2024-06-12 13:15] VITALS: BP 130/70; PULSE 76; RESP 16; TEMP 36.7; O2SAT 93; BMI 24.7
[2024-06-12 14:01] VITALS: BP 133/66; PULSE 75; RESP 16; O2SAT 96
--- NOTE | 2024-06-12 14:36 | P.PCN_ITS ---
Procedure Date: 06/12/24 Time: 14:00 Anesthesiologist:: Franko Dobbins CRNA Complications:: None Pre-procedure Diagnosis:: Degenerative disc lumbar spine multilevels. Lumbar radiculopathy. Lumbar spondylosis. Multilevel lumbar facet arthropathy. Post-procedure Diagnosis:: Same. Indications for Procedure:: Patient is a very pleasant 68-year-old female who comes our clinic today for ROUND TWO of bilateral lumbar medial branch block/facet injections L4-5 and L5- S1 levels. Patient describes low lumbar back pain as constant, dull, aching. Patient describes having difficulty with lumbar flexion, extension, left and right rotation. She reports standing increases pain significantly in the lumbar spine. She rates her pain 8/10. Procedure Details:: Informed consent was obtained and the risk and benefits of the procedure was explained to the patient. Patient was taken to the procedure room where noninvasive monitors were placed, including noninvasive blood pressure cuff as well as pulse oximeter. The area over the lumbar spine was cleansed using chlorhexidine as a cleansing solution. I anesthetized the skin and subcutaneous tissues with 1% Lidocaine. I placed 22-gauge spinal needles into the facet joint/ medial branches of L4-L5, and L5-S1] bilaterally. Needle placement was confirmed with fluoroscopy. After confirmation of needle placement, each site was injected with 1 mL of 1% lidocaine and 0.25 % Marcaine and 10 mg of Depo- Medrol. A total of 80 mg of depo medrol was used for bilateral medial branch blocks of L4-L5, and L5-S1] bilaterally. Patient tolerated the procedure without difficulty. There were no complications. Plan and Disposition:: Patient was discharged without incident.
[2024-06-12] MEDS: methylPREDNISolone ACETATE 80MG/ML VIAL 80 MG (14:51)
[2024-06-12] MEDS: LIDOCAINE 1% 5ML PF VIAL 5 ML (14:51)
[2024-06-12] MEDS: BUPIVACAINE 0.25% 10ML INJ 25 MG IJ (14:51)
[2024-06-12 14:55] VITALS: BP 128/50; PULSE 80; RESP 18; O2SAT 97
[2024-06-12 14:59] VITALS: BP 128/50; PULSE 80; RESP 18; O2SAT 97
== END 2024-06-12 14:01 | disposition home or self-care (01) ==
LOC: SC.PAINP 13:03
PROVIDERS: PCP Physician Assistant; Visit Provider Nurse Anesthetist, Certified Registered
DX: M47.816 Spondylosis without myelopathy or radiculopathy, lumbar region (principal); M51.369 Other intervertebral disc degeneration, lumbar region without mention of lumbar back pain or lower extremity pain
CPT/HCPCS: 64493; 64494; J1010

== ENCOUNTER 2024-06-29 11:42 | Outpatient (POV) | payer MEDICARE, SELFPAY ==
--- NOTE | 2024-06-29 11:49 | EXP.PAIN.SOA ---
[facility] Disclaimer: The information contained in this section may have been updated after the patient was seen, as this information can be updated by other users. Medical History Hypertension Migraine headache Arrhythmia Surgical History Status post right knee replacement (~01/2017) Family History Other Unknown family medical history Social History Smoking Status: Never smoker alcohol intake: never substance use type: denies use current occupational status: other Travel in the last 8 weeks: None household members: adopted family PM Subjective & Objective Subjective Subjective:: Patient is a pleasant 68-year-old female who presents today for follow-up of her second lumbar medial branch blocks bilaterally L4-L5 and L5-S1 on 06/12/2024. Today she rates her pain a 0 out of 10. Patient states she has had 100% relief following this procedure and feels like it is still working well. She states that she has been doing a lot of activity including shoveling snow with no pain. Her Irp has been reviewed and is appropriate. Review of Systems: General: No recent weight changes, no fever, no sleep disturbances Respiratory: No cough, no shortness of air, no recurring pulmonary infections Cardiovascular/peripheral vascular: No chest pain, no palpitations, no edema, no shortness of breath Gastrointestinal: No new onset incontinence, normal bowel movements reported Genitourinary: No new onset incontinence Musculoskeletal: Low back pain Psychiatric: [Normal mood/affect] Neurological: [Denies weakness in extremities], [denies balance issues] Pain at rest (0-10 scale): 0 Objective Objective:: Physical Exam: General: Alert and oriented x3, no acute distress, pleasant and cooperative Lungs: Respirations even and unlabored, symmetrical chest expansion Eyes: PERRL Musculoskeletal: Flexion and extension of lumbar [spine] somewhat guarded secondary to pain Neurological: Speech clear, no gross sensory deficit Has patient had previous pain injection?: Yes Percent improvement in pain since last injection: 100% Conservative treatment options previously tried: Home exercise plan Length of treatment: Longer than 12 weeks Meds Home Medications and Allergies Home Medications ?Medication ?Instructions ?Recorded ?Confirmed ?Type krill oil 500 mg capsule 1,000 mg PO DIRECTED SUPPLIMENT 09/09/20 06/29/24 History magnesium oxide 140 mg capsule 140 mg PO DAILY 09/09/20 06/29/24 History butalbital 50 mg-acetaminophen 325 1 tab PO Q6HP PRN Headache #60 tabs 09/21/23 06/29/24 Rx mg tablet metoprolol succinate 50 mg 50 mg PO DAILY #90 tabs 09/21/23 06/29/24 Rx tablet,extended release 24 hr (Toprol XL) meloxicam 15 mg tablet 15 mg PO DAILY #90 tabs 03/12/24 06/29/24 Rx New Prescriptions to Start Prescriptions: Allergies Allergy/AdvReac Type Severity Reaction Status Date / Time No Known Allergies Allergy Verified 01/31/24 14:24 Assessment and Plan *Assessment and plan (1) Low back pain: Status: Acute Category: Medical Code(s): M54.50 - Low back pain, unspecified (2) Lumbar facet arthropathy: Status: Acute Category: Medical Code(s): M47.816 - Spondylosis without myelopathy or radiculopathy, lumbar region Plan Patient has had 100% relief following her second lumbar medial branch block and does not require any additional injection therapy at this time. Patient will return to clinic in 1 month for reevaluation of symptoms and plan of care. Patient has been instructed to contact the clinic with any concerns before the next appointment. Dr. Huang has reviewed this note and agrees with this plan of care. This note was dictated using voice recognition software and make contain errors or omissions. All injections are used with Lidocaine, Bupivacaine and Depo Medrol. Occasionally urine drug screen is needed to verify patient's compliance with our office pain contract. This is ordered based off specific treatments related to chronic pain with the potential to abuse certain medications.
[2024-06-29 12:06] VITALS: BP 136/69; PULSE 68; RESP 16; TEMP 36.9; O2SAT 98; BMI 24.7
== END 2024-06-29 23:59 | disposition home or self-care (01) ==
LOC: SC.PAIN 11:43
PROVIDERS: PCP Physician Assistant; Visit Provider Nurse Practitioner Family
DX: M54.50 Low back pain, unspecified (principal); M47.816 Spondylosis without myelopathy or radiculopathy, lumbar region; Z96.651 Presence of right artificial knee joint
CPT/HCPCS: 99212; G0463

== ENCOUNTER 2024-08-02 15:08 | Outpatient (POV) | payer MEDICARE, SELFPAY ==
--- NOTE | 2024-08-02 15:29 | EXP.PAIN.SOA ---
[facility] Disclaimer: The information contained in this section may have been updated after the patient was seen, as this information can be updated by other users. Medical History Hypertension Migraine headache Arrhythmia Surgical History Status post right knee replacement (~01/2017) Family History Other Unknown family medical history Social History Smoking Status: Never smoker alcohol intake: never substance use type: denies use current occupational status: other Travel in the last 8 weeks: None household members: adopted family Have you lived/traveled outside [place] in past 30 days?: No Contact w/someone who lives/traveled outside [place] past 30 days?: No Exposure to someone with infectious disease in past 14 days?: No Do you have a fever (greater than 100.4 F or 38 C)?: No Have you tested positive for COVID-19: No Exposed to someone with COVID-19 in past 14 days?: No Do you have a sore throat?: No Do you have a cough?: No Do you have any weakness?: No Do you have any diarrhea?: No Are you experiencing any unusual bleeding?: No Do you have any muscle aches/pain?: No Do you have any abdominal pain?: No Are you experiencing loss of taste or smell?: No PM Subjective & Objective Subjective Subjective:: Patient is a pleasant 68-year-old female who presents today for 1 month follow-up. Today she rates her pain a 0 out of 10. Patient continues to get significant relief from her second lumbar medial branch block bilaterally L4-L5 and L5-S1 that was on 06/12/2024. Patient states she has still been able to move around easier with overall decreased pain and denies any new injuries or falls. Her Rip has been reviewed and is appropriate. Review of Systems: General: No recent weight changes, no fever, no sleep disturbances Respiratory: No cough, no shortness of air, no recurring pulmonary infections Cardiovascular/peripheral vascular: No chest pain, no palpitations, no edema, no shortness of breath Gastrointestinal: No new onset incontinence, normal bowel movements reported Genitourinary: No new onset incontinence Musculoskeletal: Low back pain Psychiatric: [Normal mood/affect] Neurological: [Denies weakness in extremities], [denies balance issues] Pain at rest (0-10 scale): 0 Objective Objective:: Physical Exam: General: Alert and oriented x3, no acute distress, pleasant and cooperative Lungs: Respirations even and unlabored, symmetrical chest expansion Eyes: PERRL Musculoskeletal: Flexion and extension of lumbar spine within normal limits Neurological: Speech clear, no gross sensory deficit Has patient had previous pain injection?: No Conservative treatment options previously tried: Home exercise plan Length of treatment: Longer than 12 weeks Meds Home Medications and Allergies Home Medications ?Medication ?Instructions ?Recorded ?Confirmed ?Type krill oil 500 mg capsule 1,000 mg PO DIRECTED SUPPLIMENT 09/09/20 06/29/24 History magnesium oxide 140 mg capsule 140 mg PO DAILY 09/09/20 06/29/24 History butalbital 50 mg-acetaminophen 325 1 tab PO Q6HP PRN Headache #60 tabs 09/21/23 06/29/24 Rx mg tablet metoprolol succinate 50 mg 50 mg PO DAILY #90 tabs 09/21/23 06/29/24 Rx tablet,extended release 24 hr (Toprol XL) meloxicam 15 mg tablet 15 mg PO DAILY #90 tabs 03/12/24 06/29/24 Rx New Prescriptions to Start Prescriptions: Allergies Allergy/AdvReac Type Severity Reaction Status Date / Time No Known Allergies Allergy Verified 01/31/24 14:24 Assessment and Plan *Assessment and plan (1) Lumbar facet arthropathy: Status: Acute Category: Medical Code(s): M47.816 - Spondylosis without myelopathy or radiculopathy, lumbar region (2) Low back pain: Status: Acute Category: Medical Code(s): M54.50 - Low back pain, unspecified Plan Patient has continued to have longstanding relief following her second lumbar medial branch block and does not require any additional injection therapy interventions at this time. Patient will return to clinic in 1 month for reevaluation of symptoms and plan of care. Patient has been instructed to contact the clinic with any concerns before the next appointment. Dr. Huang has reviewed this note and agrees with this plan of care. This note was dictated using voice recognition software and make contain errors or omissions. All injections are used with Lidocaine, Bupivacaine and Depo Medrol. Occasionally urine drug screen is needed to verify patient's compliance with our office pain contract. This is ordered based off specific treatments related to chronic pain with the potential to abuse certain medications.
[2024-08-02 15:50] VITALS: BP 139/67; PULSE 84; RESP 18; O2SAT 95; BMI 24.5
== END 2024-08-02 23:59 | disposition home or self-care (01) ==
LOC: SC.PAIN 15:09
PROVIDERS: PCP Physician Assistant; Visit Provider Nurse Practitioner Family
DX: M47.816 Spondylosis without myelopathy or radiculopathy, lumbar region (principal); M54.50 Low back pain, unspecified
CPT/HCPCS: 99212; G0463

== ENCOUNTER 2024-10-29 14:45 | Outpatient (POV) | payer MEDICARE, SELFPAY ==
--- NOTE | 2024-10-29 15:08 | A.OFFVIS_ITS ---
[facility] Disclaimer: The information contained in this section may have been updated after the patient was seen, as this information can be updated by other users. Medical History Hypertension Migraine headache Arrhythmia Surgical History Status post right knee replacement (~01/2017) Family History Other Unknown family medical history Social History Smoking Status: Never smoker alcohol intake: never substance use type: denies use current occupational status: other Travel in the last 8 weeks?: None household members: adopted family PM Subjective & Objective Subjective Subjective:: Patient is a pleasant 68-year-old female who presents today for 3-month follow- up. Today she rates her pain a 0 out of 10. She denies any new trauma or injury. Patient does state that overall she is still doing well from her last injection of her lumbar medial branch block bilaterally L4-L5 and L5-S1 back in May. Patient states that she has also been going to the gym on a regular basis and she feels like this is also helping for her chronic low back pain. Patient is prescribed compounded cream from our office and states it really does help and is requesting additional refills. Her Rip has been reviewed and is appropriate. Review of Systems: General: No recent weight changes, no fever, no sleep disturbances Respiratory: No cough, no shortness of air, no recurring pulmonary infections Cardiovascular/peripheral vascular: No chest pain, no palpitations, no edema, no shortness of breath Gastrointestinal: No new onset incontinence, normal bowel movements reported Genitourinary: No new onset incontinence Musculoskeletal: Low back pain Psychiatric: [Normal mood/affect] Neurological: [Denies weakness in extremities], [denies balance issues] Pain at rest (0-10 scale): 0 Objective Objective:: Physical Exam: General: Alert and oriented x3, no acute distress, pleasant and cooperative Lungs: Respirations even and unlabored, symmetrical chest expansion Eyes: PERRL Musculoskeletal: Flexion and extension of lumbar [spine] within normal limits Neurological: Speech clear, no gross sensory deficit Has patient had previous pain injection?: No Conservative treatment options previously tried: Home exercise plan Length of treatment: Longer than 12 weeks Meds Home Medications and Allergies Home Medications ?Medication ?Instructions ?Recorded ?Confirmed ?Type krill oil 500 mg capsule 1,000 mg PO DIRECTED SUPPLIMENT 09/09/20 08/02/24 History magnesium oxide 140 mg capsule 140 mg PO DAILY 09/09/20 08/02/24 History butalbital 50 mg-acetaminophen 325 1 tab PO Q6HP PRN Headache #60 tabs 09/21/23 08/02/24 Rx mg tablet metoprolol succinate 50 mg 50 mg PO DAILY #90 tabs 09/21/23 08/02/24 Rx tablet,extended release 24 hr (Toprol XL) meloxicam 15 mg tablet 15 mg PO DAILY #90 tabs 03/12/24 08/02/24 Rx New Prescriptions to Start Prescriptions: Allergies Allergy/AdvReac Type Severity Reaction Status Date / Time No Known Allergies Allergy Verified 01/31/24 14:24 Assessment and Plan *Assessment and plan (1) Low back pain: Status: Acute Category: Medical Code(s): M54.50 - Low back pain, unspecified (2) Lumbar facet arthropathy: Status: Acute Category: Medical Code(s): M47.816 - Spondylosis without myelopathy or radiculopathy, lumbar region Plan Patient is still doing really well from her second lumbar medial branch block and does not require any additional injection therapy at this time. I will refill the patient's compounded cream and provide additional 5 refills. Patient will return to clinic in 6 months for reevaluation of symptoms and plan of care. Patient has been instructed to contact the clinic with any concerns before the next appointment. Dr. Huang has reviewed this note and agrees with this plan of care. This note was dictated using voice recognition software and make contain errors or omissions. All injections are used with Lidocaine, Bupivacaine and dexamethasone. Occasionally urine drug screen is needed to verify patient's compliance with our office pain contract. This is ordered based off specific treatments related to chronic pain with the potential to abuse certain medications.
[2024-10-29 15:27] VITALS: BP 138/73; PULSE 81; RESP 14; O2SAT 97; BMI 24.7
== END 2024-10-29 23:59 | disposition home or self-care (01) ==
LOC: SC.PAIN 14:45
PROVIDERS: PCP Physician Assistant; Visit Provider Nurse Practitioner Family
DX: M54.50 Low back pain, unspecified (principal); M47.816 Spondylosis without myelopathy or radiculopathy, lumbar region
CPT/HCPCS: 99212; G0463

== ENCOUNTER 2024-12-06 16:27 | Outpatient (CLI) | payer MEDICARE, SELFPAY ==
--- NOTE | 2024-12-06 16:34 | MM_ITS ---
PROCEDURE INFORMATION: Exam: MG Bilateral Screening 3D Mammography Exam date and time: 12/06/2024 4:41 PM Age: 68 years old Clinical indication: Screening. No family history of breast cancer. TECHNIQUE: Imaging protocol: Bilateral Screening tomosynthesis and 2D mammography including computer-aided detection (CAD) when performed. COMPARISON: 1. MG MM DIG SC MAMM IMPLANT BI CAD 06/16/2022 12:54 PM 2. MG DIG MAMM-SCREEN IMPLANT 12/07/2018 8:44 AM FINDINGS: MAMMOGRAPHY: Breast composition: The breasts are heterogeneously dense, which may obscure small masses. Mass: Clustered 0.5 cm mass in the left breast, medial in the CC and along the retroareolar line in the MLO, about 7-11 o'clock, middle 3rd, 2-4 cm from the nipple, CC image [id number] frame 16 and MLO image [id number] frame 27. Architectural distortion: None. Calcifications: No suspicious calcifications. Asymmetric density: None. Skin thickening: None. Axillary adenopathy: None. Other: Subpectoral saline implants. IMPRESSION: Patient will be recalled for left diagnostic mammography with spot compression in CC and MLO unless sonography for further evaluation questionable mass. No mammographic evidence of malignancy on the right. ASSESSMENT: BI-RADS Category 0: Incomplete: Need Additional Imaging Evaluation.
== END 2024-12-06 23:59 | disposition home or self-care (01) ==
LOC: RAD 16:27
PROVIDERS: PCP Physician Assistant; Visit Provider Physician Assistant
DX: Z12.31 Encounter for screening mammogram for malignant neoplasm of breast (principal); R92.333 Mammographic heterogeneous density, bilateral breasts; N63.20 Unspecified lump in the left breast, unspecified quadrant
CPT/HCPCS: 77063; 77067

== ENCOUNTER 2024-12-27 15:41 | Outpatient (CLI) | payer MEDICARE, SELFPAY ==
--- NOTE | 2024-12-27 15:44 | MM_ITS ---
PROCEDURE INFORMATION: Exam: MG Left Diagnostic Breast Tomosynthesis Exam date and time: 12/27/2024 3:51 PM Age: 69 years old Clinical indication: Callback from screening for a left breast finding. TECHNIQUE: Imaging protocol: Left Diagnostic tomosynthesis and 2D mammography including computer-aided detection (CAD) when performed. Unilateral or bilateral exam. COMPARISON: 1. MG MM DIG SC MAMM IMPLANT BI CAD 12/06/2024 4:41 PM 2. MG MM DIG SC MAMM IMPLANT BI CAD 06/16/2022 12:54 PM FINDINGS: MAMMOGRAPHY: Breast composition: The breasts are heterogeneously dense, which may obscure small masses. Breast mammogram findings: There is a partially circumscribed ovoid mass in the left lower inner quadrant best seen on the spot compression views that measures 0.5 cm, located at a distance of 2-3 cm from the nipple. No associated distortion or suspicious calcifications. IMPRESSION: Partially circumscribed mass in the left lower inner quadrant persists on additional spot compression views. A targeted ultrasound of the left breast is recommended. ASSESSMENT: BI-RADS Category 0: Incomplete- Need Additional Imaging Evaluation.
== END 2024-12-27 23:59 | disposition home or self-care (01) ==
LOC: RAD 15:41
PROVIDERS: PCP Physician Assistant; Visit Provider Physician Assistant
DX: N63.24 Unspecified lump in the left breast, lower inner quadrant (principal); R92.332 Mammographic heterogeneous density, left breast
CPT/HCPCS: 77061; 77065; G0279

== ENCOUNTER 2025-01-16 13:00 | Outpatient (CLI) | payer MEDICARE, SELFPAY ==
--- OUTSIDE RECORDS SUMMARY | 2025-01-16 13:04 | XMS_ITS | Clinical Summary ---
Author Organization [facility] Address [address] [place] [address] Care Team Providers Care Oil Well Logger Name Role Phone Meredith Conti Primary Care Provider [phone] Allergies Active Allergy Reactions Criticality Noted Date [...] (04/12/2019): Added automatically from request for surgery [id number] Acute blood loss anemia, mild, asymptomatic 02/2017 [...] 77 06/30/2020 1:23 PM EST Temperature 36.8 C (98.2 F) 07/13/2019 12:42 PM EST Respiratory Rate 18 07/13/2019 12:42 PM EST Oxygen Saturation 96% 06/30/2020 1:23 PM EST Inhaled Oxygen Concentration - - Weight 68.5 kg (151 lb) 06/30/2020 1:23 PM EST Height 170.2 cm (5' 7.01 ) 06/30/2020 1:23 PM ES T Body Mass Index 23.64 06/30/2020 1:23 PM EST Plan of Treatment Health Maintenance Due Date Last Done Comments DXA SCAN 1956 TDAP/TD VACCINES (1 - Tdap) 12/16/1975 MAMMOGRAM 1996 COLOGUARD 2001 COLON CANCER SCREENING 5 YEAR SIGMOIDOSCOPY 2001 COLONOSCOPY 2001 [address] CANCER SCREENING 2001 CT COLONOGRAPHY 2001 FECAL OCCULT BLOOD TEST 2001 FIT Testing (1 year) 2001 Pneumococcal Vaccine 50+ (1 of 1 - PCV) 2006 ZOSTER VACCINE (1 of 2) 2006 ANNUAL PHYSICAL 01/11/2017 HEPATITIS C SCREENING 01/11/2017 COVID-19 Vaccine ( season) 2024 INFLUENZA VACCINE 03/13/2025 Medical Devices Implanted Type Area Car Conditioner Device Identifier Shelf Expiration Date Model / Serial / Lot Cmt Bone Simplex/P Full Dose 10/Pk - [id number] Implanted:Qty: 2 on 01/18/2017 by Mj Menon MD at [facility] Implant Right: Knee ASHLEY KIERAN 06/12/2019 [id number] / / [id number] Base Tib Attune Cmt Rp Sz3 - [id number] Implanted:Qty: 1 on 01/18/2017 by Mj Menon MD at [facility] Implant Right: Knee DEPUY 02/10/2026 [id number] / / [id number] Comp Fem Attune Cmt Ps Nrw Sz4 Rt - [id number] Implanted:Qty: 1 on 01/18/2017 by Mj Menon MD at [facility] Implant Right: Knee DEPUY 08/10/2026 [id number] / / [id number] Comp Pat Attune Cmt Medl Gisselle 32mm - [id number] Implanted:Qty: 1 on 01/18/2017 by Mj Menon MD at [facility] Implant Right: Knee DEPUY 09/10/2021 [id number] / / Insrt Tib Attune Ps Rp Sz4 6mm - [id number] Implanted:Qty: 1 on 01/18/2017 by Mj Menon MD at [facility] Implant Right: Knee DEPUY 07/13/2021 [id number] / / [id number] Totl Kn Attune Depuy [id number] - [id number] Implanted:Qty: 1 on 01/18/2017 by Mj Menon MD at [facility] Implant Right: Knee DEPUY CAPKNEETOTALD EP5 / / Comp Pat Attune Cmt Medl Gisslele 32mm - [id number] Implanted:Qty: 1 on 07/12/2019 by Mj Menon MD at [facility] Implant Left: Knee DEPUY 05/12/2024 [id number] / / [id number] Insrt Tib Attune Ps Rp Sz4 6mm - [id number] Implanted:Qty: 1 on 07/12/2019 by Mj Menon MD at [facility] Implant Left: Knee DEPUY 10/11/2023 [id number] / / [id number] Totl Kn Attune Depuy [id number] - [id number] Implanted:Qty: 1 on 07/12/2019 by Mj Menon MD at [facility] Implant Left: Knee DEPUY CAPKNEETOTALD EP5 / / Base Tib Attune Cmt Rp S Pls Sz3 - [id number] Implanted:Qty: 1 on 07/12/2019 by Mj Menon MD at [facility] Implant Left: Knee DEPUY 03/12/2028 [id number] / / [id number] Comp Fem Attune Cmt Ps Nrw Sz4 Lt - [id number] Implanted:Qty: 1 on 07/12/2019 by Mj Menon MD at [facility] Implant Left: Knee DEPUY 10/10/2028 [id number] / / [id number] Cmt Bone Simplex/P Full Dose 10/Pk - [id number] Implanted:Qty: 2 on 07/12/2019 by Mj Menon MD at [facility] Implant Left: Knee ASHLEY KIERAN 06/12/2021 [id number] / / [id number] Insurance Advance Directives * CPR (Attempt to Resuscitate) [...] Of Support Discussed With: Patient Care Teams Oil Well Logger Relationship Specialty Start Date End Date Meredith Conti PA PCP - General Physician Supervisor Product Inspection 02/11/17
--- NOTE | 2025-01-16 13:08 | US_ITS ---
PROCEDURE INFORMATION: Exam: US Left Breast, Complete Exam date and time: 01/16/2025 1:02 PM Age: 69 years old Clinical indication: Abnormal findings on imaging; Left; Additional info: Mass on left breast TECHNIQUE: Imaging protocol: Complete ultrasound of all four quadrants of the left breast and the retroareolar regions, including ultrasound of the axilla when performed. COMPARISON: MG MM DX IMPLANT LT W/BLANCA 12/27/2024 3:51 PM FINDINGS: ULTRASOUND: Breast ultrasound findings: Sonographic images of the left breast including the retroareolar region, all 4 quadrants and the axilla do not demonstrate any solid or cystic masses. No architectural distortion or acoustical shadowing. No skin thickening or axillary adenopathy. IMPRESSION: The 0.5 cm probably benign mass in the left lower inner quadrant on mammography is not seen on sonography. In retrospect, the mass was likely present on mammogram dated 06/16/2022 but is better seen on the most recent examination due to differences in technique. A six-month follow-up diagnostic left mammogram is recommended to ensure stability over time ASSESSMENT: BI-RADS Category 3: Probably benign.
== END 2025-01-16 23:59 | disposition home or self-care (01) ==
LOC: RAD 13:01
PROVIDERS: PCP Physician Assistant; Visit Provider Physician Assistant
DX: N63.24 Unspecified lump in the left breast, lower inner quadrant (principal)
CPT/HCPCS: 76641

== ENCOUNTER 2025-03-11 08:00 | Day surgery (SDC) | payer MEDICARE, SELFPAY ==
--- NOTE | 2025-03-08 07:53 | EXP.HP ---
History of Present Illness *Admission Date: 03/11/25 *History of present illness: Mrs. Guajardo is a 69-year-old female who is here for screening/surveillance colonoscopy. Her last colonoscopy was in 2012. The examination is deemed medically necessary for screening/surveillance colonoscopy. The patient has been seen, interviewed and examined prior to the procedure by both myself and the anesthesia provider. [facility] Disclaimer: The information contained in this section may have been updated after the patient was seen, as this information can be updated by other users. Medical History Hypertension Migraine headache Arrhythmia Surgical History History of left knee replacement Status post right knee replacement (~01/2017) Family History Other No significant family history Social History (Updated 03/11/25 @ 08:15 by Chante Castillo RN) Smoking Status: Never smoker alcohol intake: never substance use type: denies use current occupational status: retired Travel in the last 8 weeks?: None household members: adopted family caffeine: Yes Have you lived/traveled outside US in past 30 days?: No Contact w/someone who lives/traveled outside US past 30 days?: No Exposure to someone with infectious disease in past 14 days?: No Do you have a fever (greater than 100.4 F or 38 C)?: No Have you tested positive for COVID-19?: No Exposed to someone with COVID-19 in past 14 days?: No Do you have a sore throat?: No Do you have a cough?: No Do you have any weakness?: No Are you experiencing any nausea/vomitting?: No Do you have any diarrhea?: No Are you experiencing any unusual bleeding?: No Do you have any muscle aches/pain?: No Do you have any abdominal pain?: No Are you experiencing loss of taste or smell?: No Other Medical History Have you received the Flu Vaccine for this season: Yes Have you received the Pneumonia Vaccine: Yes Review of Systems Review of Systems Review of systems (narrative): Negative *Cardiovascular Comments: Negative *Gastrointestinal Comments: Negative *Genitourinary Comments: Negative *Musculoskeletal Comments: Negative *Neurologic Comments: Negative Meds Home Medications and Allergies Home Medications ?Medication ?Instructions ?Recorded ?Confirmed ?Type krill oil 500 mg capsule 1,000 mg PO DIRECTED SUPPLIMENT 09/09/20 03/11/25 History magnesium oxide 140 mg capsule 140 mg PO DAILY 09/09/20 03/11/25 History sodium,potassium,mag sulfates 17.5 See Rx Instructions PO .COMPLEX 02/25/25 03/11/25 Rx gram-3.13 gram-1.6 gram oral soln #354 mL (Suprep Bowel Prep Kit) sodium sul 1.479 gram-potas ch See Rx Instructions PO PER PKG DIR 02/27/25 03/11/25 Rx 0.188 gram-magnes sul 0.225 gram colonscopy #24 tabs tablet (Sutab) butalbital 50 mg-acetaminophen 325 1 tab PO Q6HP PRN Headache 03/08/25 03/11/25 History mg tablet (Tencon) cholecalciferol (vitamin D3) 50 50 mcg PO DAILY 03/08/25 03/11/25 History mcg (2,000 unit) capsule (Vitamin D3) meloxicam 15 mg tablet 15 mg PO NEEDED PRN Pain, 03/08/25 03/11/25 History Moderate metoprolol succinate 50 mg 25 mg PO DAILY 03/08/25 03/11/25 History tablet,extended release 24 hr (Toprol XL) multivitamin 1 tab PO DAILY 03/08/25 03/11/25 History New Prescriptions to Start Prescriptions: Allergies Allergy/AdvReac Type Severity Reaction Status Date / Time No Known Allergies Allergy Verified 03/11/25 08:13 Exam *Routine HEENT Exam Head: Present normocephalic Eye: Present EOMI and PERRL ENT: Present mucous membranes moist *Routine Neck Exam Neck: Present supple *Routine Respiratory Exam Respiratory: Present CTA bilaterally *Routine Cardiovascular Exam Cardiovascular: Present RRR *Routine Abdominal Exam Abdominal: Present soft and normoactive bowel sounds; Absent tenderness *Routine Rectal Exam Rectal:: deferred *Routine Genitalia Exam Genitalia:: deferred *Routine Extremities Exam Extremities: Absent cyanosis, clubbing or edema *Routine Skin Exam Skin: Present warm; Absent rash *Routine Neurological Exam Neurological: Present alert and oriented X3 Assessment and Plan *Assessment and plan (1) Screening for colon cancer: Status: Acute Category: Medical Code(s): Z12.11 - Encounter for screening for malignant neoplasm of colon Plan A/P: 1. Screening for colon cancer is the preprocedural diagnosis. The patient will be anesthetized/sedated using MAC sedation. The patient has been seen and examined. Cardiac and lung assessment prior to the examination is stable. Proceed with planned screening colonoscopy.
[2025-03-08 11:15] VITALS: BMI 24.3
--- NOTE | 2025-03-11 06:56 | P.PCN_ITS ---
[facility] Procedure Note Date: 03/11/25 Time: 09:40 Procedure Note:: Colonoscopy Procedure Report: Colonoscopy with cold snare polypectomy, snare cautery and Endo Clip placement Endoscopist: Leonardo Soriano II, MD Referring physician: Meredith Conti PA-C Date of Procedure: March 11, 2025 Equipment: Solexant [id number] adult colonoscope Sedation: MAC sedation Indication: Mrs. Guajardo is a 69-year-old female who is here for screening/surveillance colonoscopy. Her last colonoscopy was in 2012. The patient reports no abdominal pain, weight loss, change in her bowel habits or rectal bleeding. She reports no family history of colon cancer. The examination is deemed medically necessary for screening/surveillance colonoscopy. Procedure: Prior to the procedure, a history and physical exam was performed, and patient's medications and allergies were reviewed. The risks, benefits and alternatives of the sedation and procedure were discussed with the patient. All questions were answered and informed consent was obtained. The patient was brought to the procedure room. Patient identification and proposed procedure were verified by the physician and the nurse. The patient was placed in a left lateral decubitus position and the scope was passed under direct vision. Throughout the procedure, the patient's blood pressure, pulse, and oxygen saturations were monitored continuously. The colonoscopy was accomplished without difficulty. The patient tolerated the procedure well. Findings: On digital rectal examination there was normal rectal tone. There were no external hemorrhoids. The colonoscope was introduced through the anal canal to the rectum and advanced to the cecum. The ileocecal valve and appendiceal orifice were identified. The scope was advanced a short distance into the ileum which appeared grossly normal. The scope was then withdrawn into the colon. The re were 2 polyps (sigmoid x 1 (3 mm) and rectum x 1 (14 to 15 mm). The diminutive sigmoid polyp was removed via cold snare polypectomy. The larger rectal polyp was removed via snare cautery. A single Endo Clip was placed over the rectal polypectomy site to provide hemostasis. The remaining cecum, ascending, transverse, descending, sigmoid and rectum were grossly normal. There were no other mucosal abnormalities identified. Upon retroflexion within the rectum there were grade 1 internal hemorrhoids. The preparation was excellent throughout with [place] Preparation Score of 9. The cecal time was 14 minutes. Impression: 1. Rectal polyp (14 to 15 mm) 2. Sigmoid polyp (3 mm) Plan: I do feel that the larger rectal polyp is an advanced adenoma/tubulovillous adenoma. I will await pathology. I would recommend repeat screening/surveillance colonoscopy again in 3 years.
[2025-03-11 08:15] VITALS: BP 129/69; PULSE 78; RESP 16; TEMP 36.8; O2SAT 94
[2025-03-11] MEDS: LACTATED RINGERS 1000ML 1,000 ML 50 ML IV (08:24)
--- NOTE | 2025-03-11 08:50 | EXP.ANES.CKL ---
[facility] Disclaimer: The information contained in this section may have been updated after the patient was seen, as this information can be updated by other users. Medical History Hypertension Migraine headache Arrhythmia Surgical History History of left knee replacement Status post right knee replacement (~01/2017) Family History Other No significant family history Social History (Updated 03/11/25 @ 08:15 by Chante Castillo RN) Smoking Status: Never smoker alcohol intake: never substance use type: denies use current occupational status: retired Travel in the last 8 weeks?: None household members: adopted family caffeine: Yes Have you lived/traveled outside [place] in past 30 days?: No Contact w/someone who lives/traveled outside US past 30 days?: No Exposure to someone with infectious disease in past 14 days?: No Do you have a fever (greater than 100.4 F or 38 C)?: No Have you tested positive for COVID-19?: No Exposed to someone with COVID-19 in past 14 days?: No Do you have a sore throat?: No Do you have a cough?: No Do you have any weakness?: No Are you experiencing any nausea/vomitting?: No Do you have any diarrhea?: No Are you experiencing any unusual bleeding?: No Do you have any muscle aches/pain?: No Do you have any abdominal pain?: No Are you experiencing loss of taste or smell?: No [facility] Anesthesia Checklist Patient Identification Patient Identification: Arm Band and Family Structural Data Admitted From: Home Planned Operative Procedure/s: Colonoscopy Consent for Planned Operative Procedure(s) Verified: Yes Verified Documents: Surgical Consent and History and Physical NPO Status Verified Time NPO: 00:00 Additional verifications Patient : No Anesthesia Reactions: No Hx Blood Transfusions: No Blood Transfusion Reaction: No Cephalosporin Allergy: No Previous Colonoscopy: Yes Airway Assessment Mallampati Score:: Class II C-Spine Mobility Assessed: Yes TMJ Mobility Assessed: Yes Dentition: Good Dentition Neurological Assessment Level of Consciousness: Awake, Alert and Appropriate Hx Seizures: No Numbness or tingling in extremities: No Anesthesia Plan Anesthesia Risk discussed: Yes ASA Class: II Anesthesia Type: MAC
[2025-03-11 09:42] VITALS: BP 92/49; PULSE 76; RESP 16; TEMP 36.2; O2SAT 97
[2025-03-11 09:52] VITALS: BP 99/55; PULSE 72; RESP 18; TEMP 36.2; O2SAT 98
[2025-03-11 10:02] VITALS: BP 113/62; PULSE 76; RESP 18; TEMP 36.2; O2SAT 99
[2025-03-11 10:12] VITALS: BP 136/71; PULSE 72; RESP 18; TEMP 36.2; O2SAT 99
== END 2025-03-11 10:12 | disposition home or self-care (01) ==
PROVIDERS: PCP Physician Assistant; Visit Provider Internal Medicine Gastroenterology
PROC: 0DJD8ZZ Inspection of Lower Intestinal Tract, Via Natural or Artificial Opening Endoscopic (ICD-10-PCS; CPT 45378; principal; 2025-03-11 09:30)
DX: Z12.11 Encounter for screening for malignant neoplasm of colon (principal); D12.8 Benign neoplasm of rectum; K63.5 Polyp of colon; K64.0 First degree hemorrhoids; I10 Essential (primary) hypertension
CPT/HCPCS: 45385; J2003; J2704; J7120